=== PATIENT | female | born 1965 | race Caucasian/White ===

== ENCOUNTER 2016-09-25 08:20 | Inpatient (IN) | payer OTHER ==
[~2016-09-25] VITALS: Ht 160 cm; Wt 95.2 kg
[~2016-09-25 08:20] MED LIST: ADULT LOW DOSE81 MG PO; AMLODIPINE BESYL5 MG PO; BACLOFEN20 MG PO; CHANTIX1 MG PO; CLINDAMYCIN HC300 MG PO; DULOXETINE HCL30 MG PO; GABAPENTIN300 MG PO; GABAPENTIN800 MG PO; LISINOPRIL20 MG PO; MACROBID 100 M100 MG PO; METFORMIN HCL1000 MG PO; METOPROLOL SUCC50 MG PO; METOPROLOL TART50 MG PO; NORCO 5-325 TA1 EACH PO; OMEPRAZOLE20 MG PO; SIMVASTATIN20 MG PO; TRAZODONE HCL100 MG PO; TRAZODONE HCL50 MG PO; ULTRAM50 MG PO
[2016-09-25] MEDS ORDERED: METHOCARBAMOL750 MG PO (13:10)
[2016-09-25] MEDS ORDERED: ACID CONTROL150 MG PO (13:11)
[2016-10-02] MEDS ORDERED: OMEPRAZOLE40 MG PO (15:02)
[2016-10-02] MEDS ORDERED: BACTRIM DS TAB1 EACH PO (15:07)
[2016-10-02] MEDS ORDERED: NORCO 7.5-3251 EACH PO (15:09)
[2016-10-02] MEDS ORDERED: GEMFIBROZIL600 MG PO (15:09)
--- NOTE | 2016-10-03 08:28 | OR ---
[facility] [address] [place], [place] [address] Signed DATE OF PROCEDURE: 10/02/16 PREOPERATIVE DIAGNOSIS: End-stage osteoarthritis, right hip. POSTOPERATIVE DIAGNOSIS: End-stage osteoarthritis, right hip. PROCEDURE: Right total hip arthroplasty. SURGEON: Simon Hunt MD. ANESTHESIA: Spinal with sedation. SPECIMEN: There were no specimens. COMPLICATIONS: None. BLOOD LOSS: About 600 mL. PROCEDURE IN DETAIL The patient was taken to the operating room. After anesthesia was induced, the patient was sedated. She was placed in the left lateral decubitus position and stabilized with a hip positioner apparatus. She was then prepped and draped in a routine sterile fashion. A slightly curvilinear straight lateral incision was made, centered over the tip of the greater trochanter. The skin was divided sharply. Hemostasis was achieved with electrocautery and the subcutaneous tissue was bluntly spread. The deep fascia was incised in line with the skin incision and the Charnley self-retaining retractor was placed. The anterior third of the gluteus was elevated off of the anterior aspect of the greater trochanter. It was then allowed to retract medially. We then did an anterior capsulectomy. We could then dislocate the hip with external rotation and flexion. Femoral neck osteotomy was accomplished in line with the guide. The head and neck fragment were then removed. A self-retaining retractor was then placed about the acetabulum and the acetabulum was exposed circumferentially. We then prepared the acetabulum with standard reamers and were happy with the fit and fill of 51 mm reamer. We then impacted the 51 trial corrected for version and declination. We then impacted a 52 mm Gription cup and secured it with 3 screws. We then placed the neutral liner in the cup. The proximal femur was then rotated up into the incision and prepared using the standard box chisel, reamer, and broaches. The patient had an extremely small proximal canal and we had a very secure fit with a size #3. We then reduced the hip and took an x-ray. Although we were quite happy with alignment and position of th e femoral component, the acetabulum clearly had not been adequately medialized. We therefore withdrew all of the trials from the femur. We took the poly liner of the acetabular cup and removed the screws and took the cup out. We then re-reamed all the way down to the Electronically Signed By: SIMON HUNT MD 10/03/16 0828 PATIENT NAME: KIESHA DUNCAN OPERATIVE REPORT DATE OF : 61 PHYSICIAN: SIMON HUNT MD REPORT #: [id number] REPORT IS CONFIDENTIAL AND NOT TO BE RELEASED WITHOUT AUTHORIZATION [facility] [address] [place], [place] [address] Signed medial wall. We reinserted the cup, replaced the screws, and put in the new neutral liner. Repeat x-rays show dramatically improved alignment and position in terms of medialization of the cup. The wound was then gently irrigated. The femur was then rotated back up into the wound. A size 3 trial femoral stem was again impacted. We then trialed the reduction. Alignment and position of the component seemed excellent, although she seemed to have a little medial and lateral play. We therefore re-trialed with a high offset implant and they were much happier with the alignment, position, and stability. We therefore impacted the real femoral component. We trialed a 1.5 and a 5 mm head and we were happier with the stability of the 5 mm head. We therefore put a 5 mm 36 head on the Bhatt taper and reduced the hip. At this point, we had good motion, good stability, and good range of motion. The wound was copiously irrigated and closed in a standard fashion. Sterile dressings were applied and she was awakened and taken to recovery room, where she arrived in stable condition. Counts were correct and antibiotic protocols were followed. MD AMBROSE LaceyB/Yamiletl /[id number] cc: NISHI Cavazos Electronically Signed By: SIMON HUNT MD 10/03/16 0828 PATIENT NAME: IKESHA DUNCAN OPERATIVE REPORT DATE OF : 61 PHYSICIAN: SIMON HUNT MD REPORT #: [id number] REPORT IS CONFIDENTIAL AND NOT TO BE RELEASED WITHOUT AUTHORIZATION
[2016-10-04] MEDS ORDERED: OXYCODONE HCL5 MG PO (10:08)
[2016-10-04] MEDS ORDERED: XARELTO10 MG PO (10:09)
[2016-10-04] MEDS ORDERED: DILAUDID4 MG PO (10:09)
[2016-10-04] MEDS ORDERED: BACTRIM DS TAB1 EACH PO (10:11)
--- NOTE | 2016-10-05 07:08 | DS ---
[facility] [address] [place], [place] [address] Signed DATE OF DISCHARGE: 10/04/16 FINAL DIAGNOSIS AT THE TIME OF DISCHARGE End-stage osteoarthritis, right hip. PROCEDURES: Right total hip arthroplasty. HISTORY OF PRESENT ILLNESS The patient has a long history of osteoarthritis of the right hip. She was no longer getting adequate relief from conservative modalities and presented for total hip arthroplasty. HOSPITAL COURSE The patient was admitted to Day surgery on 10/02/2016. She was admitted to the day surgery unit and when she had been appropriately evaluated, was taken to the operating room where she underwent an uneventful, uncemented right total hip arthroplasty using a Tchula stem and a pinnacle sector cup. Postoperatively, the patient has done extremely well. She has been afebrile. Her vital signs have been stable. Her hemoglobin has hovered around 10 g/dL keesha. She is getting excellent pain control alternating Dilaudid 4 mg and oxycodone 5 mg every several hours. We have had her on Xarelto 10 mg 1 once a day for DVT prophylaxis. Her incisions look clean and dry and neurovascular exam has been unremarkable. PLAN Discharge her home on all of her routine medications as well as the Dilaudid, Oxycodone, and Xarelto. We will arrange for her to have outpatient physical therapy twice a week for the next 4 weeks and we will have her follow up with us in about 6 weeks. I explained to her that her incision was closed with Dermabond and that this will simply peel off. MD SAMANTHA Lacey/Jim / Electronically Signed By: HAROLDO OVIEDO MD 10/05/16 0708 PATIENT NAME: KIESHA DUNCAN DISCHARGE SUMMARY DATE OF : 61 PHYSICIAN: HAROLDO OVIEDO MD REPORT #: [id number] REPORT IS CONFIDENTIAL AND NOT TO BE RELEASED WITHOUT AUTHORIZATION [address] [place], [place] [address] Signed [id number] cc: NISHI Cavazos Electronically Signed By: HAROLDO OVIEDO MD 10/05/16 0708 PATIENT NAME: KIESHA DUNCAN DISCHARGE SUMMARY DATE OF : 61 PHYSICIAN: HAROLDO OVIEDO MD REPORT #: [id number] REPORT IS CONFIDENTIAL AND NOT TO BE RELEASED WITHOUT AUTHORIZATION
== END 2016-10-04 10:35 | disposition home or self-care (01) | DRG 470 ==
LOC: DSVR 10-02 05:35 → MS 10-02 06:45
PROVIDERS: ADMIT Orthopaedic Surgery
PROC: 0SR902Z Replacement of Right Hip Joint with Metal on Polyethylene Synthetic Substitute, Open Approach (ICD-10-PCS; principal; 2016-10-02 06:45)
DX: M16.11 Unilateral primary osteoarthritis, right hip (principal); I10 Essential (primary) hypertension; F31.9 Bipolar disorder, unspecified; G89.29 Other chronic pain; K21.9 Gastro-esophageal reflux disease without esophagitis; E11.9 Type 2 diabetes mellitus without complications; F51.04 Psychophysiologic insomnia; I25.10 Atherosclerotic heart disease of native coronary artery without angina pectoris; I25.2 Old myocardial infarction; F17.210 Nicotine dependence, cigarettes, uncomplicated; E66.01 Morbid (severe) obesity due to excess calories; R33.9 Retention of urine, unspecified; E78.5 Hyperlipidemia, unspecified; Z95.5 Presence of coronary angioplasty implant and graft; Z68.37 Body mass index [BMI] 37.0-37.9, adult; Z79.82 Long term (current) use of aspirin; Z79.84 Long term (current) use of oral hypoglycemic drugs; Z79.891 Long term (current) use of opiate analgesic; Z79.899 Other long term (current) drug therapy; Z88.5 Allergy status to narcotic agent; Z88.0 Allergy status to penicillin; Z88.8 Allergy status to other drugs, medicaments and biological substances
CPT/HCPCS: 01214; 36415; 72170; 73501; 80048; 85025; 94760; 94762; 97110; 97116; 97162; 99406; C1776; J0690; J1100; J1200; J1885; J2250; J2270; J2274; J2405; J2704; J2765; J3010; J3370; J7120

== ENCOUNTER → 2017-06-22 | Emergency (ER) | payer OTHER ==
[~2017-06-22] VITALS: Ht 160 cm; Wt 95.2 kg
[~2017-06-22] MED LIST changes: +ACID CONTROL150 MG PO; +BACTRIM DS TAB1 EACH PO; +DILAUDID4 MG PO; +GEMFIBROZIL600 MG PO; +METHOCARBAMOL750 MG PO; +NORCO 7.5-3251 EACH PO; +OMEPRAZOLE40 MG PO; +OXYCODONE HCL5 MG PO; +XARELTO10 MG PO
--- OUTSIDE RECORDS SUMMARY | ~2017-06-22 | XMS | Clinical Summary ---
Demographics + + + | Address | [address] | | | [place] [address] | + + + | Home Phone | | + + + | Preferred Language | Unknown | + + + | Marital Status | Single | + + + | Sabianist Affiliation | Unknown | + + + | Race | Unknown | + + + | Ethnic Group | Unknown | + + + Author + + + | Author | [facility] | + + + | Organization | [facility] | + + + | Address | Unknown | + + + | Phone | Unavailable | + + + Support + + +---------+ + | Name | Relationship | Address | Phone | + + +---------+ + | Devyn Patino | ECON | Unknown | | + + +---------+ + Care Team Providers + +------+ + | Care Route Jumper Name | Role | Phone | + +------+ + PP | Unavailable | + +------+ + Allergies + + + + + + | Active Allergy | Reactions | Severity | Noted | Comments | | | | | Date | | + + + + + + | Hydromorphone | Swelling | Medium | //20 | Per pt, tolerates | | | | | 15 | morphine. | + + + + + + | Penicillins | Anaphylaxis | High | 10/15/20 | | | | | | 15 | | + + + + + + | Shellfish Allergy | Anaphylaxis | High | 10/15/20 | | | | | | 15 | | + + + + + + Current Medications + + +--------+---------+------+------+-------+ | Prescription | Sig. | Disp. | Refills | Star | End | Statu | | | | | | t | Date | s | | | | | | Date | | | + + +--------+---------+------+------+-------+ | baclofen | Take 20 mg by mouth | | | | | Activ | | (LIORESAL) 20 MG | 3 (three) times | | | | | e | | tablet | daily. | | | | | | + + +--------+---------+------+------+-------+ | metoprolol | Take 50 mg by mouth | | | | | Activ | | (LOPRESSOR) 50 MG | 2 (two) times daily. | | | | | e | | tablet | | | | | | | + + +--------+---------+------+------+-------+ | omeprazole | Take 40 mg by mouth | | | | | Activ | | (PRILOSEC) 40 MG | 2 (two) times daily. | | | | | e | | capsule | | | | | | | + + +--------+---------+------+------+-------+ | aspirin 325 MG | Take 325 mg by mouth | | | | | Activ | | tablet | daily. | | | | | e | + + +--------+---------+------+------+-------+ | gabapentin | Take 1,800 mg by | | | | | Activ | | (NEURONTIN) 300 MG | mouth every evening. | | | | | e | | capsule | | | | | | | + + +--------+---------+------+------+-------+ | simvastatin | Take 1 tablet by | 30 | 0 | 08/2 | | Activ | | (ZOCOR) 80 MG tablet | mouth nightly. | tablet | | 1/20 | | e | | | | | | 15 | | | + + +--------+---------+------+------+-------+ Active Problems + + + | Problem | Noted Date | + + + | Other chest pain | 10/15/2014 | + + + | HTN (hypertension) | 10/15/2014 | + + + | CAD (coronary atherosclerotic disease) | 10/15/2014 | + + + | Obesity, unspecified | 10/15/2014 | + + + | Dyslipidemia | 10/15/2014 | + + + Social History + +-------+ +--------+------+ | Tobacco Use | Types | Packs/Day | Years | Date | | | | | Used | | + +-------+ +--------+------+ | Current Every Day | | 0.5 | | | | Smoker | | | | | + +-------+ +--------+------+ + + | Tobacco Cessation: Counseling Given: Yes | + + + + +---------+ + | Alcohol Use | Drinks/We | oz/Week | Comments | | | ek | | | + + +---------+ + | No | | | | + + +---------+ + + + + | Sex Assigned at | Date Recorded | | | | + + + | Not on file | | + + + Last Filed Vital Signs + + + + | Vital Sign | Reading | Time Taken | + + + + | Blood Pressure | 159/78 | 10/15/2014 7:18 AM PDT | + + + + | Pulse | 68 | 10/15/2014 7:18 AM PDT | + + + + | Temperature | 36.6 C (97.8 F) | 10/15/2014 7:18 AM PDT | + + + + | Respiratory Rate | 18 | 10/15/2014 7:18 AM PDT | + + + + | Oxygen Saturation | 97% | 10/15/2014 7:18 AM PDT | + + + + | Inhaled Oxygen | - | - | | Concentration | | | + + + + | Weight | 93 kg (205 lb) | 10/15/2014 4:35 AM PDT | + + + + | Height | 160 cm (5' 3") | 10/15/2014 4:35 AM PDT | + + + + | Body Mass Index | 36.31 | 10/15/2014 4:35 AM PDT | + + + + Plan of Treatment Not on file Results Not on filefrom Last 3 Months
--- OUTSIDE RECORDS SUMMARY | ~2017-06-22 | XMS | Clinical Summary ---
Demographics + + + | Address | [address] | | | [place] [address] | + + + | Home Phone | | + + + | Preferred Language | Unknown | + + + | Marital Status | | + + + | Advent Affiliation | Unknown | + + + | Race | Unknown | + + + | Ethnic Group | Unknown | + + + Author + + + | Author | [facility] | | | and [place] | + + + | Organization | [facility] | | | and [facility] | + + + | Address | Unknown | + + + | Phone | Unavailable | + + + Support + + +---------+ + | Name | Relationship | Address | Phone | + + +---------+ + | Devyn Patino | ECON | Unknown | | + + +---------+ + Care Team Providers + +------+ + | Care City Plant Supervisor Name | Role | Phone | + +------+ + | Anna De León | PP | Unavailable | + +------+ + Allergies + + + + + + | Active Allergy | Reactions | Severity | Noted | Comments | | | | | Date | | + + + + + + | Aloe Vera | Swelling | High | 04/12/19 | bilat hand swelled | | | | | 17 | | + + + + + + | Bee Venom | Anaphylaxis, | High | 03/01/19 | | | | Shortness Of Breath, | | 16 | | | | Swelling | | | | + + + + + + | Hydromorphone | Swelling, Nausea And | | 03/01/19 | | | | Vomiting | | 16 | | + + + + + + | Lamotrigine | Other (See Comments) | | 04/12/19 | Reaction not | | | | | 17 | specified in outside | | | | | | medical records | + + + + + + | Alorton | Swelling | | 04/12/19 | Convulsions | | | | | 17 | | + + + + + + | Penicillins | Anaphylaxis, | High | 03/01/19 | | | | Swelling | | 16 | | + + + + + + | Shellfish | Anaphylaxis | High | /07/14 | | | | | | 16 | | + + + + + + Current Medications + + +--------+---------+------+------+-------+ | Prescription | Sig. | Disp. | Refills | Star | End | Statu | | | | | | t | Date | s | | | | | | Date | | | + + +--------+---------+------+------+-------+ | amLODIPine | Take 5 mg by mouth | | 0 | 12/0 | | Activ | | (NORVASC) 5 mg | Daily. | | | 11/14 | | e | | tablet | | | | 15 | | | + + +--------+---------+------+------+-------+ | baclofen | Take 20 mg by mouth | | 0 | 12/2 | | Activ | | (LIORESAL) 20 mg | 3 times daily. | | | 9/20 | | e | | tablet | | | | 15 | | | + + +--------+---------+------+------+-------+ | DULoxetine | Take by mouth 2 | | 0 | 12/2 | | Activ | | (CYMBALTA) [address] | times daily. 60mg in | | | 9/20 | | e | | capsule | the AM and 30mg in | | | 15 | | | | | the evening | | | | | | + + +--------+---------+------+------+-------+ | gabapentin | Take 900 mg by mouth | | 0 | 12/0 | | Activ | | (NEURONTIN) 300 mg | 3 times daily. | | | 9/20 | | e | | capsule | | | | 15 | | | + + +--------+---------+------+------+-------+ | lisinopril | Take 20 mg by mouth | | 0 | 12/3 | | Activ | | (PRINIVIL, ZESTRIL) | 2 times daily. | | | 0/20 | | e | | 20 mg tablet | | | | 15 | | | + + +--------+---------+------+------+-------+ | metoprolol | Take 50 mg by mouth | | 0 | 12/0 | | Activ | | succinate | 2 times daily. | | | 920 | | e | | (TOPROL-XL) 50 mg 24 | | | | 15 | | | | hr tablet | | | | | | | + + +--------+---------+------+------+-------+ | omeprazole | Take 20 mg by mouth | | 0 | 12/3 | | Activ | | (PRILOSEC) 20 mg | 2 times daily. | | | 0/20 | | e | | capsule | | | | 15 | | | + + +--------+---------+------+------+-------+ | traZODone | Take 50 mg by mouth | | | | | Activ | | (DESYREL) 50 mg | nightly. | | | | | e | | tablet | | | | | | | + + +--------+---------+------+------+-------+ | simvastatin | Take 20 mg by mouth | | | | | Activ | | (ZOCOR) 20 mg tablet | nightly. | | | | | e | + + +--------+---------+------+------+-------+ | metFORMIN | Take 1,000 mg by | | | | | Activ | | (GLUCOPHAGE) 1000 MG | mouth 2 times daily | | | | | e | | tablet | (with breakfast & | | | | | | | | dinner). | | | | | | + + +--------+---------+------+------+-------+ | aspirin 81 MG EC | Take 1 tablet by | 30 | | 01/0 | | Activ | | tablet | mouth Daily. | tablet | | 6/20 | | e | | | | | | 16 | | | + + +--------+---------+------+------+-------+ | nitroglycerin | Place 1 tablet under | 100 | 0 | 01/0 | | Activ | | (NITROSTAT) 0.4 mg | the tongue every 5 | tablet | | 5/20 | | e | | SL tablet | minutes as needed | | | 16 | | | | | for Chest pain. | | | | | | + + +--------+---------+------+------+-------+ | traZODone | Take 100 mg by mouth | | | | | Activ | | (DESYREL) 100 mg | nightly. | | | | | e | | tablet | | | | | | | + + +--------+---------+------+------+-------+ | gemfibrozil | Take 600 mg by mouth | | | | | Activ | | (LOPID) 600 mg | 2 times daily | | | | | e | | tablet | (before meals). | | | | | | + + +--------+---------+------+------+-------+ | escitalopram | Take 10 mg by mouth | | | | | Activ | | (LEXAPRO) 10 mg | Daily. | | | | | e | | tablet | | | | | | | + + +--------+---------+------+------+-------+ | raNITIdine | Take 150 mg by mouth | | | | | Activ | | (ZANTAC) 150 MG | 2 times daily. | | | | | e | | capsule | | | | | | | + + +--------+---------+------+------+-------+ | varenicline | Take 0.5 mg by mouth | | | | | Activ | | (CHANTIX) 0.5 mg | 2 times daily. | | | | | e | | tablet | | | | | | | + + +--------+---------+------+------+-------+ | methocarbamol | Take 750 mg by mouth | | | | | Activ | | (ROBAXIN) 750 mg | 4 times daily. | | | | | e | | tablet | | | | | | | + + +--------+---------+------+------+-------+ | pregabalin | Take 50 mg by mouth | | | | | Activ | | (LYRICA) 50 MG | 3 times daily. | | | | | e | | capsule | | | | | | | + + +--------+---------+------+------+-------+ | terbinafine | Apply topically 2 | | | | | Activ | | (LAMISIL) 1% cream | times daily. | | | | | e | + + +--------+---------+------+------+-------+ Active Problems + + + | Problem | Noted Date | + + + | Chest pain | 03/01/2015 | + + + + + | Last Assessment & Plan: - Given her two negative troponins, | | reproducible pain with palpation, and normal EKG, suspect this is | | musculoskeletal pain rather than ischemic pain. - However, | | given her history of CAD, her stent with non-use of aspirin, and | | her ongoing smoking, she is at high risk for new or worsening | | ischemia, and have ordered a stress test for further evaluation | + + + + + | Coronary artery disease | 03/01/2015 | + + + + + | Last Assessment & Plan: - OM1 stent placed in January 2013 | | at [facility]- Restart aspirin, continue statin, | | beta-cecil, BP well-controlled currently- Stop smoking | | | |- Stop smoking | + + + + + | Diabetes mellitus (HCC) | 03/01/2015 | + + + + + | Last Assessment & Plan: - Hold metformin, sliding scale while | | she is here. | + + + + + | Hypertension | 03/01/2015 | + + + + + | Last Assessment & Plan: - Continue amlodipine, metoprolol, | | lisinopril | + + +---------+ + | Smoking | 03/01/2015 | +---------+ + + + | Last Assessment & Plan: - Encouraged smoking cessation and | | she plans to try | + + + + + | Hyperlipidemia | 03/01/2015 | + + + + + | Last Assessment & Plan: - Continue statin | + + Family History + + +------+ + | Medical History | Relation | Name | Comments | + + +------+ + | Premature CHD | Father | | | + + +------+ + | Premature CHD | Maternal | | | | | Grandfath | | | | | er | | | + + +------+ + | Diabetes | Mother | | | + + +------+ + | Hypertension | Mother | | | + + +------+ + | Diabetes | Other | | grandmother | + + +------+ + + +------+--------+ + | Relation | Name | Status | Comments | + +------+--------+ + | Father | | | | + +------+--------+ + | Maternal Grandfather | | | | + +------+--------+ + | Mother | | | | + +------+--------+ + | Other | | | | + +------+--------+ + Social History + +-------+ +--------+ + [...] + +---------+ + | No | 0 | 0.0 | | | | Standard | | | | | drinks or | | | | | | | | | | equivalen | | | | | t | | | + + +---------+ + + + + | Sex Assigned at | Date Recorded | | | | + + + | Not on file | | + + + Last Filed Vital Signs + + + + | Vital Sign | Reading | Time Taken | + + + + | Blood Pressure | 107/62 | 03/01/20151147 PST | + + + + | Pulse | 67 | 03/01/20151147 PST | + + + + | Temperature | 36 C (96.8 F) | 03/01/20151147 PST | + + + + | Respiratory Rate | 18 | 03/01/20151147 PST | + + + + | Oxygen Saturation | 94% | 03/01/2015 1148 PST | + + + + | Inhaled Oxygen | - | - | | Concentration | | | + + + + | Weight | 94.3 kg (208 lb) | 03/01/2015551 PST | + + + + | Height | 160 cm (5' 3") | 03/01/2015542 PST | + + + + | Body Mass Index | 36.85 | 03/01/2015551 PST | + + + + Plan of Treatment + + + + + | Health Maintenance | Due Date | Last Done | Comments | + + + + + | Hepatitis C | | | | | Screening | 4 | | | + + + + + | Diabetic Eye Exam | | | | | (Bi-Annually) | 2 | | | + + + + + | Diabetic Foot Exam | | | | | | 2 | | | + + + + + | Hemoglobin A1c Q3 | | | | | Months | 2 | | | + + + + + | Vaccine: | | | | | Dtap/Tdap/Td (1 - | 3 | | | | Tdap) | | | | + + + + + | Vaccine: | | | | | Pneumococcal 19-64 | 3 | | | | (PPSV23 only) Medium | | | | | Risk (1 of 1 - | | | | | PPSV23) | | | | + + + + + | BREAST CANCER | | | | | SCREENING (MAMM Q2 | 4 | | | | YEARS 50-74) | | | | + + + + + | COLON CANCER | | | | | SCREENING | 4 | | | | (COLONOSCOPY EVERY | | | | | 10 YEARS 50-75) | | | | + + + + + | Statin Therapy | | | | | (optimal intensity) | 5 | | | + + + + + | Vaccine: Influenza | | | | | (Season Ended) | 8 | | | + + + + + Results Not on filefrom Last 3 Months Insurance + +--------+ +--------+ +---------+ | Payer | Benefi | Subscriber | Type | Phone | Address | | | t Plan | ID | | | | | | / | | | | | | | Group | | | | | + +--------+ +--------+ +---------+ | [employer] | MODA | xxxxxxxx | Medica | [phone] | | | MEDICAID HMO | HEALTH | | id | [phone] | | | | MDCD | | | | | | | [place]MO [place] | | | | | + +--------+ +--------+ +---------+ + +--------+ +--------+ + + | Guarantor Name | Accoun | Relation to | Date | Phone | Billing Address | | | t Type | Patient | of | | | | | | | | | | + +--------+ +--------+ + + | ESHA POLLACK | Person | Self [birth year] | Home: | [address] | | | al/Fam | | 1966 | [phone] | [place] [address] | | | zarina | | | [phone] | | + +--------+ +--------+ + +
--- OUTSIDE RECORDS SUMMARY | ~2017-06-22 | XMS | Clinical Summary ---
Demographics + + + | Address | [address] | | | [place] [address] | + + + | Home Phone | | + + + | Preferred Language | Unknown | + + + | Marital Status | Single | + + + | Worship Affiliation | Unknown | + + + | Race | Unknown | + + + | Ethnic Group | Unknown | + + + Author + + + | Author | [facility] | + + + | Organization | [facility] | + + + | Address | Unknown | + + + | Phone | Unavailable | + + + Support + + +---------+ + | Name | Relationship | Address | Phone | + + +---------+ + | Devyn Patino | ECON | Unknown | | + + +---------+ + Care Team Providers + +------+ + | Care Plumbing Service Technician Name | Role | Phone | + [...]
--- OUTSIDE RECORDS SUMMARY | ~2017-06-22 | XMS | Clinical Summary ---
Demographics + + + | Address | [address] | | | [place] [address] | + + + | Home Phone | | + + + | Preferred Language | Unknown | + + + | Marital Status | | + + + | Jehovah'S Witness Affiliation | Unknown | + + + | Race | Unknown | + + + | Ethnic Group | Unknown | + + + Author + + + | Author | [facility] | | | and [place] | + + + | Organization | [facility] | | | and [place] | [...] Team Providers + +------+ + | Care Lawn Care Technician Name | Role | Phone | [...] + + + + + + | Caroleen | Swelling | | 04/12/19 | Convulsions [...] placed in January 2013 | | at [facility]- Restart aspirin, continue statin, | | beta-cecil, [...] | MOD[employer] | xxxxxxxx | Medica | [phone] | | | MEDICAID HMO | HEALTH [...] | 1966 | [phone] | [place] [address] | | | zarina | | | [phone] | | + +--------+ +--------+ + +
--- NOTE | 2017-06-22 21:00 | EKG ---
[facility] [address] [facility] [place], [place] [address] Signed Normal sinus rhythm Normal ECG When compared with ECG of 25-SEP-2016 13:10, No significant change was found Confirmed by EDER CARR MD ([id number]) on 06/22/2017 8:59:58 PM Electronically Signed By: EDER CARR MD 06/22/17 2100 PATIENT NAME: KIESHA DUNCAN Electrocardiogram DATE OF : 61 PHYSICIAN: EDER CARR MD REPORT #: [id number] REPORT IS CONFIDENTIAL AND NOT TO BE RELEASED WITHOUT AUTHORIZATION
== END | disposition home or self-care (01) ==
LOC: ED 18:19
DX: R07.89 Other chest pain (principal); E11.9 Type 2 diabetes mellitus without complications; I10 Essential (primary) hypertension; I25.2 Old myocardial infarction; F17.200 Nicotine dependence, unspecified, uncomplicated; Z91.038 Other insect allergy status; Z88.0 Allergy status to penicillin; Z91.013 Allergy to seafood; Z91.030 Bee allergy status; Z88.8 Allergy status to other drugs, medicaments and biological substances; Z88.5 Allergy status to narcotic agent; Z79.899 Other long term (current) drug therapy; Z79.84 Long term (current) use of oral hypoglycemic drugs
CPT/HCPCS: 71046; 80053; 84484; 85025; 93005; 93010; 99284

== ENCOUNTER 2018-08-28 10:12 | Emergency (ER) | payer OTHER ==
[~2018-08-28] VITALS: Ht 160 cm; Wt 95.2 kg
[~2018-08-28 10:12] MED LIST changes: +RANITIDINE HCL150 MG PO
--- OUTSIDE RECORDS SUMMARY | 2018-08-28 10:16 | XMS ---
PreManage Notification: KIESHA DUNCAN Security Emergency Service Restorer Events No recent Security Events currently on file CRITERIA MET - PDM CARE PROVIDERS [place] Primary Care Current PHONE: Unknown Brian Minor MD Primary [facility] Current B PHONE: Unknown Taryn has no Care Guidelines for this patient. Rosa VISIT COUNT (12 MO.) 2 NAVEEN Diallo TOTAL 2 NOTE: Visits indicate total known visits. ED/UCC VISIT TRACKING (12 MO.) 08/28/2018 10:13 N[facility]EN [facility] [place] TYPE: Emergency COMPLAINT: - RIGHT MIDDLE FINGER LAC 12/05/2017 11:30 N[facility] [place] TYPE: Emergency COMPLAINT: - CHEST PAIN/SOB DIAGNOSES: - Other penitentiary (current) drug therapy - Old myocardial infarction - Nicotine dependence, unspecified, uncomplicated - Hypoxemia - Chest pain, unspecified - alf (current) use of aspirin - Essential (primary) hypertension - alf (current) use of oral hypoglycemic drugs INPATIENT VISIT TRACKING (12 MO.) [facility] DIAGNOSES: - Type 2 diabetes mellitus without complications - Atherosclerotic heart disease of [place] coronary artery without angina pectoris - Chest pain, unspecified - Nicotine dependence, unspecified, uncomplicated - Acute respiratory failure with hypoxia - Chest Pain with shortness of breath - Acute kidney failure, unspecified [id number]
[2018-08-28] MEDS ORDERED: ZOFRAN4 MG PO (12:58)
[2018-08-28] MEDS ORDERED: OXYCODONE HCL5 MG PO (12:58)
== END 2018-08-28 13:19 | disposition home or self-care (01) ==
LOC: ED 10:12
PROC: 0XQQXZZ Repair Right Middle Finger, External Approach (ICD-10-PCS; principal; 2018-08-28)
DX: S61.212A Laceration without foreign body of right middle finger without damage to nail, initial encounter (principal); I10 Essential (primary) hypertension; E11.9 Type 2 diabetes mellitus without complications; F17.200 Nicotine dependence, unspecified, uncomplicated; Z95.5 Presence of coronary angioplasty implant and graft; Z90.49 Acquired absence of other specified parts of digestive tract; Z90.710 Acquired absence of both cervix and uterus; Z88.0 Allergy status to penicillin; Z91.030 Bee allergy status; Z88.5 Allergy status to narcotic agent; Z88.8 Allergy status to other drugs, medicaments and biological substances; Z91.013 Allergy to seafood; Z79.899 Other long term (current) drug therapy; W45.8XXA Other foreign body or object entering through skin, initial encounter
CPT/HCPCS: 12001; 90471; 90715; 99282-25; 99406

== ENCOUNTER 2019-08-20 13:26 | Emergency (ER) | payer OTHER ==
[~2019-08-20] VITALS: Ht 160 cm; Wt 93.0 kg
--- OUTSIDE RECORDS SUMMARY | ~2019-08-20 | XMS | Encounter Summary ---
Demographics + + + | Address | [address] | | | [place] [address] | + + + | Home Phone | | + + + | Preferred Language | Unknown | + + + | Marital Status | | + + + | Jew Affiliation | Unknown | + + + | Race | Unknown | + + + | Ethnic Group | Unknown | + + + Author + + + | Author | [facility] | | | and [place] | + + + | Organization | [facility] | | | and [place] | + + + | Address | Unknown | + + + | Phone | Unavailable | + + + Support + + +---------+ + | Name | Relationship | Address | Phone | + + +---------+ + | Devyn Patino | ECON | Unknown | | + + +---------+ + Care Team Providers + +------+ + | Care Water Well Driller Name | Role | Phone | + +------+ + | Anna De León | PCP | | + +------+ + Encounter Details +--------+ + + + + | Date | Type | Department | Care Team | Description | +--------+ + + + + | 04/12/ | Abstract | [facility] | Bryson Samuel, | | | 2016 | | PHYSIATRY [address] | MD [address] | | | | | [address] | [place] | | | | | [place] | [id number] | | | | | [address] | | | | | | [phone] | | | +--------+ + + + + Social History + +-------+ +--------+ + | Tobacco Use | Types | Packs/Day | Years | Date | | | | | Used | | + +-------+ +--------+ + | Current Every Day | | 1 | | Started: 03/01/1977 | | Smoker | | | | | + +-------+ +--------+ + + + +---------+ + | Alcohol Use | Drinks/Week | oz/Week | Comments | + + +---------+ + | No | 0 Standard drinks | 0.0 | | | | or equivalent | | | + + +---------+ + + + + | Sex Assigned at | Date Recorded | | | | + + + | Not on file | | + + + documented as of this encounter Plan of Treatment Not on filedocumented as of this encounter Visit Diagnoses Not on filedocumented in this encounter"
--- OUTSIDE RECORDS SUMMARY | ~2019-08-20 | XMS | Encounter Summary ---
Demographics + + + | Address | [address] | | | [place] [address] | + + + | Home Phone | | + + + | Preferred Language | Unknown | + + + | Marital Status | | + + + | Quaker Affiliation | Unknown | + + + | Race | Unknown | + + + | Ethnic Group | Unknown | + + + Author + + + | Author | [facility] | | | and [place] | + + + | Organization | [facility] | | | and [...] Team Providers + +------+ + | Care Curator Of Education Name | Role | Phone | + +------+ + | Pcp, Prov Inactive | PCP | | + +------+ + Encounter Details +--------+ + + + + | Date | Type | Department | Care Team | Description | +--------+ + + + + | 12/09/ | Imaging | [facility] | Provider, | | | 2018 | Exam | [facility] | [address] | | | | | [address] | [place] | | | | | [address] [address] | [place] [address] | | | | | [place] [address] | | | | | | [phone] | | | +--------+ + + + [...] Not on filedocumented as of this encounter Procedures + +--------+ + + + | Procedure Name | Priori | Date/Time | Associated Diagnosis | Comments | | | ty | | | | + +--------+ + + + | XR CHEST 1 VIEW | Routin | 12/05/2017 | | Results for this | | | e | 12:00 PM | | procedure are in the | | | | PDT | | results section. | + +--------+ + + + documented in this encounter Results XR Chest 1 Vw (12/05/2017 12:00 PM PDT) + + | Specimen | + + | | + + + + + | Narrative | Performed At | + + + | External films for comparison only | [facility] | | | | | No results will be in the chart. | | + + + + +---------+ + + | Performing | Address | City/State/Zipcode | Phone Number | | Organization | | | | + +---------+ + + | [facility] | | | | + +---------+ + + documented in this encounter Visit Diagnoses Not on filedocumented in this encounter"
--- OUTSIDE RECORDS SUMMARY | ~2019-08-20 | XMS | Encounter Summary ---
Demographics + + + | Address | [address] | | | [place] [address] | + + + | Home Phone | | + + + | Preferred Language | Unknown | + + + | Marital Status | | + + + | Buddhist Affiliation | Unknown | + + + | Race | Unknown | + + + | Ethnic Group | Unknown | + + + Author + + + | Author | [facility] | | | and [place] | + + + | Organization | [facility] | | | [...] Team Providers + +------+ + | Care Director Of Alumni Relations Name | Role | Phone | + +------+ + | Pcp, Prov Inactive | PCP | | + +------+ + Reason for Referral Service/Procedure (Routine) +--------+--------+ + + + + | Status | Reason | Specialty | Diagnoses / | Referred By | Referred To | | | | | Procedures | Contact | Contact | +--------+--------+ + + + + | Closed | | DME | Diagnoses | Esparza, | | | | | | Acute | Joseph H, | | | | | | respiratory | MD [address] | | | | | | failure with | [address] | | | | | | hypoxia | [place], | | | | | | ([facility]) | [place] | | | | | | Smoking | [address] | | | | | | Procedures | Phone: | | | | | | DME: Oxygen | [phone] | | | | | | Therapy | Fax: | | | | | | | [phone] | | +--------+--------+ + + + + Reason for Visit Auth/Cert +--------+--------+ + + + + | Status | Reason | Specialty | Diagnoses / | Referred By | Referred To | | | | | Procedures | Contact | Contact | +--------+--------+ + + + + | | | | Diagnoses | | | | | | | Chest Pain | | | | | | | with | | | | | | | shortness of | | | | | | | breath | | | +--------+--------+ + + + + Encounter Details +--------+ + + + + | Date | Type | Department | Care Team | Description | +--------+ + + + + | 12/05/ | Hospital | [facility] | Jagdish De León | Smoking (Primary | | 2018 - | Encounter | [facility] | DO Enrique [address] | Dx); Chest pain, | | | | [address] [place] | [address] [place] | unspecified type; | | 12/09/ | | [place] [address] | [place] [address] | Coronary artery | | 2018 | | [phone] | [phone] | disease involving | | | | | | upper [place] heart, angina | | | | | | presence | | | | | | unspecified, | | | | | | unspecified vessel | | | | | | or lesion type; Type | | | | | | 2 diabetes mellitus | | | | | | without | | | | | | complication, | | | | | | without long-term | | | | | | current use of | | | | | | insulin ([facility]); Acute | | | | | | respiratory failure | | | | | | with hypoxia (HCC); | | | | | | Acute kidney injury | | | | | | (HCC) | +--------+ + + + + Social [...] + + documented as of this encounter Last Filed Vital Signs + + + + + | Vital Sign | Reading | Time Taken | Comments | + + + + + | Blood Pressure | 149/84 | 12/09/2017 8:04 AM | | | | | PDT | | + + + + + | Pulse | 78 | 12/09/2017 12:28 PM | | | | | PDT | | + + + + + | Temperature | 36.1 C (97 F) | 12/09/2017 8:04 AM | | | | | PDT | | + + + + + | Respiratory Rate | 18 | 12/09/2017 12:28 PM | | | | | PDT | | + + + + + | Oxygen Saturation | 93% | 12/09/2017 12:28 PM | Sitting in chair, | | | | PDT | denies distress. | + + + + + | Inhaled Oxygen | - | - | | | Concentration | | | | + + + + + | Weight | 98.8 kg (217 lb 13 | 12/05/2017 9:40 PM | | | | oz) | PDT | | + + + + + | Height | 160 cm (5' 3") | 12/05/2017 9:40 PM | | | | | PDT | | + + + + + | Body Mass Index | 38.58 | 12/05/2017 9:40 PM | | | | | PDT | | + + + + + documented in this encounter Discharge Summaries Joseph Esparza MD - 12/09/2017 1:10 PM PDTFormatting of this note might be different f rom the original. DISCHARGE SUMMARY Patient Name: Esha Pollack : 1965 Date of Admission: 12/05/2017 Date of Discharge: 12/09/17 Admitting Physician: Jagdish De León DO Discharging Physician: Joseph Esparza MD Primary Care Provider: Prov Inactive Pcp Discharge Diagnoses: Principal Problem: Acute respiratory failure with hypoxia Active Problems: Chest pain Coronary artery disease Diabetes mellitus Smoking Hyperlipidemia Acute kidney injury Hypertension Resolved Problems: * No resolved hospital problems. * Patient Active Problem List Diagnosis Chest pain Coronary artery disease Diabetes mellitus Hypertension Smoking Hyperlipidemia Acute respiratory failure with hypoxia Acute kidney injury Consultants: None Procedures: 12/06 CXR: FINDINGS: The cardiomediastinal silhouette is grossly unremarkable. Progressive patchy opacity is present throughout both lungs. No pneumothorax or pleural effusion is visible. Bones and soft tissues are unremarkable. IMPRESSION - 1. PROGRESSIVE PATCHY OPACITY WITHIN BOTH LUNGS, WHICH COULD REFLECT DIFFUSE LUNG INJURY OR OTHER WIDESPREAD INFECTIOUS OR INFLAMMATORY PROCESS. 12/06 DVT U/S bilaterally: FINDINGS: The bilateral common femoral, greater saphenous, profunda femoral, superficial femoral, and popliteal veins demonstrate normal flow, augmentation, and compression. IMPRESSION - No evidence for DVT. Ct Angiogram Pulmonary Result Date: 12/08/2017 CT ANGIOGRAM PULMONARY CLINICAL INFORMATION: Acute respiratory failure with hypoxia. Evalu ate for PE or pneumonia. COMPARISON: XR CHEST AP PORTABLE dated 12/07/2017; XR CHEST AP PORT ABLE dated 12/06/2017; CT Chest dated 12/05/2017 PROCEDURE: Thin-section images of the entir e chest after the administration of 80 omnipaque 350 intravenous contrast. 3D MIP thin slab images and 2D multiplanar reconstructions performed. At least one of the following CT dose o ptimization techniques were used: Automated exposure control; Adjustment of mA and/or kV acc ording to patient size; Use of iterative reconstruction technique. FINDINGS: PULMONARY ARTER IES: No filling defects in the main, lobar or segmental pulmonary arteries. RIGHT VENTRICLE TO LEFT VENTRICLE RATIO: Not applicable. (Maximum short axis diameter on axial image. Applic able only when pulmonary embolism present. Abnormal greater than or equal to 0.9.) CHEST Kee gs, Pleura and Airways: There are geographic of ground-glass opacity throughout both lungs w ith some small ill-defined areas of consolidation. Mild interstitial septal thickening, mos t prominent posteriorly. No airway narrowing or obstruction. No pleural effusion or pneumot horax. Mediastinum: No significant pericardial, great vessel or esophageal abnormality. No m ediastinal mass. Lymph Nodes: No adenopathy. Upper Abdomen: No significant abnormality in th e visualized upper abdomen. BODY WALL Soft Tissues: The soft tissues of the chest wall are u nremarkable. Bones: No acute fracture or vertebral end plate destruction. No lytic or blasti c lesion. IMPRESSION- No evidence of pulmonary embolism. Severe and extensive groundglass op acities and patchy areas of consolidation in both lungs with a somewhat of a mosaic attenuat ion pattern. -Findings are nonspecific and could be due to pulmonary edema and/or an infecti ous or inflammatory etiology. Mild enlargement of the main pulmonary arteries. Hepatic steat osis. A preliminary report was sent without significant discrepancy. Dictated and Signed by: Song Padilla MD Electronically signed: 12/08/2017 8:34 AM Labs in the last 24 hours: Recent Results (from the past 24 hour(s)) POC Glucose Result Value Ref Range Glucose, POC 218 (H) 70 - 109 mg/dL POC Glucose Result Value Ref Range Glucose, POC 173 (H) 70 - 109 mg/dL Basic Metabolic Panel Result Value Ref Range NA 139 136 - 149 mmol/L K 3.4 (L) 3.5 - 5.1 mmol/L CL 104 98 - 109 mmol/L CO2 24 24 - 31 mmol/L ANION GAP 11 3 - 16 mmol/L GLUCOSE 131 (H) 70 - 109 mg/dL BUN 21 (H) 7 - 18 mg/dL Creatinine, Serum/Plasma 0.98 0.60 - 1.30 mg/dL eGFR if not 59 (L) >=60 mL/min/1.73m2 CALCIUM 9.1 8.3 - 10.5 mg/dL BUN/CREA 21.4 CBC with Differential Result Value Ref Range WBC 12.7 (H) 4.0 - 11.0 K/uL RBC 3.67 (L) 3.70 - 5.20 M/uL Hgb 10.9 (L) 11.5 - 16.0 g/dL Hct 34.1 34.0 - 47.0 % MCV 92.9 83.0 - 101.0 fL MCH 29.7 28.0 - 35.0 pg MCHC 32.0 32.0 - 36.0 g/dL RDW-CV 15.6 (H) <15.0 % RDW-SD 53.9 (H) 35.1 - 46.3 fL Platelet Count 249 140 - 440 K/uL MPV 10.3 6.5 - 12.4 fL % Neutrophils 59.8 45.0 - 82.0 % % Lymphocytes 21.9 20.0 - 45.0 % % Monocytes 6.1 4.0 - 12.0 % % Eosinophils 0.9 0.0 - 5.0 % % Basophils 0.5 0.0 - 1.0 % % Immature granulocytes 10.8 (H) 0.0 - 0.4 % Absolute Neutrophils 7.61 1.80 - 8.50 K/uL Absolute Lymphocytes 2.79 0.60 - 3.20 K/uL Absolute Monocytes 0.78 0.00 - 1.00 K/uL Absolute Eosinophils 0.11 0.00 - 0.40 K/uL Absolute Basophils 0.07 0.00 - 0.10 K/uL Absolute Imm. Granulocytes 1.38 (H) 0.00 - 0.03 K/uL nRBC 1 0 - 2 per 100 WBC's NRBC ABS 0.07 (H) 0.00 - 0.01 K/uL POC Glucose Result Value Ref Range Glucose, POC 236 (H) 70 - 109 mg/dL Reason for Admission: Please refer to the H&P for full details. In short, this is a 52 y.o. female with a histor y of smoking, CAD with stent, who presented with progressively worsening shortness of breath , weakness, and exercise tolerance to [facility], found to have acute respiratory failure with hypoxia, JOELLEN, and slight elevation in troponin, and transferred to [facility]. Problem-Oriented Hospital Course: Acute on chronic respiratory failure with hypoxia: - Heavy smoker, presented with progressive dyspnea over few days prior to admissionwith d ecreased exercise tolerance - CXR shows diffuse patchy opacities, possibly consistent with pneumonia/inflammation, CT a lso shows diffuse nonspecific inflammation - Wasn't able to give sputum sample - She was started on daily IV levofloxacin (anaphylaxis to penicillin), addedSolumedrol f or possible COPD exacerbation - Chest CT showed no PE, DVT study showed no DVT - Procalcitonin on arrival was 2.52, fell to 0.41 by discharge - Echo shows pulmonary hypertension, a new finding since 2016 - Initially required high-flow oxygen, but her oxygen needs quickly declined to 5 L by the next day, and by 12/10, her oxygen saturation was 93% on room air, although her oxygen satur ation fell to 84% with walking, and she was discharged on oxygen with exertion - She felt much better by 12/10, and was discharged with 3 more days of prednisone and levo floxacin - She was strongly advised to quit smoking, but declined nicotine patch because she stated they fall off her skin Chest pain/type 2 NSTEMI: -Likely due to pneumonia/acute respiratory failure -Troponin peaked at0.18, suspect acute respiratory failure with hypoxia caused this probl em - Echocardiogram showed normal LVSF, but new pulmonary hypertension, likely secondary to re spiratory problems - Aspirin daily Acute kidney injury: - Suspect prerenal injury due to hypoxia/NSAID's - Creatinine quickly improved from 1.7 to 0.97, resolved HTN -held medsin setting of initial hypotension, restarted amlodipine 12/07 T2DM -holding home metformin -SSI while inpatient Hypertriglyceridemia -continue home gemfibrozil Urinary retention -s/p failed bladder sling -She straight caths Tobacco abuse -patch available prn Code Status: Full Code Disposition: Home Discharge Condition: Alert, oriented, appropriate Heart RRR, no m/r/g Lungs adequate air movement, scattered rhonchi, no respiratory distress, significant improv ement since admission Abd soft, NT Ext WWP Follow-up Information Prov Inactive Pcp. Contact information: [phone] Discharge Medications New Medications Details albuterol 90 mcg/puff inhaler Inhale 2 puffs into the lungs every 4 hours as needed for Wheezing or Shortness of Breath. amLODIPine 5 mg tablet Take 1 tablet by mouth Daily. aka: NORVASC levoFLOXacin 750 MG tablet Take 1 tablet by mouth Daily for 3 days. aka: LEVAQUIN predniSONE 20 mg tablet Take 2 tablets by mouth Daily for 3 days. aka: DELTASONE Unchanged Medications Details aspirin 81 MG EC tablet Take 1 tablet by mouth Daily. cyclobenzaprine 10 mg tablet Take 10 mg by mouth 3 times daily as needed for Muscle spasms. aka: FLEXERIL gabapentin 300 mg capsule Take 900 mg by mouth 3 times daily. aka: NEURONTIN gemfibrozil 600 mg tablet Take 600 mg by mouth 2 times daily (before meals). aka: LOPID metFORMIN 1000 MG tablet Take 1,000 mg by mouth 2 times daily (with breakfast & dinner). aka: GLUCOPHAGE metoprolol succinate 50 mg 24 hr tablet Take 50 mg by mouth 2 times daily. aka: TOPROL-XL nitroglycerin 0.[address] 1 tablet under the tongue every 5 minutes as needed for Chest pain. aka: NITROSTAT omeprazole 20 mg capsule Take 20 mg by mouth 2 times daily. aka: priLOSEC raNITIdine 150 MG capsule Take 150 mg by mouth 2 times daily. aka: ZANTAC traZODone 100 mg tablet Take 100 mg by mouth nightly. aka: DESYREL Studies With Pending Results: None Greater than 30 minutes were spent on discharge and coordination of post-hospital care. Electronically signed by: Joseph Esparza MD, 12/09/2017 13:10 [facility] documented in this encounter Discharge Instructions Instructions Joseph Esparza MD - 12/09/2017You were admitted with acute respiratory rachel lure with low oxygen, thought to be from a pneumonia. Your oxygen level was so low that it put stress on your heart and kidneys. You have improved greatly, but still oxygen when you are walking, and this has been ordered. You need 3 more days of the antibiotic levofloxacin, and 3 more days of prednisone for lung inflammation. You need to follow up with your doctor as soon as possible, to make sure you continue to improve. The most important thing you can do for your health both short-term a nd long-term, is to quit smoking. You will need a follow up chest xray in the next 2 weeks or so to make sure your pneumonia has cleared. Please take amlodipine for high blood pressure. Take only 1-2 pills of gabapentin at a opal e instead of 3 for now. documented in this encounter Medications at Time of Discharge + + + +---------+ + + | Medication | Sig | Dispensed | Refills | Start | End Date | | | | | | Date | | + + + +---------+ + + | albuterol 90 | Inhale 2 puffs into | 1 | 0 | 12/10/19 | | | mcg/puff inhaler | the lungs every 4 | Inhaler | | 18 | | | | hours as needed for | | | | | | | Wheezing or | | | | | | | Shortness of Breath. | | | | | + + + +---------+ + + | amLODIPine | Take 1 tablet by | 30 | 1 | 12/11/19 | | | (NORVASC) 5 mg | mouth Daily. | tablet | | 18 | | | tablet | | | | | | + + + +---------+ + + | aspirin 81 MG EC | Take 1 tablet by | 30 | 0 | 03/02/19 | | | tablet | mouth Daily. | tablet | | 16 | | + + + +---------+ + + | cyclobenzaprine | Take 10 mg by mouth | | 0 | | | | (FLEXERIL) 10 mg | 3 times daily as | | | | | | tablet | needed for Muscle | | | | | | | spasms. | | | | | + + + +---------+ + + | gabapentin | Take 900 mg by mouth | | 0 | 02/03/20 | | | (NEURONTIN) 300 mg | 3 times daily. | | | 15 | | | capsule | | | | | | + + + +---------+ + + | gemfibrozil | Take 600 mg by mouth | | 0 | | | | (LOPID) 600 mg | 2 times daily | | | | | | tablet | (before meals). | | | | | + + + +---------+ + + | metFORMIN | Take 1,000 mg by | | 0 | | | | (GLUCOPHAGE) 1000 MG | mouth 2 times daily | | | | | | tablet | (with breakfast & | | | | | | | dinner). | | | | | + + + +---------+ + + | metoprolol | Take 50 mg by mouth | | 0 | 02/03/20 | | | succinate | 2 times daily. | | | 15 | | | (TOPROL-XL) 50 mg 24 | | | | | | | hr tablet | | | | | | + + + +---------+ + + | nitroglycerin | Place 1 tablet under | 100 | 0 | 03/01/19 | | | (NITROSTAT) 0.4 mg | the tongue every 5 | tablet | | 16 | | | SL tablet | minutes as needed | | | | | | | for Chest pain. | | | | | + + + +---------+ + + | omeprazole | Take 20 mg by mouth | | 0 | 02/24/20 | | | (PRILOSEC) 20 mg | 2 times daily. | | | 15 | | | capsule | | | | | | + + + +---------+ + + | raNITIdine | Take 150 mg by mouth | | 0 | | | | (ZANTAC) 150 MG | 2 times daily. | | | | | | capsule | | | | | | + + + +---------+ + + | traZODone | Take 100 mg by mouth | | 0 | | | | (DESYREL) 100 mg | nightly. | | | | | | tablet | | | | | | + + + +---------+ + + | levoFLOXacin | Take 1 tablet by | 3 | 0 | 12/10/19 | | | (LEVAQUIN) 750 MG | mouth Daily for 3 | tablet | | 18 | 8 | | tablet | days. | | | | | + + + +---------+ + + | predniSONE | Take 2 tablets by | 6 | 0 | 12/11/19 | | | (DELTASONE) 20 mg | mouth Daily for 3 | tablet | | 18 | 8 | | tablet | days. | | | | | + + + +---------+ + + documented as of this encounter Progress Notes Joseph Esparza MD - 12/09/2017 1:10 PM PDTTo Whom It May Concern: Ms. Esha Pollack was admitted to [facility] between 12/05 and 12/09 with a significant medical problem. She will need to be off work until Saturday, 12/16 in order to recover. Joseph Esparza MD Phyllis Pritchard RRT - 12/09/2017 12:44 PM PDT Esha SpO2 on room air 93% with pulse of 78 at rest, sitting in chair. After walking appr oximately 80 feet, SpO2 dropped to 84% at which point patient stopped, she was reluctant to use oxygen and wanted to continue to walk on room air with no change in SpO2 after an additi onal approximate 40 feet at which point Esha allowed cannula to be applied at 2 liters. C ontinued walking an additional 100 feet on 2 liters oxygen, SpO2 remained at 90%. Recovery to baseline in 2 minutes. 12/09/17 1240 Oxygen Therapy O2 Device room air Home O2 eval performed? yes Resting on RA (%) 93 Exercising on RA (%) 84 (After walking approximately 80 feet.) Resting on O2 (%)(add L/Min in comment) 94 (2 liters per cannula) Exercising on O2 (%)(add L/Min in comment) 90 (2 liters per cannula.) Home Oxygen Interventions ~ Home Oxygen Discharge Planning ~ Performed Electronically signed by: Phyllis Felder RRT 12/09/2017 12:48 Nedra Holland RN - 12/08/2017 5:34 PM PDTAttempted to obtain flu swab, pt educated on procedure before s tarting. Upon attempt of entering swab into nasal cavity, pt became aggressive toward staff, using profanity. Flu swab refused, not obtained. leming, Nedra Gar RN - 12/08/2017 11:30 AM PDTPt arrive d to Rm 431 in stable condition. Denies pain, chest pain, SOB. HRR. Lungs cl, coarse bases. Placed on Droplet to r/o influenza. Electronically signed by Nedra Alford RN at 11/25 1:09 PM Joseph Davila MD - 12/08/2017 8:10 AM PDTFormatting of this note mi ght be different from the original. [facility] Hospitalist Progress Note Esha Pollack is a 52 y.o. female SUBJECTIVE: No chest pain. Slept fairly well last night. Still coughing, not coughing up much. Goo d appetite, but doesn't like the food. VITALS: Temp: 36.6 C (97.9 F), Pulse: 79, Resp: 25, BP: 155/78, SpO2 94 % on heated, high-flow nasal cannula Temp Min: 36.1 C (97 F) Max: 36.9 C (98.4 F) Weight: 98.8 kg (217 lb 13 oz) Intake/Output Summary (Last 24 hours) at 12/08/17 0810 Last data filed at 12/08/17 0100 Gross per 24 hour Intake 150 ml Output 1200 ml Net -1050 ml PHYSICAL EXAM: General: Alert, no distress, sitting up Cardiovascular: RRR, no m/r/g Respiratory: Still diminished BS but better than yesterday, less rhonchi, mild tachypnea, but no respiratory distress Abdomen: Soft, NT Extremities: WWP, minimal edema Thomas catheter present: No DIAGNOSTIC STUDIES: Available data and images were reviewed personally. Significant results and findings are a ddressed here or in the Assessment and Plan. Recent Results (from the past 24 hour(s)) POC Glucose Result Value Ref Range Glucose, POC 181 (H) 70 - 109 mg/dL POC Glucose Result Value Ref Range Glucose, POC 219 (H) 70 - 109 mg/dL Basic Metabolic Panel Result Value Ref Range NA 139 136 - 149 mmol/L K 3.7 3.5 - 5.1 mmol/L CL 106 98 - 109 mmol/L CO2 24 24 - 31 mmol/L ANION GAP 9 3 - 16 mmol/L GLUCOSE 158 (H) 70 - 109 mg/dL BUN 19 (H) 7 - 18 mg/dL Creatinine, Serum/Plasma 0.98 0.60 - 1.30 mg/dL eGFR if not 59 (L) >=60 mL/min/1.73m2 CALCIUM 9.2 8.3 - 10.5 mg/dL BUN/CREA 19.4 CBC with Differential Result Value Ref Range WBC 17.9 (H) 4.0 - 11.0 K/uL RBC 3.74 3.70 - 5.20 M/uL Hgb 11.2 (L) 11.5 - 16.0 g/dL Hct 35.0 34.0 - 47.0 % MCV 93.6 83.0 - 101.0 fL MCH 29.9 28.0 - 35.0 pg MCHC 32.0 32.0 - 36.0 g/dL RDW-CV 15.9 (H) <15.0 % RDW-SD 54.8 (H) 35.1 - 46.3 fL Platelet Count 274 140 - 440 K/uL MPV 10.1 6.5 - 12.4 fL % Neutrophils 79.6 45.0 - 82.0 % % Lymphocytes 10.8 (L) 20.0 - 45.0 % % Monocytes 4.6 4.0 - 12.0 % % Eosinophils 0.1 0.0 - 5.0 % % Basophils 0.4 0.0 - 1.0 % % Immature granulocytes 4.5 (H) 0.0 - 0.4 % Absolute Neutrophils 14.21 (H) 1.80 - 8.50 K/uL Absolute Lymphocytes 1.93 0.60 - 3.20 K/uL Absolute Monocytes 0.83 0.00 - 1.00 K/uL Absolute Eosinophils 0.01 0.00 - 0.40 K/uL Absolute Basophils 0.07 0.00 - 0.10 K/uL Absolute Imm. Granulocytes 0.80 (H) 0.00 - 0.03 K/uL nRBC 0 0 - 2 per 100 WBC's NRBC ABS 0.04 (H) 0.00 - 0.01 K/uL Procalcitonin Result Value Ref Range Procalcitonin 0.41 <=0.50 ng/mL Comment Xr Chest Ap Portable Result Date: 12/07/2017 XR CHEST AP PORTABLE 12/07/2017 9:14 AM HISTORY: Acute respiratory failure with hypoxia/dif fuse inflammation of the lungs. COMPARISON: 12/06/2017 Findings: Patchy bilateral mid and lo wer lung zone airspace disease with mild diffuse thickening of the interstitial/bronchovascu lar markings. Considerations include pneumonia with superimposed component of pulmonary sheng a not entirely excluded. No evidence of pneumothorax or pleural effusion. Heart is enlarged. No acute osseous abnormality. IMPRESSION - Patchy bilateral mid and lower lung zone airspa ce disease with mild diffuse thickening of the interstitial/bronchovascular markings. Consid erations include pneumonia with superimposed component of pulmonary edema not entirely exclu ded. Similar since 12/06/2017. Dictated and Signed by: Song Padilla MD Electronically sig renetta: 12/07/2017 9:51 AM Vas Lower Extremity Venous Bilateral Result Date: 12/06/2017 VAS LOWER EXTREMITY VENOUS BILATERAL 12/06/2017 1:44 PM HISTORY: elevated D-Dimer, negative VQ scan. COMPARISON: None. PROTOCOL: Fulton scale and Doppler images of the lower extremity v eins. FINDINGS: The bilateral common femoral, greater saphenous, profunda femoral, superfici al femoral, and popliteal veins demonstrate normal flow, augmentation, and compression. IMPR ESSION - No evidence for DVT. Dictated and Signed by: Song Padilla MD Electronically sign ed: 12/06/2017 3:[address] Angiogram Pulmonary Result Date: 12/07/2017 CT ANGIOGRAM PULMONARY CLINICAL INFORMATION: Acute respiratory failure with hypoxia. Evalu ate for PE or pneumonia. COMPARISON: XR CHEST AP PORTABLE dated 12/07/2017; XR CHEST AP PORT ABLE dated 12/06/2017; CRCHEST dated 12/05/2017 PROCEDURE: Thin-section images of the entire chest after the administration of 80 omnipaque 350 intravenous contrast. 3D MIP thin slab i mages and 2D multiplanar reconstructions performed. At least one of the following CT dose op timization techniques were used: Automated exposure control; Adjustment of mA and/or kV acco rding to patient size; Use of iterative reconstruction technique. FINDINGS: PULMONARY ARTERI ES: No filling defects in the main, lobar or segmental pulmonary arteries. RIGHT VENTRICLE T O LEFT VENTRICLE RATIO: Not applicable. (Maximum short axis diameter on axial image. Applica ble only when pulmonary embolism present. Abnormal greater than or equal to 0.9.) CHEST Lung s, Pleura and Airways: There are geographic of ground-glass opacity throughout both lungs wi th some small ill-defined areas of consolidation. Mild interstitial septal thickening, most prominent posteriorly. No airway narrowing or obstruction. No pleural effusion or pneumoth orax. Mediastinum: No significant pericardial, great vessel or esophageal abnormality. No me diastinal mass. Lymph Nodes: No adenopathy. Upper Abdomen: No significant abnormality in the visualized upper abdomen. BODY WALL Soft Tissues: The soft tissues of the chest wall are un remarkable. Bones: No acute fracture or vertebral end plate destruction. No lytic or blastic lesion. IMPRESSION: No evidence of pulmonary embolism. Ground-glass opacities and patchy ar eas of consolidation in both lungs. Findings are nonspecific and could be due to pulmonary e lizy and/or an infectious or inflammatory etiology. Signed by: MD Bernard, Dr. Culp Sign Date /Time: 12/07/2017 11:38 PM Report sent: 12/07/2017 11:38:50 PM ASSESSMENT and PLAN: Active Hospital Problems Diagnosis *Acute respiratory failure with hypoxia Acute kidney injury Coronary artery disease Diabetes mellitus Smoking Hyperlipidemia Chest pain Hypertension Resolved Hospital Problems Diagnosis Date Noted Date Resolved No resolved problems to display. Acute on chronic respiratory failure with hypoxia: - Heavy smoker, presented with progressive dyspnea over few days prior to admission with de creased exercise tolerance - CXR shows diffuse patchy opacities, possibly consistent with pneumonia/inflammation, CT a lso shows diffuse nonspecific inflammation, discuss with radiology - Has not been able to give sputum sample - Continue daily IV levofloxacin (procalcitonin elevated), added Solumedrol for possible [place] PD exacerbation - Chest CT showed no PE, give prophylactic enoxaparin, but no PE/DVT - Echo shows pulmonary hypertension, a new finding since 2016 - Suspect she does not need high-flow oxygen at this point, work on transition to [place] O2 tod ay Chest pain/type 2 NSTEMI: -Likely due to pneumonia/acute respiratory failure -Troponin peaked at 0.18, suspect acute respiratory failure with hypoxia caused this proble m - Echocardiogram showed normal LVSF, but new pulmonary hypertension, likely secondary to re spiratory problems - Aspirin daily Acute kidney injury: - Suspect prerenal injury due to hypoxia/NSAID's - Creatinine improved from 1.7 to 0.97, resolved HTN -held meds in setting of initial hypotension, restarted amlodipine 12/07, restart lisinopri l at lower dose 12/08 T2DM -holding home metformin -SSI while inpatient Hypertriglyceridemia -continue home gemfibrozil Urinary retention -s/p failed bladder sling -She straight caths Tobacco abuse -patch available prn Disposition : Likely transfer to floor today Prophylaxis : enoxaparin Current Facility-Administered Medications: acetaminophen 650 mg Oral Q4H PRN albuterol 2.5 mg Nebulization RT Q4H PRN albuterol-ipratropium 3 mL Nebulization RT TID ALPRAZolam 0.25 mg Oral Q6H PRN amLODIPine 5 mg Oral Daily aspirin 81 mg Oral Daily dextrose 12.5 g Intravenous PRN enoxaparin 40 mg Subcutaneous Daily gemfibrozil 600 mg Oral BID AC HYDROcodone-acetaminophen 1 tablet Oral Q4H PRN influenza IM vaccine 0.5 mL Intramuscular One Time Vaccine insulin lispro 0-6 Units Subcutaneous 4 times per day levoFLOXacin 750 mg Intravenous Daily nicotine 1 patch Transdermal Daily PRN predniSONE 40 mg Oral Daily Total time of approximately 25 minutes was spent with the patient and/or patient's family, and/or on the patient's floor/unit, of which more than 50% was spent counseling and/or coord ination the patient's care as outlined above. Joseph Esparza 12/08/2017 8:10 [facility] Joseph Davila MD - 12/07/2017 7:[address] [facility] Hospitalist Progress Note Esha Pollack is a 52 y.o. female SUBJECTIVE: Still short of breath with any activity. Had severe coughing spell and anxiety in the mi ddle of the night, coughed up a significant amount of sputum, although unsure what color it was. Thomas cath placed (has neurogenic bladder). Doesn't like the food but decent appetite . Wants to get up to a chair, back hurts from lying in bed. VITALS: Temp: 36.7 C (98.1 F), Pulse: 83, Resp: 21, BP: 144/71, SpO2 91 % on mechanical ventila tion, high-flow nasal cannula Temp Min: 36.7 C (98.1 F) Max: 37.1 C (98.8 F) Weight: 98.8 kg (217 lb 13 oz) Intake/Output Summary (Last 24 hours) at 12/07/17 0788 Last data filed at 12/07/17 0722 Gross per 24 hour Intake 2576 ml Output 2600 ml Net -24 ml PHYSICAL EXAM: General: Alert, mildly anxious, appropriate Cardiovascular: RRR, no m/r/g Respiratory: Diffuse rhonchi, diminished BS, mild tachypnea, no respiratory distress Abdomen: Soft, NT Extremities: WWP, no edema Thomas catheter present: Yes, neurogenic bladder DIAGNOSTIC STUDIES: Available data and images were reviewed personally. Significant results and findings are a ddressed here or in the Assessment and Plan. Recent Results (from the past 24 hour(s)) Basic Metabolic Panel Result Value Ref Range NA 136 136 - 149 mmol/L K 4.1 3.5 - 5.1 mmol/L CL 102 98 - 109 mmol/L CO2 23 (L) 24 - 31 mmol/L ANION GAP 11 3 - 16 mmol/L GLUCOSE 134 (H) 70 - 109 mg/dL BUN 23 (H) 7 - 18 mg/dL Creatinine, Serum/Plasma 1.33 (H) 0.60 - 1.30 mg/dL eGFR if not 42 (L) >=60 mL/min/1.73m2 CALCIUM 8.9 8.3 - 10.5 mg/dL BUN/CREA 17.3 CBC with Differential Result Value Ref Range WBC 8.6 4.0 - 11.0 K/uL RBC 3.63 (L) 3.70 - 5.20 M/uL Hgb 10.9 (L) 11.5 - 16.0 g/dL Hct 34.7 34.0 - 47.0 % MCV 95.6 83.0 - 101.0 fL MCH 30.0 28.0 - 35.0 pg MCHC 31.4 (L) 32.0 - 36.0 g/dL RDW-CV 16.2 (H) <15.0 % RDW-SD 57.5 (H) 35.1 - 46.3 fL Platelet Count 244 140 - 440 K/uL MPV 10.1 6.5 - 12.4 fL nRBC 1 0 - 2 per 100 WBC's NRBC ABS 0.05 (H) 0.00 - 0.01 K/uL Troponin I Result Value Ref Range Troponin I 0.18 (H) <0.06 ng/mL Differential, Manual Result Value Ref Range % Seg Neutrophils 37.0 (L) 50.0 - 70.0 % % Lymphocytes 24.0 20.0 - 40.0 % % Monocytes 4.0 1.0 - 6.0 % % Eosinophils 5.0 1.0 - 5.0 % % Basophils 1.0 0.0 - 1.0 % % Metamyelocytes 1.0 (H) <0.0 % % Bands 28.0 (H) 0.0 - 5.0 % Absolute Seg Neutrophils 3.18 1.80 - 7.70 K/uL Absolute Lymphocytes 2.06 1.00 - 3.40 K/uL Absolute Monocytes 0.34 0.00 - 0.80 K/uL Absolute Eosinophils 0.43 0.00 - 0.50 K/uL Absolute Basophils 0.09 0.00 - 0.10 K/uL Absolute Metamyelocytes 0.09 K/uL Absolute Bands 2.41 (H) 0.00 - 1.50 K/uL nRBC 1 per 100 WBC's Total Counted 100 PLT MORPHOLOGY Normal POLYCHROMASIA Slight (A) (none) Anisocytosis Slight (A) (none) Variant Lymphocytes Moderate (A) (none) ECHO Complete Result Value Ref Range LVEF-TTE TRANSTHORACIC ECHO 60 % BASELINE BLOOD PRESSURE 121/65 mmHg Patient Weight (lbs) 217lb Patient Height 5f3in LVIDd 4.41 cm FS 32 % LA volume 57.17 mL Aortic arch 3.01 cm AV mean gradient 6 mmHg MV Area by P 1/2 method 3.94 cm2 IVRT 85.64 msec LVOT peak marleni 123.69 cm/s LVOT peak VTI 22.09 cm AV peak marleni 180 cm/s AV VTI 29.00 cm MV peak gradient 3.31 mmHg MV Pressure 1/2 time 55.88 msec LA Volume Index 29 mL/m2 AV LVOT Peak Gradient 6.12 mmHg AV LVOT Mean Gradient 2.3 mmHg TR Peak Gradient 56 mmHg TR Velocity 374.81 cm LV Diastolic Length 4C 7.35 cm LV Systolic Area PSAX 11.75 cm2 LV Gaffney's Biplane EF 60 % AV Acceleration Time 58.01 msec LV ED Volume (Gaffney's) 45.27 ml LV ED Volume Index 23 ml/m2 LV ES Volume 18.46 ml LVOT Mean Velocity 67.19 cm/s MV A' Lateral Velocity 12.52 cm/s MV E' Lateral Velocity 10.07 cm/s MV A' Septal Velocity 10.95 cm/s MV E' Septal Velocity 7 cm/s MV Deceleration Piute 477.04 cm/s2 MV Deceleration Time 190.62 msec MV E/A Ratio 1.01 MV Peak A-Wave 89.96 cm/s MV Peak E-Wave 90.93 cm/s AV Mean Velocity 119.87 cm/s LA/Aorta Ratio 1.41 LA Area 18.78 cm2 LA Systolic Pressure 13.29 mmHg MV E/E SEPTAL 12.99 MV E/E LATERAL 9.03 LA Major 0.2931 cm LV ES Volume Index 9 ml/m2 LV Area Diastolic 19.6 cm2 Aortic Root Diameter 2.99 cm IVS Diastolic Thickness MM 1.21 cm LVPW Diastolic Thickness MM 1.21 cm IVS Systolic Thickness MM 1.24 cm LV Systolic Diameter MM 2.99 cm LVPW Systolic Thickness MM 1.42 cm AV Cusp Seperation MM 1.78 cm LA Systolic Diameter MM 4.23 cm TAPSE 1.9 cm RA PRESSURE 3 mmHg RVSP Estimated 59 mmHg POC Glucose Result Value Ref Range Glucose, POC 186 (H) 70 - 109 mg/dL Urinalysis with Microscopic with Culture if Indicated Result Value Ref Range COLOR Yellow Light Yellow, Yellow, Straw CLARITY Clear Clear PH UA 6.0 5.0 - 8.0 Specific Warren 1.011 1.001 - 1.030 PROTEIN UA 30 mg/dL (A) Negative BLOOD UA Small (A) Negative GLUCOSE UA Negative Negative KETONES UA Trace (A) Negative BILIRUBIN UA Negative Negative NITRITE UA Negative Negative LEUKOCYTES ESTERASE UA Negative Negative UROBILINOGEN UA 4.0 mg/dL (A) 0.2 mg/dL, 1.0 mg/dL, Negative WBC UA 0-2 0 - 2 /HPF RBC UA 0-2 0 - 2 /HPF SQUAMOUS EPITHELIAL UA 2-5 (A) 0 - 2 /LPF BACTERIA UA 1+ (A) Negative /HPF HYALINE CASTS UA 0-2 0 - 2 /LPF Troponin I Result Value Ref Range Troponin I 0.17 (H) <0.06 ng/mL POC Glucose Result Value Ref Range Glucose, POC 207 (H) 70 - 109 mg/dL POC Glucose Result Value Ref Range Glucose, POC 220 (H) 70 - 109 mg/dL Basic Metabolic Panel Result Value Ref Range NA 137 136 - 149 mmol/L K 4.0 3.5 - 5.1 mmol/L CL 106 98 - 109 mmol/L CO2 21 (L) 24 - 31 mmol/L ANION GAP 10 3 - 16 mmol/L GLUCOSE 179 (H) 70 - 109 mg/dL BUN 17 7 - 18 mg/dL Creatinine, Serum/Plasma 0.97 0.60 - 1.30 mg/dL eGFR if not 60 >=60 mL/min/1.73m2 CALCIUM 9.2 8.3 - 10.5 mg/dL BUN/CREA 17.5 CBC with Differential Result Value Ref Range WBC 14.0 (H) 4.0 - 11.0 K/uL RBC 3.69 (L) 3.70 - 5.20 M/uL Hgb 11.0 (L) 11.5 - 16.0 g/dL Hct 34.9 34.0 - 47.0 % MCV 94.6 83.0 - 101.0 fL MCH 29.8 28.0 - 35.0 pg MCHC 31.5 (L) 32.0 - 36.0 g/dL RDW-CV 15.5 (H) <15.0 % RDW-SD 54.1 (H) 35.1 - 46.3 fL Platelet Count 277 140 - 440 K/uL MPV 10.5 6.5 - 12.4 fL nRBC 0 0 - 2 per 100 WBC's NRBC ABS 0.03 (H) 0.00 - 0.01 K/uL Differential, Manual Result Value Ref Range % Seg Neutrophils 63.0 50.0 - 70.0 % % Lymphocytes 15.0 (L) 20.0 - 40.0 % % Monocytes 2.0 1.0 - 6.0 % % Metamyelocytes 1.0 (H) <0.0 % % Bands 19.0 (H) 0.0 - 5.0 % Absolute Seg Neutrophils 8.82 (H) 1.80 - 7.70 K/uL Absolute Lymphocytes 2.10 1.00 - 3.40 K/uL Absolute Monocytes 0.28 0.00 - 0.80 K/uL Absolute Metamyelocytes 0.14 K/uL Absolute Bands 2.66 (H) 0.00 - 1.50 K/uL Total Counted 100 Platelet Estimate Adequate Adequate Anisocytosis Slight (A) (none) REACTIVE LYMPHS Few (A) (none) POC Glucose Result Value Ref Range Glucose, POC 174 (H) 70 - 109 mg/dL Xr Chest Ap Portable Result Date: 12/06/2017 SINGLE AP CHEST 12/06/2017 5:28 AM CLINICAL HISTORY: eval for PNA COMPARISON: Radiography f rom the previous day and 2016 FINDINGS: The cardiomediastinal silhouette is grossly unremark able. Progressive patchy opacity is present throughout both lungs. No pneumothorax or pleu ral effusion is visible. Bones and soft tissues are unremarkable. IMPRESSION - 1. PROGRES SIVE PATCHY OPACITY WITHIN BOTH LUNGS, WHICH COULD REFLECT DIFFUSE LUNG INJURY OR OTHER WIDE SPREAD INFECTIOUS OR INFLAMMATORY PROCESS. Dictated and Signed by: Ulices Jeffery MD Electron ically signed: 12/06/2017 8:27 AM Vas Lower Extremity Venous Bilateral Result Date: 12/06/2017 VAS LOWER EXTREMITY VENOUS BILATERAL 12/06/2017 1:44 PM HISTORY: elevated D-Dimer, negative VQ scan. COMPARISON: None. PROTOCOL: Fulton scale and Doppler images of the lower extremity v eins. FINDINGS: The bilateral common femoral, greater saphenous, profunda femoral, superfici al femoral, and popliteal veins demonstrate normal flow, augmentation, and compression. IMPR ESSION - No evidence for DVT. Dictated and Signed by: Song Padilla MD Electronically sign ed: 12/06/2017 3:11 PM ASSESSMENT and PLAN: Active Hospital Problems Diagnosis *Acute respiratory failure with hypoxia Acute kidney injury Coronary artery disease Diabetes mellitus Smoking Hyperlipidemia Chest pain Hypertension Resolved Hospital Problems Diagnosis Date Noted Date Resolved No resolved problems to display. Acute on chronic respiratory failure with hypoxia: - Heavy smoker, has had progressive dyspnea over few days prior to admission with decreased exercise tolerance - CXR shows diffuse patchy opacities, possibly consistent with pneumonia/inflammation - Sputum culture pending - Continue daily IV levofloxacin (procalcitonin elevated), added Solumedrol for possible [place] PD exacerbation - Would like to check chest CT for PE, although refusing this morning, D-dimer elevated at 2.93, will treat with therapeutic dose enoxaparin until can get CT - Echo shows pulmonary hypertension, a new finding since 2016 - Still requiring high-flow oxygen Chest pain/type 2 NSTEMI: -differential includes PNA, ACS, PE -Troponin peaked at 0.18, suspect acute respiratory failure with hypoxia caused this proble m - Therapeutic enoxaparin for now - Echocardiogram showed normal LVSF, but new pulmonary hypertension, likely secondary to re spiratory problems - Chest CT when able - Aspirin daily Acute kidney injury: - Suspect prerenal injury due to hypoxia/NSAID's - Creatinine improved from 1.7 to 0.97, resolving quickly HTN -held meds in setting of initial hypotension, restart amlodipine 12/07 T2DM -holding home metformin -SSI while inpatient Hypertriglyceridemia -continue home gemfibrozil Hypotension - resolved with fluids Urinary retention -s/p failed bladder sling -bladder scan q6h, straight cath for PVR >600 Tobacco abuse -patch available prn Disposition : Transfer from ICU to stepdown Prophylaxis : enoxaparin Current Facility-Administered Medications: acetaminophen 650 mg Oral Q4H PRN ALPRAZolam 0.25 mg Oral Q6H PRN aspirin 81 mg Oral Daily dextrose 12.5 g Intravenous PRN enoxaparin 1 mg/kg Subcutaneous 2 times per day gemfibrozil 600 mg Oral BID AC HYDROcodone-acetaminophen 1 tablet Oral Q4H PRN influenza IM vaccine 0.5 mL Intramuscular One Time Vaccine insulin lispro 0-6 Units Subcutaneous 4 times per day levoFLOXacin 750 mg Intravenous Daily methylPREDNISolone sodium succinate 40 mg Intravenous Daily nicotine 1 patch Transdermal Daily PRN Total time of approximately 25 minutes was spent with the patient and/or patient's family, and/or on the patient's floor/unit, of which more than 50% was spent counseling and/or coord ination the patient's care as outlined above. Joseph Esparza 12/07/2017 7:45 [facility] Joseph Davila MD - 12/06/2017 9:[address] [facility]G Hospitalist Progress Note Esha Pollack is a 52 y.o. female SUBJECTIVE: Still feels short of breath. Comfortable at rest, but with a few steps becomes very shor t of breath with some chest pressure. Has had significantly more cough recently, but little sputum production. Continues to smoke a pack a day. Shortness of breath has been worsenin g over the last 5 days or so. Takes metoprolol, gemfibrozil, does not take lisinopril at th is point. Takes diclofenac twice daily. 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, heated Temp Min: 36.3 C (97.3 F) Max: 36.7 C (98.1 F) Weight: 98.8 kg (217 lb 13 oz) Intake/Output Summary (Last 24 hours) at 12/06/17 0939 Last data filed at 12/06/17 0916 Gross per 24 hour Intake 800 ml Output 2400 ml Net -1600 ml PHYSICAL EXAM: General: Alert, sitting up, pleasant, no distress Cardiovascular: RRR Respiratory: Mildly increased work of breathing with diminished BS, scattered rhonchi note d Abdomen: Soft, NT, bowel sounds present Extremities: Minimal edema Neurological: Alert and oriented, appropriate Thomas catheter present: No DIAGNOSTIC STUDIES: Available data and images were reviewed personally. Significant results and findings are a ddressed here or in the Assessment and Plan. Recent Results (from the past 24 hour(s)) Hemoglobin A1C Result Value Ref Range Hemoglobin A1c 7.3 (H) 4.3 - 6.0 % Estimated Average Glucose 163 mg/dL Troponin I Result Value Ref Range Troponin I 0.11 (H) <0.06 ng/mL D-Dimer Result Value Ref Range D-DIMER, QUANTITATIVE 2.93 (H) <=0.50 ug/ml Procalcitonin Result Value Ref Range Procalcitonin 2.52 (HH) <=0.50 ng/mL Comment POC Glucose Result Value Ref Range Glucose, POC 139 (H) 70 - 109 mg/dL Basic Metabolic Panel Result Value Ref Range NA 136 136 - 149 mmol/L K 4.4 3.5 - 5.1 mmol/L CL 102 98 - 109 mmol/L CO2 23 (L) 24 - 31 mmol/L ANION GAP 11 3 - 16 mmol/L GLUCOSE 141 (H) 70 - 109 mg/dL BUN 31 (H) 7 - 18 mg/dL Creatinine, Serum/Plasma 1.70 (H) 0.60 - 1.30 mg/dL eGFR if not 31 (L) >=60 mL/min/1.73m2 CALCIUM 8.6 8.3 - 10.5 mg/dL BUN/CREA 18.2 Lipid Panel Result Value Ref Range Triglycerides 365 (H) 35 - 160 mg/dL Cholesterol 164 150 - 200 mg/dL HDL 18 (L) 28 - 83 mg/dL Chol/HDL Ratio 9.1 LDL, Calculated 73 <=130 mg/dL B Type Natriuretic Peptide Result Value Ref Range BNP 216 (H) <100 pg/mL POC Glucose Result Value Ref Range Glucose, POC 177 (H) 70 - 109 mg/dL Basic Metabolic Panel Result Value Ref Range NA 136 136 - 149 mmol/L K 4.1 3.5 - 5.1 mmol/L CL 102 98 - 109 mmol/L CO2 23 (L) 24 - 31 mmol/L ANION GAP 11 3 - 16 mmol/L GLUCOSE 134 (H) 70 - 109 mg/dL BUN 23 (H) 7 - 18 mg/dL Creatinine, Serum/Plasma 1.33 (H) 0.60 - 1.30 mg/dL eGFR if not 42 (L) >=60 mL/min/1.73m2 CALCIUM 8.9 8.3 - 10.5 mg/dL BUN/CREA 17.3 Xr Chest Ap Portable Result Date: 12/06/2017 SINGLE AP CHEST 12/06/2017 5:28 AM CLINICAL HISTORY: eval for PNA COMPARISON: Radiography f rom the previous day and 2016 FINDINGS: The cardiomediastinal silhouette is grossly unremark able. Progressive patchy opacity is present throughout both lungs. No pneumothorax or pleu ral effusion is visible. Bones and soft tissues are unremarkable. IMPRESSION - 1. PROGRES SIVE PATCHY OPACITY WITHIN BOTH LUNGS, WHICH COULD REFLECT DIFFUSE LUNG INJURY OR OTHER WIDE SPREAD INFECTIOUS OR INFLAMMATORY PROCESS. Dictated and Signed by: MD Parker Cameron signed: 12/06/2017 8:27 AM ASSESSMENT and PLAN: Active Hospital Problems Diagnosis Coronary artery disease Diabetes mellitus Smoking Hyperlipidemia *Chest pain Hypertension Resolved Hospital Problems Diagnosis Date Noted Date Resolved No resolved problems to display. Acute respiratory failure with hypoxia: - Heavy smoker, has had progressive dyspnea over last few days with decreased exercise sonya deleon - CXR shows diffuse patchy opacities, possibly consistent with pneumonia/inflammation - Continue daily IV levofloxacin (procalcitonin elevated), add Solumedrol twice daily for p ossible COPD exacerbation - Will check chest CT to evaluate lung parenchyma/check for PE when renal function allows, but given that CXR shows diffuse inflammation, suspect this is the cause of her hypoxia - D-dimer elevated at 2.93, will treat with therapeutic dose enoxaparin until can get CT Chest pain/type 2 NSTEMI: -differential includes PNA, ACS, PE -Troponin trin[place] from 0.11 to 0.18, but suspect acute respiratory failure with hypoxia is anni larsen her symptoms - Therapeutic enoxaparin for now - Echocardiogram pending - Chest CT when renal function stable - Aspirin daily Acute kidney injury: - Suspect prerenal injury due to hypoxia/NSAID's - Creatinine improved from 1.7 to 1.3, monitor closely, check UA HTN -holding home metoprolol in setting of hypotension T2DM -holding home metformin -SSI while inpatient Hypertriglyceridemia -continue home gemfibrozil Hypotension - resolved with fluids -no other current infectious signs, will bolus 500ml NS Urinary retention -s/p failed bladder sling -bladder scan q6h, straight cath for PVR >600 Tobacco abuse -patch available prn Disposition : Continue current care for now, plan for discharge to home Prophylaxis : enoxaparin Current Facility-Administered Medications: acetaminophen 650 mg Oral Q4H PRN aspirin 325 mg Oral Daily dextrose 12.5 g Intravenous PRN gemfibrozil 600 mg Oral BID AC heparin 5,000 Units Subcutaneous 2 times per day HYDROcodone-acetaminophen 1 tablet Oral Q4H PRN influenza IM vaccine 0.5 mL Intramuscular One Time Vaccine insulin lispro 0-6 Units Subcutaneous 4 times per day levoFLOXacin 750 mg Intravenous Daily methylPREDNISolone sodium succinate 40 mg Intramuscular 2 times per day nicotine 1 patch Transdermal Daily PRN sodium chloride 0.9% Intravenous Continuous Total time of approximately 35 minutes was spent with the patient and/or patient's family, and/or on the patient's floor/unit, of which more than 50% was spent counseling and/or coord ination the patient's care as outlined above. Joseph Esparza 12/06/2017 9:39 [facility] documented in this encounter H&P Notes Jagdish De León DO - 12/05/2017 11:46 PM PDTFormatting of this note might be differ ent from the original. [facility]ELIT[facility] READ HOSPITALIST HISTORY & PHYSICAL Patient: Esha Pollack : 1965: Age: 52 y.o. MedRec: [id number] Admission date: 12/05/2017 Hospital day # : 1 Physician author: Jagdish De León DO Today: 12/05/2017 CHIEF COMPLAINT: Chest pain HISTORY OF PRESENT ILLNESS: This is a 52 y.o. female with a history of CAD s/p stents, T2DM, HLD, HTN, tobacco abuse, p resents as transfer from [facility] in [place] where she had been evaluated for chest p ain. She notes that she awoke this morning with chest pain, worse with deep breaths and wor se with activity. She had shortness of breath and a new O2 requirement at [facility] that required non-rebreather to maintain sats >92%. Initial ECG normal, troponin x2 normal, dim er reported as elevated but VQ (in setting of JOELLEN) noted to be low risk study . She has no p rior history of blood clot. Her case was discussed with Dr. Mantilla who will evaluate patien t in am for potential heart cath. At time of admit she notes that her chest pain is stable, worse with inspiration, and that SOB is stable. She denies recent illnesses in last week, no leg pain, no abdominal pain, no palpitations. No N/V, no diarrhea, no other constitutional symptoms. Other 10 point ROS n egative. PAST MEDICAL and SURGICAL HISTORY: Past Medical History: Diagnosis Date Arthritis Bipolar depression (HCC) Calcific shoulder tendinitis Cervicalgia Chronic neck pain Chronic pain Coronary artery disease Diabetes mellitus (HCC) Fibromyalgia GERD (gastroesophageal reflux disease) H/O non-insulin dependent diabetes mellitus High triglycerides Hip pain, bilateral History of heart artery stent Hyperlipidemia Hypertension Nicotine addiction Right shoulder pain Smoking Past Surgical History: Procedure Laterality Date APPENDECTOMY BLADDER SUSPENSION SECTION SECTION SECTION CHOLECYSTECTOMY CORONARY ANGIOPLASTY WITH STENT PLACEMENT 2012 to OM1 HERNIA REPAIR HERNIA REPAIR HYSTERECTOMY SMALL INTESTINE SURGERY TONSILLECTOMY FAMILY HISTORY: family history includes Diabetes in her mother and another family member; Hypertension in h er mother; Premature CHD in her father and maternal grandfather. SOCIAL HISTORY: reports that she has been smoking. She started smoking about 40 years ago. She has been s moking about 1.00 pack per day. She does not have any smokeless tobacco history on file. She reports that she does not drink alcohol or use drugs. REVIEW OF SYSTEMS: A complete 10 system ROS was done and recorded in the HPI. Further notations, if any, will be noted below. HOME MEDICATIONS: PT REPORTED TAKING NOT TAKING Medication Sig Last Dose Dispense Doc. Provider amLODIPine (NORVASC) 5 mg tablet Take 5 mg by mouth Daily. Historical Provider, aspirin 81 MG EC tablet Take 1 tablet by mouth Daily. 30 tablet Tereso Woodson MD baclofen (LIORESAL) 20 mg tablet Take 20 mg by mouth 3 times daily. Historical Provider, DULoxetine (CYMBALTA) [address] capsule Take by mouth 2 times daily. 60mg in the AM and 30 mg in the evening Historical Provider, escitalopram (LEXAPRO) 10 mg tablet Take 10 mg by mouth Daily. Historical Provider, gabapentin (NEURONTIN) 300 mg capsule Take 900 mg by mouth 3 times daily. Historical Pro MD belle gemfibrozil (LOPID) 600 mg tablet Take 600 mg by mouth 2 times daily (before meals). His torical Provider, lisinopril (PRINIVIL, ZESTRIL) 20 mg tablet Take 20 mg by mouth 2 times daily. Historica l ProviderMD metFORMIN (GLUCOPHAGE) 1000 MG tablet Take 1,000 mg by mouth 2 times daily (with breakfast & dinner). Historical Provider, methocarbamol (ROBAXIN) 750 mg tablet Take 750 mg by mouth 4 times daily. Historical Pro videMD petra metoprolol succinate (TOPROL-XL) 50 mg 24 hr tablet Take 50 mg by mouth 2 times daily. H istorical Provider, nitroglycerin (NITROSTAT) 0.[address] 1 tablet under the tongue every 5 minutes as needed for Chest pain. 100 tablet Tereso Woodson MD omeprazole (PRILOSEC) 20 mg capsule Take 20 mg by mouth 2 times daily. Historical Provid MD ralf pregabalin (LYRICA) 50 MG capsule Take 50 mg by mouth 3 times daily. Historical Provider , raNITIdine (ZANTAC) 150 MG capsule Take 150 mg by mouth 2 times daily. Historical Provid erMD simvastatin (ZOCOR) 20 mg tablet Take 20 mg by mouth nightly. Historical Provider, terbinafine (LAMISIL) 1% cream Apply topically 2 times daily. Historical Provider, traZODone (DESYREL) 100 mg tablet Take 100 mg by mouth nightly. Historical Provider, traZODone (DESYREL) 50 mg tablet Take 50 mg by mouth nightly. Historical Provider, varenicline (CHANTIX) 0.5 mg tablet Take 0.5 mg by mouth 2 times daily. Historical Provi MD misha ALLERGIES: Allergies Allergen Reactions Aloe Vera Swelling bilat hand swelled Bee Venom Anaphylaxis, Shortness Of Breath and Swelling Penicillins Anaphylaxis and Swelling Shellfish Anaphylaxis Hydromorphone Swelling and Nausea And Vomiting Lamotrigine Other (See Comments) Reaction not specified in outside medical records [place] Swelling Convulsions VITAL SIGNS: Temp: 36.7 C (98.1 F), Pulse: 84, Resp: 20, BP: 97/48, SpO2 91 % on nonrebreather mask at flow rate 15L/min Temp Min: 36.7 C (98.1 F) Max: 36.7 C (98.1 F) Weight: 98.8 kg (217 lb 13 oz) PHYSICAL EXAMINATION: GEN: Obese, pleasant, cooperative, in NAD HEENT: External ears/nose unremarkable. PERRL/EOMI. Oropharynx unremarkable NECK: Supple, no thyromegaly or lyphadenopathy CV: RRR, no M/R/G. Peripheral pulses 2+ and equal bilaterally. No JVD. PUL: Soft rhonchi throughout, slightly decreased air movement ABD: Soft, ND, NT, with normal bowel tones in all quadrants EXT: No clubbing, cyanosis, or edema noted NEURO: No focal deficits PSYCH: Alert, oriented, with normal mood and affect. SKIN: No visible bruises, rashes, or petechia noted on exposed skin. DIAGNOSTIC STUDIES: Lab results last 24 hours No results found for this or any previous visit (from the past 24 hour(s)). Micro results Microbiology Results (72 hrs) Procedure Component Value Units Date/Time Culture, MRSA [[id number]] Collected: 12/05/172328 Order Status: Sent Lab Status: In process Updated: 12/05/172332 Specimen: Tissue from Nares Radiology results No results found. I reviewed imaging EKG Results (I reviewed EKG) I reviewed and summarized old records ASSESSMENT: Principal Problem: Chest pain Active Hospital Problems Diagnosis Chest pain Coronary artery disease Diabetes mellitus Smoking Hyperlipidemia Hypertension Resolved Hospital Problems Diagnosis No resolved problems to display. Code Status Medical Decision Maker Patient DVT Prophylaxis heparin PLAN: Chest pain: mixed typical and pleuritic features -differential includes PNA, ACS, PE -will check additional troponin, will re-check D-Dimer, adding procalcitonin -will repeat CXR in am -tele -Echo in am -ASA 325 daily -checking doppler US in am -Dr. Mantilla to assess in am for potential cath, Patient to remain NPO except meds and ice chips HTN -holding home metoprolol in setting of hypotension T2DM -holding home metformin -SSI while inpatient -checking A1C Hypertriglyceridemia -continue home gemfibrozil -checking fasting lipid panel in am Hypotension -no other current infectious signs, will bolus 500ml NS Urinary retention -s/p failed bladder sling -bladder scan q6h, straight cath for PVR >600 Tobacco abuse -patch available prn CMS Documentation I expect this patient will be hospitalized for less than 2-midnights and expect the post-ho spital plan to be discharge to home or to an adult foster home. Electronically signed by: Jagdish De León DO 12/05/2017 23:[address] [facility] Portions of this chart may have been created with [employer] voice recognition software. Occasi onal wrong-word or sound-alike substitutions may have occurred due to the inherent walker itations of voice recognition software. Please read the chart carefully and recognize, using context, where these substitutions have occurred documented in this encounter Miscellaneous Notes Plan of Care - Roman Trinh RN - 12/11/2017 3:09 PM PDTProblem: Patient Care Overview (Adult) Goal: Care Team Goals & Evaluation PROBLEM-RELATED GOALS: Esha will be at baseline O2 needs by 12/09/17 Esha will have no complaints of chest pain by 12/07/17 Esha will have no increasing s/sx of infection by 12/07/17 Esha will have no SOB at rest and minimal on exertion by 12/09/17 STRATEGY TO ACHIEVE GOALS: Titrate oxygen to O2 sats in the mid to lower 90s Administer anticoagulants and PRN pain medication as ordered Administer abx as schedule and until dose is complete RESTRAINT-RELATED GOALS: STRATEGIES TO ACHIEVE RESTRAINT GOALS: Outcome: Adequate for Discharge Date Met: 12/11/17 Goal Evaluation: Discharge instructions were given to daughter and patient, Angela [facility] delivered oxygen to pat ient, patient instructed to wear O2 NC 2L during ambulation, AVS printed and given, reminded about follow-up appts, all questions answered. Electronically signed by: Petra Singh 12/11/2017 15:09 lan of Krystal French RN - 12/09/2017 3:12 PM PDTVisited with Ms. Pollack regarding her oxygen order. She would like to use [facility]. Oxygen order, face sheet and RT notes faxed to [facility] with fax confirmation re ading OK. Contacted [facility] to check to see if they received it, they have. They will deliver oxygen to her room. Electronically signed by: Krystal Eastman RN 12/09/2017 15:26 lan of Phyllis Copeland RRT - 12/09/2017 2:23 PM PDTFormatting of this note might be different from the or iginal. Problem: Patient Care Overview (Adult) Goal: Care Team Goals & Evaluation PROBLEM-RELATED GOALS: Esha will be at baseline O2 needs by 12/09/17 Esha will have no complaints of chest pain by 12/07/17 Esha will have no increasing s/sx of infection by 12/07/17 Esha will have no SOB at rest and minimal on exertion by 12/09/17 STRATEGY TO ACHIEVE GOALS: Titrate oxygen to O2 sats in the mid to lower 90s Administer anticoagulants and PRN pain medication as ordered Administer abx as schedule and until dose is complete RESTRAINT-RELATED GOALS: STRATEGIES TO ACHIEVE RESTRAINT GOALS: Outcome: Improving Goal Evaluation: Esha denies shortness of breath, wants to go home, breath sounds with coarseness noted in right posterior bases, otherwise clear. SpO2: 93 % (Sitting in chair, denies distress.) on room air, requiring oxygen with ambulation. Tolerating treatments although she denies use o f respiratory medications at home, tobacco use history, PEP therapy encouraged for use on ow n frequently. Severity Score 6 Class 2 - Continue current treatment plan, no new respiratory interve ntions identified. Severity Score 0-4 ITEM 0 1 2 3 4 2 Respiratory History No Smoking history Current tobacco use Up to 10 Pack year history. Simple home regimen Known Pulmonary Disease 20 pack year history Complex Home regimen 30+ pack year history Severe Pulmonary Disease or exacerbation 0 Surgery Status (current admission) No surgery Minor surgery Lower abdominal rib fractures Thoracic or uppe r abdominal Thoracic with pulmonary disease or Central Nervous System 1 Chest X-RAY Clear or Normal baseline Unavailable Improving/clearing Abnormal, Unilateral or mild Infiltrates or atelectasis, Chronic changes Infiltrates mild bilateral or unilateral or pleural effusions extensive Inf iltrates, atelectasis or pleural effusions, pneumothorax 0 Respiratory Pattern Regular pattern Respiratory Rate:8-20 Increased Respiratory Rate, labored Dyspnea on exertion, irregular pattern Use of accessory muscles, prolonged expirato ry phase nasal flaring Severe Dyspnea , Purse Lip Breathing, Use of accessory muscles 2 Breath Sounds Clear Diminished unilaterally Diminished bilaterally &/or crackles Wheez ing or Rhonchi &/or absent unilateral Absent bilaterally 0 Cough Strong, non productive Moderate, loose, productive Weak, non-productive Weak, ineffective Non-spontaneous or may require suctioning 0 Sputum None Scant / Thin White/clear Moderate Beige/ yellow Large / Thick Dark Green/Brown Copious / Plugs Hemoptysis chanell 0 LOC Alert, oriented, cooperative Disoriented, follows commands Obtunded, arousable, fo llows commands Obtunded, uncooperative, sedated Comatose 1 Oxygen Demand Room air Baseline 1-2 liters 3-6 liters >7 Liters Oxymizer to > 55% 60% or greater Total Severity Score (SS) Class 0-3 PRN 1 4-7 TID or PRN 2 8-11 QID 3 12-14 Q4 W/A 4 15+ Q4 5 lan of Care - Mariam Still, PT - 12/09/2017 2:01 PM PDTProblem: Patient Care Overview (Adult) Goal: Care Team Goals & Evaluation PROBLEM-RELATED GOALS: Esha will be at baseline O2 needs by 12/09/17 Esha will have no complaints of chest pain by 12/07/17 Esha will have no increasing s/sx of infection by 12/07/17 Esha will have no SOB at rest and minimal on exertion by 12/09/17 STRATEGY TO ACHIEVE GOALS: Titrate oxygen to O2 sats in the mid to lower 90s Administer anticoagulants and PRN pain medication as ordered Administer abx as schedule and until dose is complete RESTRAINT-RELATED GOALS: STRATEGIES TO ACHIEVE RESTRAINT GOALS: Therapy Plan of Care Missed Visit Note Patient Information Patient Name: Esha Pollack Date of : 1965 Age: 52 y.o. The patient was unable to be seen for today's scheduled visit due to pt declining PT eval. She says that she is getting around well enough to safely go home with family assist. Discus sed home situation; pt has 13 steps but says that she can stay on the first floor and does n ot have any steps to access that level of her home. Says son lives with her, so he can bring her things if she needs anything from the upstairs. Reviewed need for energy conservation a nd pacing and instructed pt not to walk greater than 80 ft at a time for the next day or two in order to avoid desaturation if possible (see RT note). Also advised pt to get finger oxi meter. Pt states understanding and agreement and says she will order an oximeter from [facility]. Plan: Pt to d/c home this p.m. with family assist. Electronically signed by: Mariam Giraldo, PT, 12/09/2017 13:57 lan of Care - Maris England RN - 12/09/2017 5:10 AM PDTProblem: Patient Care Overview (Adult) Goal: Care Team Goals & Evaluation PROBLEM-RELATED GOALS: Esha will be at baseline O2 needs by 12/09/17 Esha will have no complaints of chest pain by 12/07/17 Esha will have no increasing s/sx of infection by 12/07/17 Esha will have no SOB at rest and minimal on exertion by 12/09/17 STRATEGY TO ACHIEVE GOALS: Titrate oxygen to O2 sats in the mid to lower 90s Administer anticoagulants and PRN pain medication as ordered Administer abx as schedule and until dose is complete RESTRAINT-RELATED GOALS: STRATEGIES TO ACHIEVE RESTRAINT GOALS: Goal Evaluation: Pt remains on 5 liters oxygen and is breathing without shortness of breath except on assertion, Pt pain controlled with one [place] and pt is able to sleep well with pain medication. lan of Care - Fredrick Hull RRT - 12/09/2017 3:26 AM PDTProblem: Patient Care Overview (Adult) Goal: Care Team Goals & Evaluation PROBLEM-RELATED GOALS: Esha will be at baseline O2 needs by 12/09/17 Esha will have no complaints of chest pain by 12/07/17 Esha will have no increasing s/sx of infection by 12/07/17 Esha will have no SOB at rest and minimal on exertion by 12/09/17 STRATEGY TO ACHIEVE GOALS: Titrate oxygen to O2 sats in the mid to lower 90s Administer anticoagulants and PRN pain medication as ordered Administer abx as schedule and until dose is complete RESTRAINT-RELATED GOALS: STRATEGIES TO ACHIEVE RESTRAINT GOALS: Outcome: Unchanged Goal Evaluation: Esha oxygen saturation is SpO2: 93 % on 5liters/minute nasal cannula and a heart rate of 76. Breath sounds are wheezes, expiratory and post breathing treatment breath sounds are . Pt has a fair, nonproductive cough. Pt's respirations are unlabored, shallow, pattern regul ar with no use of accessory muscles, no retractions, expansion symmetric. Electronically sig renetta by: Fredrick Latham RRT 12/09/2017 3:26 lan of Care - Nedra Freire RN - 12/08/2017 7:36 PM PDTProblem: Patient Care Overview (Adult) Goal: Care Team Goals & Evaluation PROBLEM-RELATED GOALS: Esha will be at baseline O2 needs by 12/09/17 Esha will have no complaints of chest pain by 12/07/17 Esha will have no increasing s/sx of infection by 12/07/17 Esha will have no SOB at rest and minimal on exertion by 12/09/17 STRATEGY TO ACHIEVE GOALS: Titrate oxygen to O2 sats in the mid to lower 90s Administer anticoagulants and PRN pain medication as ordered Administer abx as schedule and until dose is complete RESTRAINT-RELATED GOALS: STRATEGIES TO ACHIEVE RESTRAINT GOALS: Goal Evaluation: Pain managed with PRN [place]. SpO2 >92% on 5L NC. CBGs 200s, managed with SS. Independent i n room; refused bed alarm. lan of Care - Mariam alcocer, PT - 12/08/2017 5:16 PM PDTProblem: Patient Care Overview (Adult) Goal: Care Team Goals & Evaluation PROBLEM-RELATED GOALS: Esha will be at baseline O2 needs by 12/09/17 Esha will have no complaints of chest pain by 12/07/17 Esha will have no increasing s/sx of infection by 12/07/17 Esha will have no SOB at rest and minimal on exertion by 12/09/17 STRATEGY TO ACHIEVE GOALS: Titrate oxygen to O2 sats in the mid to lower 90s Administer anticoagulants and PRN pain medication as ordered Administer abx as schedule and until dose is complete RESTRAINT-RELATED GOALS: STRATEGIES TO ACHIEVE RESTRAINT GOALS: Therapy Plan of Care Missed Visit Note Patient Information Patient Name: Esha Pollack Date of : 1965 Age: 52 y.o. PT orders received and chart reviewed. Pt observed to be walking around independently in he r room earlier when this PT entered her room in response to bed alarm going off. At that opal e, pt was refusing to get back into bed unless alarm was removed. RN alerted and discontinue d alarm at that time. Pt now in bed and sleeping soundly, so will let pt rest and complete P T eval tomorrow. Electronically signed by: Mariam Giraldo, PT, 12/08/2017 17:16 lan of Care - Vandana menendez Elan Kosta, PAINTER DECORATOR - 12/08/2017 10:13 AM PDTFormatting of this note might be different fro m the original. Problem: Patient Care Overview (Adult) Goal: Care Team Goals & Evaluation PROBLEM-RELATED GOALS: Esha will be at baseline O2 needs by 12/09/17 Esha will have no complaints of chest pain by 12/07/17 Esha will have no increasing s/sx of infection by 12/07/17 Esha will have no SOB at rest and minimal on exertion by 12/09/17 STRATEGY TO ACHIEVE GOALS: Titrate oxygen to O2 sats in the mid to lower 90s Administer anticoagulants and PRN pain medication as ordered Administer abx as schedule and until dose is complete RESTRAINT-RELATED GOALS: STRATEGIES TO ACHIEVE RESTRAINT GOALS: Goal Evaluation: Patient slowly improving. Titrated off HFNC to nasal cannula at 4 l/m. Sating 93%. Still v angelita [place] reserve with any kind of movement. BS scattered coarse rales and diminished in th e bases. Raspy cough. Patient sometime belligerent, not interested in treatment. Started PEP therapy today. Will continue to monitor and treat as needed. Severity Score 10 Class 3 Severity Score 0-4 ITEM 0 1 2 3 4 3 Respiratory History No Smoking history Current tobacco use Up to 10 Pack year history. Simple home regimen Known Pulmonary Disease 20 pack year history Complex Home regimen 30+ pack year history Severe Pulmonary Disease or exacerbation 0 Surgery Status (current admission) No surgery Minor surgery Lower abdominal rib fractures Thoracic or uppe r abdominal Thoracic with pulmonary disease or Central Nervous System 1 Chest X-RAY Clear or Normal baseline Unavailable Improving/clearing Abnormal, Unilateral or mild Infiltrates or atelectasis, Chronic changes Infiltrates mild bilateral or unilateral or pleural effusions extensive Inf iltrates, atelectasis or pleural effusions, pneumothorax 1 Respiratory Pattern Regular pattern Respiratory Rate:8-20 Increased Respiratory Rate, labored Dyspnea on exertion, irregular pattern Use of accessory muscles, prolonged expirato ry phase nasal flaring Severe Dyspnea , Purse Lip Breathing, Use of accessory muscles 2 Breath Sounds Clear Diminished unilaterally Diminished bilaterally &/or crackles Wheezing or Rhonchi &/or absent unilateral Absent bilaterally 0 Cough Strong, non productive Moderate, loose, productive Weak, non-productive Weak, ineffective Non-spontaneous or may require suctioning 0 Sputum None Scant / Thin White/clear Moderate Beige/ yellow Large / Thick Dark Green/Brown Copious / Plugs Hemoptysis chanell 1 LOC Alert, oriented, cooperative Disoriented, follows commands Obtunded, arousable, follo ws commands Obtunded, uncooperative, sedated Comatose 2 Oxygen Demand Room air Baseline 1-2 liters 3-6 liters >7 Liters Oxymizer to > 55% 60% or greater Total Severity Score (SS) Class 0-3 PRN 1 4-7 TID or PRN 2 8-11 QID 3 12-14 Q4 W/A 4 15+ Q4 5 . lan of [facility] Tereso Guerra Jr., RRT - 12/08/2017 4:05 AM PDTProblem: Patient Care Overview (Adult) Goal: Care Team Goals & Evaluation PROBLEM-RELATED GOALS: Esha will be at baseline O2 needs by 12/09/17 Esha will have no complaints of chest pain by 12/07/17 Esha will have no increasing s/sx of infection by 12/07/17 Esha will have no SOB at rest and minimal on exertion by 12/09/17 STRATEGY TO ACHIEVE GOALS: Titrate oxygen to O2 sats in the mid to lower 90s Administer anticoagulants and PRN pain medication as ordered Administer abx as schedule and until dose is complete RESTRAINT-RELATED GOALS: STRATEGIES TO ACHIEVE RESTRAINT GOALS: Goal Evaluation: Patient was transferred to CT early NOC. Increase anxiety of oxygen needs being affected a lleviated via atevan and patient communication/reassurance. Patient transferred on 15L non r ebreather. Currently saturatiions at 99% 0n 70% HFNC with heated humidity. BS are coarse wit h expiratory wheezes upper lobes. Pt is refusing NIV BiPap. Hx of high anxiety and bi-polar diagnosis. Patient did get more rest NOC. Continue to evaluate and treat. lan of [facility] - Opal Meadows RN - 12/07/2017 10:56 PM PDTProblem: Patient Care Overview (Adult) Goal: Care Team Goals & Evaluation PROBLEM-RELATED GOALS: Esha will be at baseline O2 needs by 12/09/17 Esha will have no complaints of chest pain by 12/07/17 Esha will have no increasing s/sx of infection by 12/07/17 Esha will have no SOB at rest and minimal on exertion by 12/09/17 STRATEGY TO ACHIEVE GOALS: Titrate oxygen to O2 sats in the mid to lower 90s Administer anticoagulants and PRN pain medication as ordered Administer abx as schedule and until dose is complete RESTRAINT-RELATED GOALS: STRATEGIES TO ACHIEVE RESTRAINT GOALS: Goal Evaluation: Pt in chair prior upon arrival to shift. RN went over plan for the night with pt. Pt reque st strait cath prior to ct transport. CT completed. Required 2 mg of ativan and coaching to lay flat. VSS throughout exam. Upon arrival back from ct, pt placed back on monitor. Pt told rn to leave her alone and she "could not tolerate anyone in her face anymore". Around 2220, pt pulled off o2 and monitoring devices/ oob to "get bag". Confused when rn came into room not understanding why "she was here". RN placed pt back on o2, reoriented pt, and once o2 sa ts recovered from 80s pt placed back in bed with bed alarm on. Pt now resting. Pt self strai t cath around 0200. No other events overnight. Refused am BG/ 0730 meds from this RN. lan of [facility] - Candice Quintero RN - 2017 6:44 PM PDTProblem: Patient Care Overview (Adult) Goal: Care Team Goals & Evaluation PROBLEM-RELATED GOALS: Esha will be at baseline O2 needs by 12/09/17 Esha will have no complaints of chest pain by 12/07/17 Esha will have no increasing s/sx of infection by 12/07/17 Esha will have no SOB at rest and minimal on exertion by 12/09/17 STRATEGY TO ACHIEVE GOALS: Titrate oxygen to O2 sats in the mid to lower 90s Administer anticoagulants and PRN pain medication as ordered Administer abx as schedule and until dose is complete RESTRAINT-RELATED GOALS: STRATEGIES TO ACHIEVE RESTRAINT GOALS: Outcome: Improving Goal Evaluation: Patient on 30 L HFNC 70% FI02. Breath sounds coarse with expiratory wheezes. Xanax given x 2 for anxiety, [place] given x2 for pain. BG [id number], SSI coverage provided. Patient self repo rts high anxiety, often requested this RN to step out and come back to complete physical ass essment and to give meds. VSS. Nicotine patch found on floor, pt declined a new patch.CT sc an to be completed. Electronically signed by: Candice Quintero RN 12/07/2017 18:41 lan of Care - Tereso Spencer Jr., PAINTER DECORATOR - 12/07/2017 3:38 AM PDTProblem: Patient Care Overview (Adult) Goal: Care Team Goals & Evaluation PROBLEM-RELATED GOALS: Esha will be at baseline O2 needs by 12/09/17 Esha will have no complaints of chest pain by 12/07/17 Esha will have no increasing s/sx of infection by 12/07/17 Esha will have no SOB at rest and minimal on exertion by 12/09/17 STRATEGY TO ACHIEVE GOALS: Titrate oxygen to O2 sats in the mid to lower 90s Administer anticoagulants and PRN pain medication as ordered Administer abx as schedule and until dose is complete RESTRAINT-RELATED GOALS: STRATEGIES TO ACHIEVE RESTRAINT GOALS: Outcome: Unchanged Goal Evaluation: Patient direct admit from [facility]. Chest pain with SOB and poor sats. P laced on Non-rebreather mask in ER and increased to 15 l/m. Patients nose and throat were dr castillo out. Placed on HFNC at 30 l/m, 90% FIO2, and temp at 37. Have been able to titrate down a bit as patient could tolerate. BS coarse. NOC patient anxiety increased. Humidified heate d air was too hot so she went back to non rebreather at 15L. Placed back on HFNC, heater at lowest setting. Patient woke up with coughing spell, dyspneic and anxious. Flow was increase d to 32L and FiO2 to 100% for a short period to assist her, She calmed down and her saturati ons s returned to mid nineties. Will continue to monitor and treat as needed. lan of Care - Opal Meadows RN - 12/06/2017 11:07 PM PDTProblem: Patient Care Overview (Adult) Goal: Care Team Goals & Evaluation PROBLEM-RELATED GOALS: Esha will be at baseline O2 needs by 12/09/17 Esha will have no complaints of chest pain by 12/07/17 Esha will have no increasing s/sx of infection by 12/07/17 Esha will have no SOB at rest and minimal on exertion by 12/09/17 STRATEGY TO ACHIEVE GOALS: Titrate oxygen to O2 sats in the mid to lower 90s Administer anticoagulants and PRN pain medication as ordered Administer abx as schedule and until dose is complete RESTRAINT-RELATED GOALS: STRATEGIES TO ACHIEVE RESTRAINT GOALS: Goal Evaluation: Pt noncompliant and agitated at times. Refused to continue to wear HFNC r/t "too hot", ref used bipap r/t "pushing too much air into her throat". NRB in place when MD came to talk to pt, reminding her for her safety we could not continue to use NRB. PRN xanax given x 1 for a nxiety. Per pt, she has a history of anxiety when meeting new people and used to take medica tion. Pt refused removal or reapplication of nicotine patch stating to rn that she "wants to be left alone". Around 0320, pt became SOB after coughing and desat to 70s (took off HFNC during episode). RN, RT, and MD bedside. Pt recovered with inc in fio2 and asked for pain medication for pain r/t cough. [place] given x 1. lan of [facility] - Elan Frank, PAINTER DECORATOR - 12/06/2017 5:44 PM PDTProblem: Patient Care Overview (Adult) Goal: Care Team Goals & Evaluation PROBLEM-RELATED GOALS: Esha will be at baseline O2 needs by 12/09/17 Esha will have no complaints of chest pain by 12/07/17 Esha will have no increasing s/sx of infection by 12/07/17 Esha will have no SOB at rest and minimal on exertion by 12/09/17 STRATEGY TO ACHIEVE GOALS: Titrate oxygen to O2 sats in the mid to lower 90s Administer anticoagulants and PRN pain medication as ordered Administer abx as schedule and until dose is complete RESTRAINT-RELATED GOALS: STRATEGIES TO ACHIEVE RESTRAINT GOALS: Goal Evaluation: Patient direct admit from [facility] in [place]. Chest pain with SOB and poor sats. P laced on Non-rebreather mask in ER and increased to 15 l/m. Patients nose and throat were dr anna out. Placed on HFNC at 30 l/m, 90% FIO2, and temp at 37. Have been able to titrate down a bit as patient could tolerate. BS coarse. Will continue to monitor and treat as needed. lan of Care - David Matamoros Chaplain - 12/06/2017 11:19 AM PDTProblem: Patient Care Overview (Adult) Goal: Care Team Goals & Evaluation PROBLEM-RELATED GOALS: Esha will be at baseline O2 needs by 12/09/17 Esha will have no complaints of chest pain by 12/07/17 Esha will have no increasing s/sx of infection by 12/07/17 Esha will have no SOB at rest and minimal on exertion by 12/09/17 STRATEGY TO ACHIEVE GOALS: Titrate oxygen to O2 sats in the mid to lower 90s Administer anticoagulants and PRN pain medication as ordered Administer abx as schedule and until dose is complete RESTRAINT-RELATED GOALS: STRATEGIES TO ACHIEVE RESTRAINT GOALS: Spiritual Care Esha Pollack is a 52 y.o. female who is admitted for Chest Pain with shortness of tamie th. Chemical Radiation Technician visit was part of routine rounding. Spiritual Evaluation: Patient was resting in bed; she was awake and alert, and conversational. She seemed to be i n good spirits, and was attended by her daughter who sat nearby in the recliner. She was tra nsferred to [facility]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 0.0 - 1.0 % | [facility] | | | | | | [facility] | | | | | | [facility] | | | | | | [facility] - | | | | | | LABORATORY | | + + + + + + | % Immature | 4.5 (H)Comment: | 0.0 - 0.4 % | [facility] | | | Granulocyte | Preliminary studIes have | | [facility] | | | s | indicated the IG% | | MEDICAL | | | | and/or IG# show promise | | CENTER - | | | | as an early screen for | | LABORATORY | | | | infection. | | | | + + + + + + | Absolute | 14.21 (H) | 1.80 - 8.50 | [facility] | | | Neutrophils | | K/uL | [facility] | | | | | | [facility] | | | | | | CENTER - | | | | | | LABORATORY | | + + + + + + | Absolute | 1.93 | 0.60 - 3.20 | [facility] | | | Lymphocytes | | K/uL | [facility] | | | | | | [facility] | | | | | | CENTER - | | | | | | LABORATORY | | + + + + + + | Absolute | 0.83 | 0.00 - 1.00 | [facility] | | | Monocytes | | K/uL | [facility] | | | | | | [facility] | | | | | | CENTER - | | | | | | LABORATORY | | + + + + + + | Absolute | 0.01 | 0.00 - 0.40 | [facility] | | | Eosinophils | | K/uL | [facility] | | | | | | [facility] | | | | | | CENTER - | | | | | | LABORATORY | | + + + + + + | Absolute | 0.07 | 0.00 - 0.10 | [facility] | | | Basophils | | K/uL | [facility] | | | | | | [facility] | | | | | | CENTER - | | | | | | LABORATORY | | + + + + + + | Absolute | 0.80 (H) | 0.00 - 0.03 | [facility] | | | Immature | | K/uL | [facility] | | | Granulocyte | | | MEDICAL | | | s | | | CENTER - | | | | | | LABORATORY | | + + + + + + | % nRBC | 0 | 0 - 2 per 100 | [facility] | | | | | WBC's | [facility] | | | | | | MEDICAL | | | | | | CENTER - | | | | | | LABORATORY | | + + + + + + | Absolute | 0.04 (H)Comment: | 0.00 - 0.01 | [facility] | | | nRBC | Presence of any NRBC's | K/uL | [facility] | | | | in adults is clinically | | MEDICAL | | | | significant | | CENTER - | | | | | | LABORATORY | | + + + + + + + + | Specimen | + + | Blood | + + + + + + + | Performing | Address | City/State/Zipcode | Phone Number | | Organization | | | | + + + + + | [facility] | [address] | [place] | [phone] | | [facility] | | [address] | | | - LABORATORY | | | | + + + + + Basic Metabolic Panel (12/08/2017 4:12 AM PDT) + + + + + + | Component | Value | Ref Range | Performed | Pathologist | | | | | At | Signature | + + + + + + | Na | 139 | 136 - 149 | [facility] | | | | | mmol/L | [facility] | | | | | | [facility] | | | | | | CENTER - | | | | | | LABORATORY | | + + + + + + | K | 3.7 | 3.5 - 5.1 | [facility] | | | | | mmol/L | [facility] | | | | | | [facility]ICAL | | | | | | CENTER - | | | | | | LABORATORY | | + + + + + + | Cl | 106 | 98 - 109 mmol/L | [facility] | | | | | | [facility] | | | | | | [facility]ICAL | | | | | | CENTER - | | | | | | LABORATORY | | + + + + + + | CO2 | 24 | 24 - 31 mmol/L | [facility] | | | | | | [facility] | | | | | | [facility] | | | | | | CENTER - | | | | | | LABORATORY | | + + + + + + | Anion Gap | 9 | 3 - 16 mmol/L | [facility] | | | | | | [facility] | | | | | | [facility] | | | | | | CENTER - | | | | | | LABORATORY | | + + + + + + | Glucose | 158 (H) | 70 - 109 mg/dL | [facility] | | | | | | [facility] | | | | | | [facility] | | | | | | CENTER - | | | | | | LABORATORY | | + + + + + + | BUN | 19 (H) | 7 - 18 mg/dL | [facility] | | | | | | [facility] | | | | | | MEDICAL | | | | | | CENTER - | | | | | | LABORATORY | | + + + + + + | Creatinine | 0.98 | 0.60 - 1.30 | [facility] | | | | | mg/dL | [facility] | | | | | | MEDICAL | | | | | | CENTER - | | | | | | LABORATORY | | + + + + + + | eGFR if not | 59 (L)Comment: | >=60 | [facility] | | | | GLOMERULAR FILTRATION | mL/min/1.73m2 | [facility] | | | TAJIK | RATE,ESTIMATED | | MEDICAL | | | | mL/min/[id number] than | | CENTER - | | | | 60 Chronic kidney | | LABORATORY | | | | disease,if found over a | | | | | | 3-month period.Less than | | | | | | 15 Kidney failureFor | | | | | | | | | | | | Americans,multiply the | | | | | | calculated GFR by 1.21. | | | | | | | | | | + + + + + + | Calcium | 9.2 | 8.3 - 10.5 | [facility] | | | | | mg/dL | [facility] | | | | | | MEDICAL | | | | | | CENTER - | | | | | | LABORATORY | | + + + + + + | BUN/Creatin | 19.4 | | [facility] | | | ine Ratio | | | [facility] | | | | | | MEDICAL | | | | | | CENTER - | | | | | | LABORATORY | | + + + + + + + + | Specimen | + + | Blood | + + + + + + + | Performing | Address | City/State/Zipcode | Phone Number | | Organization | | | | + + + + + | [facility] | [address] | [place] | [phone] | | [facility] | | [address] | | | - LABORATORY | | | | + + + + + Procalcitonin (12/08/2017 4:12 AM PDT) + + + + + + | Component | Value | Ref Range | Performed | Pathologist | | | | | At | Signature | + + + + + + | Procalciton | 0.41 | <=0.50 ng/mL | [facility] | | | in | | | [facility] | | | | | | MEDICAL | | | | | | CENTER - | | | | | | LABORATORY | | + + + + + + | Comment | Comment: < 0.50 | | [facility] | | | | ng/mL:Procalcitonin | | [facility] | | | | levels below 0.50 ng/mL | | MEDICAL | | | | on the first day of | | CENTER - | | | | admission represents a | | LABORATORY | | | | low risk for progression | | | | | | to severe sepsis and/or | | | | | | septic shock, however | | | | | | these do not exclude an | | | | | | infection, because | | | | | | localized infections | | | | | | (without systemic signs) | | | | | | may also be associated | | | | | | with such low levels. | | | | | | > 2.00 | | | | | | ng/mL:Procalcitonin | | | | | | levels above 2.00 ng/mL | | | | | | on the first day of | | | | | | admission represents a | | | | | | high risk for | | | | | | progression to severe | | | | | | sepsis and/or septic | | | | | | shock. If the | | | | | | procalcitonin | | | | | | measurement is performed | | | | | | shortly after the | | | | | | systemic infection | | | | | | process has started | | | | | | (usually less than 6 | | | | | | hours), these values may | | | | | | still be low. As | | | | | | various non-infectious | | | | | | conditions are known to | | | | | | induce procalcitonin as | | | | | | well, procalcitonin | | | | | | levels between 0.50 | | | | | | ng/mL and 2.00 ng/mL | | | | | | should be reviewed | | | | | | carefully to take into | | | | | | account the specific | | | | | | clinical background and | | | | | | condition(s) of the | | | | | | individual patient. | | | | + + + + + + + + | Specimen | + + | Blood | + + + + + + + | Performing | Address | City/State/Zipcode | Phone Number | | Organization | | | | + + + + + | [facility] | [address] | [place] | [phone] | | [facility] | | [address] | | | - LABORATORY | | | | + + + + + CT Angiogram Pulmonary (12/07/2017 8:50 PM PDT) + + | Specimen | + + | | + + + + + | Narrative | Performed At | + + + | CT ANGIOGRAM PULMONARY CLINICAL INFORMATION: Acute | [facility] | | respiratory failure with hypoxia. Evaluate for PE or pneumonia. | | | COMPARISON: XR CHEST AP PORTABLE dated 12/07/2017; XR CHEST AP | | | PORTABLE dated 12/06/2017; CT Chest dated 12/05/2017 PROCEDURE: | | | Thin-section images of the entire chest after the administration of 80 | | | omnipaque 350 intravenous contrast. 3D MIP thin slab images and 2D | | | multiplanar reconstructions performed. At least one of the | | | following CT dose optimization techniques were used: Automated | | | exposure control; Adjustment of mA and/or kV according to patient | | | size; Use of iterative reconstruction technique. FINDINGS: | | | PULMONARY ARTERIES: No filling defects in the main, lobar or segmental | | | pulmonary arteries. RIGHT VENTRICLE TO LEFT VENTRICLE RATIO: Not | | | applicable. (Maximum short axis diameter on axial image. Applicable | | | only when pulmonary embolism present. Abnormal greater than or equal | | | to 0.9.) CHEST Lungs, Pleura and Airways: There are geographic of | | | ground-glass opacity throughout both lungs with some small | | | ill-defined areas of consolidation. Mild interstitial septal | | | thickening, most prominent posteriorly. No airway narrowing or | | | obstruction. No pleural effusion or pneumothorax. Mediastinum: No | | | significant pericardial, great vessel or esophageal abnormality. No | | | mediastinal mass. Lymph Nodes: No adenopathy. Upper Abdomen: No | | | significant abnormality in the visualized upper abdomen. BODY | | | WALL Soft Tissues: The soft tissues of the chest wall are | | | unremarkable. Bones: No acute fracture or vertebral end plate | | | destruction. No lytic or blastic lesion. IMPRESSION- No evidence | | | of pulmonary embolism. Severe and extensive groundglass opacities | | | and patchy areas of consolidation in both lungs with a somewhat of a | | | mosaic attenuation pattern. -Findings are nonspecific and could be | | | due to pulmonary edema and/or an infectious or inflammatory etiology. | | | Mild enlargement of the main pulmonary arteries. Hepatic | | | steatosis. A preliminary report was sent without significant | | | discrepancy. Dictated and Signed by: Song Padilla MD | | | Electronically signed: 12/08/2017 8:34 AM | | + + + + + | Procedure Note | + + | Tirso, Rad Results In - 12/08/2017 8:37 AM PDT | | CT ANGIOGRAM PULMONARY | | | | CLINICAL INFORMATION: | | Acute respiratory failure with hypoxia. Evaluate for PE or pneumonia. | | | | COMPARISON: | | XR CHEST AP PORTABLE dated 12/07/2017; XR CHEST AP PORTABLE dated | | 12/06/2017; CT Chest dated 12/05/2017 | | | | PROCEDURE: | | Thin-section images of the entire chest after the administration of 80 | | omnipaque 350 intravenous contrast. 3D MIP thin slab images and 2D | | multiplanar reconstructions performed. | | | | At least one of the following CT dose optimization techniques were | | used: Automated exposure control; Adjustment of mA and/or kV according | | to patient size; Use of iterative reconstruction technique. | | | | FINDINGS: | | PULMONARY ARTERIES: No filling defects in the main, lobar or segmental | | pulmonary arteries. | | | | RIGHT VENTRICLE TO LEFT VENTRICLE RATIO: Not applicable. (Maximum short | | axis diameter on axial image. Applicable only when pulmonary embolism | | present. Abnormal greater than or equal to 0.9.) | | | | CHEST | | Lungs, Pleura and Airways: There are geographic of ground-glass opacity | | throughout both lungs with some small ill-defined areas of | | consolidation. Mild interstitial septal thickening, most prominent | | posteriorly. No airway narrowing or obstruction. No pleural effusion | | or pneumothorax. | | Mediastinum: No significant pericardial, great vessel or esophageal | | abnormality. No mediastinal mass. | | Lymph Nodes: No adenopathy. | | Upper Abdomen: No significant abnormality in the visualized upper | | abdomen. | | | | BODY WALL | | Soft Tissues: The soft tissues of the chest wall are unremarkable. | | Bones: No acute fracture or vertebral end plate destruction. No lytic | | or blastic lesion. | | | | IMPRESSION- | | No evidence of pulmonary embolism. | | | | Severe and extensive groundglass opacities and patchy areas of consolidation in | | both lungs with a somewhat of a mosaic attenuation pattern. | | -Findings are nonspecific and could be due to pulmonary edema and/or an | | infectious or inflammatory etiology. | | | | Mild enlargement of the main pulmonary arteries. | | | | Hepatic steatosis. | | | | A preliminary report was sent without significant discrepancy. | | | | Dictated and Signed by: Song Padilla MD | | Electronically signed: 12/08/2017 8:34 AM | + + + +---------+ + + | Performing | Address | City/State/Zipcode | Phone Number | | Organization | | | | + +---------+ + + | [facility] | | | | + +---------+ + + POC Glucose (12/07/2017 5:00 PM PDT) + +---------+ + + + | Component | Value | Ref Range | Performed | Pathologist | | | | | At | Signature | + +---------+ + + + | Glucose, | 219 (H) | 70 - 109 mg/dL | [facility] | | | POC | | | [facility] | | | | | | MEDICAL | | | | | | CENTER - | | | | | | LABORATORY | | + +---------+ + + + + + | Specimen | + + | Blood | + + + + + + + | Performing | Address | City/State/Zipcode | Phone Number | | Organization | | | | + + + + + | [facility] | [address] | [place] | [phone] | | [facility] | | [address] | | | - LABORATORY | | | | + + + + + POC Glucose (12/07/2017 11:13 AM PDT) + +---------+ + + + | Component | Value | Ref Range | Performed | Pathologist | | | | | At | Signature | + +---------+ + + + | Glucose, | 181 (H) | 70 - 109 mg/dL | [facility] | | | POC | | | [facility] | | | | | | MEDICAL | | | | | | CENTER - | | | | | | LABORATORY | | + +---------+ + + + + + | Specimen | + + | Blood | + + + + + + + | Performing | Address | City/State/Zipcode | Phone Number | | Organization | | | | + + + + + | [facility] | [address] | [place] | [phone] | | [facility] | | [address] | | | - LABORATORY | | | | + + + + + XR Chest AP Portable (12/07/2017 9:14 AM PDT) + + | Specimen | + + | | + + + + + | Narrative | Performed At | + + + | XR CHEST AP PORTABLE 12/07/2017 9:14 AM HISTORY: Acute | [facility] | | respiratory failure with hypoxia/diffuse inflammation of the lungs. | | | COMPARISON: 12/06/2017 Findings: Patchy bilateral mid and lower | | | lung zone airspace disease with mild diffuse thickening of the | | | interstitial/bronchovascular markings. Considerations include | | | pneumonia with superimposed component of pulmonary edema not entirely | | | excluded. No evidence of pneumothorax or pleural effusion. Heart is | | | enlarged. No acute osseous abnormality. IMPRESSION - Patchy | | | bilateral mid and lower lung zone airspace disease with mild diffuse | | | thickening of the interstitial/bronchovascular markings. | | | Considerations include pneumonia with superimposed component of | | | pulmonary edema not entirely excluded. Similar since 12/06/2017. | | | Dictated and Signed by: Song Padilla MD Electronically | | | signed: 12/07/2017 9:51 AM | | + + + + + | Procedure Note | + + | Tirso, Rad Results In - 12/07/2017 9:54 AM PDT XR CHEST AP PORTABLE 12/07/2017 9:14 AM | | | | HISTORY: Acute respiratory failure with hypoxia/diffuse inflammation of the | | lungs. | | | | COMPARISON: 12/06/2017 | | | | Findings: Patchy bilateral mid and lower lung zone airspace disease with mild | | diffuse thickening of the interstitial/bronchovascular markings. Considerations | | include pneumonia with superimposed component of pulmonary edema not entirely | | excluded. No evidence of pneumothorax or pleural effusion. Heart is enlarged. No | | acute osseous abnormality. | | | | IMPRESSION - | | Patchy bilateral mid and lower lung zone airspace disease with mild diffuse | | thickening of the interstitial/bronchovascular markings. | | | | Considerations include pneumonia with superimposed component of pulmonary edema | | not entirely excluded. | | | | Similar since 12/06/2017. | | | | Dictated and Signed by: Song Padilla MD | | Electronically signed: 12/07/2017 9:51 AM | + + + +---------+ + + | Performing | Address | City/State/Zipcode | Phone Number | | Organization | | | | + +---------+ + + | [facility] | | | | + +---------+ + + POC Glucose (12/07/2017 6:50 AM PDT) + +---------+ + + + | Component | Value | Ref Range | Performed | Pathologist | | | | | At | Signature | + +---------+ + + + | Glucose, | 174 (H) | 70 - 109 mg/dL | [facility] | | | P[facility] | | | [facility] | | | | | | [facility]ICAL | | | | | | CENTER - | | | | | | LABORATORY | | + +---------+ + + + + + | Specimen | + + | Blood | + + + + + + + | Performing | Address | City/State/Zipcode | Phone Number | | Organization | | | | + + + + + | [facility] | [address] | [place] | [phone] | | [facility] | | [address] | | | - LABORATORY | | | | + + + + + Differential, Manual (12/07/2017 4:52 AM PDT) + + + + + + | Component | Value | Ref Range | Performed | Pathologist | | | | | At | Signature | + + + + + + | % Segmented | 63.0 | 50.0 - 70.0 % | [facility] | | | | | | [facility] | | | Neutrophils | | | MEDICAL | | | | | | CENTER - | | | | | | LABORATORY | | + + + + + + | % | 15.0 (L) | 20.0 - 40.0 % | [facility] | | | Lymphocytes | | | [facility] | | | | | | MEDICAL | | | | | | CENTER - | | | | | | LABORATORY | | + + + + + + | % Monocytes | 2.0 | 1.0 - 6.0 % | [facility] | | | | | | [facility] | | | | | | MEDICAL | | | | | | CENTER - | | | | | | LABORATORY | | + + + + + + | % | 1.0 (H) | <0.0 % | [facility] | | | Metamyelocy | | | [facility] | | | helen | | | MEDICAL | | | | | | CENTER - | | | | | | LABORATORY | | + + + + + + | % Bands | 19.0 (H) | 0.0 - 5.0 % | [facility] | | | | | | [facility] | | | | | | MEDICAL | | | | | | CENTER - | | | | | | LABORATORY | | + + + + + + | Absolute | 8.82 (H) | 1.80 - 7.70 | [facility] | | | Segmented | | K/uL | [facility] | | | Neutrophils | | | MEDICAL | | | | | | CENTER - | | | | | | LABORATORY | | + + + + + + | Absolute | 2.10 | 1.00 - 3.40 | [facility] | | | Lymphocytes | | K/uL | [facility] | | | | | | MEDICAL | | | | | | CENTER - | | | | | | LABORATORY | | + + + + + + | Absolute | 0.28 | 0.00 - 0.80 | [facility] | | | Monocytes | | K/uL | [facility] | | | | | | MEDICAL | | | | | | CENTER - | | | | | | LABORATORY | | + + + + + + | Absolute | 0.14 | K/uL | [facility] | | | Metamyelocy | | | [facility] | | | helen | | | MEDICAL | | | | | | CENTER - | | | | | | LABORATORY | | + + + + + + | Absolute | 2.66 (H) | 0.00 - 1.50 | [facility] | | | Bands | | K/uL | [facility] | | | | | | MEDICAL | | | | | | CENTER - | | | | | | LABORATORY | | + + + + + + | Total | 100 | | [facility] | | | Counted | | | [facility] | | | | | | MEDICAL | | | | | | CENTER - | | | | | | LABORATORY | | + + + + + + | Platelet | Adequate | Adequate | [facility] | | | Estimate | | | [facility] | | | | | | MEDICAL | | | | | | CENTER - | | | | | | LABORATORY | | + + + + + + | Anisocytosi | Slight (A) | (none) | [facility] | | | s | | | [facility] | | | | | | MEDICAL | | | | | | CENTER - | | | | | | LABORATORY | | + + + + + + | Reactive | Few (A) | (none) | [facility] | | | Lymphocytes | | | [facility] | | | | | | MEDICAL | | | | | | CENTER - | | | | | | LABORATORY | | + + + + + + + + | Specimen | + + | Blood | + + + + + + + | Performing | Address | City/State/Zipcode | Phone Number | | Organization | | | | + + + + + | [facility] | [address] | [place] | [phone] | | [facility] | | [address] | | | - LABORATORY | | | | + + + + + CBC with Differential (12/07/2017 4:52 AM PDT) + + + + + + | Component | Value | Ref Range | Performed | Pathologist | | | | | At | Signature | + + + + + + | WBC | 14.0 (H) | 4.0 - 11.0 K/uL | [facility] | | | | | | [facility] | | | | | | [facility]ICAL | | | | | | CENTER - | | | | | | LABORATORY | | + + + + + + | RBC | 3.69 (L) | 3.70 - 5.20 | [facility] | | | | | M/uL | [facility] | | | | | | [facility] | | | | | | CENTER - | | | | | | LABORATORY | | + + + + + + | Hemoglobin | 11.0 (L) | 11.5 - 16.0 | [facility] | | | | | g/dL | [facility] | | | | | | MEDICAL | | | | | | CENTER - | | | | | | LABORATORY | | + + + + + + | Hematocrit | 34.9 | 34.0 - 47.0 % | [facility] | | | | | | [facility] | | | | | | MEDICAL | | | | | | CENTER - | | | | | | LABORATORY | | + + + + + + | MCV | 94.6 | 83.0 - 101.0 fL | [facility] | | | | | | [facility] | | | | | | MEDICAL | | | | | | CENTER - | | | | | | LABORATORY | | + + + + + + | MCH | 29.8 | 28.0 - 35.0 pg | [facility] | | | | | | [facility] | | | | | | MEDICAL | | | | | | CENTER - | | | | | | LABORATORY | | + + + + + + | MCHC | 31.5 (L) | 32.0 - 36.0 | [facility] | | | | | g/dL | [facility] | | | | | | MEDICAL | | | | | | CENTER - | | | | | | LABORATORY | | + + + + + + | RDW-CV | 15.5 (H) | <15.0 % | [facility] | | | | | | [facility] | | | | | | MEDICAL | | | | | | CENTER - | | | | | | LABORATORY | | + + + + + + | RDW-SD | 54.1 (H) | 35.1 - 46.3 fL | [facility] | | | | | | [facility] | | | | | | MEDICAL | | | | | | CENTER - | | | | | | LABORATORY | | + + + + + + | Platelet | 277 | 140 - 440 K/uL | [facility] | | | Count | | | [facility] | | | | | | MEDICAL | | | | | | CENTER - | | | | | | LABORATORY | | + + + + + + | MPV | 10.5 | 6.5 - 12.4 fL | [facility] | | | | | | [facility] | | | | | | MEDICAL | | | | | | CENTER - | | | | | | LABORATORY | | + + + + + + | % nRBC | 0 | 0 - 2 per 100 | [facility] | | | | | WBC's | [facility] | | | | | | MEDICAL | | | | | | CENTER - | | | | | | LABORATORY | | + + + + + + | Absolute | 0.03 (H)Comment: | 0.00 - 0.01 | [facility] | | | nRBC | Presence of any NRBC's | K/uL | [facility] | | | | in adults is clinically | | MEDICAL | | | | significant | | CENTER - | | | | | | LABORATORY | | + + + + + + + + | Specimen | + + | Blood | + + + + + + + | Performing | Address | City/State/Zipcode | Phone Number | | Organization | | | | + + + + + | [facility] | [address] | [place] | [phone] | | [facility] | | [address] | | | - LABORATORY | | | | + + + + + Basic Metabolic Panel (12/07/2017 4:52 AM PDT) + + + + + + | Component | Value | Ref Range | Performed | Pathologist | | | | | At | Signature | + + + + + + | Na | 137 | 136 - 149 | [facility] | | | | | mmol/L | [facility] | | | | | | MEDICAL | | | | | | CENTER - | | | | | | LABORATORY | | + + + + + + | K | 4.0 | 3.5 - 5.1 | [facility] | | | | | mmol/L | [facility] | | | | | | MEDICAL | | | | | | CENTER - | | | | | | LABORATORY | | + + + + + + | Cl | 106 | 98 - 109 mmol/L | [facility] | | | | | | [facility] | | | | | | MEDICAL | | | | | | CENTER - | | | | | | LABORATORY | | + + + + + + | CO2 | 21 (L) | 24 - 31 mmol/L | [facility] | | | | | | [facility] | | | | | | MEDICAL | | | | | | CENTER - | | | | | | LABORATORY | | + + + + + + | Anion Gap | 10 | 3 - 16 mmol/L | [facility] | | | | | | [facility] | | | | | | MEDICAL | | | | | | CENTER - | | | | | | LABORATORY | | + + + + + + | Glucose | 179 (H) | 70 - 109 mg/dL | [facility] | | | | | | [facility] | | | | | | MEDICAL | | | | | | CENTER - | | | | | | LABORATORY | | + + + + + + | BUN | 17 | 7 - 18 mg/dL | [facility] | | | | | | [facility] | | | | | | MEDICAL | | | | | | CENTER - | | | | | | LABORATORY | | + + + + + + | Creatinine | 0.97 | 0.60 - 1.30 | [facility] | | | | | mg/dL | [facility] | | | | | | [facility] | | | | | | CENTER - | | | | | | LABORATORY | | + + + + + + | eGFR if not | 60Comment: GLOMERULAR | >=60 | [facility] | | | | FILTRATION | mL/min/1.73m2 | [facility] | | | TAJIK | RATE,ESTIMATED | | MEDICAL | | | | mL/min/1.21y4Ejbw than | | CENTER - | | | | 60 Chronic kidney | | LABORATORY | | | | disease,if found over a | | | | | | 3-month period.Less than | | | | | | 15 Kidney failureFor | | | | | | | | | | | | Americans,multiply the | | | | | | calculated GFR by 1.21. | | | | | | | | | | + + + + + + | Calcium | 9.2 | 8.3 - 10.5 | [facility] | | | | | mg/dL | [facility] | | | | | | [facility] | | | | | | [facility] - | | | | | | LABORATORY | | + + + + + + | BUN/Creatin | 17.5 | | [facility] | | | ine Ratio | | | [facility] | | | | | | [facility] | | | | | | [facility] - | | | | | | LABORATORY | | + + + + + + + + | Specimen | + + | Blood | + + + + + + + | Performing | Address | City/State/Zipcode | Phone Number | | Organization | | | | + + + + + | [facility] | [address] | [place] | [phone] | | [facility] | | [address] | | | - LABORATORY | | | | + + + + + POC Glucose (12/06/2017 8:25 PM PDT) + +---------+ + + + | Component | Value | Ref Range | Performed | Pathologist | | | | | At | Signature | + +---------+ + + + | Glucose, | 220 (H) | 70 - 109 mg/dL | [facility] | | | [facility] | | | [facility] | [facility] | [facility] | | | | | | [facility] - | | | | | | LABORATORY | | + +---------+ + + + + + | Specimen | + + | Blood | + + + + + + + | Performing | Address | City/State/Zipcode | Phone Number | | Organization | | | | + + + + + | [facility] | [address] | [place] | [phone] | | [facility] | | [address] | | | - LABORATORY | | | | + + + + + POC Glucose (12/06/2017 4:33 PM PDT) + +---------+ + + + | Component | Value | Ref Range | Performed | Pathologist | | | | | At | Signature | + +---------+ + + + | Glucose, | 207 (H) | 70 - 109 mg/dL | [facility] | | | POC | | | [facility] | | | | | | MEDICAL | | | | | | CENTER - | | | | | | LABORATORY | | + +---------+ + + + + + | Specimen | + + | Blood | + + + + + + + | Performing | Address | City/State/Zipcode | Phone Number | | Organization | | | | + + + + + | [facility] | [address] | [place] | [phone] | | [facility] | | [address] | | | - LABORATORY | | | | + + + + + Troponin I (12/06/2017 3:08 PM PDT) + + + + + + | Component | Value | Ref Range | Performed | Pathologist | | | | | At | Signature | + + + + + + | Troponin I | 0.17 (H)Comment: | <0.06 ng/mL | [facility] | | | | Reference | | [facility] | | | | Ranges:0.00-0.06 = | | MEDICAL | | | | NORMAL>0.06 = | | CENTER - | | | | SUSPICIOUS FOR | | LABORATORY | | | | MYOCARDIAL DAMAGE NOTE: | | | | | | Values greater than 0.50 | | | | | | ng/mL have been shown | | | | | | to be strongly | | | | | | associated with acute | | | | | | myocardial infarction. | | | | | | The [employer] | | | | | | Cardiology (ACC) | | | | | | recommends a decision | | | | | | limit of 0.06 ng/mL for | | | | | | this assay. Results | | | | | | greater than 0.06 can | | | | | | reflect a pre-infarct | | | | | | acute coronary syndrome, | | | | | | but can also reflect | | | | | | myocardial necrosis or | | | | | | injury that is not due | | | | | | to coronary artery | | | | | | disease. Some of these | | | | | | causes are sepsis, | | | | | | hypocolemia, atrial | | | | | | fibrillation, heart | | | | | | failure, pulmonary | | | | | | embolism, myocarditis, | | | | | | myocardial contusion, | | | | | | and renal failure. The | | | | | | diagnosis of myocardial | | | | | | infarction should be | | | | | | based on a combination | | | | | | of the patient's | | | | | | clinical presentation | | | | | | and the clinical | | | | | | laboratory test results | | | | | | (especially serial | | | | | | troponin levels). | | | | + + + + + + + + | Specimen | + + | Blood | + + + + + + + | Performing | Address | City/State/Zipcode | Phone Number | | Organization | | | | + + + + + | [facility] | [address] | [place], [place] | [phone] | | [facility] | | [address] | | | - LABORATORY | | | | + + + + + VAS Lower Extremity Venous Bilateral (12/06/2017 2:33 PM PDT) + + | Specimen | + + | | + + + + + | Narrative | Performed At | + + + | VAS LOWER EXTREMITY VENOUS BILATERAL 12/06/2017 1:44 PM | [facility] | | HISTORY: elevated D-Dimer, negative VQ scan. COMPARISON: None. | | | PROTOCOL: Fulton scale and Doppler images of the lower extremity veins. | | | FINDINGS: The bilateral common femoral, greater saphenous, | | | profunda femoral, superficial femoral, and popliteal veins | | | demonstrate normal flow, augmentation, and compression. | | | IMPRESSION - No evidence for DVT. Dictated and Signed by: Song | | | MD Valerie Electronically signed: 12/06/2017 3:11 PM | | + + + + + | Procedure Note | + + | Mikael Chahal Results In - 12/06/2017 3:14 PM PDT VAS LOWER EXTREMITY VENOUS BILATERAL | | 12/06/2017 1:44 PM HISTORY: elevated D-Dimer, negative VQ scan.COMPARISON: | | None.PROTOCOL: Fulton scale and Doppler images of the lower extremity veins.FINDINGS:The | | bilateral common femoral, greater saphenous, profunda femoral, superficialfemoral, and | | popliteal veins demonstrate normal flow, augmentation, andcompression.IMPRESSION -No | | evidence for DVT.Dictated and Signed by: Song Padilla MD Electronically signed: | | 12/06/2017 3:11 PM | | | |FINDINGS: | |The bilateral common femoral, greater saphenous, profunda femoral, superficial | |femoral, and popliteal veins demonstrate normal flow, augmentation, and | |compression. | | | | | |IMPRESSION - | |No evidence for DVT. | | | |Dictated and Signed by: Song Padilla MD | | Electronically signed: 12/06/2017 3:11 PM | + + + +---------+ + + | Performing | Address | City/State/[facility] | Phone Number | | Organization | | | | + +---------+ + + | [facility] | | | | + +---------+ + + Urinalysis with Microscopic with Culture if Indicated (12/06/2017 12:36 PM PDT) + + + + + + | Component | Value | Ref Range | Performed | Pathologist | | | | | At | Signature | + + + + + + | Color, | Yellow | Light Yellow, | [facility] | | | Urine | | Yellow, Straw | [facility] | | | | | | MEDICAL | | | | | | CENTER - | | | | | | LABORATORY | | + + + + + + | Clarity | Clear | Clear | [facility] | | | | | | [facility] | | | | | | MEDICAL | | | | | | CENTER - | | | | | | LABORATORY | | + + + + + + | pH, Urine | 6.0 | 5.0 - 8.0 | [facility] | | | | | | [facility] | | | | | | MEDICAL | | | | | | CENTER - | | | | | | LABORATORY | | + + + + + + | Specific | 1.011 | 1.001 - 1.030 | [facility] | | | [place], | | | [facility] | | | Urine | | | MEDICAL | | | | | | CENTER - | | | | | | LABORATORY | | + + + + + + | Protein, | 30 mg/dL (A) | Negative | [facility] | | | Urine | | | [facility] | | | | | | MEDICAL | | | | | | CENTER - | | | | | | LABORATORY | | + + + + + + | Blood, | Small (A) | Negative | [facility] | | | Urine | | | [facility] | | | | | | MEDICAL | | | | | | CENTER - | | | | | | LABORATORY | | + + + + + + | Glucose, | Negative | Negative | [facility] | | | Urine | | | [facility] | | | | | | MEDICAL | | | | | | CENTER - | | | | | | LABORATORY | | + + + + + + | Ketones, | Trace (A) | Negative | [facility] | | | Urine | | | [facility] | | | | | | MEDICAL | | | | | | CENTER - | | | | | | LABORATORY | | + + + + + + | Bilirubin, | Negative | Negative | [facility] | | | Urine | | | [facility] | | | | | | MEDICAL | | | | | | CENTER - | | | | | | LABORATORY | | + + + + + + | Nitrite, | Negative | Negative | [facility] | | | Urine | | | [facility] | | | | | | MEDICAL | | | | | | CENTER - | | | | | | LABORATORY | | + + + + + + | Leukocyte | Negative | Negative | [facility] | | | Esterase, | | | [facility] | | | Urine | | | MEDICAL | | | | | | CENTER - | | | | | | LABORATORY | | + + + + + + | Urobilinoge | 4.0 mg/dL (A) | 0.2 mg/dL, 1.0 | [facility] | | | n, Urine | | mg/dL, Negative | [facility] | | | | | | MEDICAL | | | | | | CENTER - | | | | | | LABORATORY | | + + + + + + | White Blood | 0-2 | 0 - 2 /HPF | [facility] | | | Cells, | | | [facility] | | | Urine | | | MEDICAL | | | | | | CENTER - | | | | | | LABORATORY | | + + + + + + | Red Blood | 0-2 | 0 - 2 /HPF | [facility] | | | Cells, | | | [facility] | | | Urine | | | MEDICAL | | | | | | CENTER - | | | | | | LABORATORY | | + + + + + + | Squamous | 2-5 (A) | 0 - 2 /LPF | [facility] | | | Epithelial | | | [facility] | | | Cells, | | | MEDICAL | | | Urine | | | CENTER - | | | | | | LABORATORY | | + + + + + + | Bacteria, | 1+ (A) | Negative /HPF | [facility] | | | Urine | | | [facility] | | | | | | MEDICAL | | | | | | CENTER - | | | | | | LABORATORY | | + + + + + + | Hyaline | 0-2 | 0 - 2 /LPF | [facility] | | | Casts, | | | [facility] | | | Urine | | | MEDICAL | | | | | | CENTER - | | | | | | LABORATORY | | + + + + + + + + | Specimen | + + | Urine - Urine | | specimen obtained by | | clean catch | | procedure (specimen) | + + + + + + + | Performing | Address | City/State/Zipcode | Phone Number | | Organization | | | | + + + + + | [facility] | [address] | [place] | [phone] | | [facility] | | [address] | | | - LABORATORY | | | | + + + + + POC Glucose (12/06/2017 12:18 PM PDT) + +---------+ + + + | Component | Value | Ref Range | Performed | Pathologist | | | | | At | Signature | + +---------+ + + + | Glucose, | 186 (H) | 70 - 109 mg/dL | [facility] | | | POC | | | [facility] | | | | | | MEDICAL | | | | | | CENTER - | | | | | | LABORATORY | | + +---------+ + + + + + | Specimen | + + | Blood | + + + + + + + | Performing | Address | City/State/Zipcode | Phone Number | | Organization | | | | + + + + + | [facility] | [address] | [place] | [phone] | | [facility] | | [address] | | | - LABORATORY | | | | + + + + + ECHO Complete (12/06/2017 11:53 AM PDT) + +--------+ + + + | Component | Value | Ref Range | Performed | Pathologist | | | | | At | Signature | + +--------+ + + + | LVEF-TTE | 60 | % | [facility] | | | TRANSTHORAC | | | | | | IC ECHO | | | | | + +--------+ + + + | BASELINE | 121/65 | mmHg | [facility] | | | BLOOD | | | | | | PRESSURE | | | | | + +--------+ + + + | Patient | 217lb | | [facility] | | | Weight | | | | | | (lbs) | | | | | + +--------+ + + + | Patient | 5f3in | | [facility] | | | Height | | | | | + +--------+ + + + | LVIDd | 4.41 | cm | [facility] | | + +--------+ + + + | FS | 32 | % | [facility] | | + +--------+ + + + | LA volume | 57.17 | mL | [facility] | | + +--------+ + + + | Aortic arch | 3.01 | cm | [facility] | | + +--------+ + + + | AV mean | 6 | mmHg | [facility] | | | gradient | | | | | + +--------+ + + + | MV Area by | 3.94 | cm2 | [facility] | | | P 1/2 | | | | | | method | | | | | + +--------+ + + + | IVRT | 85.64 | msec | [facility] | | + +--------+ + + + | LVOT peak | 123.69 | cm/s | [facility] | | | marleni | | | | | + +--------+ + + + | LVOT peak | 22.09 | cm | [facility] | | | VTI | | | | | + +--------+ + + + | AV peak marleni | 180 | cm/s | [facility] | | + +--------+ + + + | AV VTI | 29.00 | cm | [facility] | | + +--------+ + + + | MV peak | 3.31 | mmHg | [facility] | | | gradient | | | | | + +--------+ + + + | MV Pressure | 55.88 | msec | [facility] | | | 1/2 time | | | | | + +--------+ + + + | LA Volume | 29 | mL/m2 | [facility] | | | Index | | | | | + +--------+ + + + | AV LVOT | 6.12 | mmHg | [facility] | | | Peak | | | | | | Gradient | | | | | + +--------+ + + + | AV LVOT | 2.3 | mmHg | [facility] | | | Mean | | | | | | Gradient | | | | | + +--------+ + + + | TR Peak | 56 | mmHg | [facility] | | | Gradient | | | | | + +--------+ + + + | TR Velocity | 374.81 | cm | [facility] | | + +--------+ + + + | LV | 7.35 | cm | [facility] | | | Diastolic | | | | | | Length 4C | | | | | + +--------+ + + + | LV Systolic | 11.75 | cm2 | [facility] | | | Area PSAX | | | | | + +--------+ + + + | LV | 60 | % | [facility] | | | Gaffney's | | | | | | Biplane EF | | | | | + +--------+ + + + | AV | 58.01 | msec | [facility] | | | Acceleratio | | | | | | n Time | | | | | + +--------+ + + + | LV ED | 45.27 | ml | [facility] | | | Volume | | | | | | (Gaffney's) | | | | | + +--------+ + + + | LV ED | 23 | ml/m2 | [facility] | | | Volume | | | | | | Index | | | | | + +--------+ + + + | LV ES | 18.46 | ml | [facility] | | | Volume | | | | | + +--------+ + + + | LVOT Mean | 67.19 | cm/s | [facility] | | | Velocity | | | | | + +--------+ + + + | MV A' | 12.52 | cm/s | [facility] | | | Lateral | | | | | | Velocity | | | | | + +--------+ + + + | MV E' | 10.07 | cm/s | [facility] | | | Lateral | | | | | | Velocity | | | | | + +--------+ + + + | MV A' | 10.95 | cm/s | [facility] | | | Septal | | | | | | Velocity | | | | | + +--------+ + + + | MV E' | 7 | cm/s | [facility] | | | Septal | | | | | | Velocity | | | | | + +--------+ + + + | MV | 477.04 | cm/s2 | [facility] | | | Deceleratio | | | | | | n Piute | | | | | + +--------+ + + + | MV | 190.62 | msec | [facility] | | | Deceleratio | | | | | | n Time | | | | | + +--------+ + + + | MV E/A | 1.01 | | [facility] | | | Ratio | | | | | + +--------+ + + + | MV Peak | 89.96 | cm/s | [facility] | | | A-Wave | | | | | + +--------+ + + + | MV Peak | 90.93 | cm/s | [facility] | | | E-Wave | | | | | + +--------+ + + + | AV Mean | 119.87 | cm/s | [facility] | | | Velocity | | | | | + +--------+ + + + | LA/Aorta | 1.41 | | [facility] | | | Ratio | | | | | + +--------+ + + + | LA Area | 18.78 | cm2 | [facility] | | + +--------+ + + + | LA Systolic | 13.29 | mmHg | [facility] | | | Pressure | | | | | + +--------+ + + + | MV E/E | 12.99 | | [facility] | | | SEPTAL | | | | | + +--------+ + + + | MV E/E | 9.03 | | [facility] | | | LATERAL | | | | | + +--------+ + + + | LA Major | 0.2931 | cm | [facility] | | + +--------+ + + + | LV ES | 9 | ml/m2 | [facility] | | | Volume | | | | | | Index | | | | | + +--------+ + + + | LV Area | 19.6 | cm2 | [facility] | | | Diastolic | | | | | + +--------+ + + + | Aortic Root | 2.99 | cm | [facility] | | | Diameter | | | | | + +--------+ + + + | IVS | 1.21 | cm | [facility] | | | Diastolic | | | | | | Thickness | | | | | | MM | | | | | + +--------+ + + + | LVPW | 1.21 | cm | [facility] | | | Diastolic | | | | | | Thickness | | | | | | MM | | | | | + +--------+ + + + | IVS | 1.24 | cm | [facility] | | | Systolic | | | | | | Thickness | | | | | | MM | | | | | + +--------+ + + + | LV Systolic | 2.99 | cm | [facility] | | | Diameter | | | | | | MM | | | | | + +--------+ + + + | LVPW | 1.42 | cm | [facility] | | | Systolic | | | | | | Thickness | | | | | | MM | | | | | + +--------+ + + + | AV Cusp | 1.78 | cm | [facility] | | | Seperation | | | | | | MM | | | | | + +--------+ + + + | LA Systolic | 4.23 | cm | [facility] | | | Diameter | | | | | | MM | | | | | + +--------+ + + + | TAPSE | 1.9 | cm | [facility] | | + +--------+ + + + | RA PRESSURE | 3 | mmHg | [facility] | | + +--------+ + + + | RVSP | 59 | mmHg | [facility] | | | Estimated | | | | | + +--------+ + + + + + | Specimen | + + | | + + + + + | Narrative | Performed At | + + + | 1. Normal | [facility] | | left ventricular size with a mild concentric left ventricular | | | hypertrophy. Preserved left ventricular systolic function. LVEF is | | | 60-65%.2. Grade 1 left ventricular diastolic dysfunction.3. | | | Mildly thickened mitral valve with the trace mitral valve | | | regurgitation.4. Mild tricuspid valve regurgitation.5. Moderate | | | pulmonary hypertension with a peak systolic pressure of 60-65 mmHg.6. | | | Normal IVC with normal respiratory collapse.7. When compared to | | | echocardiography on 03/01/15, moderate pulmonary hypertension is a new | | | finding. | | |7. When compared to echocardiography on 03/01/15, moderate pulmonary | | |hypertension is a new finding. | | + + + + +---------+ + + | Performing | Address | City/State/Zipcode | Phone Number | | Organization | | | | + +---------+ + + | [facility] | | | | + +---------+ + + Differential, Manual (12/06/2017 9:04 AM PDT) + + + + + + | Component | Value | Ref Range | Performed | Pathologist | | | | | At | Signature | + + + + + + | % Segmented | 37.0 (L) | 50.0 - 70.0 % | [facility] | | | | | | [facility] | | | Neutrophils | | | MEDICAL | | | | | | CENTER - | | | | | | LABORATORY | | + + + + + + | % | 24.0 | 20.0 - 40.0 % | [facility] | | | Lymphocytes | | | [facility] | | | | | | MEDICAL | | | | | | CENTER - | | | | | | LABORATORY | | + + + + + + | % Monocytes | 4.0 | 1.0 - 6.0 % | [facility] | | | | | | [facility] | | | | | | MEDICAL | | | | | | CENTER - | | | | | | LABORATORY | | + + + + + + | % | 5.0 | 1.0 - 5.0 % | [facility] | | | Eosinophils | | | [facility] | | | | | | MEDICAL | | | | | | CENTER - | | | | | | LABORATORY | | + + + + + + | % Basophils | 1.0 | 0.0 - 1.0 % | [facility] | | | | | | [facility] | | | | | | MEDICAL | | | | | | CENTER - | | | | | | LABORATORY | | + + + + + + | % | 1.0 (H) | <0.0 % | [facility] | | | Metamyelocy | | | [facility] | | | helen | | | MEDICAL | | | | | | CENTER - | | | | | | LABORATORY | | + + + + + + | % Bands | 28.0 (H) | 0.0 - 5.0 % | [facility] | | | | | | [facility] | | | | | | MEDICAL | | | | | | CENTER - | | | | | | LABORATORY | | + + + + + + | Absolute | 3.18 | 1.80 - 7.70 | [facility] | | | Segmented | | K/uL | [facility] | | | Neutrophils | | | MEDICAL | | | | | | CENTER - | | | | | | LABORATORY | | + + + + + + | Absolute | 2.06 | 1.00 - 3.40 | [facility] | | | Lymphocytes | | K/uL | [facility] | | | | | | MEDICAL | | | | | | CENTER - | | | | | | LABORATORY | | + + + + + + | Absolute | 0.34 | 0.00 - 0.80 | [facility] | | | Monocytes | | K/uL | [facility] | | | | | | MEDICAL | | | | | | CENTER - | | | | | | LABORATORY | | + + + + + + | Absolute | 0.43 | 0.00 - 0.50 | [facility] | | | Eosinophils | | K/uL | [facility] | | | | | | MEDICAL | | | | | | CENTER - | | | | | | LABORATORY | | + + + + + + | Absolute | 0.09 | 0.00 - 0.10 | [facility] | | | Basophils | | K/uL | [facility] | | | | | | MEDICAL | | | | | | CENTER - | | | | | | LABORATORY | | + + + + + + | Absolute | 0.09 | K/uL | [facility] | | | Metamyelocy | | | [facility] | | | helen | | | MEDICAL | | | | | | CENTER - | | | | | | LABORATORY | | + + + + + + | Absolute | 2.41 (H) | 0.00 - 1.50 | [facility] | | | Bands | | K/uL | [facility] | | | | | | MEDICAL | | | | | | CENTER - | | | | | | LABORATORY | | + + + + + + | % nRBC | 1 | per 100 WBC's | [facility] | | | | | | [facility] | | | | | | MEDICAL | | | | | | CENTER - | | | | | | LABORATORY | | + + + + + + | Total | 100 | | [facility] | | | Counted | | | [facility] | | | | | | MEDICAL | | | | | | CENTER - | | | | | | LABORATORY | | + + + + + + | Platelet | Normal | | [facility] | | | Morphology | | | [facility] | | | | | | MEDICAL | | | | | | CENTER - | | | | | | LABORATORY | | + + + + + + | Polychromas | Slight (A) | (none) | [facility] | | | ia | | | [facility] | | | | | | MEDICAL | | | | | | CENTER - | | | | | | LABORATORY | | + + + + + + | Anisocytosi | Slight (A) | (none) | [facility] | | | s | | | [facility] | | | | | | MEDICAL | | | | | | CENTER - | | | | | | LABORATORY | | + + + + + + | Variant | Moderate (A) | (none) | [facility] | | | Lymphocytes | | | [facility] | | | | | | MEDICAL | | | | | | CENTER - | | | | | | LABORATORY | | + + + + + + + + | Specimen | + + | Blood | + + + + + + + | Performing | Address | City/State/Zipcode | Phone Number | | Organization | | | | + + + + + | [facility] | [address] | [place] | [phone] | | [facility] | | [address] | | | - LABORATORY | | | | + + + + + Troponin I (12/06/2017 9:04 AM PDT) + + + + + + | Component | Value | Ref Range | Performed | Pathologist | | | | | At | Signature | + + + + + + | Troponin I | 0.18 (H)Comment: | <0.06 ng/mL | [facility] | | | | Reference | | [facility] | | | | Ranges:0.00-0.06 = | | MEDICAL | | | | NORMAL>0.06 = | | CENTER - | | | | SUSPICIOUS FOR | | LABORATORY | | | | MYOCARDIAL DAMAGE NOTE: | | | | | | Values greater than 0.50 | | | | | | ng/mL have been shown | | | | | | to be strongly | | | | | | associated with acute | | | | | | myocardial infarction. | | | | | | The [employer] | | | | | | [employer] ([employer]) | | | | | | recommends a decision | | | | | | limit of 0.06 ng/mL for | | | | | | this assay. Results | | | | | | greater than 0.06 can | | | | | | reflect a pre-infarct | | | | | | acute coronary syndrome, | | | | | | but can also reflect | | | | | | myocardial necrosis or | | | | | | injury that is not due | | | | | | to coronary artery | | | | | | disease. Some of these | | | | | | causes are sepsis, | | | | | | hypocolemia, atrial | | | | | | fibrillation, heart | | | | | | failure, pulmonary | | | | | | embolism, myocarditis, | | | | | | myocardial contusion, | | | | | | and renal failure. The | | | | | | diagnosis of myocardial | | | | | | infarction should be | | | | | | based on a combination | | | | | | of the patient's | | | | | | clinical presentation | | | | | | and the clinical | | | | | | laboratory test results | | | | | | (especially serial | | | | | | troponin levels). | | | | + + + + + + + + | Specimen | + + | Blood | + + + + + + + | Performing | Address | City/State/Zipcode | Phone Number | | Organization | | | | + + + + + | [facility] | [address] | [place] | [phone] | | [facility] | | [address] | | | - LABORATORY | | | | + + + + + CBC with Differential (12/06/2017 9:04 AM PDT) + + + + + + | Component | Value | Ref Range | Performed | Pathologist | | | | | At | Signature | + + + + + + | WBC | 8.6 | 4.0 - 11.0 K/uL | [facility] | | | | | | [facility] | | | | | | MEDICAL | | | | | | CENTER - | | | | | | LABORATORY | | + + + + + + | RBC | 3.63 (L) | 3.70 - 5.20 | [facility] | | | | | M/uL | [facility] | | | | | | MEDICAL | | | | | | CENTER - | | | | | | LABORATORY | | + + + + + + | Hemoglobin | 10.9 (L) | 11.5 - 16.0 | [facility] | | | | | g/dL | [facility] | | | | | | MEDICAL | | | | | | CENTER - | | | | | | LABORATORY | | + + + + + + | Hematocrit | 34.7 | 34.0 - 47.0 % | [facility] | | | | | | [facility] | | | | | | MEDICAL | | | | | | CENTER - | | | | | | LABORATORY | | + + + + + + | MCV | 95.6 | 83.0 - 101.0 fL | [facility] | | | | | | [facility] | | | | | | MEDICAL | | | | | | CENTER - | | | | | | LABORATORY | | + + + + + + | MCH | 30.0 | 28.0 - 35.0 pg | [facility] | | | | | | [facility] | | | | | | MEDICAL | | | | | | CENTER - | | | | | | LABORATORY | | + + + + + + | MCHC | 31.4 (L) | 32.0 - 36.0 | [facility] | | | | | g/dL | [facility] | | | | | | MEDICAL | | | | | | CENTER - | | | | | | LABORATORY | | + + + + + + | RDW-CV | 16.2 (H) | <15.0 % | [facility] | | | | | | [facility] | | | | | | MEDICAL | | | | | | CENTER - | | | | | | LABORATORY | | + + + + + + | RDW-SD | 57.5 (H) | 35.1 - 46.3 fL | [facility] | | | | | | [facility] | | | | | | MEDICAL | | | | | | C[facility] - | | | | | | LABORATORY | | + + + + + + | Platelet | 244 | 140 - 440 K/uL | [facility] | | | Count | | | [facility] | | | | | | [facility] | | | | | | [facility] - | | | | | | LABORATORY | | + + + + + + | MPV | 10.1 | 6.5 - 12.4 fL | [facility] | [facility] | [facility] | [facility] | [facility] | | | [facility] - | | | | | | LABORATORY | | + + + + + + | % nRBC | 1 | 0 - 2 per 100 | [facility] | | | | | WBC's | [facility] | | | | | | [facility] | | | | | | [facility] - | | | | | | LABORATORY | | + + + + + + | Absolute | 0.05 (H)Comment: | 0.00 - 0.01 | [facility] | | | nRBC | Presence of any NRBC's | K/uL | [facility] | | | | in adults is clinically | | MEDICAL | | | | significant | | CENTER - | | | | | | LABORATORY | | + + + + + + + + | Specimen | + + | Blood | + + + + + + + | Performing | Address | City/State/Zipcode | Phone Number | | Organization | | | | + + + + + | [facility] | [address] | [place] | [phone] | | [facility] | | [address] | | | - LABORATORY | | | | + + + + + Basic Metabolic Panel (12/06/2017 9:04 AM PDT) + + + + + + | Component | Value | Ref Range | Performed | Pathologist | | | | | At | Signature | + + + + + + | Na | 136 | 136 - 149 | [facility] | | | | | mmol/L | [facility] | [facility] | | | | | | [facility] - | | | | | | LABORATORY | | + + + + + + | K | 4.1 | 3.5 - 5.1 | [facility] | | | | | mmol/L | [facility] | | | | | | [facility] | | | | | | [facility] - | | | | | | LABORATORY | | + + + + + + | Cl | 102 | 98 - 109 mmol/L | [facility] | | | [facility] | [facility] | | [facility] | | [facility] | | | | | | [facility] - | | | | | | LABORATORY | | + + + + + + | CO2 | 23 (L) | 24 - 31 mmol/L | [facility] | [facility] | | | | | | [facility] | | | | | | [facility] - | | | | | | LABORATORY | | + + + + + + | Anion Gap | 11 | 3 - 16 mmol/L | [facility] | | | | | | [facility] | | | | | | [facility] - | | | | | | LABORATORY | | + + + + + + | Glucose | 134 (H) | 70 - 109 mg/dL | [facility] | | | | | | [facility] | [facility] | [facility] | | | | | | [facility] - | | | | | | LABORATORY | | + + + + + + | BUN | 23 (H) | 7 - 18 mg/dL | [facility] | [facility] | | | | [facility] | [facility] - | | | | | | LABORATORY | | + + + + + + | Creatinine | 1.33 (H) | 0.60 - 1.30 | [facility] | | | | | mg/dL | [facility] | | | [facility] | [facility] | | | | | | [facility] - | | | | | | LABORATORY | | + + + + + + | eGFR if not | 42 (L)Comment: | >=60 | [facility] | | | | GLOMERULAR FILTRATION | mL/min/1.73m2 | [facility] | | | TAJIK | RATE,ESTIMATED | | MEDICAL | | | | mL/min/1.70j9Wrew than | | CENTER - | | | | 60 Chronic kidney | | LABORATORY | | | | disease,if found over a | | | | | | 3-month period.Less than | | | | | | 15 Kidney failureFor | | | | | | | | | | | | Americans,multiply the | | | | | | calculated GFR by 1.21. | | | | | | | | | | + + + + + + | Calcium | 8.9 | 8.3 - 10.5 | [facility] | | | | | mg/dL | [facility] | | | | | | [facility] | | | | | | CENTER - | | | | | | LABORATORY | | + + + + + + | BUN/Creatin | 17.3 | | [facility] | | | ine Ratio | | | [facility] | | | | | | [facility] | | | | | | CENTER - | | | | | | LABORATORY | | + + + + + + + + | Specimen | + + | Blood | + + + + + + + | Performing | Address | City/State/Zipcode | Phone Number | | Organization | | | | + + + + + | [facility] | [address] | [place] | [phone] | | [facility] | | [address] | | | - LABORATORY | | | | + + + + + POC Glucose (12/06/2017 6:46 AM PDT) + +---------+ + + + | Component | Value | Ref Range | Performed | Pathologist | | | | | At | Signature | + +---------+ + + + | Glucose, | 177 (H) | 70 - 109 mg/dL | [facility] | | | POC | | | [facility] | | | | | | [facility] | | | | | | CENTER - | | | | | | LABORATORY | | + +---------+ + + + + + | Specimen | + + | Blood | + + + + + + + | Performing | Address | City/State/Zipcode | Phone Number | | Organization | | | | + + + + + | [facility] | [address] | [place] | [phone] | | [facility] | | [address] | | | - LABORATORY | | | | + + + + + XR Chest AP Portable (12/06/2017 5:28 AM PDT) + + | Specimen | + + | | + + + + + | Narrative | Performed At | + + + | SINGLE AP CHEST 12/06/2017 5:28 AM CLINICAL HISTORY: eval for | [facility] | | PNA COMPARISON: Radiography from the previous day and 2016 | | | FINDINGS: The cardiomediastinal silhouette is grossly unremarkable. | | | Progressive patchy opacity is present throughout both lungs. No | | | pneumothorax or pleural effusion is visible. Bones and soft tissues | | | are unremarkable. IMPRESSION - 1. PROGRESSIVE PATCHY | | | OPACITY WITHIN BOTH LUNGS, WHICH COULD REFLECT DIFFUSE LUNG INJURY OR | | | OTHER WIDESPREAD INFECTIOUS OR INFLAMMATORY PROCESS. Dictated and | | | Signed by: Ulices Jeffery MD Electronically signed: 12/06/2017 8:27 | | | AM | | + + + + + | Procedure Note | + + | Tirso, Rad Results In - 12/06/2017 8:30 AM PDT SINGLE AP CHEST 12/06/2017 5:28 AM | | | | CLINICAL HISTORY: eval for PNA | | | | COMPARISON: Radiography from the previous day and 2016 | | | | FINDINGS: The cardiomediastinal silhouette is grossly unremarkable. Progressive | | patchy opacity is present throughout both lungs. No pneumothorax or pleural | | effusion is visible. Bones and soft tissues are unremarkable. | | | | IMPRESSION - | | | | 1. PROGRESSIVE PATCHY OPACITY WITHIN BOTH LUNGS, WHICH COULD REFLECT DIFFUSE | | LUNG INJURY OR OTHER WIDESPREAD INFECTIOUS OR INFLAMMATORY PROCESS. | | | | Dictated and Signed by: Ulices Jeffery MD | | Electronically signed: 12/06/2017 8:27 AM | + + + +---------+ + + | Performing | Address | City/State/Zipcode | Phone Number | | Organization | | | | + +---------+ + + | [facility] | | | | + +---------+ + + B Type Natriuretic Peptide (12/06/2017 2:43 AM PDT) + +---------+ + + + | Component | Value | Ref Range | Performed | Pathologist | | | | | At | Signature | + +---------+ + + + | BNP | 216 (H) | <100 pg/mL | [facility] | | | | | | [facility] | | | | | | [facility]ICAL | | | | | | CENTER - | | | | | | LABORATORY | | + +---------+ + + + + + | Specimen | + + | Blood | + + + + + + + | Performing | Address | City/State/Zipcode | Phone Number | | Organization | | | | + + + + + | [facility] | [address] | [place] | [phone] | | [facility] | | [address] | | | - LABORATORY | | | | + + + + + Culture, Blood (12/06/2017 2:43 AM PDT) + + + + + + | Component | Value | Ref Range | Performed | Pathologist | | | | | At | Signature | + + + + + + | Culture | No growth after 5 days | | [facility] | | | | incubation. | | [facility] | | | | | | MEDICAL | | | | | | CENTER - | | | | | | LABORATORY | | + + + + + + + + | Specimen | + + | Blood | + + + + + + + | Performing | Address | City/State/Zipcode | Phone Number | | Organization | | | | + + + + + | [facility] | [address] | [place] | [phone] | | [facility] | | [address] | | | - LABORATORY | | | | + + + + + Culture, Blood (12/06/2017 2:38 AM PDT) + + + + + + | Component | Value | Ref Range | Performed | Pathologist | | | | | At | Signature | + + + + + + | Culture | No growth after 5 days | | [facility] | | | | incubation. | | [facility] | | | | | | MEDICAL | | | | | | CENTER - | | | | | | LABORATORY | | + + + + + + + + | Specimen | + + | Blood | + + + + + + + | Performing | Address | City/State/Zipcode | Phone Number | | Organization | | | | + + + + + | [facility] | [address] | [place] | [phone] | | [facility] | | [address] | | | - LABORATORY | | | | + + + + + Lipid Panel (12/06/2017 2:38 AM PDT) + + + + + + | Component | Value | Ref Range | Performed | Pathologist | | | | | At | Signature | + + + + + + | Triglycerid | 365 (H) | 35 - 160 mg/dL | [facility] | | | es | | | [facility] | | | | | | MEDICAL | | | | | | CENTER - | | | | | | LABORATORY | | + + + + + + | Cholesterol | 164 | 150 - 200 mg/dL | [facility] | | | | | | [facility] | | | | | | MEDICAL | | | | | | CENTER - | | | | | | LABORATORY | | + + + + + + | HDL | 18 (L)Comment: New | 28 - 83 mg/dL | [facility] | | | | HDL Reference Range as | | [facility] | | | | of November 04, 2014 | | MEDICAL | | | | Values may be 10-20% | | CENTER - | | | | lower with new, | | LABORATORY | | | | standardized method. | | | | + + + + + + | Chol/HDL | 9.1 | | [facility] | | | Ratio | | | [facility] | | | | | | MEDICAL | | | | | | CENTER - | | | | | | LABORATORY | | + + + + + + | LDL, | 73 | <=130 mg/dL | [facility] | | | Calculated | | | [facility] | | | | | | MEDICAL | | | | | | CENTER - | | | | | | LABORATORY | | + + + + + + + + | Specimen | + + | Blood | + + + + + + + | Performing | Address | City/State/Zipcode | Phone Number | | Organization | | | | + + + + + | [facility] | [address] | [place] | [phone] | | [facility] | | [address] | | | - LABORATORY | | | | + + + + + Basic Metabolic Panel (12/06/2017 2:38 AM PDT) + + + + + + | Component | Value | Ref Range | Performed | Pathologist | | | | | At | Signature | + + + + + + | Na | 136 | 136 - 149 | [facility] | | | | | mmol/L | [facility] | | | | | | MEDICAL | | | | | | CENTER - | | | | | | LABORATORY | | + + + + + + | K | 4.4 | 3.5 - 5.1 | [facility] | | | | | mmol/L | [facility] | | | | | | MEDICAL | | | | | | CENTER - | | | | | | LABORATORY | | + + + + + + | Cl | 102 | 98 - 109 mmol/L | [facility] | | | | | | [facility] | | | | | | MEDICAL | | | | | | CENTER - | | | | | | LABORATORY | | + + + + + + | CO2 | 23 (L) | 24 - 31 mmol/L | [facility] | | | | | | [facility] | | | | | | MEDICAL | | | | | | CENTER - | | | | | | LABORATORY | | + + + + + + | Anion Gap | 11 | 3 - 16 mmol/L | [facility] | | | | | | [facility] | | | | | | MEDICAL | | | | | | CENTER - | | | | | | LABORATORY | | + + + + + + | Glucose | 141 (H) | 70 - 109 mg/dL | [facility] | | | | | | [facility] | | | | | | MEDICAL | | | | | | CENTER - | | | | | | LABORATORY | | + + + + + + | BUN | 31 (H) | 7 - 18 mg/dL | [facility] | | | | | | [facility] | | | | | | MEDICAL | | | | | | CENTER - | | | | | | LABORATORY | | + + + + + + | Creatinine | 1.70 (H) | 0.60 - 1.30 | [facility] | | | | | mg/dL | [facility] | | | | | | MEDICAL | | | | | | CENTER - | | | | | | LABORATORY | | + + + + + + | eGFR if not | 31 (L)Comment: | >=60 | [facility] | | | | GLOMERULAR FILTRATION | mL/min/1.73m2 | [facility] | | | TAJIK | RATE,ESTIMATED | | MEDICAL | | | | mL/min/1.01f3Gnab than | | CENTER - | | | | 60 Chronic kidney | | LABORATORY | | | | disease,if found over a | | | | | | 3-month period.Less than | | | | | | 15 Kidney failureFor | | | | | | | | | | | | Americans,multiply the | | | | | | calculated GFR by 1.21. | | | | | | | | | | + + + + + + | Calcium | 8.6 | 8.3 - 10.5 | [facility] | | | | | mg/dL | [facility] | | | | | | MEDICAL | | | | | | CENTER - | | | | | | LABORATORY | | + + + + + + | BUN/Creatin | 18.2 | | [facility] | | | ine Ratio | | | [facility] | | | | | | MEDICAL | | | | | | CENTER - | | | | | | LABORATORY | | + + + + + + + + | Specimen | + + | Blood | + + + + + + + | Performing | Address | City/State/Zipcode | Phone Number | | Organization | | | | + + + + + | [facility] | [address] | [place] | [phone] | | [facility] | | [address] | | | - LABORATORY | | | | + + + + + POC Glucose (12/06/2017 12:14 AM PDT) + +---------+ + + + | Component | Value | Ref Range | Performed | Pathologist | | | | | At | Signature | + +---------+ + + + | Glucose, | 139 (H) | 70 - 109 mg/dL | [facility] | | | POC | | | [facility] | | | | | | MEDICAL | | | | | | CENTER - | | | | | | LABORATORY | | + +---------+ + + + + + | Specimen | + + | Blood | + + + + + + + | Performing | Address | City/State/Zipcode | Phone Number | | Organization | | | | + + + + + | [facility] | [address] | [place] | [phone] | | [facility] | | [address] | | | - LABORATORY | | | | + + + + + Procalcitonin (12/05/2017 11:59 PM PDT) + + + + + + | Component | Value | Ref Range | Performed | Pathologist | | | | | At | Signature | + + + + + + | Procalciton | 2.52 ()Comment: | <=0.50 ng/mL | [facility] | | | in | Critical Result called | | [facility] | | | | to and read back by Anish | | MEDICAL | | | | Bonita on 12/06/2017 at | | CENTER - | | | | 1:51 by Garland Amaro | | LABORATORY | | | | Yesiki. | | | | + + + + + + | Comment | Comment: < 0.50 | | [facility] | | | | ng/mL:Procalcitonin | | [facility] | | | | levels below 0.50 ng/mL | | MEDICAL | | | | on the first day of | | CENTER - | | | | admission represents a | | LABORATORY | | | | low risk for progression | | | | | | to severe sepsis and/or | | | | | | septic shock, however | | | | | | these do not exclude an | | | | | | infection, because | | | | | | localized infections | | | | | | (without systemic signs) | | | | | | may also be associated | | | | | | with such low levels. | | | | | | > 2.00 | | | | | | ng/mL:Procalcitonin | | | | | | levels above 2.00 ng/mL | | | | | | on the first day of | | | | | | admission represents a | | | | | | high risk for | | | | | | progression to severe | | | | | | sepsis and/or septic | | | | | | shock. If the | | | | | | procalcitonin | | | | | | measurement is performed | | | | | | shortly after the | | | | | | systemic infection | | | | | | process has started | | | | | | (usually less than 6 | | | | | | hours), these values may | | | | | | still be low. As | | | | | | various non-infectious | | | | | | conditions are known to | | | | | | induce procalcitonin as | | | | | | well, procalcitonin | | | | | | levels between 0.50 | | | | | | ng/mL and 2.00 ng/mL | | | | | | should be reviewed | | | | | | carefully to take into | | | | | | account the specific | | | | | | clinical background and | | | | | | condition(s) of the | | | | | | individual patient. | | | | + + + + + + + + | Specimen | + + | Blood | + + + + + + + | Performing | Address | City/State/Zipcode | Phone Number | | Organization | | | | + + + + + | [facility] | [address] | [place] | [phone] | | [facility] | | [address] | | | - LABORATORY | | | | + + + + + D-Dimer (12/05/2017 11:59 PM PDT) + + + + + + | Component | Value | Ref Range | Performed | Pathologist | | | | | At | Signature | + + + + + + | D-Dimer | 2.93 (H)Comment: This | <=0.50 ug/ml | [facility] | | | Quantitativ | quantitative D-Dimer | | [facility] | | | e | assay has been evaluated | | MEDICAL | | | | for screening for | | CENTER - | | | | venous thrombotic | | LABORATORY | | | | disease, and may be | | | | | | useful in ruling out, | | | | | | but not ruling in | | | | | | disease. Values less | | | | | | than 0.50 ug/mL FEU | | | | | | (Fibrinogen Equivalent | | | | | | Units) have a negative | | | | | | predictive value of | | | | | | approximately 95% for | | | | | | ruling out large | | | | | | pulmonary emboli or | | | | | | proximal deep vein | | | | | | thrombosis. Distal DVT | | | | | | are not excluded. An | | | | | | elevated D-dimer can be | | | | | | present in patients with | | | | | | liver disease, | | | | | | , eclampsia, | | | | | | heart disease and some | | | | | | cancers among other | | | | | | conditions. The presence | | | | | | of rheumatoid factor at | | | | | | a level >50 IU/mL may | | | | | | falsely elevate the | | | | | | determined D-dimer | | | | | | levels. | | | | + + + + + + + + | Specimen | + + | Blood | + + + + + + + | Performing | Address | City/State/[facility] | Phone Number | | Organization | | | | + + + + + | [facility] | [address] | [place] | [phone] | | [facility] | | [address] | | | - LABORATORY | | | | + + + + + Troponin I (12/05/2017 11:59 PM PDT) + + + + + + | Component | Value | Ref Range | Performed | Pathologist | | | | | At | Signature | + + + + + + | Troponin I | 0.11 (H)Comment: | <0.06 ng/mL | [facility] | | | | Reference | | [facility] | | | | Ranges:0.00-0.06 = | | MEDICAL | | | | NORMAL>0.06 = | | CENTER - | | | | SUSPICIOUS FOR | | LABORATORY | | | | MYOCARDIAL DAMAGE NOTE: | | | | | | Values greater than 0.50 | | | | | | ng/mL have been shown | | | | | | to be strongly | | | | | | associated with acute | | | | | | myocardial infarction. | | | | | | The [employer] | | | | | | [employer]iology ([employer]) | | | | | | recommends a decision | | | | | | limit of 0.06 ng/mL for | | | | | | this assay. Results | | | | | | greater than 0.06 can | | | | | | reflect a pre-infarct | | | | | | acute coronary syndrome, | | | | | | but can also reflect | | | | | | myocardial necrosis or | | | | | | injury that is not due | | | | | | to coronary artery | | | | | | disease. Some of these | | | | | | causes are sepsis, | | | | | | hypocolemia, atrial | | | | | | fibrillation, heart | | | | | | failure, pulmonary | | | | | | embolism, myocarditis, | | | | | | myocardial contusion, | | | | | | and renal failure. The | | | | | | diagnosis of myocardial | | | | | | infarction should be | | | | | | based on a combination | | | | | | of the patient's | | | | | | clinical presentation | | | | | | and the clinical | | | | | | laboratory test results | | | | | | (especially serial | | | | | | troponin levels). | | | | + + + + + + + + | Specimen | + + | Blood | + + + + + + + | Performing | Address | City/State/Zipcode | Phone Number | | Organization | | | | + + + + + | [facility] | [address] | [place] | [phone] | | [facility] | | [address] | | | - LABORATORY | | | | + + + + + Hemoglobin A1C (12/05/2017 11:59 PM PDT) + +---------+ + + + | Component | Value | Ref Range | Performed | Pathologist | | | | | At | Signature | + +---------+ + + + | Hemoglobin | 7.3 (H) | 4.3 - 6.0 % | [facility] | | | A1c | | | [facility] | | | | | | MEDICAL | | | | | | CENTER - | | | | | | LABORATORY | | + +---------+ + + + | Estimated | 163 | mg/dL | [facility] | | | Average | | | [facility] | | | Glucose | | | MEDICAL | | | | | | CENTER - | | | | | | LABORATORY | | + +---------+ + + + + + | Specimen | + + | Blood | + + + + + + + | Performing | Address | City/State/Zipcode | Phone Number | | Organization | | | | + + + + + | [facility] | [address] | [place] | [phone] | | [facility] | | [address] | | | - LABORATORY | | | | + + + + + Culture, MRSA (12/05/2017 11:29 PM PDT) + + + + + + | Component | Value | Ref Range | Performed | Pathologist | | | | | At | Signature | + + + + + + | Culture | Negative for MRSA by | | [facility] | | | | chromogenic agar method | | [facility] | | | | | | MEDICAL | | | | | | CENTER - | | | | | | LABORATORY | | + + + + + + | Culture | 2+ Coagulase positive | | [facility] | | | | Staphylococcus | | [facility] | | | | | | MEDICAL | | | | | | CENTER - | | | | | | LABORATORY | | + + + + + + + + | Specimen | + + | Tissue - Both | | anterior nares (body | | structure) | + + + + + + + | Performing | Address | City/State/Zipcode | Phone Number | | Organization | | | | + + + + + | [facility] | [address] | [place], [place] | [phone] | | [facility] | | [address] | | | - LABORATORY | | | | + + + + + NM Unlisted Respiratory Procedure (12/05/2017 3:25 PM PDT) + + | Specimen | [...] | | | + +---------+ + + XR Chest 1 Vw (12/05/2017 12:00 PM [...] + documented in this encounter Visit Diagnoses + + | Diagnosis | + + | Acute respiratory failure with hypoxia (HCC) - Primary Acute respiratory failure | + + | Chest pain, unspecified type | + + | Coronary artery disease involving upper [place] heart, angina presence unspecified, | | unspecified vessel or lesion type | + + | Type 2 diabetes mellitus without complication, without long-term current use of | | insulin (HCC) | + + | Acute kidney injury (HCC) Acute kidney failure, unspecified | + + | Smoking Tobacco use disorder | + + | Diabetes mellitus (HCC) Type II or unspecified type diabetes mellitus without mention | | of complication, not stated as uncontrolled | + + | Hyperlipidemia Other and unspecified hyperlipidemia | + + | Hypertension Unspecified essential hypertension | + + documented in this encounter Administered Medications + +--------+ +--------+------+------+ | Medication Order | MAR | Action | Dose | Rate | Site | | | Action | Date | | | | + +--------+ +--------+------+------+ | acetaminophen (TYLENOL) tablet | Given | 12/10/19 | 650 mg | | | | 650 mg 650 mg, Oral, EVERY 4 | | 18 8:41 | | | | | HOURS PRN, Pain, or fever >= 38.6 | | AM PDT | | | | | C (101.5 F), Starting Criss | | | | | | | 12/05/17 at 2336 | | | | | | + +--------+ +--------+------+------+ +---+---+ | | | +---+---+ + +-------+ +--------+---+---+ | albuterol 2.5 mg/3 mL nebulizer | Given | 12/09/19 | 2.5 mg | | | | solution 2.5 mg 2.5 mg, | | 18 10:02 | | | | | Nebulization, RT EVERY 4 HOURS | | PM PDT | | | | | PRN, Shortness of Breath, | | | | | | | Starting 12/07/17 at 1125, RT | | | | | | | will administer., | | | | | | + +-------+ +--------+---+---+ +-------+ +--------+---+---+ | Given | 12/09/19 | 2.5 mg | | | | | 18 12:24 | | | | | | AM PDT | | | | +-------+ +--------+---+---+ | Given | 12/08/19 | 2.5 mg | | | | | 18 11:55 | | | | | | AM PDT | | | | +-------+ +--------+---+---+ +---+---+ | | | +---+---+ + +-------+ +-------+---+---+ | albuterol-ipratropium 2.5-0.5 | Given | 12/10/19 | 3 mLs | | | | mg/3 mL nebulizer solution 3 mL | | 18 8:49 | | | | | 3 mL, Nebulization, RT TID, First | | AM PDT | | | | | dose (after last modification) | | | | | | | on 12/07/17 at 1145 | | | | | | + +-------+ +-------+---+---+ +-------+ +-------+---+---+ | Given | 12/09/19 | 3 mLs | | | | | 18 2:09 | | | | | | PM PDT | | | | +-------+ +-------+---+---+ | Given | 12/09/19 | 3 mLs | | | | | 18 9:04 | | | | | | AM PDT | | | | +-------+ +-------+---+---+ +---+---+ | | | +---+---+ + +-------+ +---------+---+---+ | ALPRAZolam (XANAX) tablet 0.25 | Given | 12/07/19 | 0.25 mg | | | | mg 0.25 mg, Oral, ONCE, Fri | | 18 10:34 | | | | | 12/06/17 at 2245, For 1 dose | | PM PDT | | | | + +-------+ +---------+---+---+ +---+---+ | | | +---+---+ + +-------+ +---------+---+---+ | ALPRAZolam (XANAX) tablet 0.25 | Given | 12/10/19 | 0.25 mg | | | | mg 0.25 mg, Oral, EVERY 6 HOURS | | 18 8:41 | | | | | PRN, Anxiety, Starting Sat | | AM PDT | | | | | 12/07/17 at 0716 | | | | | | + +-------+ +---------+---+---+ +-------+ +---------+---+---+ | Given | 12/09/19 | 0.25 mg | | | | | 18 3:31 | | | | | | PM PDT | | | | +-------+ +---------+---+---+ | Given | 12/08/19 | 0.25 mg | | | | | 18 4:16 | | | | | | PM PDT | | | | +-------+ +---------+---+---+ +---+---+ | | | +---+---+ + +-------+ +------+---+---+ | amLODIPine (NORVASC) tablet 5 | Given | 12/10/19 | 5 mg | | | | mg 5 mg, Oral, DAILY, First dose | | 18 8:26 | | | | | on 12/07/17 at 0900 | | AM PDT | | | | + +-------+ +------+---+---+ +-------+ +------+---+---+ | Given | 12/09/19 | 5 mg | | | | | 18 9:16 | | | | | | AM PDT | | | | +-------+ +------+---+---+ | Given | 12/08/19 | 5 mg | | | | | 18 8:11 | | | | | | AM PDT | | | | +-------+ +------+---+---+ +---+---+ | | | +---+---+ + +-------+ +-------+---+---+ | aspirin chewable tablet 81 mg | Given | 12/10/19 | 81 mg | | | | 81 mg, Oral, DAILY, First dose on | | 18 8:27 | | | | | 12/07/17 at 0900 | | AM PDT | | | | + +-------+ +-------+---+---+ +-------+ +-------+---+---+ | Given | 12/09/19 | 81 mg | | | | | 18 9:14 | | | | | | AM PDT | | | | +-------+ +-------+---+---+ | Given | 12/08/19 | 81 mg | | | | | 18 8:11 | | | | | | AM PDT | | | | +-------+ +-------+---+---+ +---+---+ | | | +---+---+ + +-------+ +--------+---+---+ | aspirin EC tablet 325 mg 325 | Given | 12/07/19 | 325 mg | | | | mg, Oral, DAILY, First dose on | | 18 12:04 | | | | | 12/06/17 at 0000, Do not cut | | AM PDT | | | | | or crush., | | | | | | + +-------+ +--------+---+---+ + +---+ | | | + +---+ | dextrose 50% injection 12.5 g | | | 12.5 g, Intravenous, PRN, Low | | | Blood Sugar, Starting Criss | | | 12/05/17 at 2342 | | + +---+ | | | + +---+ + +-------+ +--------+---+ + | enoxaparin (LOVENOX) 100 mg/mL | Given | 12/08/19 | 100 mg | | Abdomen- | | injection 100 mg 100 mg (rounded | | 18 9:00 | | | RUQ | | from 98.8 mg = 1 mg/kg | | PM PDT | | | | | 98.8 kg), Subcutaneous, EVERY 12 | | | | | | | HOURS (2 times per day), First | | | | | | | dose on Sat12/06/17 at 1045 | | | | | | + +-------+ +--------+---+ + +-------+ +--------+---+ + | Given | 12/08/19 | 100 mg | | Abdomen- | | | 18 11:11 | | | LLQ | | | AM PDT | | | | +-------+ +--------+---+ + | Given | 12/07/19 | 100 mg | | Abdomen- | | | 18 8:25 | | | RLQ | | | PM PDT | | | | +-------+ +--------+---+ + +---+---+ | | | +---+---+ + +-------+ +-------+---+ + | enoxaparin (LOVENOX) 40 mg/0.4 | Given | 12/10/19 | 40 mg | | Abdomen- | | mL injection 40 mg 40 mg, | | 18 8:26 | | | RLQ | | Subcutaneous, EVERY 24 HOURS | | AM PDT | | | | | (Daily), First dose on Sun | | | | | | | 12/08/17 at 0900 | | | | | | + +-------+ +-------+---+ + +-------+ +-------+---+ + | Given | 10/14/20 | 40 mg | | Abdomen- | | | 18 9:14 | | | LLQ | | | AM PDT | | | | +-------+ +-------+---+ + +---+---+ | | | +---+---+ + +-------+ +--------+---+---+ | gemfibrozil (LOPID) tablet 600 | Given | 12/10/19 | 600 mg | | | | mg 600 mg, Oral, 2 TIMES DAILY | | 18 6:48 | | | | | BEFORE MEALS, First dose on Sat | | AM PDT | | | | | 12/06/17 at 0730, Give 30 minutes | | | | | | | before a meal., | | | | | | + +-------+ +--------+---+---+ +-------+ +--------+---+---+ | Given | 12/09/19 | 600 mg | | | | | 18 3:31 | | | | | | PM PDT | | | | +-------+ +--------+---+---+ | Given | 12/09/19 | 600 mg | | | | | 18 9:14 | | | | | | AM PDT | | | | +-------+ +--------+---+---+ +---+---+ | | | +---+---+ + +-------+ +--------+---+ + | heparin 5,000 units/mL | Given | 12/07/19 | 5,000 | | Abdomen- | | injection 5,000 Units 5,000 | | 18 9:44 | Units | | LLQ | | Units, Subcutaneous, EVERY 12 | | AM PDT | | | | | HOURS (2 times per day), First | | | | | | | dose on Sat12/06/17 at 0000 | | | | | | + +-------+ +--------+---+ + +-------+ +--------+---+ + | Given | 12/07/19 | 5,000 | | Arm-Left | | | 18 12:04 | Units | | Upper | | | AM PDT | | | | +-------+ +--------+---+ + +---+---+ | | | +---+---+ + +-------+ + +---+---+ | HYDROcodone-acetaminophen | Given | 12/10/19 | 1 tablet | | | | (NORCO) 5-325 mg per tablet 1 | | 18 10:31 | | | | | tablet 1 tablet, Oral, EVERY 4 | | AM PDT | | | | | HOURS PRN, Pain, Starting Criss | | | | | | | 12/05/17 at 2337, If ineffective | | | | | | | use [place] 10/325 if ordered. If | | | | | | | not tolerated, use Percocet then | | | | | | | Oxycodone if ordered., | | | | | | + +-------+ + +---+---+ +-------+ + +---+---+ | Given | 12/10/19 | 1 tablet | | | | | 18 6:47 | | | | | | AM PDT | | | | +-------+ + +---+---+ | Given | 12/10/19 | 1 tablet | | | | | 18 1:48 | | | | | | AM PDT | | | | +-------+ + +---+---+ +---+---+ | | | +---+---+ + +-------+ +---------+---+ + | insulin lispro (humaLOG | Given | 12/10/19 | 2 Units | | Abdomen- | | KWIKPEN) 100 units/mL injection | | 18 12:09 | | | LLQ | | (pen) 0-6 Units 0-6 Units, | | PM PDT | | | | | Subcutaneous, EVERY 6 HOURS (4 | | | | | | | times per day), First dose on Fri | | | | | | | 12/06/17 at 0000, CORRECTION | | | | | | | SCALE: Blood Glucose (BG) < | | | | | | | 150: None BG | | | | | | | 150-200: DAY: 1 units. NIGHT: 0 | | | | | | | units BG 201-250: DAY: 2 units. | | | | | | | NIGHT: 1 units BG 251-300: | | | | | | | DAY: 3 units. NIGHT: 2 units | | | | | | | BG 301-350: DAY: 4 units. NIGHT: | | | | | | | 3 units BG 351-400: DAY: 5 | | | | | | | units. NIGHT: 4 units BG > | | | | | | | 400 : DAY: 6 units. NIGHT: 5 | | | | | | | units | | | | | | | AND CALL PROVIDER Use DAY DOSE | | | | | | | for doses scheduled: AC, | | | | | | | NPO, Daytime [id number] Use NIGHT | | | | | | | DOSE for doses scheduled: | | | | | | | HS, 3AM, Nighttime [id number], | | | | | | + +-------+ +---------+---+ + +-------+ +---------+---+ + | Given | 12/09/19 | 2 Units | | Arm-Righ | | | 18 6:01 | | | t Upper | | | PM PDT | | | | +-------+ +---------+---+ + | Given | 12/09/19 | 3 Units | | Arm-Righ | | | 18 11:48 | | | t Upper | | | AM PDT | | | | +-------+ +---------+---+ + +---+---+ | | | +---+---+ + +-------+ +--------+---+---+ | iohexol (OMNIPAQUE 350) 350 | Given | 12/08/19 | 80 mLs | | | | mg/mL injection 80 mL 80 mL, | | 18 8:50 | | | | | Intravenous, ONCE PRN, Other, | | PM PDT | | | | | Starting 12/07/17 at 2050, | | | | | | | For 1 dose, Cat Scanner | | | | | | + +-------+ +--------+---+---+ +---+---+ | | | +---+---+ + +---------+ +--------+-------+---+ | levoFLOXacin in dextrose | New Bag | 12/10/19 | 750 mg | 100 | | | (LEVAQUIN) IVPB 750 mg 750 mg, | | 18 8:19 | | mL/hr | | | Intravenous, Administer over 90 | | AM PDT | | | | | Minutes, DAILY, First dose (after | | | | | | | last modification) on Fri | | | | | | | 12/06/17 at 0245, Indications: | | | | | | | Pneumonia | | | | | | + +---------+ +--------+-------+---+ +---------+ +--------+-------+---+ | New Bag | 12/09/19 | 750 mg | 100 | | | | 18 9:14 | | mL/hr | | | | AM PDT | | | | +---------+ +--------+-------+---+ | New Bag | 12/08/19 | 750 mg | 100 | | | | 18 8:15 | | mL/hr | | | | AM PDT | | | | +---------+ +--------+-------+---+ +---+---+ | | | +---+---+ + +-------+ +-------+---+---+ | lisinopril (PRINIVIL, ZESTRIL) | Given | 12/10/19 | 10 mg | | | | tablet 10 mg 10 mg, Oral, DAILY, | | 18 8:27 | | | | | First dose on 12/08/17 at | | AM PDT | | | | | 0900 | | | | | | + +-------+ +-------+---+---+ +-------+ +-------+---+---+ | Given | 12/09/19 | 10 mg | | | | | 18 9:15 | | | | | | AM PDT | | | | +-------+ +-------+---+---+ +---+---+ | | | +---+---+ + +-------+ +------+---+---+ | LORazepam (ATIVAN) injection | Given | 12/08/19 | 2 mg | | | | 1-2 mg 1-2 mg, Intravenous, | | 18 9:00 | | | | | ONCE, 12/07/17 at 1815, For 1 | | PM PDT | | | | | dose | | | | | | + +-------+ +------+---+---+ +---+---+ | | | +---+---+ + +-------+ +-------+---+ + | methylPREDNISolone sodium | Given | 12/07/19 | 40 mg | | Other | | succinate (solu-MEDROL) 40 mg/mL | | 18 8:25 | | | (Comment | | injection 40 mg 40 mg, | | PM PDT | | | ) | | Intramuscular, EVERY 12 HOURS (2 | | | | | | | times per day), First dose on Sat | | | | | | | 12/06/17 at 0930, Mix with 1 mL | | | | | | | provided diluent to make 40 | | | | | | | mg/mL., | | | | | | + +-------+ +-------+---+ + +-------+ +-------+---+ + | Given | 12/07/19 | 40 mg | | Deltoid- | | | 18 9:54 | | | Left | | | AM PDT | | | | +-------+ +-------+---+ + +---+---+ | | | +---+---+ + +-------+ +-------+---+---+ | methylPREDNISolone sodium | Given | 12/08/19 | 40 mg | | | | succinate (solu-MEDROL) 40 mg/mL | | 18 8:15 | | | | | injection 40 mg 40 mg, | | AM PDT | | | | | Intravenous, EVERY 24 HOURS | | | | | | | (Daily), First dose (after last | | | | | | | modification) on 12/07/17 at | | | | | | | 0900, Mix with 1 mL provided | | | | | | | diluent to make 40 mg/mL., | | | | | | + +-------+ +-------+---+---+ +---+---+ | | | +---+---+ + +-------+ +-------+---+---+ | metoprolol succinate | Given | 12/10/19 | 50 mg | | | | (TOPROL-XL) ER tablet 50 mg 50 | | 18 8:26 | | | | | mg, Oral, 2 TIMES DAILY, First | | AM PDT | | | | | dose on 12/08/17 at 1900, | | | | | | | Tablet may be cut where scored | | | | | | | but do not crush., | | | | | | + +-------+ +-------+---+---+ +-------+ +-------+---+---+ | Given | 12/09/19 | 50 mg | | | | | 18 6:52 | | | | | | PM PDT | | | | +-------+ +-------+---+---+ +---+---+ | | | +---+---+ + +---------+ +---------+---+ + | nicotine (NICODERM) 21 mg/24 hr | Patch | 12/07/19 | 1 patch | | Shoulder | | 1 patch 1 patch, Transdermal, | Applied | 18 12:04 | | | -Left | | DAILY PRN, Nicotine Craving, | | AM PDT | | | | | Starting Criss 12/05/17 at 2337, | | | | | | | Apply to non-hairy, clean, dry | | | | | | | skin on upper body or arm. Rotate | | | | | | | sites. May remove at bedtime PRN | | | | | | | vivid dreams., | | | | | | + +---------+ +---------+---+ + +---+---+ | | | +---+---+ + +-------+ +-------+---+---+ | pantoprazole (PROTONIX) DR | Given | 12/10/19 | 40 mg | | | | tablet 40 mg 40 mg, Oral, DAILY | | 18 6:48 | | | | | BEFORE BREAKFAST, First dose on | | AM PDT | | | | | 12/08/17 at 0845, Do not cut | | | | | | | or crush., Indication: GERD | | | | | | + +-------+ +-------+---+---+ +-------+ +-------+---+---+ | Given | 12/09/19 | 40 mg | | | | | 18 9:15 | | | | | | AM PDT | | | | +-------+ +-------+---+---+ +---+---+ | | | +---+---+ + +-------+ +--------+---+---+ | potassium chloride (Klor-Con | Given | 12/10/19 | 40 mEq | | | | M20) ER tablet 40 mEq 40 mEq, | | 18 6:48 | | | | | Oral, ONCE, 12/09/17 at 0630, | | AM PDT | | | | | For 1 dose | | | | | | + +-------+ +--------+---+---+ +---+---+ | | | +---+---+ + +-------+ +-------+---+---+ | predniSONE (DELTASONE) tablet | Given | 12/10/19 | 40 mg | | | | 40 mg 40 mg, Oral, DAILY, First | | 18 8:26 | | | | | dose on 12/08/17 at 0900 | | AM PDT | | | | + +-------+ +-------+---+---+ +-------+ +-------+---+---+ | Given | 12/09/19 | 40 mg | | | | | 18 9:16 | | | | | | AM PDT | | | | +-------+ +-------+---+---+ +---+---+ | | | +---+---+ + +---------+ +--------+-------+---+ | sodium chloride 0.9% (NS) bolus | New Bag | 12/08/19 | 30 mLs | 1800 | | | 30 mL 30 mL, Intravenous, | | 18 8:50 | | mL/hr | | | Administer over 1 Minutes, ONCE | | PM PDT | | | | | PRN, for contrast study, Starting | | | | | | | 12/07/17 at 2050, For 1 | | | | | | | dose, May infuse at a different | | | | | | | rate per protocol., Cat Scanner | | | | | | + +---------+ +--------+-------+---+ +---+---+ | | | +---+---+ + +---------+ +---------+-------+---+ | sodium chloride 0.9% (NS) bolus | New Bag | 12/07/19 | 500 mLs | 500 | | | 500 mL 500 mL, Intravenous, | | 18 12:45 | | mL/hr | | | Administer over 1 Hours, ONCE, | | AM PDT | | | | | 12/06/17 at 0000, For 1 dose | | | | | | + +---------+ +---------+-------+---+ +---+---+ | | | +---+---+ + +---------+ +---+ +---+ | sodium chloride 0.9% (NS) | New Bag | 12/08/19 | | 75 mL/hr | | | infusion at 75 mL/hr, | | 18 2:51 | | | | | Intravenous, CONTINUOUS, Starting | | AM PDT | | | | | 12/06/17 at 0915 | | | | | | + +---------+ +---+ +---+ + + +---+ +---+ | New Bag | 12/07/19 | | 75 mL/hr | | | | 18 2:45 | | | | | | PM PDT | | | | + + +---+ +---+ | Rate/Dose Change | 12/07/19 | | 75 mL/hr | | | | 18 2:34 | | | | | | PM PDT | | | | + + +---+ +---+ +---+---+ | | | +---+---+ documented in this encounter
--- OUTSIDE RECORDS SUMMARY | ~2019-08-20 | XMS | Encounter Summary ---
Demographics + + + | Address | [address] | | | [place] [address] | + + + | Home Phone | | + + + | Preferred Language | Unknown | + + + | Marital Status | | + + + | [employer]ian Affiliation | Unknown | + + + | Race | Unknown | + + + | Ethnic Group | Unknown | + + + Author + + + | Author | [facility] | | | and [place] | + + + | Organization | [facility] | | | [...] Team Providers + +------+ + | Care Displayer Merchandise Name | Role | Phone | + +------+ + PCP | Unavailable | + +------+ + Encounter Details +--------+ + + + + | Date | Type | Department | Care Team | Description | +--------+ + + + + | 10/15/ | [facility] | [facility] | Jose Donato | Chest pain, | | 2014 | Encounter | [facility] | MD [address] | unspecified chest | | | | CLINICAL DECISION | Violeta Youssef | pain type; | | | | [address] | [place] [address] | Dyslipidemia; | | | | [place], [place] | [phone] | Essential | | | | [address] | | hypertension; | | | | [phone] | | Obesity, | | | | | | unspecified; Other | | | | | | chest pain | +--------+ + + + + Social History + +-------+ +--------+------+ | Tobacco Use | Types | Packs/Day | Years | Date | | | | | Used | | + +-------+ +--------+------+ | Never Assessed | | | | | + +-------+ +--------+------+ + + + | Sex Assigned at | Date Recorded | | | | + + + | Not on file | | + + + documented as of this encounter Discharge Summaries Hair Black MD - 10/15/2014 11:03 AM PDTFormatting of this note might be different f rom the original. Discharge Summaries by Hair Black MD at 10/15/14 1107 Author: Hair Black MD Service: (none) Author Type: Physician Filed: 10/18/14 7831 Date of Service: 10/15/141102 Status: Signed Pharmacy District Manager: Hair Black MD (Physician) [facility] Service: Hospitalist Discharge Summary Date of Admission: 10/15/2014 Date of Discharge: 10/15/2014 Discharge Provider: HAIR BLACK MD Discharge Diagnoses: Principal Problem: Other chest pain Active Problems: HTN (hypertension) CAD (coronary atherosclerotic disease) Obesity, unspecified Dyslipidemia BRIEF HISTORY OF PRESENTATION: Esha Pollack is a 49 y.o. female who Per Dr Donato's H&P History of present illness: The patient is a 49 y.o. female with significant past medical h istory. The patient is a transfer from [facility] for chest pain which s he experienced earlier in the day. She also had another episode the day before. The patient currently is chest pain free. Her EKG initially showed no acute changes. Repeat EKG in our e mergency room also showed no acute changes. The patient currently is chest pain free. She de nies any nausea or diaphoresis. No vomiting. No lightheadedness. The patient has no prior hi story of coronary artery disease. She admits to smoking a half a pack a day. She was clinical counselor ed extensively about smoking cessation and she seems motivated. The patient has a prior hist ory of coronary artery disease status post cardiac stent around 2012. According to her it wa s done in one of the [facility] most likely [place] but she is not sure. T he patient has no prior test and currently she is chest pain free lying comfortably in bed. Denies any other significant complaint. Patient was seen by myself next day. Per RN already might have left to smoke out side the h ospital. She was adamant about wanting to be discharged and lalready was dressed. Declines s tress test, wants it for outpatient. Serial cardiac enzymes negative, Denies chest pain. Und erstands risks attendant to her decision. Discussed uncontrolled cholesterol and strongly ad vised smoking cessation DISCHARGE EXAM Vital Signs: BP 159/78 mmHg | Pulse 68 | Temp(Src) 97.8 F (36.6 C) (Oral) | Resp 18 | Ht 1.6 m (5' 3 ") | Wt 92.987 kg (205 lb) | BMI 36.32 kg/m2 | SpO2 97% | ? No Well-appearing, AOx3, no acute distress, obese HENT: atraumatic, mucus membranes moist, co njunctivae normal, neck supple, no JVD Heart: Regular rate and rhythm, no murmur Lungs: Clear to auscultation without wheezes Abdomen: Soft, nontender, nondistended, +bowel sounds in all 4 quadrants Extremities: No cyanosis, clubbing, tenderness, or edema Skin: No rash or lesion, normal skin turgor Mental: Behavior, judgment, and cognition appear normal Disposition: home Condition: stable and improved Code Status: Full Code Follow up: need to f.u with PCP and [facility] as soon as possible Medication List CHANGE how you take these medications gabapentin 300 MG capsule Refills: 0 Commonly known as: NEURONTIN What changed: Another medication with the same name was removed. Continue taking this medi cation, and follow the directions you see here. simvastatin 80 MG tablet QTY: 30 tablet Refills: 0 Commonly known as: ZOCOR Take 1 tablet by mouth nightly. 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 You may get the following medications from any pharmacy - simvastatin 80 MG tablet Discharge took >30 minutes, to include final examination, discussion of admission, and prep aration of prescriptions, instructions for on-going care, follow-up and documentation of dis charge summary. HAIR BLACK MD 10/15/2014 documented in this encounter Progress Notes Conversion Transaction, Provider Unknown - 10/15/2014 11:30 AM PDTFormatting of this note m ight be different from the original. Progress Notes by Sameera Bustillos RN at 10/15/14 1130 Author: Sameera Bustillos RN Service: (none) Author Type: Registered Nurse Filed: 10/15/14 1147 Date of Service: 10/15/14 1130 Status: Signed Pharmacy District Manager: Sameera Bustillos RN (Registered Nurse) Pt ready for discharge. DC instructions reviewed with pt, states no questions at this time. IV removed. Sameera Bustillos RN onver guillermo Transaction, Provider Unknown - 10/15/2014 5:06 AM PDT Progress Notes by Lyubov Mar RPH at 10/15/14 0506 Author: Lyubov Mar RPH Service: (none) Author Type: Pharmacist Filed: 10/15/14 0506 Date of Service: 10/15/14 050 Status: Signed Pharmacy District Manager: Lyubov Mar RPH (Pharmacist) Clinical Pharmacy Note: Renal Monitoring Esha Pollack 49 y.o. female Currently there is no serum creatinine. Pharmacy will adjust medications, if necessary, in AM when labs are reported, per protocol. Lyubov Mar PharmD 10/15/2014 5:05 AM onver guillermo Transaction, Provider Unknown - 10/15/2014 4:35 AM PDT Progress Notes by Lyubov Mar RPH at 10/15/14 0604 Author: Lyubov Mar RPH Service: (none) Author Type: Pharmacist Filed: 10/15/14 0540 Date of Service: 10/15/14434 Status: Signed Pharmacy District Manager: Lyubov Mar RPH (Pharmacist) Clinical Pharmacy Note - Therapeutic Intervention: Non-formulary Medication: Omeprazole 40 mg by mouth twice daily. Therapeutic Interchange: Pantoprazole 40 mg by mouth twice daily. Therapeutic interchange performed by pharmacy per P & T committee. Lyubov Mar PharmD 10/15/2014 4:34 AM docume nted in this encounter H&P Notes Jose Donato MD - 10/15/2014 3:05 AM PDTFormatting of this note might be dif ferent from the original. H&P by Jose Donato MD at 10/15/14 0304 Author: Jose Donato MD Service: Hospitalist Author Type: Physician Filed: 10/16/14 0453 Date of Service: 10/15/148 Status: Signed Pharmacy District Manager: Jose Donato MD (Physician) Related Notes: Original Note by Jose Donato MD (Physician) filed at 10/15/14 7968 HISTORY AND PHYSICAL for Esha Pollack,female,1965,49 y.o. who is being admitted to the adult hospitalist service at [facility]. Date of Admission: 10/15/2014 Requesting Physician: Later , Emergency Department Reason for Admission: CP History Obtained From: patient Chief complaint: CP History of present illness: The patient is a 49 y.o. female with significant past medical h istory. The patient is a transfer from [facility] for chest pain which s he experienced earlier in the day. She also had another episode the day before. The patient currently is chest pain free. Her EKG initially showed no acute changes. Repeat EKG in our e mergency room also showed no acute changes. The patient currently is chest pain free. She de nies any nausea or diaphoresis. No vomiting. No lightheadedness. The patient has no prior hi story of coronary artery disease. She admits to smoking a half a pack a day. She was clinical counselor ed extensively about smoking cessation and she seems motivated. The patient has a prior hist ory of coronary artery disease status post cardiac stent around 2012. According to her it wa s done in one of the [facility] most likely [place] but she is not sure. T he patient has no prior test and currently she is chest pain free lying comfortably in bed. Denies any other significant complaint. Review of systems: Constitutional - negative HENT - negative Eyes - negative Respiratory - negative Cardiovascular - negative Gastrointestinal - negative Genitourinary - negative Musculoskeletal - negative Neurological - negative Hematologic - negative Psychiatric - negative Past medical history: Past Medical History Diagnosis Date Old myocardial infarction Hypertension Diabetes mellitus, type 2 (HCC) Hyperlipidemia Past surgical history: Past Surgical History Procedure Laterality Date Cardiac catheterization stent x1 Cholecystectomy Hernia repair Appendectomy Hysterectomy Immunizations: Influenza: Not indicated Pneumoccocal: Not indicated Home medications: Prior to Admission medications Medication Sig Start Date End Date Taking? Authorizing Provider aspirin 325 MG tablet Take 325 mg by mouth daily. Yes Historical Provider baclofen (LIORESAL) 20 MG tablet Take 20 mg by mouth 3 (three) times daily. Yes Historica l Provider gabapentin (NEURONTIN) 800 MG tablet Take 1,800 mg by mouth daily. Yes Historical Provide r metoprolol (LOPRESSOR) 50 MG tablet Take 50 mg by mouth 2 (two) times daily. Yes Historic al Provider omeprazole (PRILOSEC) 40 MG capsule Take 40 mg by mouth 2 (two) times daily. Yes Historic al Provider simvastatin (ZOCOR) 40 MG tablet Take 40 mg by mouth nightly. Yes Historical Provider Allergies: Allergies Allergen Reactions Penicillins Anaphylaxis Shellfish Allergy Anaphylaxis Dilaudid [Hydromorphone] Swelling Family history: History reviewed. No pertinent family history. Social history: History Alcohol Use No History Smoking status Current Every Day Smoker -- 0.50 packs/day Smokeless tobacco Not on file History Drug Use No Vitals: Filed Vitals: 10/15/14 0150 BP: 166/72 Pulse: 67 Resp: 22 Height: 1.6 m (5' 3") Weight: 92.987 kg (205 lb) SpO2: 97% Physical exam: Well-appearing, AOx3, no acute distress HENT: atraumatic, mucus membranes moist, conjunctivae normal, neck supple, no JVD Heart: Regular rate and rhythm, no murmur, radial and dorsalis pedis pulses are palpable an d equal Lungs: Clear to auscultation without wheezes, rales, rhonci, good effort, no respiratory di stress, no accessory muscle use Abdomen: Soft, nontender, nondistended, +bowel sounds in all 4 quadrants Extremities: No cyanosis, clubbing, tenderness, or edema Skin: No rash or lesion, normal skin turgor Mental: Behavior, judgment, and cognition appear normal Data: CBC: No results found for: WBC, RBC, HGB, HCT, MCV, MCH, MCHC, RDW, PLT, MPV, DIFFTYPE CMP: No results found for: NA, K, CL, CO2, ANIONGAP, GLUF, BUN, CREATININE, BCR, CA, PROT, ALB, GLOB, AGRATIO, BILITOT, ALP, AST, ALT, EGFR PT/INR: No results found for: PROTIME, INR Assessment/Plan: PROBLEM LIST Principal Problem: Other chest pain Active Problems: HTN (hypertension) CAD (coronary atherosclerotic disease) Obesity, unspecified Dyslipidemia 1. Chest pain with low risk factors, even though she had prior history of coronary artery d isease, but currently no evidence of any acute coronary syndrome. Her troponin is negative. EKG is negative. Patient will be admitted to observation. Will do serial troponin. Will use nitroglycerin as needed, aspirin 325 mg daily, and stress test with nuclear Myoview early th is morning. If any positive finding will consult with cardiology for further recommendations . 2. History of coronary artery disease status post stent. Will try to obtain record from [facility]. Patient, unfortunately, not sure if it is [place] [facility] or other hospital in [place], but according to her most likely it is [place]. 3. Active smoker. Counseled about smoking cessation and offered nicotine patches. 4. Dyslipidemia. Lipitor 40 mg daily. 5. Hypertension. Metoprolol 50 mg twice a day. 6. Gastroesophageal reflux disease. Protonix 40 mg daily. 7. DVT prophylaxis. Lovenox 40 mg subcutaneously daily. 8. FULL CODE. 9. Time for admission 60 minutes. 10. Estimated hospital stay 1 night. Date of admission: 10/15/2014 Code Status: Full code. Disposition: Admit to Observation. Jose Donato MD 10/15/2014 3:05 AM documente d in this encounter ED Notes Conversion Transaction, Provider Unknown - 10/15/2014 3:21 AM PDTFormatting of this note m ight be different from the original. ED Notes by Callie Hall RN at 10/15/14320 Author: Callie Hall RN Service: (none) Author Type: Registered Nurse Filed: 10/15/14 0322 Date of Service: 10/15/14320 Status: Signed Pharmacy District Manager: Callie Hall RN (Registered Nurse) Dr Donato at bedside. Callie Hall RN 10/15/14321 onver guillermo Transaction, Provider Unknown - 10/15/2014 3:15 AM PDT ED Notes by Callie Hall RN at 10/15/14314 Author: Callie Hall RN Service: (none) Author Type: Registered Nurse Filed: 10/15/14 0324 Date of Service: 10/15/14314 Status: Signed Pharmacy District Manager: Callie Hall RN (Registered Nurse) Pt requesting to go outside to smoke cigarette. Explained to patient that per hospital donovan cy, she could not go outside and smoke because she would have to be escorted off of the hosp [facility] property. Per pt "Well the doctor said I could" Explained that I would double check c l bernadine RN but also offered pt a nicotine patch, of which she refused. Pt states "Im not going t o be here long enough for that to matter" Anish Petersen RN notified. Callie Hall RN 10/15/14323 Jeremiah Son DO - 10/15/2014 2:01 AM PDTFormatting of this note might be different from the or iginal. ED Provider Notes by Jeremiah Baker DO at 10/15/14200 Author: Jeremiah Baker DO Service: -Emergency Author Type: Physician Filed: 10/21/14 0519 Date of Service: 10/15/14200 Status: Signed Pharmacy District Manager: Jeremiah Baker DO (Physician) [facility] Department of Emergency Medicine 2:01 AM History of Present Illness Patient Identification Esha Pollack is a 49 y.o. female. Patient information was obtained from patient. History/Exam limitations: none. Patient presented to the Emergency Department by: Ambulance Chief Complaint Chief Complaint Patient presents with Chest Pain The patient presents to ED via EMS as a transfer from [place] with complaints of CP. Onse t of symptoms was 2 days ago, with a intermittent course since that time. The symptoms are d escribed to be of moderate severity, with pain at a 5/10 currently. The patient reports that she started a new job, and had intermittent neck and back pain that radiated to her chest. She states that the pain in her chest was "pressure but not real sharp" that came intermitte ntly every few hours. Yesterday afternoon, the patient reports that the pain increased due t o movement, which made her concern. She states that she has a h/o an DE in 2012, and the DE felt different than this current episode of CP because she had SOB with the DE but does not now. The patient also complains of nausea. Patient denies SOB, vomiting, abd pain, or any ot her pain or sx at this time. Care prior to arrival consisted of 325 mg ASA daily. The patien t also received 1 dose of Nitro and 1 dose of morphine from EMS, which she states improved h er CP. She states that the pain is currently radiating from the L to R side of her chest. PMHx: DE, DM, HTN, high cholesterol Surgical History: In January 2013, the patient had a bare metal stent placed due to severe disease of the OM. Social History: smokes cigarettes PCP: No primary care provider on file. Past Medical History Diagnosis Date Old myocardial infarction Hypertension Diabetes mellitus, type 2 (HCC) Hyperlipidemia Past Surgical History Procedure Laterality Date Cardiac catheterization stent x1 Cholecystectomy Hernia repair Appendectomy Hysterectomy Prior to Admission medications Medication Sig Start Date End Date Taking? Authorizing Provider baclofen (LIORESAL) 20 MG tablet Take 20 mg by mouth 3 (three) times daily. Yes Historica l Provider gabapentin (NEURONTIN) 800 MG tablet Take 1,800 mg by mouth daily. Yes Historical Provide r metoprolol (LOPRESSOR) 50 MG tablet Take 50 mg by mouth 2 (two) times daily. Yes Historic al Provider omeprazole (PRILOSEC) 40 MG capsule Take 40 mg by mouth 2 (two) times daily. Yes Historic al Provider Allergies Allergen Reactions Penicillins Anaphylaxis Shellfish Allergy Anaphylaxis Dilaudid [Hydromorphone] Swelling Per pt, tolerates morphine. History Social History Marital Status: Single Spouse Name: N/A Number of Children: N/A Years of Education: N/A Occupational History Not on file. Social History Main Topics Smoking status: Current Every Day Smoker -- 0.50 packs/day Smokeless tobacco: Not on file Alcohol Use: No Drug Use: No Sexual Activity: Not on file Other Topics Concern Not on file Social History Narrative No narrative on file History reviewed. No pertinent family history. Review of Systems Constitutional: Negative for fever, chills Eyes: Negative for vision changes Nose: Negative for congestion, nosebleeds Throat: Negative for sore throat CV/Resp: Positive for chest pain Negative for ihlivusqz-dl-jzpflf, cough GI: Positive for nausea Negative for abdominal pain, vomiting, or diarrhea : Negative for urinary problems Musculoskeletal: Negative for back pain, joint pain Skin: Negative for rash Neuro/Psych: Negative for headache Endo/heme/Lymph: Negative for swollen lymph nodes, easy bruising All other systems reviewed and negative except as noted. Physical Exam BP 166/72 mmHg | Pulse 67 | Resp 22 | Ht 1.6 m (5' 3") | Wt 92.987 kg (205 lb) | BMI 36.32 kg/m2 | SpO2 97% Vital signs interpretation: Hypertensive, tachypneic, otherwise WNL Pulse Oximetry interpretation: Normal General: Alert, in no apparent distress Eyes: Normal inspection, pupils equal and round, non-icteric ENT: Ears normal Nose normal Pharynx normal Neck: Normal inspection Supple Cardiovascular: Rate and rhythm normal No murmurs Respiratory: Breath sounds normal bilaterally No rales, wheezing or rhonchi Abdomen: Soft, RUQ TTP, non-distended No guarding or rebound Back: Normal inspection Skin: Color normal Warm and dry No rash Neuro: Alert, no AMS No gross motor/sensory deficits Medical Decision Making and Emergency Department Course ED Department Course Patient presents to ED with complaints of CP and nausea. On exam the patient has RUQ TTP. M y DDx includes, but is not limited to: acs, pe dissection gastritis, etc. Will order CXR, Tr oponin, EKG, and reevaluate the patient. Reviewed Troponin, which was negative. 2:40 AM Patient recheck. I updated the patient of EKG, CXR, and lab results. The patient st ates that her pain has improved, and she believes that the pain is radiating from her neck d ue to muscle strain. The patient reports that she has not had a stress test since her DE in 2012. Upon review of the patient s history, physical and the results of studies I believe that the patient warrants admission to the hospital for further evaluation and treatment. I have spoken with the patient regarding the need for admission to the hospital, and the shona ent has expressed understanding of this. I will call and arrange for admission at this time . 2:57 AM Discussed patient's case with Dr. Donato, hospitalist, who accepts the patient for a dmission. Records Reviewed Old medical records. Nursing notes. No previous [facility] ED visits available in [facility] for review. Reviewed results from [facility] Emergency Department on 10/14/2014 (prior to chen dooley's arrival in this ED). CXR Impression: Normal two-view chest. No pneumonia or congestive heart failure WBC: 10.8 Hemoglobin: 15.3 Hematocrit: 46.3 Platelet Count: 222 INR: 0.9 Glucose: 138 Creatinine: 0.93 Sodium: 135 Potassium: 4.0 AST: 11 ALT: 12 Troponin: <0.010 Reviewed results from [facility] in [place] on 02/21/2013 14:11 Angiographic Findings: Coronary angiography demonstrated a left dominant circulation withou t a ramus intermedius branch. Left Main Coronary Artery: The left main coronary artery is a short vessel. The vessel is p atent. LAD: The left anterior descending artery is a large vessel that reaches the apex of the hea rt and supplies 2 diagonal arteries. The LAD has a 20% stenosis in the proximal third. LADD1: Moderate in size with mild luminal irregularities. LADD2: Moderate in size with mild luminal irregularities. Circumflex: The left circumflex is a large vessel that supplies 2 obtuse marginal arteries. The circumflex has minimal luminal irregularities. OM1: Large with a focal 90% stenosis proximally. OM2: Moderate in size with mild luminal irregularities. PLB: Moderate in size with mild luminal irregularities. PDA: Large in size with a 60% stenosis in the proximal segment of the vessel. RCA: The right coronary artery is a small vessel. The right coronary artery has a 70% steno sis in the mid third. PCI Comments: The OM1 was successfully treated using a [id number] Vision stent with excellen t angiographic results. Conclusions: 1. Severe coronary artery disease. 2. Normal left ventricular diastolic function. 3. Successful BMS of the OM1 with excellent results. Recommendations: 1. Aspirin for life 2. Clopidogrel for at least one month, but preferably one year. 3. Optimal medical therapy. 4. Follow up with Dr. Trevor Chaidez in 1-2 months. Laboratory Evaluation Results Procedure Component Value Ref Range Date/Time POC cardiac troponin [[id number]] Collected: 10/15/14209 Order Status: Completed Updated: 10/15/14224 POC CARDIAC TROPONIN 0.00 0.00 - 0.10 ng/mL I personally reviewed the lab results and they have been posted to the chart. Pertinent po sitive and negative findings have been addressed appropriately. Radiology and EKG Evaluation EK Rate: [address] normal QRS normal QTc normal [place] normal No acute ischemic changes Interpreted by Jeremiah Baker DO, at the time of service. Imaging Results None ED Diagnosis Final diagnosis Chest pain, unspecified chest pain type Disposition: ED Disposition Admit/Observation Bed request special needs: None Diagnosis?: Chest pain Procedures Additional Documentation Procedures Attending Note: Documentation assistance provided by Sarah Johnson (Scribe). Information recorded by the scribe has been reviewed and validated by me. I ag ree with its contents. DO Jeremiah Calzada DO 10/21/14 0519 onversion Transactio n, Provider Unknown - 10/15/2014 1:47 AM PDT ED Notes by Anish Gómez RN at 10/15/14146 Author: Anish Gómez RN Service: (none) Author Type: Registered Nurse Filed: 10/15/14146 Date of Service: 10/15/14146 Status: Signed Pharmacy District Manager: Anish Gómez RN (Registered Nurse) Bed: 03 Expected date: Expected time: Means of arrival: Comments: Transfer 2116 docume nted in this encounter Miscellaneous Notes Miscellaneous - Conversion Transaction, Provider Unknown - 10/15/2014 11:12 AM PDTFormattin g of this note might be different from the original. Discharge Instr - Other Orders by Sameera Bustillos RN at 10/15/14 111 Author: Sameera Bustillos RN Service: (none) Author Type: Registered Nurse Filed: 10/15/142 Date of Service: 10/15/141111 Status: Written Pharmacy District Manager: Sameera Bustillos RN (Registered Nurse) Stress Test on 10/19/2014 at 10:00 am. docume nted in this encounter Plan of Treatment Not on filedocumented as of this encounter Procedures + +--------+ + + + | Procedure Name | Priori | Date/Time | Associated Diagnosis | Comments | | | ty | | | | + +--------+ + + + | TROPONIN I | Routin | 10/15/2014 | | Results for this | | | e | 10:01 AM | | procedure are in the | | | | PDT | | results section. | + +--------+ + + + | ECG 12 LEAD | Routin | 10/15/2014 | | Results for this | | | e | 7:31 AM | | procedure are in the | | | | PDT | | results section. | + +--------+ + + + | EXTERNAL LAB: CBC | Routin | 10/15/2014 | | Results for this | | | e | 6:24 AM | | procedure are in the | | | | PDT | | results section. | + +--------+ + + + | LIPID PANEL | Routin | 10/15/2014 | | Results for this | | | e | 6:24 AM | | procedure are in the | | | | PDT | | results section. | + +--------+ + + + | TROPONIN I | Routin | 10/15/2014 | | Results for this | | | e | 6:24 AM | | procedure are in the | | | | PDT | | results section. | + +--------+ + + + | CK-MB | Routin | 10/15/2014 | | Results for this | | | e | 6:24 AM | | procedure are in the | | | | PDT | | results section. | + +--------+ + + + | TSH | Routin | 10/15/2014 | | Results for this | | | e | 6:24 AM | | procedure are in the | | | | PDT | | results section. | + +--------+ + + + | PHOSPHORUS | Routin | 10/15/2014 | | Results for this | | | e | 6:24 AM | | procedure are in the | | | | PDT | | results section. | + +--------+ + + + | MAGNESIUM | Routin | 10/15/2014 | | Results for this | | | e | 6:24 AM | | procedure are in the | | | | PDT | | results section. | + +--------+ + + + | CK TOTAL | Routin | 10/15/2014 | | Results for this | | | e | 6:24 AM | | procedure are in the | | | | PDT | | results section. | + +--------+ + + + | BASIC METABOLIC | Routin | 10/15/2014 | | Results for this | | PANEL | e | 6:24 AM | | procedure are in the | | | | PDT | | results section. | + +--------+ + + + | ECG 12 LEAD | Routin | 10/15/2014 | | Results for this | | | e | 1:50 AM | | procedure are in the | | | | PDT | | results section. | + +--------+ + + + | XR CHEST 2 VIEWS | Routin | 10/14/2014 | | Results for this | | | e | 11:38 PM | | procedure are in the | | | | PDT | | results section. | + +--------+ + + + documented in this encounter Results Troponin I (10/15/2014 10:01 AM PDT) + + + + + + | Component | Value | Ref Range | Performed | Pathologist | | | | | At | Signature | + + + + + + | Troponin I, | <0.020Comment: 0.00 to | 0.00 - 0.10 | EXTERNAL | | | Qual | 0.10 CONSISTENT WITH | ng/mL | LAB | | | | NORMAL POPULATION0.11 | | | | | | to 0.60 CONSISTENT | | | | | | WITH INCREASED RISK FOR | | | | | | ADVERSE OUTCOMES> 0.60 | | | | | | CONSISTENT | | | | | | WITH WHO CRITERIA FOR | | | | | | ACUTE DE Testing | | | | | | performed at [facility];[address] | | | | | | [address] [facility];[place], [place] | | | | | | [address] | | | | + + + + + + + + | Specimen | + + | Blood specimen | | (specimen) | + + + +---------+ + + | Performing | Address | City/State/Zipcode | Phone Number | | Organization | | | | + +---------+ + + | EXTERNAL LAB | | | | + +---------+ + + ECG 12 lead (10/15/2014 7:31 AM PDT) + + + + + + | Component | Value | Ref Range | Performed | Pathologist | | | | | At | Signature | + + + + + + | DIAGNOSIS: | Normal sinus | | EXTERNAL | | | | rhythmNormal ECGNo | | LAB | | | | previous ECGs | | | | | | availableConfirmed by | | | | | | MARNI LEE ([id number]) on | | | | | | 10/15/2014 3:08:18 PM | | | | + + + + + + + + | Specimen | + + | | + + + + + | Narrative | Performed At | + + + | Historically converted procedure from [facility] Epic environment | EXTERNAL LAB | + + + + +---------+ + + | Performing | Address | City/State/Zipcode | Phone Number | | Organization | | | | + +---------+ + + | EXTERNAL LAB | | | | + +---------+ + + CK-MB (10/15/2014 6:24 AM PDT) + + + + + -+ | Component | Value | Ref Range | Performed | Pathologist | | | | | At | Signature | + + + + + -+ | CK-MB | 1.0Comment: Testing | 0.5 - 3.6 ng/mL | EXTERNAL | | | | performed at [facility];[address] | | LAB | | | | [address];[place] | | | | | | [address] | | | | + + + + + -+ | CK-MB Index | 2.0Comment: CK INDEX | | EXTERNAL | | | | INTERPRETATION: | | LAB | | | | MMB ng/mL | | | | | | | | | | | |CK INDEX INTERPRETATION: | | | | | | MMB ng/mL | | | | | | | | | | + + + + + -+ + + | Specimen | + + | | + + + +---------+ + + | Performing | Address | City/State/Zipcode | Phone Number | | Organization | | | | + +---------+ + + | EXTERNAL LAB | | | | + +---------+ + + Troponin I (10/15/2014 6:24 AM PDT) + + + + + + | Component | Value | Ref Range | Performed | Pathologist | | | | | At | Signature | + + + + + + | Troponin I, | <0.020Comment: 0.00 to | 0.00 - 0.10 | EXTERNAL | | | Qual | 0.10 CONSISTENT WITH | ng/mL | LAB | | | | NORMAL POPULATION0.11 | | | | | | to 0.60 CONSISTENT | | | | | | WITH INCREASED RISK FOR | | | | | | ADVERSE OUTCOMES> 0.60 | | | | | | CONSISTENT | | | | | | WITH WHO CRITERIA FOR | | | | | | ACUTE DE Testing | | | | | | performed at [facility];[address] | | | | | | [address] [facility];[place], [place] | | | | | | [address] | | | | + + + + + + + + | Specimen | + + | Blood specimen | | (specimen) | + + + +---------+ + + | Performing | Address | City/State/Zipcode | Phone Number | | Organization | | | | + +---------+ + + | EXTERNAL LAB | | | | + +---------+ + + External Lab: CBC (10/15/2014 6:24 AM PDT) + + + + + + | Component | Value | Ref Range | Performed | Pathologist | | | | | At | Signature | + + + + + + | WBC | 8.98Comment: Testing | 3.80 - 11.00 | EXTERNAL | | | | performed at [facility];[address] | K/uL | LAB | | | | [address];[place], [place] | | | | | | [address] | | | | + + + + + + | Red Blood | 4.37Comment: Testing | 3.70 - 5.10 | EXTERNAL | | | Cells | performed at [facility];[address] | M/uL | LAB | | | Counted | [address];[place] | | | | | | [address] | | | | + + + + + + | Hemoglobin | 13.8Comment: Testing | 11.3 - 15.5 | EXTERNAL | | | | performed at [facility];[address] | g/dL | LAB | | | | [address];[place] | | | | | | [address] | | | | + + + + + + | Hematocrit, | 40.0Comment: Testing | 34.0 - 46.0 % | EXTERNAL | | | POC | performed at [facility];[address] | | LAB | | | | [address];[place] | | | | | | [address] | | | | + + + + + + | MCV | 91.5Comment: Testing | 80.0 - 100.0 fl | EXTERNAL | | | | performed at [facility];[address] | | LAB | | | | [address];[place] | | | | | | [address] | | | | + + + + + + | MCH | 31.5Comment: Testing | 27.0 - 34.0 pg | EXTERNAL | | | | performed at [facility];[address] | | LAB | | | | [address];[place] | | | | | | [address] | | | | + + + + + + | MCHC | 34.4Comment: Testing | 32.0 - 35.5 | EXTERNAL | | | | performed at [facility];[address] | g/dL | LAB | | | | [address];[place] | | | | | | [address] | | | | + + + + + + | RDW-CV | 52.1Comment: Testing | 37 - 53 fl | EXTERNAL | | | | performed at [facility];[address] | | LAB | | | | [address];[place] | | | | | | [address] | | | | + + + + + + | Platelet | 189Comment: Testing | 150 - 400 K/uL | EXTERNAL | | | Count | performed at [facility];[address] | | LAB | | | Plasma | [address];[place] | | | | | | [address] | | | | + + + + + + | MPV | 8.3Comment: Testing | fl | EXTERNAL | | | | performed at [facility];[address] | | LAB | | | | [address];[place] | | | | | | [address] | | | | + + + + + + | Differentia | AUTOMATEDComment: | | EXTERNAL | | | l Type | Testing performed at | | LAB | | | | [facility];[address] | | | | | | [address];[place] [address] | | | | + + + + + + | % Segmented | 51.91Comment: Testing | % | EXTERNAL | | | | performed at [facility];[address] | | LAB | | | Neutrophils | [address];[place] | | | | | | [address] | | | | + + + + + + | % | 36.51Comment: Testing | % | EXTERNAL | | | Lymphocytes | performed at [facility];[address] | | LAB | | | | [address];[place] | | | | | | [address] | | | | + + + + + + | % Monocytes | 6.74Comment: Testing | % | EXTERNAL | | | | performed at [facility];[address] | | LAB | | | | [address];[place] | | | | | | [address] | | | | + + + + + + | % | 3.55Comment: Testing | % | EXTERNAL | | | Eosinophils | performed at [facility];[address] | | LAB | | | | [address];[place] | | | | | | [address] | | | | + + + + + + | % Basophils | 1.29Comment: Testing | % | EXTERNAL | | | | performed at [facility];[address] | | LAB | | | | [address];[place] | | | | | | [address] | | | | + + + + + + | Absolute | 4.66Comment: Testing | 1.90 - 7.40 | EXTERNAL | | | Segmented | performed at [facility];[address] | K/uL | LAB | | | Neutrophils | [address];[place] | | | | | | [address] | | | | + + + + + + | Absolute | 3.28Comment: Testing | 1.00 - 3.90 | EXTERNAL | | | Lymphocytes | performed at [facility];[address] | K/uL | LAB | | | | [address];[place] | | | | | | [address] | | | | + + + + + + | Absolute | 0.61Comment: Testing | 0.00 - 0.80 | EXTERNAL | | | Monocytes | performed at [facility];[address] | K/uL | LAB | | | | [address];[place] | | | | | | [address] | | | | + + + + + + | Absolute | 0.32Comment: Testing | 0.00 - 0.50 | EXTERNAL | | | Eosinophils | performed at [facility];[address] | K/uL | LAB | | | | [address];[place] | | | | | | [address] | | | | + + + + + + | Absolute | 0.12 (H)Comment: Testing | 0.00 - 0.10 | EXTERNAL | | | Basophils | performed at [facility];[address] | K/uL | LAB | | | | [address];[place] | | | | | | [address] | | | | + + + + + + + + | Specimen | + + | Blood specimen | | (specimen) | + + + +---------+ + + | Performing | Address | City/State/Zipcode | Phone Number | | Organization | | | | + +---------+ + + | EXTERNAL LAB | | | | + +---------+ + + TSH (10/15/2014 6:24 AM PDT) + + + + + + | Component | Value | Ref Range | Performed | Pathologist | | | | | At | Signature | + + + + + + | TSH | 6.44 (H)Comment: Testing | 0.45 - 5.10 | EXTERNAL | | | | performed at [facility];[address] | uIU/mL | LAB | | | | [address];[place], [place] | | | | | | [address] | | | | + + + + + + + + | Specimen | + + | Blood specimen | | (specimen) | + + + +---------+ + + | Performing | Address | City/State/Zipcode | Phone Number | | Organization | | | | + +---------+ + + | EXTERNAL LAB | | | | + +---------+ + + Phosphorus (10/15/2014 6:24 AM PDT) + + + + + + | Component | Value | Ref Range | Performed | Pathologist | | | | | At | Signature | + + + + + + | PHOSPHORUS | 4.5Comment: Testing | 2.3 - 4.8 mg/dL | EXTERNAL | | | | performed at [facility];[address] | | LAB | | | | [address];[place] | | | | | | [address] | | | | + + + + + + + + | Specimen | + + | Blood specimen | | (specimen) | + + + +---------+ + + | Performing | Address | City/State/Zipcode | Phone Number | | Organization | | | | + +---------+ + + | EXTERNAL LAB | | | | + +---------+ + + Magnesium (10/15/2014 6:24 AM PDT) + + + + + + | Component | Value | Ref Range | Performed | Pathologist | | | | | At | Signature | + + + + + + | Magnesium | 1.9Comment: Testing | 1.7 - 2.4 mg/dL | EXTERNAL | | | | performed at [facility];[address] | | LAB | | | | [address];[place] | | | | | | [address] | | | | + + + + + + + + | Specimen | + + | Blood specimen | | (specimen) | + + + +---------+ + + | Performing | Address | City/State/Zipcode | Phone Number | | Organization | | | | + +---------+ + + | EXTERNAL LAB | | | | + +---------+ + + CK Total (10/15/2014 6:24 AM PDT) + + + + + + | Component | Value | Ref Range | Performed | Pathologist | | | | | At | Signature | + + + + + + | CK, Total | 49Comment: Testing | 30 - 240 U/L | EXTERNAL | | | | performed at [facility];[address] | | LAB | | | | [address];[place], [place] | | | | | | [address] | | | | + + + + + + + + | Specimen | + + | Blood specimen | | (specimen) | + + + +---------+ + + | Performing | Address | City/State/Zipcode | Phone Number | | Organization | | | | + +---------+ + + | EXTERNAL LAB | | | | + +---------+ + + Lipid Panel (10/15/2014 6:24 AM PDT) + + + + + + | Component | Value | Ref Range | Performed | Pathologist | | | | | At | Signature | + + + + + + | Cholesterol | 318 (H)Comment: Testing | mg/dL | EXTERNAL | | | | performed at [facility], [address] | | LAB | | | | [address], | | | | | | [place] [address] | | | | + + + + + + | Triglycerid | 509 (H)Comment: Testing | mg/dL | EXTERNAL | | | es | performed at [facility], [address] | | LAB | | | | [address], | | | | | | [place] [address] | | | | + + + + + + | HDL | 40 (L)Comment: Testing | mg/dL | EXTERNAL | | | | performed at [facility], [address] | | LAB | | | | [address], | | | | | | [place] [address] | | | | + + + + + + | LDL, | LDL NOT VALID WHEN TRIG | mg/dL | EXTERNAL | | | Calculated | >400 mg/dLComment: | | LAB | | | | Testing performed at | | | | | | [facility], [address] | | | | | | [place], [place] | | | | | | [address] | | | | + + + + + + + + | Specimen | + + | Blood specimen | | (specimen) | + + + +---------+ + + | Performing | Address | City/State/Zipcode | Phone Number | | Organization | | | | + +---------+ + + | EXTERNAL LAB | | | | + +---------+ + + Basic Metabolic Panel (10/15/2014 6:24 AM PDT) + + + + + + | Component | Value | Ref Range | Performed | Pathologist | | | | | At | Signature | + + + + + + | Na | 139Comment: Testing | 135 - 143 | EXTERNAL | | | | performed at [facility];[address] | mmol/L | LAB | | | | [address];[place] | | | | | | [address] | | | | + + + + + + | K | 3.6Comment: Testing | 3.5 - 4.9 | EXTERNAL | | | | performed at [facility];[address] | mmol/L | LAB | | | | [address];[place] | | | | | | [address] | | | | + + + + + + | Cl | 106Comment: Testing | 99 - 109 mmol/L | EXTERNAL | | | | performed at [facility];[address] | | LAB | | | | [address];[place] | | | | | | [address] | | | | + + + + + + | CO2 | 24Comment: Testing | 23 - 32 mmol/L | EXTERNAL | | | | performed at [facility];[address] | | LAB | | | | [address];[place] | | | | | | [address] | | | | + + + + + + | Anion Gap | 12Comment: Testing | 5 - 20 mmol/L | EXTERNAL | | | | performed at [facility];[address] | | LAB | | | | [address];[place] | | | | | | [address] | | | | + + + + + + | Glucose, | 101 (H)Comment: Testing | 65 - 99 mg/dL | EXTERNAL | | | Fasting | performed at [facility];[address] | | LAB | | | | [address];[place] | | | | | | [address] | | | | + + + + + + | BUN | 16Comment: Testing | 8 - 25 mg/dL | EXTERNAL | | | | performed at [facility];[address] | | LAB | | | | [address];[place] | | | | | | [address] | | | | + + + + + + | Creatinine | 0.94Comment: Testing | 0.50 - 1.00 | EXTERNAL | | | | performed at [facility];[address] | mg/dL | LAB | | | | [address];[place] | | | | | | [address] | | | | + + + + + + | BUN/Creatin | 17Comment: Testing | | EXTERNAL | | | ine Ratio | performed at [facility];[address] | | LAB | | | | [address];[place] | | | | | | [address] | | | | + + + + + + | Calcium | 8.8Comment: Testing | 8.5 - 10.5 | EXTERNAL | | | | performed at [facility];[address] | mg/dL | LAB | | | | [address];[place], [place] | | | | | | [address] | | | | + + + + + + | Estimated | >60Comment: GFR <60: | mL/min/1.73m2 | EXTERNAL | | | GFR | CHRONIC KIDNEY DISEASE, | | LAB | | | | IF FOUND OVER A 3 MONTH | | | | | | PERIOD.GFR <15: KIDNEY | | | | | | FAILURE.FOR | | | | | | AMERICANS, MULTIPLY THE | | | | | | CALCULATED GFR BY | | | | | | 1.210.Testing performed | | | | | | at [facility];[address] [place] [address] | | | | | | Blvd;[place] [address] | | | | + + + + + + + + | Specimen | + + | Blood specimen | | (specimen) | + + + +---------+ + + | Performing | Address | City/State/Zipcode | Phone Number | | Organization | | | | + +---------+ + + | EXTERNAL LAB | | | | + +---------+ + + ECG 12 lead (10/15/2014 1:50 AM PDT) + + + + + + | Component | Value | Ref Range | Performed | Pathologist | | | | | At | Signature | + + + + + + | DIAGNOSIS: | Normal sinus | | EXTERNAL | | | | rhythmNormal ECGNo | | LAB | | | | previous ECGs | | | | | | availableThis ECG | | | | | | contains Unconfirmed | | | | | | Interpretation | | | | | | Statements. See ED | | | | | | Record for Physician | | | | | | Interpretation. | | | | | | Confirmed by MUSE READ | | | | | | ONLY, -COMPUTER ([id number]), | | | | | | rewrite editor Guillaume Mix ([id number]) | | | | | | on 10/15/2014 6:38:30 PM | | | | | | | | | | + + + + + + + + | Specimen | + + | | + + + + + | Narrative | Performed At | + + + | Historically converted procedure from [facility] Epic environment | EXTERNAL LAB | + + + + +---------+ + + | Performing | Address | City/State/Zipcode | Phone Number | | Organization | | | | + +---------+ + + | EXTERNAL LAB | | | | + +---------+ + + XR Chest 2 Vws (10/14/2014 11:38 PM PDT) + + | Specimen | + + | | + + + + + | Narrative | Performed At | + + + | This is a non-reportable procedure without a radiologist report and | | | is used for image storage only | | + + + + + | Procedure Note | + + | Mikael Chahal Conversion - 10/10/2018 10:01 AM PDT This is a non-reportable procedure | | without a radiologist report and isused for image storage only | + + documented in this encounter Visit Diagnoses + + | Diagnosis | + + | Chest pain, unspecified chest pain type | + + | Dyslipidemia Other and unspecified hyperlipidemia | + + | Essential hypertension Unspecified essential hypertension | + + | Obesity, unspecified | + + | Other chest pain | + + documented in this encounter
--- OUTSIDE RECORDS SUMMARY | ~2019-08-20 | XMS | Encounter Summary ---
Demographics + + + | Address | [address] | | | [place] [address] | + + + | Home Phone | | + + + | Preferred Language | Unknown | + + + | Marital Status | | + + + | Yazidism Affiliation | Unknown | + + + | Race | Unknown | + + + | Ethnic Group | Unknown | + + + Author + + + | Author | Located Within [facility] | | | and [place] | + + + | Organization | Located Within [facility] | | | and [...] Team Providers + +------+ + | Care Cardiology Coordinator Name | Role | Phone | + [...] | MED [facility] EXTERNAL | [address] | | | | | IMAG[address] | [address] | | | | | [address] | [place] [address] | | | | | [place] [address] | | | | | | [phone] | | | +--------+ + + + [...] + + documented in this encounter Results NM Unlisted Respiratory Procedure (12/05/2017 3:25 PM [...]
--- OUTSIDE RECORDS SUMMARY | ~2019-08-20 | XMS | Clinical Summary ---
Demographics + + + | Address | [address] | | | [place] [address] | + + + | Home Phone | | + + + | Preferred Language | Unknown | + + + | Marital Status | | + + + | Cheondoism Affiliation | Unknown | + + + | Race | Unknown | + + + | Ethnic Group | Unknown | + + + Author + + + | Author | [facility] | | | and [place] | + + + | Organization | [facility] | | | and [...] Team Providers + +------+ + | Care Job Analysis Manager Name | Role | Phone | + +------+ + | Criss Lackey | PCP | | | PA | | | + +------+ + Allergies + + + + + + | Active Allergy | Reactions | Severity | Noted | Comments | | | | | Date | | + + + + + + | Aloe Vera | Swelling | High | 04/12/19 | yevgeniy hand swelled | | | | | [...] + + + + + | [place] | Swelling | | 04/12/19 | Convulsions | | | | | 17 | | + + + + + + | Penicillins | Anaphylaxis, | High | 03/01/19 | | | | Swelling | | 16 | | + + + + + + | Shellfish | Anaphylaxis | High | 03/01/19 | | | | | | 16 | | + + + + + + Medications + + + +---------+------+------+-------+ | Medication | Sig | Dispensed | Refills | Star | End | Statu | | | | | | t | Date | s | | | | | | Date | | | + + + +---------+------+------+-------+ | gabapentin | Take 900 mg by mouth | | 0 | 12/0 | | Activ | | (NEURONTIN) 300 mg | 3 times daily. | | | 20 | | e | | capsule | | | | 15 | | | + + + +---------+------+------+-------+ | metoprolol | Take 50 mg by mouth | | 0 | 12/0 | | Activ | | succinate | 2 times daily. | | | 11/14 | | e | | (TOPROL-XL) 50 mg 24 | | | | 15 | | | | hr tablet | | | | | | | + + + +---------+------+------+-------+ | omeprazole | Take 20 mg by mouth | | 0 | 12/3 | | Activ | | (PRILOSEC) 20 mg | 2 times daily. | | | 020 | | e | | capsule | | | | 15 | | | + + + +---------+------+------+-------+ | metFORMIN | Take 1,000 mg by | | 0 | | | Activ | | (GLUCOPHAGE) 1000 MG | mouth 2 times daily | | | | | e | | tablet | (with breakfast & | | | | | | | | dinner). | | | | | | + + + +---------+------+------+-------+ | aspirin 81 MG EC | Take 1 tablet by | 30 | 0 | 01/0 | | Activ | | tablet | mouth Daily. | tablet | | 6/20 | | e | | | | | | 16 | | | + + + +---------+------+------+-------+ | nitroglycerin | Place 1 tablet under | 100 | 0 | 01/0 | | Activ | | (NITROSTAT) 0.4 mg | the tongue every 5 | tablet | | 5/20 | | e | | SL tablet | minutes as needed | | | 16 | | | | | for Chest pain. | | | | | | + + + +---------+------+------+-------+ | traZODone | Take 100 mg by mouth | | 0 | | | Activ | | (DESYREL) 100 mg | nightly. | | | | | e | | tablet | | | | | | | + + + +---------+------+------+-------+ | gemfibrozil | Take 600 mg by mouth | | 0 | | | Activ | | (LOPID) 600 mg | 2 times daily | | | | | e | | tablet | (before meals). | | | | | | + + + +---------+------+------+-------+ | raNITIdine | Take 150 mg by mouth | | 0 | | | Activ | | (ZANTAC) 150 MG | 2 times daily. | | | | | e | | capsule | | | | | | | + + + +---------+------+------+-------+ | cyclobenzaprine | Take 10 mg by mouth | | 0 | | | Activ | | (FLEXERIL) 10 mg | 3 times daily as | | | | | e | | tablet | needed for Muscle | | | | | | | | spasms. | | | | | | + + + +---------+------+------+-------+ | albuterol 90 | Inhale 2 puffs into | 1 | 0 | 10/1 | | Activ | | mcg/puff inhaler | the lungs every 4 | Inhaler | | 5/20 | | e | | | hours as needed for | | | 18 | | | | | Wheezing or | | | | | | | | Shortness of Breath. | | | | | | + + + +---------+------+------+-------+ | amLODIPine | Take 1 tablet by | 30 | 1 | 11/25 | | Activ | | (NORVASC) 5 mg | mouth Daily. | tablet | | 08/14 | | e | | tablet | | | | 18 | | | + + + +---------+------+------+-------+ Active Problems + + + | Problem | Noted Date | + + + | Acute respiratory failure with hypoxia | 12/06/2017 | + + + | Acute kidney injury | 12/06/2017 | + + + | Chest pain [...] placed in January 2013 | | at [facility]- Restart aspirin, continue statin, | | beta-cecil, BP well-controlled currently- Stop smoking | | | |- Stop smoking | + + + + + | Diabetes mellitus | 03/01/2015 | + + + + [...] Plan: - Continue statin | + + Immunizations + + + + | Name | Administration Dates | Next Due | + + + + | INFLUENZA PF | 12/06/2017 () | | | QUAD(PED/ADOL/ADULT) | | | | ,PSKT or VIAL | | | + + + + Family History + + +------+ [...] | | + + + + + Plan of Treatment + + + + + | Health Maintenance | Due Date | Last | Comments | | | | Done | | + + + + + | Hepatitis C | | | | | Screening | 4 | | | + + + + + | Vaccine: | | | | | Pneumococcal 19-64 | 0 | | | | (1 of 1 - PPSV23) | | | | + + + + + | Diabetic Eye Exam | | | | | | 2 | | | + + + + + | Diabetic Foot Exam | | | | | | 2 | | | + + + + + | Colorectal Cancer | | | | | Screening | 4 | | | | (Colonoscopy) | | | | + + + + + | Vaccine: Zoster (1 | | | | | of 2) | 4 | | | + + + + + | Statin Therapy | | | | | (optimal intensity) | 5 | | | + + + + + | Hemoglobin A1c | | 12/06/19 | | | Screening | 9 | 18 | | + + + + + | Breast Cancer | | | | | Screening | 9 | | | + + + + + | Vaccine: Influenza | | | | | (Season Ended) | 0 | | | + + + + + | Vaccine: | | 07/17/19 | | | Dtap/Tdap/Td (2 - | 3 | 13 | | | Td) | | | | + + + + + Results Not on filefrom Last 3 Months Insurance + +--------+ +--------+ +---------+--------+ | Payer | Benefi | Subscriber | Effect | Phone | Address | Type | | | t Plan | ID | marianne | | | | | | / | | Dates | | | | | | Group | | | | | | + +--------+ +--------+ +---------+--------+ | TOI | [employer] | [id number] | | [phone] | | Indemn | | | [employer] | | 017-[id number] | 2 | | ity | | | E | | esent | | | | | | ADMIN | | | | | | | | PREF | | | | | | | | PSN | | | | | | + +--------+ +--------+ +---------+--------+ + +--------+ +--------+ + + | Guarantor Name | Accoun | Relation to | Date | Phone | Billing Address | | | t Type | Patient | of | | | | | | | | | | + +--------+ +--------+ + + | Esha Pollack | Person | Self [birth year] | | | | al/Fam | | 1966 | [phone] | [place] | | | [place] | | | [address] (Home) | [phone] | + +--------+ +--------+ + + Advance Directives + + + + + | Type | Date Recorded | Patient | Explanation | | | | Yarn Sorter | | + + + + + | Power of | | | | | Manager Radio | | | | + + + + + | Advance | 03/01/2015 5:55 | | | | Directive | AM | | | + + + + + + + + + + | Code Status | Date | Date | Comments | | | Activated | Inactivated | | + + + + + | Full Code | 12/05/2017 | 12/09/2017 | | | | 11:44 PM | 6:01 PM | | + + + + + + + + +---+ | | | | | + + + +---+ | Full Code | 03/01/2015 | 03/01/2015 | | | | 7:39 AM | 7:00 PM | | + + + +---+
--- OUTSIDE RECORDS SUMMARY | ~2019-08-20 | XMS | Encounter Summary ---
Demographics + + + | Address | [address] | | | [place] [address] | + + + | Home Phone | | + + + | Preferred Language | Unknown | + + + | Marital Status | | + + + | Sabianist Affiliation | Unknown | + + + | Race | Unknown | + + + | Ethnic Group | Unknown | + + + Author + + + | Author | [facility] | | | and [place] | + + + | Organization | [facility] | | | [...] Team Providers + +------+ + | Care Hospital Pharmacy Technician Name | Role | Phone | + +------+ + | Anna De León | PCP | | + +------+ + Reason for Visit Auth/Cert +--------+--------+ + + + + | Status | Reason | Specialty | Diagnoses / | Referred By | Referred To | | | | | Procedures | Contact | Contact | +--------+--------+ + + + + | Closed | | | Diagnoses | | | | | | | CHEST | | | | | | | PAIN | | | +--------+--------+ + + + + Encounter Details +--------+ + + + + | Date | Type | Department | Care Team | Description | +--------+ + + + + | 03/01/ | Hospital | [facility] | Joseph Esparza, | Chest pain, | | 2015 | Encounter | [facility] ICU [address] | MD [address] | unspecified chest | | | | [place], | [place], [place] | pain type (Primary | | | | [place] [address] | [id number] | Dx); Coronary artery | | | | [phone] | [phone] | disease involving | | | | | | [facility] heart, angina | | | | | | presence | | | | | | unspecified, | | | | | | unspecified vessel | | | | | | or lesion type; | | | | | | Hyperlipidemia, | | | | | | unspecified | | | | | | hyperlipidemia; | | | | | | Smoking | +--------+ + + + + Social History + +-------+ +--------+ + | Tobacco Use | Types | Packs/Day | Years | Date | | | | | Used | | + +-------+ +--------+ + | Current Every Day | | 1 | | Started: 03/01/1977 | | Smoker | | | | | + +-------+ +--------+ + + + + | Sex Assigned at | Date Recorded | | | | + + + | Not on file | | + + + documented as of this encounter Last Filed Vital Signs + + + + + | Vital Sign | Reading | Time Taken | Comments | + + + + + | Blood Pressure | 107/62 | 03/01/2015 11:48 AM | | | | | PST | | + + + + + | Pulse | 67 | 03/01/2015 11:48 AM | | | | | PST | | + + + + + | Temperature | 36 C (96.8 F) | 03/01/2015 11:48 AM | | | | | PST | | + + + + + | Respiratory Rate | 18 | 03/01/2015 11:48 AM | | | | | PST | | + + + + + | Oxygen Saturation | 94% | 03/01/2015 11:48 AM | | | | | PST | | + + + + + | Inhaled Oxygen | - | - | | | Concentration | | | | + + + + + | Weight | 94.3 kg (208 lb) | 03/01/2015 5:52 AM | | | | | PST | | + + + + + | Height | 160 cm (5' 3") | 03/01/2015 5:43 AM | | | | | PST | | + + + + + | Body Mass Index | 36.85 | 03/01/2015 5:43 AM | | | | | PST | | + + + + + documented in this encounter Discharge Summaries Tereso Woodson MD - 03/01/2015 4:08 PM PST [facility] DISCHARGE SUMMARY Pt. Name/Age/: Esha Pollack 49 y.o. 1965 Date of Admission: 03/01/2015 Date of Discharge: 03/01/2015 Admitting Physician: Joseph Esparza MD Primary Care Provider: NISHI Nava Discharging Physician: Tereso Woodson MD DISCHARGE DIAGNOSES: Active Hospital Problems Diagnosis Chest pain, negative stress testing for ischemia this admission Coronary artery disease, s/p stenting of OM1 branch, 2013 Diabetes mellitus Smoking Hyperlipidemia Hypertension Resolved Hospital Problems Diagnosis No resolved problems to display. DISCHARGE MEDICATIONS: Discharge Medications New Medications Details aspirin 81 MG EC tablet Take 1 tablet by mouth Daily. Start: 03/02/2015 nitroglycerin 0.[address] 1 tablet under the tongue every 5 minutes as needed for Chest pain. aka: NITROSTAT Unchanged Medications Details amLODIPine 5 mg tablet Take 5 mg by mouth Daily. aka: NORVASC baclofen 20 mg tablet Take 20 mg by mouth 3 times daily. aka: LIORESAL DULoxetine [address] capsule Take 30 mg by mouth Daily. aka: CYMBALTA gabapentin 300 mg capsule Take 300 mg by mouth 3 times daily. aka: NEURONTIN lisinopril 20 mg tablet Take 20 mg by mouth 2 times daily. aka: PRINIVIL, ZESTRIL metFORMIN 1000 MG tablet Take 1,000 mg by mouth 2 times daily (with breakfast & dinner). aka: GLUCOPHAGE metoprolol succinate 50 mg 24 hr tablet Take 50 mg by mouth 2 times daily. aka: TOPROL-XL omeprazole 20 mg capsule Take 20 mg by mouth 2 times daily. aka: priLOSEC simvastatin 20 mg tablet Take 20 mg by mouth nightly. aka: ZOCOR traZODone 50 mg tablet Take 50 mg by mouth nightly. aka: DESYREL DISCHARGE INSTRUCTIONS: Follow-up Information Follow up with NISHI Nava. Specialty: Family Nurse Practitioner Why: call for appointment in 5-7 days Contact information: [address] [place] [address] RESULTS: NUCLEAR MEDICINE STRESS TEST REPORT Patient Name: Esha Pollack Study Date: 03/01/2015 Primary Care Provider: NISHI Nava : 1965 Age: 49 y.o. Gender: female CLINICAL HISTORY/DIAGNOSIS: Chest pain PERSANTINE SESTAMIBI STRESS TEST Indication: chest pain Procedure: In the supine position, 53.7 mg of Persantine was infused intravenously over 4 minutes. Bl ood pressure and EKG were monitored every 1 minute. 5 mL of normal saline was utilized to fl ush the IV line. 2.5 minutes later, 34.1 mCi sestamibi intravenous injection. SPECT myocardi al perfusion imaging was acquired with wall motion analysis. Rest imaging was performed usin g 10.4 mCi Sestamibi intravenous injection. Repeated SPECT myocardial perfusion imaging was acquired with wall motion analysis. At the end of the procedure, 75 mg of aminophylline was infused intravenously. Hemodynamics: Heart rate baseline 65 beats per minute, peak 73 beats per minute. Blood pressure baseline 111/56 mmHg, peak 103/54 mmHg. EKG baseline underlying sinus rhythm. Normal EKG. Peak unchan ged. Side Effects: None. Arrhythmia: None. Persantine Sestamibi Myocardial Perfusion Imaging Result: The Persantine Sestamibi tomographic images, reviewed without the attenuation compensation resolution, revealed a normal myocardial perfusion pattern as seen in short axis, vertical l rio axis, and horizontal long axis projections. The left ventricular cavity is normal. The r est imaging is also normal. Gated SPECT reveals a normal left ventricular wall thickness and motion. Preserved left keanu tricular systolic function. LVEF by gated SPECT is 72 %. IMPRESSION: 1. Persantine EKG is negative. 2. Normal Persantine Sestamibi myocardial perfusion study with a normal left ventricular s ize and wall thickness. Preserved left ventricular systolic function. LVEF by gated SPECT is 72 %. Signed by: Saniya Melendez MD [facility] 03/01/2015, 14:19 Show images for ECHO Complete 03/01/2015 13:26 - Saniya Melendez MD Narrative & Impression [facility] ECHOCARDIOGRAM REPORT STUDY DATE: 03/01/2015 PATIENT NAME: Esha Pollack : 1965 PCP: NISHI Nava CLINICAL HISTORY/DIAGNOSIS: ASCVD, CHEST PAIN A transthoracic echocardiogram with M-mode, pulsed-wave and color Doppler was performed wit h standard views obtained. The technical quality of this examination is good. The heart rhyt hm during the echo is sinus rhythm. The M-mode, two-dimensional, color flow and spectral Dop pler data were reviewed and support the following interpretation: Interpretation: Left Atrium: Left atrial size is normal. Left ventricle: Left ventricular size is normal with normal wall thickness and motion, and normal left ventricular systolic function. The estimated ejection fraction is 70 %. Grade 1 left ventricular diastolic dysfunction. Aortic root: Aortic root is normal. Right Atrium: Right atrial sizes normal. Right ventricle: Right ventricular size is normal with normal wall thickness and normal ri ght ventricular systolic function. Pericardium: Pericardium is normal. Pulmonary artery: Pulmonary artery is normal. normal right-sided pressure. Aortic valve: Aortic valve is trileaflet and opens normally. Mitral valve: Mitral valve is normal. trace mitral valve regurgitation. Pulmonic valve: Pulmonic valve is normal. Tricuspid valve: Tricuspid valve is normal. Vena cava: The inferior vena cava is normal. There is greater than 50% inspiratory collaps e of the IVC. IMPRESSIONS: 1. Normal left ventricular size, wall thickness and motion. Preserved left ventricular syst olic function. LVEF is 70%. 2. Grade 1 left ventricular diastolic dysfunction. 3. Normal valvular structure. 4. Normal right-sided pressure. 5. Normal IVC with normal respiratory collapse. Measurements: Height: 63 Weight: 210 Aortic root: 31 mm Aortic cusp sep: 15 mm LA: 39 mm IVS-diastole: 10 mm IVS-systole: 13 mm LVPW diastole: 9 mm LVPW systole: 15 mm LV diameter-diastole: 38 mm LV diameter-systole: 20 mm Fractional shortenin % PFV aortic valve: m/s MPG mitral valve: mmHg PFV TR jet: m/s RA/RV PPG: mmHg LA volume: 46 mL LA index: 23 mL/m2 Mitral Inflow DT: 267 ms IVRT: 192 ms Valsalva: Yes, to no effect PWDTI S wave: 12.6 cm/s PWDTI E wave: 14.9 cm/s PWDTI A wave: 16.0 cm/s E/A Ratio: 0.931 E/E Ratio: Signed by: Saniya Melendez MD [facility] 03/01/2015 HOSPITAL COURSE: Please refer to the H&P for full details. In short this 49-year-old female with a history of diabetes, hypertension, and smoking approximately 1 pack per day presented with a history of onset of chest pains about 8:00 last night which she stated lasted for maybe 10 seconds at a time but persisted coming and going all night long. She states that smoking or walking and seemed to worsen it. To emergency room at about 1:30 AM at [facility] and had a tro ponin that was negative and was transferred here for further care. In the emergency room he re at 6:30 AM he had a second negative troponin with the admitting physician ordering a stre ss test. The patient underwent stress testing which showed normal left ventricular function and no evidence of ischemia. At the time of admission she did have tenderness along her le ft costosternal joints which is reproducible on my exam. States this was discomfort she not ed last night. Further, the patient had a history of stenting in 2012 to her OM1 branch and has not taken aspirin since that time the patient currently is pain-free and ambulating. D iscussed with her the option of repeat cardiac enzymes but she desires to get home before it gets dark and declines to have a further test. Given her negative enzymes 10 hours after t he onset of pain and negative stress testing the plan will be to discharge her to home with the addition of aspirin and sublingual nitroglycerin to her medical regimen. I've encourage d her to have follow-up with her PCP in 5-7 days. I discussed with the patient has single-v essel disease can hide from stress testing this isn't having pain she should discuss with he r PCP referral for angiography. She does take omeprazole and takes it with ranitidine and w as encouraged to take the omeprazole twice daily if she requires an antacid at bedtime to us e oral liquid antacids to avoid having the ranitidine impair omeprazole's action. In additi on she was strongly encouraged to stop smoking as of the risk of developing progressive alecia nary disease and stroke risk. Discussed with the patient the option of referral to cardiolo gy for outpatient follow-up and she currently feels her PCP has adequately followed her and declines it at this time. PHYSICAL EXAM: Temp: 36 C (96.8 F), Pulse: 67, Resp: 18, BP: 107/62 mmHg, SpO2 94 % on room air at skylar w rate L/min Temp Min: 36 C (96.8 F) Max: 36.3 C (97.3 F) Weight: 94.4 kg (208 lb 1.8 oz) Patient seen and examined by me on discharge day Greater than 30 minutes were spent on discharge and coordination of post-hospital care. Electronically signed by: Tereso Woodson MD, 03/01/2015 16:08 [facility] Portions of this chart may have been created with [employer] voice recognition software. Occasi onal wrong-word or sound-alike substitutions may have occurred due to the inherent walker itations of voice recognition software. Please read the chart carefully and recognize, using context, where these substitutions have occurred documented in this encounter Medications at Time [...] +---------+ + + | amLODIPine | Take 5 mg by mouth | | 0 | 02/03/20 | | | (NORVASC) 5 mg | Daily. | | | 15 | 8 | | tablet | | | | | | + + + +---------+ + + | baclofen | Take 20 mg by mouth | | 0 | 02/23/20 | | | (LIORESAL) 20 mg | 3 times daily. | | | 15 | 8 | | tablet | | | | | | + + + +---------+ + + | DULoxetine | Take by mouth 2 | | 0 | 02/23/20 | | | (CYMBALTA) [address] | times daily. 60mg in | | | 15 | 8 | | capsule | the AM and 30mg in | | | | | | | the evening | | | | | + + + +---------+ + + | lisinopril | Take 20 mg by mouth | | 0 | 02/24/20 | | | (PRINIVIL, ZESTRIL) | 2 times daily. | | | 15 | 8 | | 20 mg tablet | | | | | | + + + +---------+ + + | simvastatin | Take 20 mg by mouth | | 0 | | | | (ZOCOR) 20 mg tablet | nightly. | | | | 8 | + + + +---------+ + + | traZODone | Take 50 mg by mouth | | 0 | | | | (DESYREL) 50 mg | nightly. | | | | 8 | | tablet | | | | | | + + + +---------+ + + documented as of this encounter H&P Notes Joseph Esparza MD - 03/01/2015 5:45 AM PSTFormatting of this note might be different f rom the original. LOCATED [facility]IN [facility] HISTORY AND PHYSICAL Pt. Name/Age/: Esha Pollack 49 y.o. 1965 Date of admission: 03/01/2015 Admitting Physician: Joseph Esparza MD Primary Care Provider: NISHI Nava CHIEF COMPLAINT: Chest pain HISTORY OF PRESENT ILLNESS: This is a 49 y.o. female with a history of CAD s/p stent placed in 2012, diabetes mellitus, hypertension, smoking who presents with chest pain. She has a known history of CAD and had an OM1 stent placed in 2012. She had an episode of chest pain in 2013, and had to be transported to [facility], but she reports there was not a str ess test done at the time. She is usually able to do ADL's without problem, and has not had exertional chest pain. Sh e is limited by her hip bursitis from walking very much, although can make it up a flight of stairs. She never has taken aspirin since the stent was placed (didn't think it was important), and continues to smoke a pack a day. She was sitting playing a video game last night between 8 and 10 PM, and noticed some worse esperanza midsternal chest pain, which was worse with movement and exertion, relieved by rest. S he denied shortness of breath, diaphoresis, or nausea at the time. The pain continued despi te taking acetaminophen and ibuprofen, and she went to [facility] for further workup. In the emergency department at [facility], she was given aspirin 324 mg, nitro, morphine IV, ondansetron, metoprolol 50 mg. She had a negative troponin and EKG, and was transferre d to [facility] for further evaluation. PAST MEDICAL and SURGICAL HISTORY: Past Medical History Diagnosis Date Coronary artery disease Diabetes mellitus (HCC) Hypertension Smoking Hyperlipidemia Chronic pain GERD (gastroesophageal reflux disease) Chronic neck pain Past Surgical History Procedure Laterality Date Coronary angioplasty with stent placement 2012 to OM1 Appendectomy Cholecystectomy Hernia repair Hysterectomy Bladder suspension FAMILY HISTORY: family history includes Hypertension in her mother; Premature CHD in her father and materna l grandfather. SOCIAL HISTORY: reports that she has been smoking. She started smoking about 38 years ago. She does not h ave any smokeless tobacco history on file. She lives in [place] with her boyfriend, and ralph s 3 children. REVIEW OF SYSTEMS: Significant for some nausea and headache after taking nitro. Has 2/10 chest pain, worse wi th palpation. A complete 14-system review was otherwise negative except as noted in the HPI . HOME MEDICATIONS: Current Discharge Medication List CONTINUE these medications which have NOT CHANGED Details amLODIPine (NORVASC) 5 mg tablet Take 5 mg by mouth Daily. Refills: 0 baclofen (LIORESAL) 20 mg tablet Take 20 mg by mouth 3 times daily. Refills: 0 DULoxetine (CYMBALTA) [address] capsule Take 30 mg by mouth Daily. Refills: 0 gabapentin (NEURONTIN) 300 mg capsule Take 300 mg by mouth 3 times daily. Refills: 0 lisinopril (PRINIVIL, ZESTRIL) 20 mg tablet Take 20 mg by mouth 2 times daily. Refills: 0 metFORMIN (GLUCOPHAGE) 1000 MG tablet Take 1,000 mg by mouth 2 times daily (with breakfast & dinner). metoprolol succinate (TOPROL-XL) 50 mg 24 hr tablet Take 50 mg by mouth 2 times daily. Refills: 0 omeprazole (PRILOSEC) 20 mg capsule Take 20 mg by mouth 2 times daily. Refills: 0 simvastatin (ZOCOR) 20 mg tablet Take 20 mg by mouth nightly. traZODone (DESYREL) 50 mg tablet Take 50 mg by mouth nightly. ALLERGIES: Allergies Allergen Reactions Bee Venom Anaphylaxis Penicillins Anaphylaxis Shellfish Anaphylaxis Hydromorphone Swelling VITAL SIGNS: Temp: 36.3 C (97.3 F), Pulse: 71, Resp: 18, BP: 124/71 mmHg, SpO2 96 % on room air at f low rate L/min Temp Min: 36 C (96.8 F) Max: 36.3 C (97.3 F) Weight: 94.4 kg (208 lb 1.8 oz) PHYSICAL EXAMINATION: Gen Adam - alert, cooperative and no distress, pleasant Head - Normocephalic, without obvious abnormality Eyes - conjunctiva/corneas clear ENT - mucous membranes moist Neck - supple Lungs - clear to auscultation, no wheezes or rales and unlabored breathing Heart - normal rate, regular rhythm, normal S1, S2, no murmurs, rubs, clicks or gallops, pain to palpation in mid sternum Abdomen - soft, non-tender, without masses or organomegaly Extremities - no peripheral edema, no clubbing or cyanosis Skin - no rashes Neurologic - Alert and oriented x 3. DIAGNOSTIC STUDIES: Available data and images were reviewed personally. Significant results and findings are a ddressed here or in the Assessment and Plan. Aureliano labs: WBC 12.4, HGB 14.3, HCT 42.8, PLT 245, 66% neutrophils, 28% lymphocytes, 3% monocytes, 3% e osinophils Na 137, K 4.2, Cl 101, HCO3 26, BUN 16, Cr 0.86, Gluc 128 AST 10, ALT 13, Alk phos 94, Total bili 0.3, Albumin 4.5, Tot prot 7.1 Trop<0.01 Recent Results (from the past 24 hour(s)) ECG 12 lead Result Value Ref Range VENTRICULAR RATE EKG 58 BPM ATRIAL RATE 58 BPM P-R INTERVAL 168 ms QRS DURATION 84 ms Q-T INTERVAL 460 ms Q-T INTERVAL (CORRECTED) 451 ms P WAVE AXIS 44 degrees QRS AXIS 31 degrees T AXIS 39 degrees INTERPRETATION TEXT Sinus bradycardia Otherwise normal ECG No previous ECGs available Confirmed by ELADIO ALEXANDRA, KATIE ([id number]) on 03/01/2015 8:17:50 AM Troponin I Result Value Ref Range Troponin I <0.01 <0.06 ng/mL CK Total with CK-MB Result Value Ref Range CK TOTAL 54 22-269 U/L CK-MB 2.6 0.6-6.3 ng/mL CK-MB Index 4.8 % Basic Metabolic Panel Result Value Ref Range NA 141 136-149 mmol/L K 3.9 3.5-5.1 mmol/L CL 106 98-109 mmol/L CO2 26 24-31 mmol/L ANION GAP 9 3-16 mmol/L GLUCOSE 96 70-109 mg/dL BUN 13 7-18 mg/dL Creatinine, Serum/Plasma 0.69 0.60-1.30 mg/dL eGFR if not >60 >=60 mL/min/1.73m2 CALCIUM 9.2 8.3-10.5 mg/dL BUN/CREA 18.8 Magnesium Result Value Ref Range MG 1.7 (L) 1.8-2.5 mg/dL Lipid Panel Result Value Ref Range Triglycerides 270 (H) 35-160 mg/dL CHOLESTEROL 269 (H) 150-200 mg/dL HDL 41 28-83 mg/dL Chol/HDL Ratio 6.6 LDL, Calculated 174 (H) <=130 mg/dL POC Glucose Result Value Ref Range POC Glucose 90 70-150 mg/dL ECG 12 lead Result Value Ref Range INTERPRETATION TEXT Not Confirmed No results found. EKG: Reviewed independently by me. The tracing shows normal sinus rhythm, no ischemic gregorio ges CXR: Reviewed independently by me. The CXR shows normal lung volumes, clear lungs, normal heart size, no pleural effusions or acute osseous abnormalities ASSESSMENT and PLAN: * Chest pain Assessment & Plan - Given her two negative troponins, reproducible pain with palpation, and normal EKG, suspe ct this is musculoskeletal pain rather than ischemic pain. - However, given her history of CAD, her stent with non-use of aspirin, and her ongoing smo rajat, she is at high risk for new or worsening ischemia, and have ordered a stress test for further evaluation Coronary artery disease Assessment & Plan - OM1 stent placed in January 2013 at [facility] - Restart aspirin, continue statin, beta-cecil, BP well-controlled currently - Stop smoking Diabetes mellitus Assessment & Plan - Hold metformin, sliding scale while she is here. Smoking Assessment & Plan - Encouraged smoking cessation and she plans to try Hyperlipidemia Assessment & Plan - Continue statin Hypertension Assessment & Plan - Continue amlodipine, metoprolol, lisinopril DVT Prophylaxis SCD's while in bed Code Status Full Code. CMS Documentation This patient will be placed in observation status. Total of 50 minutes were required to complete the admission process. Reviewed and summariz ed past medical records. Electronically signed by: Joseph Esparza MD 03/01/2015 8:56 [facility] Portions of this chart may have been created with [employer] voice recognition software. Occasi onal wrong-word or sound-alike substitutions may have occurred due to the inherent walker itations of voice recognition software. Please read the chart carefully and recognize, using context, where these substitutions have occurred documented in this encounter Miscellaneous Notes eICU Note - Andressa Juarez RN - 03/01/2015 4:02 PM PSTStarted to go on a walk around the unit, but returned to room due to left hip sharp pain. States she has a hx of her hip "cat kiran". Denies chest pain. Dr Woodson here to see. lan of Care - Amy Morales Cutter [employer] Sheet-Clinical - 03/01/2015 11:14 AM PSTDischarge plans: Met with patient briefly at her bedside to discuss her discharge plans. She reports that she lives independently with her significant other,( boyfriend), in [place], [place], and he will be her transport home at discharge. [facility] De León is her FMP there and she uses [facility] for her pharmacy there. She drives and there are no needs identified. She was working on her computer at the time o f the visit.Electronically signed by: Amy Morales CONTRACT COORDINATOR 03/01/2015 11:17 sses sment & Plan Note - Joseph Esparza MD - 03/01/2015 8:56 AM PSTAssociated Problem(s): Hy pertension- Continue amlodipine, metoprolol, lisinopril ssessment & Plan Jessica - Joseph Esparza MD - 03/01/19 16 8:56 AM PSTAssociated Problem(s): Hyperlipidemia- Continue statin ssessment & Plan Joseph Clayton MD - 03/01/2015 8:55 AM PSTAssociated Problem(s): Smoking- Encouraged smoking cessation an d she plans to try s sessment & Plan Joseph Clayton MD - 03/01/2015 8:55 AM PSTAssociated Problem(s): Diabetes mellitus (HCC)- Hold metformin, sliding scale while she is here.Electronically sig renetta by Joseph Esparza MD at 03/01/2015 8:55 AM PSTAssessment & Plan Tu Clayton MD - 03/01/2015 8:55 AM PSTAssociated Problem(s): Coronary artery disease- OM1 stent placed in January 2013 at [facility] - Restart aspirin, continue statin, beta-cecil, BP well-controlled currently - Stop smoking sses sment & Plan Joseph Clayton MD - 03/01/2015 8:51 AM PSTAssociated Problem(s): Ch est pain- Given her two negative troponins, reproducible pain with palpation, and normal EKG , suspect this is musculoskeletal pain rather than ischemic pain. - However, given her history of CAD, her stent with non-use of aspirin, and her ongoing smo rajat, she is at high risk for new or worsening ischemia, and have ordered a stress test for further evaluation eI CU Jessica - Katelyn Christie RN - 03/01/2015 5:41 AM PSTPt arrived via EMS, No c/o pain. V SS. Dr Esparza notified. documented in this encounter Plan of Treatment Not on filedocumented as of this encounter Procedures + +--------+ + + + | Procedure Name | Priori | Date/Time | Associated Diagnosis | Comments | | | ty | | | | + +--------+ + + + | NM NUCLEAR STRESS | Routin | 03/01/2015 | | Results for this | | TEST (PHARMACOLOGIC | e | 2:14 PM | | procedure are in the | | - VASODILATOR) | | PST | | results section. | + +--------+ + + + | ECHO COMPLETE | Routin | 03/01/2015 | | Results for this | | | e | 11:48 AM | | procedure are in the | | | | PST | | results section. | + +--------+ + + + | POC GLUCOSE | Routin | 03/01/2015 | | Results for this | | | e | 11:42 AM | | procedure are in the | | | | PST | | results section. | + +--------+ + + + | ECG 12 LEAD | Routin | 03/01/2015 | | Results for this | | | e | 9:25 AM | | procedure are in the | | | | PST | | results section. | + +--------+ + + + | ECG 12 LEAD | TIFFANIE | 03/01/2015 | | Results for this | | | | 8:26 AM | | procedure are in the | | | | PST | | results section. | + +--------+ + + + | POC GLUCOSE | Routin | 03/01/2015 | | Results for this | | | e | 6:58 AM | | procedure are in the | | | | PST | | results section. | + +--------+ + + + | LIPID PANEL | Add-On | 03/01/2015 | | Results for this | | | | 6:36 AM | | procedure are in the | | | | PST | | results section. | + +--------+ + + + | TROPONIN I | Add-On | 03/01/2015 | | Results for this | | | | 6:36 AM | | procedure are in the | | | | PST | | results section. | + +--------+ + + + | MAGNESIUM | Routin | 03/01/2015 | | Results for this | | | e | 6:36 AM | | procedure are in the | | | | PST | | results section. | + +--------+ + + + | CK TOTAL AND CK-MB | Routin | 03/01/2015 | | Results for this | | | e | 6:36 AM | | procedure are in the | | | | PST | | results section. | + +--------+ + + + | BASIC METABOLIC | Routin | 03/01/2015 | | Results for this | | PANEL | e | 6:36 AM | | procedure are in the | | | | PST | | results section. | + +--------+ + + + | CULTURE, MRSA | Routin | 03/01/2015 | | Results for this | | | e | 6:24 AM | | procedure are in the | | | | PST | | results section. | + +--------+ + + + | ECG 12 LEAD | TIFFANIE | 03/01/2015 | | Results for this | | | | 6:07 AM | | procedure are in the | | | | PST | | results section. | + +--------+ + + + | LVEF VALUE | Routin | 03/01/2015 | | Results for this | | | e | | | procedure are in the | | | | | | results section. | + +--------+ + + + | LVEF VALUE | Routin | 03/01/2015 | | Results for this | | | e | | | procedure are in the | | | | | | results section. | + +--------+ + + + documented in this encounter Results NM Nuclear Stress Test (Vasodilator) (03/01/2015 2:14 PM PST) + + | Specimen | + + | | + + + + + | Impressions | Performed At | + + + | 1. Persantine EKG is negative. 2. Normal Persantine | [facility] | | Sestamibi myocardial perfusion study with a normal left ventricular | | | size and wall thickness. Preserved left ventricular systolic | | | function. LVEF by gated SPECT is 72 %. Signed by: | | | Saniya Melendez MD [facility] 03/01/2015, 14:19 | | + + + + + + | Narrative | Performed At | + + + | NUCLEAR MEDICINE STRESS TEST REPORT | [facility] | | Patient Name: Esha Pollack Study Date: 03/01/2015 Primary | | | Care Provider: NISHI Nava : | | | 1965 Age: 49 y.o. Gender: female CLINICAL | | | HISTORY/DIAGNOSIS: Chest pain PERSANTINE SESTAMIBI STRESS | | | TEST Indication: chest pain Procedure: In the supine | | | position, 53.7 mg of Persantine was infused intravenously over 4 | | | minutes. Blood pressure and EKG were monitored every 1 minute. 5 | | | mL of normal saline was utilized to flush the IV line. 2.5 minutes | | | later, 34.1 mCi sestamibi intravenous injection. SPECT myocardial | | | perfusion imaging was acquired with wall motion analysis. Rest | | | imaging was performed using 10.4 mCi Sestamibi intravenous | | | injection. Repeated SPECT myocardial perfusion imaging was | | | acquired with wall motion analysis. At the end of the procedure, | | | 75 mg of aminophylline was infused intravenously. Hemodynamics: | | | Heart rate baseline 65 beats per minute, peak 73 beats per minute. | | | Blood pressure baseline 111/56 mmHg, peak 103/54 mmHg. EKG | | | baseline underlying sinus rhythm. Normal EKG. Peak unchanged. | | | Side Effects: None. Arrhythmia: None. Persantine | | | Sestamibi Myocardial Perfusion Imaging Result: The Persantine | | | Sestamibi tomographic images, reviewed without the attenuation | | | compensation resolution, revealed a normal myocardial perfusion | | | pattern as seen in short axis, vertical long axis, and horizontal | | | long axis projections. The left ventricular cavity is normal. The | | | rest imaging is also normal. Gated SPECT reveals a | | | normal left ventricular wall thickness and motion. Preserved left | | | ventricular systolic function. LVEF by gated SPECT is 72 %. | | + + + + +---------+ + + | Performing | Address | City/State/Zipcode | Phone Number | | Organization | | | | + +---------+ + + | [facility] | | | | + +---------+ + + ECHO Complete (03/01/2015 11:48 AM PST) + + | Specimen | + + | | + + + + + | Narrative | Performed At | + + + | [facility] ECHOCARDIOGRAM REPORT | | | STUDY DATE: 03/01/2015 PATIENT NAME: Esha Pollack : | | | 1965 PCP: NISHI Nava CLINICAL | | | HISTORY/DIAGNOSIS: ASCVD, CHEST PAIN A transthoracic | | | echocardiogram with M-mode, pulsed-wave and color Doppler was | | | performed with standard views obtained. The technical quality of | | | this examination is good. The heart rhythm during the echo is | | | sinus rhythm. The M-mode, two-dimensional, color flow and spectral | | | Doppler data were reviewed and support the following | | | interpretation: Interpretation: Left Atrium: Left atrial size is | | | normal. Left ventricle: Left ventricular size is normal with normal | | | wall thickness and motion, and normal left ventricular systolic | | | function. The estimated ejection fraction is 70 %. Grade 1 left | | | ventricular diastolic dysfunction. Aortic root: Aortic root is | | | normal. Right Atrium: Right atrial sizes normal. Right ventricle: | | | Right ventricular size is normal with normal wall thickness and | | | normal right ventricular systolic function. Pericardium: | | | Pericardium is normal. Pulmonary artery: Pulmonary artery is | | | normal. normal right-sided pressure. Aortic valve: Aortic valve | | | is trileaflet and opens normally. Mitral valve: Mitral valve is | | | normal. trace mitral valve regurgitation. Pulmonic valve: Pulmonic | | | valve is normal. Tricuspid valve: Tricuspid valve is normal. Vena | | | cava: The inferior vena cava is normal. There is greater than 50% | | | inspiratory collapse of the IVC. IMPRESSIONS: 1. Normal | | | left ventricular size, wall thickness and motion. Preserved left | | | ventricular systolic function. LVEF is 70%. 2. Grade 1 left | | | ventricular diastolic dysfunction. 3. Normal valvular structure. | | | 4. Normal right-sided pressure. 5. Normal IVC with normal | | | respiratory collapse. Measurements: Height: 63 Weight: | | | 210 Aortic root: 31 mm Aortic cusp sep: 15 mm LA: 39 mm | | | IVS-diastole: 10 mm IVS-systole: 13 mm LVPW diastole: 9 mm | | | LVPW systole: 15 mm LV diameter-diastole: 38 mm LV | | | diameter-systole: 20 mm Fractional shortenin % PFV aortic | | | valve: m/s MPG mitral valve: mmHg PFV TR jet: m/s RA/RV | | | PPG: mmHg LA volume: 46 mL LA index: 23 mL/m2 Mitral Inflow | | | DT: 267 ms IVRT: 192 ms Valsalva: Yes, to no effect PWDTI S | | | wave: 12.6 cm/s PWDTI E wave: 14.9 cm/s PWDTI A wave: 16.0 | | | cm/s E/A Ratio: 0.931 E/E Ratio: Signed by: | | | Saniya Melendez MD [facility] 03/01/2015 11:49 Manager Regional: | | | Brian Barraza, LISACS, RVT, RDMS | | + + + POC Glucose (03/01/2015 11:42 AM PST) + +-------+ + + + | Component | Value | Ref Range | Performed | Pathologist | | | | | At | Signature | + +-------+ + + + | Glucose, | 86 | 70 - 150 mg/dL | [facility] | | [facility] | | [facility] | | | | | | [facility]ICAL | | | | | | CENTER - | | | | | | LABORATORY | | + +-------+ + + + + + | Specimen | + + | Blood | + + + + + + + | Performing | Address | City/State/Zipcode | Phone Number | | Organization | | | | + + + + + | [facility] | [address] | [place] | [phone] | | [facility] | | [address] | | | - LABORATORY | | | | + + + + + ECG 12 lead (03/01/2015 9:25 AM PST) + + + + + + | Component | Value | Ref Range | Performed | Pathologist | | | | | At | Signature | + + + + + + | VENTRICULAR | 58 | BPM | [facility] | | | RATE EKG | | | | | + + + + + + | ATRIAL RATE | 58 | BPM | [facility] | | + + + + + + | P-R | 168 | ms | [facility] | | | INTERVAL | | | | | + + + + + + | QRS | 86 | ms | [facility] | | | DURATION | | | | | + + + + + + | Q-T | 454 | ms | [facility] | | | INTERVAL | | | | | + + + + + + | Q-T | 445 | ms | [facility] | | | INTERVAL | | | | | | (CORRECTED) | | | | | + + + + + + | P WAVE AXIS | 38 | degrees | [facility] | | + + + + + + | QRS AXIS | 23 | degrees | [facility] | | + + + + + + | T AXIS | 35 | degrees | [facility] | | + + + + + + | INTERPRETAT | Sinus | | [facility] | | | ION TEXT | bradycardiaOtherwise | | | | | | normal ECGWhen compared | | | | | | with ECG of 01-MAR-2015 | | | | | | 08:26, (Unconfirmed)No | | | | | | significant change was | | | | | | foundConfirmed by | | | | | | ELADIO ALEXANDRA, KATIE ([id number]) | | | | | | on 03/02/2015 8:35:17 AM | | | | + + + + + + + + | Specimen | + + | | + + + + + | Narrative | Performed At | + + + | | | + + + + +---------+ + + | Performing | Address | City/State/Zipcode | Phone Number | | Organization | | | | + +---------+ + + | [facility] | | | | + +---------+ + + ECG 12 lead (03/01/2015 8:26 AM PST) + + + + + + | Component | Value | Ref Range | Performed | Pathologist | | | | | At | Signature | + + + + + + | VENTRICULAR | 55 | BPM | [facility] | | | RATE EKG | | | | | + + + + + + | ATRIAL RATE | 55 | BPM | [facility] | | + + + + + + | P-R | 162 | ms | [facility] | | | INTERVAL | | | | | + + + + + + | QRS | 86 | ms | [facility] | | | DURATION | | | | | + + + + + + | Q-T | 462 | ms | [facility] | | | INTERVAL | | | | | + + + + + + | Q-T | 441 | ms | [facility] | | | INTERVAL | | | | | | (CORRECTED) | | | | | + + + + + + | P WAVE AXIS | 53 | degrees | [facility] | | + + + + + + | QRS AXIS | 49 | degrees | [facility] | | + + + + + + | T AXIS | 41 | degrees | [facility] | | + + + + + + | INTERPRETAT | Sinus bradycardia with | | [facility] | | | ION TEXT | sinus | | | | | | arrhythmiaOtherwise | | | | | | normal ECGWhen compared | | | | | | with ECG of 01-MAR-2015 | | | | | | 06:07,Nonspecific T wave | | | | | | abnormality now evident | | | | | | in Anterior | | | | | | leadsConfirmed by | | | | | | KATIE HENDRICKS MD ([id number]) | | | | | | on 03/02/2015 8:34:36 AM | | | | + + + + + + + + | Specimen | + + | | + + + + + | Narrative | Performed At | + + + | | | + + + + +---------+ + + | Performing | Address | City/State/Zipcode | Phone Number | | Organization | | | | + +---------+ + + | [facility] | | | | + +---------+ + + POC Glucose (03/01/2015 6:58 AM PST) + +-------+ + + + | Component | Value | Ref Range | Performed | Pathologist | | | | | At | Signature | + +-------+ + + + | Glucose, | 90 | 70 - 150 mg/dL | [facility] | | [facility] | | | [facility] | | | | | [facility] | | | | | | CENTER - | | | | | | LABORATORY | | + +-------+ + + + + + | Specimen | + + | Blood | + + + + + + + | Performing | Address | City/State/Zipcode | Phone Number | | Organization | | | | + + + + + | [facility] | [address] | [place] | [phone] | | [facility] | | [address] | | | - LABORATORY | | | | + + + + + Lipid Panel (03/01/2015 6:36 AM PST) + + + + + + | Component | Value | Ref Range | Performed | Pathologist | | | | | At | Signature | + + + + + + | Triglycerid | 270 (H) | 35 - 160 mg/dL | [facility] | | | es | | | [facility] | | | | | | MEDICAL | | | | | | CENTER - | | | | | | LABORATORY | | + + + + + + | Cholesterol | 269 (H) | 150 - 200 mg/dL | [facility] | | | | | | [facility] | | | | | | MEDICAL | | | | | | CENTER - | | | | | | LABORATORY | | + + + + + + | HDL | 41Comment: New HDL | 28 - 83 mg/dL | [facility] | | | | Reference Range as of | | [facility] | | | | November 04, 2014 | | MEDICAL | | | | Values may be 10-20% | | CENTER - | | | | lower with new, | | LABORATORY | | | | standardized method. | | | | + + + + + + | Chol/HDL | 6.6 | | [facility] | | | Ratio | | | [facility] | | | | | | MEDICAL | | | | | | CENTER - | | | | | | LABORATORY | | + + + + + + | LDL, | 174 (H) | <=130 mg/dL | [facility] | | | Calculated | | | [facility] | | [...] + + | [facility] | [address] | [place] | [phone] | | [facility] | | [address] | | | - LABORATORY | | | | + + + + + Magnesium (03/01/2015 6:36 AM PST) + +---------+ + + + | Component | Value | Ref Range | Performed | Pathologist | | | | | At | Signature | + +---------+ + + + | Magnesium | 1.7 (L) | 1.8 - 2.5 mg/dL | [facility] | | | | | | [facility] [...] + | [facility] | [address] | [place] | [phone] | | [facility] | | [address] | | | - LABORATORY | | | | + + + + + Basic Metabolic Panel (03/01/2015 6:36 AM PST) + +-------+ + + + | Component | Value | Ref Range | Performed | Pathologist | | | | | At | Signature | + +-------+ + + + | Na | 141 | 136 - 149 | [facility] | | | | | mmol/L | [facility] | | | | | | MEDICAL | | | | | | CENTER - | | | | | | LABORATORY | | + +-------+ + + + | K | 3.9 | 3.5 - 5.1 | [facility] | | | | | mmol/L | [facility] | | | | | | MEDICAL | | | | | | CENTER - | | | | | | LABORATORY | | + +-------+ + + + | Cl | 106 | 98 - 109 mmol/L | [facility] | | | | | | [facility] | | | | | | MEDICAL | | | | | | CENTER - | | | | | | LABORATORY | | + +-------+ + + + | CO2 | 26 | 24 - 31 mmol/L | [facility] | | | | | | [facility] | | | | | | MEDICAL | | | | | | CENTER - | | | | | | LABORATORY | | + +-------+ + + + | Anion Gap | 9 | 3 - 16 mmol/L | [facility] | | | | | | [facility] | | | | | | MEDICAL | | | | | | CENTER - | | | | | | LABORATORY | | + +-------+ + + + | Glucose | 96 | 70 - 109 mg/dL | [facility] | | | | | | [facility] | | | | | | MEDICAL | | | | | | CENTER - | | | | | | LABORATORY | | + +-------+ + + + | BUN | 13 | 7 - 18 mg/dL | [facility] | | | | | | [facility] | | | | | | MEDICAL | | | | | | CENTER - | | | | | | LABORATORY | | + +-------+ + + + | Creatinine | 0.69 | 0.60 - 1.30 | [facility] | | | | | mg/dL | [facility] | | | | | | MEDICAL | | | | | | CENTER - | | | | | | LABORATORY | | + +-------+ + + + | eGFR if not | >60 | >=60 | [facility] | | | | | mL/min/1.73m2 | [facility] | | | [facility] | | | MEDICAL | | | | | | CENTER - | | | | | | LABORATORY | | + +-------+ + + + | Calcium | 9.2 | 8.3 - 10.5 | [facility] | | | | | mg/dL | [facility] | | | | | | MEDICAL | | | | | | CENTER - | | | | | | LABORATORY | | + +-------+ + + + | BUN/Creatin | 18.8 | | [facility] | | | ine Ratio | | | [facility] | | | | | | MEDICAL | | | | | | CENTER - | | | | | | LABORATORY | | + +-------+ + + + + + | Specimen | + + | Blood | + + + + + + + | Performing | Address | City/State/Zipcode | Phone Number | | Organization | | | | + + + + + | [facility] | [address] | [place] | [phone] | | [facility] | | [address] | | | - LABORATORY | | | | + + + + + CK Total with CK-MB (03/01/2015 6:36 AM PST) + +-------+ + + + | Component | Value | Ref Range | Performed | Pathologist | | | | | At | Signature | + +-------+ + + + | CK TOTAL | 54 | 22 - 269 U/L | [facility] | | | | | | [facility] | | | | | | MEDICAL | | | | | | CENTER - | | | | | | LABORATORY | | + +-------+ + + + | CK-MB | 2.6 | 0.6 - 6.3 ng/mL | [facility] | | | | | | [facility] | | | | | | MEDICAL | | | | | | CENTER - | | | | | | LABORATORY | | + +-------+ + + + | CK-MB Index | 4.8 | % | [facility] | | | | | | [facility] | | | | | | MEDICAL | | | | | | CENTER - | | | | | | LABORATORY | | + +-------+ + + + + + | Specimen | + + | Blood | + + + + + + + | Performing | Address | City/State/Zipcode | Phone Number | | Organization | | | | + + + + + | [facility] | [address] | [place] | [phone] | | [facility] | | [address] | | | - LABORATORY | | | | + + + + + Troponin I (03/01/2015 6:36 AM PST) + + + + + + | Component | Value | Ref Range | Performed | Pathologist | | | | | At | Signature | + + + + + + | Troponin I | <0.01Comment: Reference | <0.06 ng/mL | [facility] | | | | Ranges:0.00-0.06 = | | [facility] | | | | NORMAL>0.06 = | | MEDICAL | | | | SUSPICIOUS FOR | | CENTER - | | | | MYOCARDIAL DAMAGE NOTE: | | LABORATORY | | | | Values greater than 0.50 | | | | | | ng/mL have been shown | | | | | | to be strongly | | | | | | associated with acute | | | | | | myocardial infarction. | | | | | | [employer] | | | | | [...] [address] | [place] | [phone] | | [facility] | | [address] | | | - LABORATORY | | | | + + + + + Culture, MRSA (03/01/2015 6:24 AM PST) + + + + + + | Component | Value | Ref Range | Performed | Pathologist | | | | | At | Signature | + + + + + + | Culture | Negative for MRSA by | | [facility] | | | | chromogenic agar method | | [facility] | | | | | | MEDICAL | | | | | | CENTER - | | | | | | LABORATORY | | + + + + + + + + | Specimen | + + | Respiratory - Both | | anterior nares (body | | structure) | + + + + + + + | Performing | Address | City/State/Zipcode | Phone Number | | Organization | | | | + + + + + | [facility] | [address] | [place] | [phone] | | [facility] | | [address] | | | - LABORATORY | | | | + + + + + ECG 12 lead (03/01/2015 6:07 AM PST) + + + + + + | Component | Value | Ref Range | Performed | Pathologist | | | | | At | Signature | + + + + + + | VENTRICULAR | 58 | BPM | [facility] | | | RATE EKG | | | | | + + + + + + | ATRIAL RATE | 58 | BPM | [facility] | | + + + + + + | P-R | 168 | ms | [facility] | | | INTERVAL | | | | | + + + + + + | QRS | 84 | ms | [facility] | | | DURATION | | | | | + + + + + + | Q-T | 460 | ms | [facility] | | | INTERVAL | | | | | + + + + + + | Q-T | 451 | ms | [facility] | | | INTERVAL | | | | | | (CORRECTED) | | | | | + + + + + + | P WAVE AXIS | 44 | degrees | [facility] | | + + + + + + | QRS AXIS | 31 | degrees | [facility] | | + + + + + + | T AXIS | 39 | degrees | [facility] | | + + + + + + | INTERPRETAT | Sinus | | [facility] | | | ION TEXT | bradycardiaOtherwise | | | | | | normal ECGNo previous | | | | | | ECGs availableConfirmed | | | | | | by KATIE HENDRICKS MD | | | | | | ([id number]) on 03/01/2015 | | | | | | 8:17:50 AM | | | | + + + + + + + + | Specimen | + + | | + + + + + | Narrative | Performed At | + + + | | | + + + + +---------+ + + | Performing | Address | City/State/Zipcode | Phone Number | | Organization | | | | + +---------+ + + | [facility] | | | | + +---------+ + + LVEF VALUE (03/01/2015) + +-------+ + + + | Component | Value | Ref Range | Performed | Pathologist | | | | | At | Signature | + +-------+ + + + | LVEF-TTE | 70 | | | | | TRANSTHORAC | | | | | | IC ECHO | | | | | + +-------+ + + + LVEF VALUE (03/01/2015) + +-------+ + + + | Component | Value | Ref Range | Performed | Pathologist | | | | | At | Signature | + +-------+ + + + | LVEF-TTE | 65 | | | | | TRANSTHORAC | | | | | | IC ECHO | | | | | + +-------+ + + + documented in this encounter Visit Diagnoses + + | Diagnosis | + + | Chest pain - Primary Chest pain, unspecified | + + | Chest pain, unspecified chest pain type | + + | Coronary artery disease involving [facility] heart, angina presence unspecified, | | unspecified vessel or lesion type | + + | Hyperlipidemia, unspecified hyperlipidemia | + + | Smoking Tobacco use disorder | + + | Diabetes mellitus (HCC) Type II or unspecified type diabetes mellitus without mention | | of complication, not stated as uncontrolled | + + | Hypertension Unspecified essential hypertension | + + | Hyperlipidemia Other and unspecified hyperlipidemia | + + documented in this encounter Administered Medications + +--------+ +--------+------+------+ | Medication Order | MAR | Action | Dose | Rate | Site | | | Action | Date | | | | + +--------+ +--------+------+------+ | acetaminophen (TYLENOL) tablet | Given | 03/01/19 | 650 mg | | | | 650 mg 650 mg, Oral, EVERY 4 | | 16 3:07 | | | | | HOURS PRN, Pain, or fever >= 38.3 | | PM PST | | | | | C (101.5 F), Starting Sat03/01/15 | | | | | | | at 0739 | | | | | | + +--------+ +--------+------+------+ +---+---+ | | | +---+---+ + +-------+ +-------+---+---+ | aminophylline injection 75 mg | Given | 03/01/19 | 75 mg | | | | 75 mg, Intravenous, ONCE PRN, per | | 16 8:22 | | | | | doctor, Starting Sat03/01/15 at | | AM PST | | | | | 0821, For 1 dose, Nuclear | | | | | | | Medicine | | | | | | + +-------+ +-------+---+---+ +---+---+ | | | +---+---+ + +-------+ +-------+---+---+ | baclofen (LIORESAL) tablet 20 | Given | 03/01/19 | 20 mg | | | | mg 20 mg, Oral, 2 TIMES DAILY, | | 16 8:25 | | | | | First dose on Sat03/01/15 at 0900 | | AM PST | | | | + +-------+ +-------+---+---+ +---+---+ | | | +---+---+ + +-------+ + +--------+---+ | dipyridamole (PERSANTINE) 60mg | Given | 03/01/19 | 13.3906 | 535.6 | | | in 40 mL NS syringe 0.142 | | 16 8:45 | mg/min | mL/hr | | | mg/kg/min | | AM PST | | | | | 94.3 kg (535.624 mL/hr, rounded | | | | | | | to 535.6 mL/hr), Intravenous, | | | | | | | Administer over 4 Minutes, ONCE, | | | | | | | 03/01/15 at 0845, For 1 dose, | | | | | | | Nuclear Medicine | | | | | | + +-------+ + +--------+---+ +---+---+ | | | +---+---+ + +-------+ +-------+---+---+ | DULoxetine (CYMBALTA) DR | Given | 03/01/19 | 30 mg | | | | capsule 30 mg 30 mg, Oral, | | 16 8:29 | | | | | DAILY, First dose on Sat03/01/15 | | AM PST | | | | | at 0900, Do not open capsule., | | | | | | + +-------+ +-------+---+---+ +---+---+ | | | +---+---+ + +-------+ +--------+---+---+ | gabapentin (NEURONTIN) capsule | Given | 03/01/19 | 300 mg | | | | 300 mg 300 mg, Oral, 3 TIMES | | 16 3:10 | | | | | DAILY, First dose on Sat03/01/15 | | PM PST | | | | | at 0900 | | | | | | + +-------+ +--------+---+---+ +-------+ +--------+---+---+ | Given | 03/01/19 | 300 mg | | | | | 16 8:25 | | | | | | AM PST | | | | +-------+ +--------+---+---+ +---+---+ | | | +---+---+ + +-------+ +------+---+---+ | morphine injection 1-2 mg 1-2 | Given | 03/01/19 | 2 mg | | | | mg, Intravenous, EVERY 1 HOUR | | 16 2:23 | | | | | PRN, Pain, Starting 03/01/15 at | | PM PST | | | | | 0806 | | | | | | + +-------+ +------+---+---+ +-------+ +------+---+---+ | Given | 03/01/19 | 2 mg | | | | | 16 10:58 | | | | | | AM PST | | | | +-------+ +------+---+---+ | Given | 03/01/19 | 2 mg | | | | | 16 8:39 | | | | | | AM PST | | | | +-------+ +------+---+---+ +---+---+ | | | +---+---+ + +-------+ +--------+---+---+ | nitroglycerin (NITROSTAT) SL | Given | 03/01/19 | 0.4 mg | | | | tablet 0.4 mg 0.4 mg, | | 16 8:29 | | | | | Sublingual, EVERY 5 MIN PRN, | | AM PST | | | | | Chest pain, Starting 03/01/15 | | | | | | | at 0806, Maximum of 3 doses in 15 | | | | | | | minutes., | | | | | | + +-------+ +--------+---+---+ +---+---+ | | | +---+---+ + +-------+ +------+---+---+ | ondansetron (ZOFRAN) injection | Given | 03/01/19 | 4 mg | | | | 4 mg 4 mg, Intravenous, EVERY 6 | | 16 2:22 | | | | | HOURS PRN, Nausea, Vomiting, | | PM PST | | | | | Starting 03/01/15 at 0739, | | | | | | | First line agent, | | | | | | + +-------+ +------+---+---+ +---+---+ | | | +---+---+ + +---------+ +---+ +---+ | sodium chloride 0.45% with KCl | New Bag | 03/01/19 | | 75 mL/hr | | | 20 mEq/L (2 NS + KCL 20) | | 16 8:17 | | | | | infusion at 75 mL/hr, | | AM PST | | | | | Intravenous, CONTINUOUS, Starting | | | | | | | 03/01/15 at 0800 | | | | | | + +---------+ +---+ +---+ +---+---+ | | | +---+---+ + +-------+ + +---+---+ | technetium TC-99M sestamibi | Given | 03/01/19 | 34.1 | | | | (CARDIOLITE) injection 30 | | 16 2:14 | -millicu | | | | millicurie 30 -millicurie, | | PM PST | deandre | | | | Intravenous, ONCE PRN, Other, | | | | | | | Starting e 03/01/15 at 1413, For | | | | | | | 1 dose, Nuclear Medicine | | | | | | + +-------+ + +---+---+ +---+---+ | | | +---+---+ + +-------+ + +---+---+ | technetium TC-99M sestamibi | Given | 03/01/19 | 9 | | | | (CARDIOLITE) injection 9 | | 16 8:22 | -millicu | | | | millicurie 9 -millicurie, | | AM PST | deandre | | | | Intravenous, ONCE PRN, Other, | | | | | | | Starting [facility] 03/01/15 at 0822, For | | | | | | | 1 dose, Nuclear Medicine | | | | | | + +-------+ + +---+---+ +---+---+ | | | +---+---+ documented in this encounter
[~2019-08-20 13:26] MED LIST changes: +ZOFRAN4 MG PO
--- OUTSIDE RECORDS SUMMARY | 2019-08-20 13:30 | XMS ---
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 [place] VISIT COUNT (12 MO.) 2 NAVEEN Diallo TOTAL 2 NOTE: Visits indicate total known visits. 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
[2019-08-20] MEDS ORDERED: NORVASC10 MG PO (13:34)
[2019-08-20] MEDS ORDERED: NEURONTIN600 MG PO (13:35)
[2019-08-20] MEDS ORDERED: NORCO 5-325 TA1 EACH PO (15:43)
== END 2019-08-20 16:34 | disposition home or self-care (01) ==
LOC: ED 13:26
DX: S93.401A Sprain of unspecified ligament of right ankle, initial encounter (principal); I10 Essential (primary) hypertension; E11.9 Type 2 diabetes mellitus without complications; I25.2 Old myocardial infarction; F31.9 Bipolar disorder, unspecified; F17.200 Nicotine dependence, unspecified, uncomplicated; Z88.0 Allergy status to penicillin; Z91.013 Allergy to seafood; Z91.030 Bee allergy status; Z88.5 Allergy status to narcotic agent; Z79.899 Other long term (current) drug therapy; Z79.84 Long term (current) use of oral hypoglycemic drugs; Z79.82 Long term (current) use of aspirin; X58.XXXA Exposure to other specified factors, initial encounter
CPT/HCPCS: 73610; 99283-25; A9270

== ENCOUNTER 2021-01-25 17:13 | Emergency (ER) | payer OTHER ==
[~2021-01-25] VITALS: Ht 160 cm; Wt 90.7 kg
[~2021-01-25 17:13] MED LIST changes: +ATORVASTATIN CA40 MG PO; +CIPRO500 MG PO; +CYCLOBENZAPRINE10 MG PO; +NEURONTIN600 MG PO; +NORVASC10 MG PO
[2021-01-25] MEDS ORDERED: ZANTAC-360 (FAM20 MG PO (17:29)
--- NOTE | 2021-01-26 18:57 | EKG ---
[facility] [address] [facility] [place], [place] [address] Signed Sinus tachycardia Otherwise normal ECG When compared with ECG of 05-DEC-2017 16:58, T wave inversion no longer evident in Anterior leads Confirmed by MICHELE JOYCE MD ([id number]) on 01/26/2021 6:57:24 PM Electronically Signed By: MICHELE JOYCE MD 01/26/21 185 PATIENT NAME: DAKOTAKIESHA OLESYA Electrocardiogram DATE OF : 61 PHYSICIAN: MICHELE JOYCE MD REPORT #: [id number] REPORT IS CONFIDENTIAL AND NOT TO BE RELEASED WITHOUT AUTHORIZATION
--- NOTE | 2021-01-26 18:58 | EKG ---
[facility] [address] [facility] [place] [address] Signed Sinus tachycardia Nonspecific T wave abnormality Abnormal ECG When compared with ECG of 25-JAN-2021 17:21, (Unconfirmed) Nonspecific T wave abnormality now evident in Anterolateral leads Confirmed by MICHELE JOYCE MD ([id number]) on 01/26/2021 6:58:01 PM Electronically Signed By: MICHELE JOYCE MD 01/26/21 1858 PATIENT NAME: KIESHA DUNCAN Electrocardiogram DATE OF : 61 PHYSICIAN: MICHELE JOYCE MD REPORT #: [id number] REPORT IS CONFIDENTIAL AND NOT TO BE RELEASED WITHOUT AUTHORIZATION
== END 2021-01-25 19:31 | disposition short-term general hospital (02) ==
LOC: ED 17:13
DX: I21.4 Non-ST elevation (NSTEMI) myocardial infarction (principal); E11.65 Type 2 diabetes mellitus with hyperglycemia; I25.2 Old myocardial infarction; I10 Essential (primary) hypertension; E11.9 Type 2 diabetes mellitus without complications; F17.200 Nicotine dependence, unspecified, uncomplicated; Z88.0 Allergy status to penicillin; Z88.8 Allergy status to other drugs, medicaments and biological substances; Z91.030 Bee allergy status; Z88.5 Allergy status to narcotic agent; Z91.013 Allergy to seafood; Z79.899 Other long term (current) drug therapy; Z79.84 Long term (current) use of oral hypoglycemic drugs
CPT/HCPCS: 71045; 80053; 81001; 83735; 84484; 85025; 85610; 85730; 87088; 93005; 93010; 96374; 96375; 99285-25; J1644; J2270; J2405

== ENCOUNTER 2021-06-27 12:40 | Emergency (ER) | payer OTHER ==
[~2021-06-27] VITALS: Ht 160 cm; Wt 90.7 kg
[~2021-06-27 12:40] MED LIST changes: +ZANTAC-360 (FAM20 MG PO
--- OUTSIDE RECORDS SUMMARY | 2021-06-27 12:42 | XMS ---
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 [facility] VISIT COUNT (12 MO.) 2 [facility] TOTAL 2 NOTE: Visits indicate total known visits. 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) use of oral hypoglycemic drugs - Bee allergy status - Type 2 diabetes mellitus with hyperglycemia - Allergy status to other drugs, medicaments and biological substances - Allergy to seafood - Allergy status to narcotic agent - Other roasterman (current) drug therapy - Old myocardial infarction INPATIENT VISIT TRACKING (12 MO.) 03/24/2021 05:43 [facility] TYPE: Cardiac Surgery DIAGNOSES: - Presence of aortocoronary bypass graft - Atherosclerotic heart disease of [place] coronary artery with unstable angina pectoris 01/25/2021 20:51 [facility] TYPE: Medical Surgical DIAGNOSES: - Bladder-neck obstruction - Non-ST elevation (NSTEMI) myocardial infarction [id number]
--- NOTE | 2021-06-27 21:10 | EKG ---
[facility] [address] [facility] [place] [address] Signed Normal sinus rhythm Normal ECG When compared with ECG of 25-JAN-2021 18:31, T wave inversion no longer evident in Inferior leads Confirmed by MICHELE JOYCE MD ([id number]) on 06/27/2021 9:09:59 PM Electronically Signed By: MICHELE JOYCE MD 06/27/212109 PATIENT NAME: DAKOTAKIESHAJENIFER DACOSTA Electrocardiogram DATE OF : 61 PHYSICIAN: MICHELE JOYCE MD REPORT #: [id number] REPORT IS CONFIDENTIAL AND NOT TO BE RELEASED WITHOUT AUTHORIZATION
== END 2021-06-27 16:30 | disposition home or self-care (01) ==
LOC: ED 12:40
DX: R07.9 Chest pain, unspecified (principal); R00.2 Palpitations; I25.2 Old myocardial infarction; I10 Essential (primary) hypertension; E11.9 Type 2 diabetes mellitus without complications; F17.210 Nicotine dependence, cigarettes, uncomplicated; Z88.0 Allergy status to penicillin; Z91.013 Allergy to seafood; Z91.030 Bee allergy status; Z88.5 Allergy status to narcotic agent; Z88.8 Allergy status to other drugs, medicaments and biological substances; Z79.899 Other long term (current) drug therapy
CPT/HCPCS: 36415; 71046; 80053; 83735; 84484; 85025; 85060; 93005; 93010; 96374; 99285-25; A9270; J2270

== ENCOUNTER 2022-02-26 19:22 | Emergency (ER) | payer OTHER ==
[~2022-02-26] VITALS: Ht 160 cm; Wt 95.7 kg
--- OUTSIDE RECORDS SUMMARY | 2022-02-26 19:24 | XMS ---
PreManage Notification: KIESHA DUNCAN Security Fell Cutter Events No recent Security Events currently on file CRITERIA MET - PDMP CARE PROVIDERS NANNETTE TRAYLOR Physician Scale Agent 01/30/2021-Current PHONE: Unknown Taryn has no Care Guidelines for this patient. [facility] VISIT COUNT (12 MO.) 2 NAVEEN Diallo TOTAL 2 NOTE: Visits indicate total known visits. ED/UCC VISIT TRACKING (12 MO.) 02/26/2022 19:23 [facility] [place] TYPE: Emergency COMPLAINT: - MIRGRAINE 06/27/2021 12:41 [facility] [place] TYPE: Emergency COMPLAINT: - CHEST PAINS, RACING HEART DIAGNOSES: - Old myocardial infarction - Allergy to seafood - Type 2 diabetes mellitus without complications - Other senior living (current) drug therapy - Allergy status to penicillin - Allergy status to other drugs, medicaments and biological substances - Nicotine dependence, cigarettes, uncomplicated - Bee allergy status - Chest pain, unspecified - Essential (primary) hypertension - Palpitations - Allergy status to narcotic agent INPATIENT VISIT TRACKING (12 MO.) 03/24/2021 05:43 [facility] TYPE: Cardiac Surgery DIAGNOSES: - Atherosclerotic heart disease of [place] coronary artery with unstable angina pectoris - Presence of aortocoronary bypass graft [id number]
[2022-02-26] MEDS ORDERED: BUSPIRONE HCL5 MG PO (22:02)
[2022-02-26] MEDS ORDERED: METOPROLOL SUCC25 MG PO (22:03)
[2022-02-26] MEDS ORDERED: OMEPRAZOLE40 MG PO (22:03)
[2022-02-26] MEDS ORDERED: TRAZODONE HCL100 MG PO (22:03)
[2022-02-26] MEDS ORDERED: VENLAFAXINE HC150 MG PO (22:04)
[2022-02-26] MEDS ORDERED: GABAPENTIN600 MG PO (22:04)
[2022-02-26] MEDS ORDERED: METFORMIN HCL1000 MG PO (22:04)
[2022-02-26] MEDS ORDERED: PLAVIX75 MG PO (22:06)
[2022-02-27] MEDS ORDERED: CIPRO500 MG PO (00:07)
--- NOTE | 2022-02-27 21:36 | EKG ---
[facility] [address] [facility] [place] [address] Signed Normal sinus rhythm Possible Left atrial enlargement Borderline ECG When compared with ECG of 27-JUN-2021 12:44, No significant change was found Confirmed by Lyndon Keys MD () on 02/27/2022 9:36:33 PM Electronically Signed By: LYNDON KEYS MD 02/27/222135 PATIENT NAME: DAKOTAKIESHA OLESYA Electrocardiogram DATE OF : 61 PHYSICIAN: LYNDON KEYS MD REPORT #: [id number] REPORT IS CONFIDENTIAL AND NOT TO BE RELEASED WITHOUT AUTHORIZATION
== END 2022-02-27 00:16 | disposition home or self-care (01) ==
LOC: ED 19:22
DX: S80.01XA Contusion of right knee, initial encounter (principal); G43.909 Migraine, unspecified, not intractable, without status migrainosus; I25.2 Old myocardial infarction; I10 Essential (primary) hypertension; E11.9 Type 2 diabetes mellitus without complications; F17.200 Nicotine dependence, unspecified, uncomplicated; Z88.0 Allergy status to penicillin; Z91.013 Allergy to seafood; Z91.030 Bee allergy status; Z91.041 Radiographic dye allergy status; Z79.899 Other long term (current) drug therapy; W22.8XXA Striking against or struck by other objects, initial encounter
CPT/HCPCS: 36415; 70450; 71045; 73560; 80053; 81001; 84484; 85025; 87502; 93005; 93010; 96361; 96374; 96375; 99284-25; J1200; J1885; J2405; J7121; U0003

== ENCOUNTER 2022-03-28 08:00 | Inpatient (IN) | payer OTHER ==
[~2022-03-28] VITALS: Ht 160 cm; Wt 96.3 kg
[~2022-03-28 08:00] MED LIST changes: +BUSPIRONE HCL5 MG PO; +GABAPENTIN600 MG PO; +METOPROLOL SUCC25 MG PO; +PLAVIX75 MG PO; +VENLAFAXINE HC150 MG PO
--- OUTSIDE RECORDS SUMMARY | 2022-03-28 08:04 | XMS ---
PreManage Notification: KIESHA DUNCAN Security Picker/Puller Events No recent Security Events currently on file CRITERIA MET - [facility] - 2 Visits in 30 Days CARE PROVIDERS NANNETTE TRAYLOR Physician Belt Builder 01/30/2021-Current PHONE: Unknown Taryn has no Care Guidelines for this patient. [facility] VISIT COUNT ([address] MO[address] 3 [facility] TOTAL 3 NOTE: Visits indicate total known visits. ED/UCC VISIT TRACKING (12 MO.) 03/28/2022 08:02 [facility] [place] TYPE: Emergency COMPLAINT: - L SIDE BODY NUMBNESS 02/26/2022 19:23 [facility] TYPE: Emergency COMPLAINT: - MIRGRAINE DIAGNOSES: - Migraine, unspecified, not intractable, without status migrainosus - Contact with and (suspected) exposure to COVID-19 - Radiographic dye allergy status - Striking against or struck by other objects, initial encounter - Allergy status to penicillin - Headache, unspecified - Essential (primary) hypertension - Other longterm (current) drug therapy - Bee allergy status - Type 2 diabetes mellitus without complications - Contusion of right knee, initial encounter - Old myocardial infarction - Nicotine dependence, unspecified, uncomplicated - Allergy to seafood 06/27/2021 12:41 [facility] [place] TYPE: Emergency COMPLAINT: - CHEST PAINS, RACING HEART DIAGNOSES: - Allergy status to other drugs, medicaments and biological substances - Nicotine dependence, cigarettes, uncomplicated - Bee allergy status - Chest pain, unspecified - Essential (primary) hypertension - Palpitations - Allergy status to narcotic agent - Old myocardial infarction - Allergy to seafood - Type 2 diabetes mellitus without complications - Other longterm (current) drug therapy - Allergy status to penicillin INPATIENT VISIT TRACKING (12 MO.) No inpatient visits to display in this time frame [id number]
--- NOTE | 2022-03-28 14:30 | NUR ---
Spoke with pt and her daughter, Nicole. Nicole works here in the lab. Pt lives in a [place], lower level of her son's home. She drives around to the lower level and does not have any steps to get into her home. She and son share grocery shopping and cooking. They mostly eat take out and fast food. She states she is beginning to feel "pins and needles over her left lip". She is unable to feel her L hand and parts of L leg. Daughter has made a follow up appt with her pcp Lissette Lackey on04/09/at 9am. Pt has multiple pieces of DME: cane, walker, raised toilet, and shower chair from a previous ortho surgery. Pt plans on dc to home when she is cleared medically. Pt and daughter discuss her sleep apnea and daughter states pt has sleep apnea and needs a CPAP, pt does not agree.
--- NOTE | 2022-03-28 17:14 | NUR ---
medications reconciled using pharmacy records and patient interview
--- NOTE | 2022-03-28 19:33 | NUR ---
Received bedside report from offgoing shift, hourly rounding initiated.
--- NOTE | 2022-03-28 19:50 | NUR ---
IN PT ROOM FOR NIH SCALE, ROUNDING. PT RESTING ON ABCK, FAMILY AT BEDSIDE, NO COMPLAINT OF DISCOMFORT. PT SCORED 5 ON NIH SCALE, REPORTS SOME PAIN IN HIP. PT CALL LIGHT IN REACH.
--- NOTE | 2022-03-28 20:54 | NUR ---
CALL LIGHT ANSWERED. IV SL WNL. pt AWAKE WATCHING TV. DAUGHTER UP IN CHAIR. pt ALERT, TALKATIVE. DENIES ANY NEEDS AT THIS TIME.
--- NOTE | 2022-03-28 21:05 | NUR ---
In pt room for medication adminstration. Pt family at bedside, pt medication compliant, no trouble swallowing pills. Pt has no complaint of pain or discomfort, call light in reach.
--- NOTE | 2022-03-28 23:06 | NUR ---
IN pt room for rounding. Pt resting on back, eyes closed, breathing even and unlabored, no indication of pain or discomfort. Pt call light in reach
--- NOTE | 2022-03-29 02:00 | NUR ---
IN pt room for assessment and VS. Pt resting on stomach, white noise from smart phone on. Pt VS stable, Neuro checks complete, Pt family still at bedside, call light in reach.
--- NOTE | 2022-03-29 04:15 | NUR ---
In pt room for rounding. Pt resting on right side, eyes closedd, breathing even and unlabored with a light snore. Pt has no indication of pain or discomfort, pt family at bedside, call light in reach.
--- NOTE | 2022-03-29 06:56 | NUR ---
In pt room for rounding, medication adminsitration. Pt sleeping on stomach, family at bedside, smart phone playing white noise for background. Pt easily aroused for medication adminsitration and neuro check. Call light in reach, no complaint of pain or discomfort.
--- NOTE | 2022-03-29 07:43 | NUR ---
IN ROOM TO CHECK BLOOD SUGAR, LEVEL 258, REPORTED TO NURSE VEGA. PATIENT IN BED TALKING WITH DAUGHTER AT BEDSIDE. CALL LIGHT, WATER W/IN REACH, PATIENT DENIES ANY OTHER NEEDS.
--- NOTE | 2022-03-29 08:30 | NUR ---
REPORT RECEIVED FROM NIGHT RN AND PT. CARE RESUMED. SHE IS ALERT AND ORIENTED TO ALL. REPORTS MILD TENDERNESS IN LEFT SHOULDER. ASSESSMENT COMPLETED. PT. CONTINUES TO HAVE WEAKNESS AND NUMBNESS IN LEFT LIMBS AND LEFT FACE. SHE ALSO REPORTS EXPRESSIVE DISPHASIA AND STATES SHE HAS TROUBLE "FINDING HER WORDS". MEDS ADMIN. DAUGHTER AT BEDSIDE. BROUGHT BLANKET AND ICE. CALL LIGHT IN REACH.
--- NOTE | 2022-03-29 11:00 | NUR ---
PT. C/O LEFT SHOULDER PAIN AFTER O.T. AND NEEDLE LIKE PAIN AT LEFT FINGER TIPS. MD UPDATED. PRN PAIN MOLD TOOLER. WILL CONTINUE TO MONITOR.
--- NOTE | 2022-03-29 13:00 | NUR ---
PT. DAUGHTER STATES HER MOTHER IS NOW AGREEABLE TO GOING TO A REHAB FACILITY. SHE REQUESTS TO SPEAK WITH CLOTHING SORTER. BRANDYN CONTACTED AND IN TO SPEAK TO PT.
--- NOTE | 2022-03-29 13:30 | NUR ---
Spoke with pt and her daughter Nicole. Pt now wanting to dc to a SNF. States son causes her BP to elevate. Per PT notes pt would benefit from SNF. Discussed the 5 SNFS in our area and pt [facility] Called and spoke with [facility] and they do have bed open. I was unable to contact [facility] and they did not respond to my text. Faxed Face sheet, covid test, covid vac note, H&P, Progress notes, med list, PT/OT evals to ZANDRA at [facility] in [place].
--- NOTE | 2022-03-29 14:30 | NUR ---
Received a return call from at [facility]. They do have beds and will submit insurance for auth. to [facility].
--- NOTE | 2022-03-29 15:00 | NUR ---
Notified by ZANDRA at [facility] pt will have an out of pocket until she reaches her 8500 deductible. I will notify pt. In and spoke with pt and Nicole. Updated. Both agree, they will meet the deductible with this hospitalization and her ER visits. Esha would like ZANDRA to go ahead and request auth. Called ZANDRA and updated. She is unsure when she will receive auth as [employer] can be longer in giving auth. ZANDRA does say they can admit on the weekend if necessary. Received a return call from Ronda at [facility]. They are not in Network and her insurance will cover at 50% only.
--- NOTE | 2022-03-29 17:00 | NUR ---
PT. ASSISTED FROM THE COMMODE TO THE BED AND VERY UNSTEADY, GRABBING BED. REFUSES WALKER. SHE REPORTS LEFT ARM HAS IMPROVED BUT SHE IS "WORN OUT FROM THERAPY". ASSISTED WITH SET UP FOR DINNER. CALL LIGHT INREACH.
--- NOTE | 2022-03-29 20:37 | EKG ---
[facility] [address] [facility] [place] [address] Signed Normal sinus rhythm Normal ECG When compared with ECG of 26-Feb-2022 22:26:01 No significant change was found Confirmed by Lyndon Keys MD () on 03/29/2022 8:37:21 PM Electronically Signed By: LYNDON KEYS MD 03/29/222036 PATIENT NAME: KIESHA DUNCAN Electrocardiogram DATE OF : 61 PHYSICIAN: LYNDON KEYS MD REPORT #: [id number] REPORT IS CONFIDENTIAL AND NOT TO BE RELEASED WITHOUT AUTHORIZATION
--- NOTE | 2022-03-30 01:47 | NUR ---
PT LYING IN BED RESTING QUIETLY. RESP EVEN ET UNLABORED. ABLE TO MAKE NEEDS KNOWN. PT STATES THAT NUMBNESS AND TINGLING TO LEFT UPPER AND LOWER EXTREMITIES HAVE GOTTEN SOMEHWAT BETTER. PT STATES ONLY FEEL WARMTH WHEN TOUCH LEFT HAND AND FACE BUT DOESN'T FEEL ANYTHING WHEN TOUCHING LEFT LOWER EXTREMITY. PT RECEIVED PRN PAIN MED WITH PM MEDS STATED MED WAS EFFECTIVE. PT SELF CATHS WHEN NEEDED. NO ACUTE DISTRESS NOTED AT THIS TIME.
--- NOTE | 2022-03-30 07:45 | NUR ---
REPORT RECEIVED FROM NIGHT RN AND PT CARE RESUMED. PT. IS ALERT AND ORIENTED TO ALL. ASSESSMENT COMPLETED. SHE REPORTS MILD PAIN IN LEFT SHOULDER WITH MOVEMENT AND INCREASED SENSATION IN LEFT FINGER TIPS. MEDS ADMIN. PT. ASSISTED WITH SETTING UP BREAKFAST. LEFT RESTING WITH CALL LIGHT IN REACH.
--- NOTE | 2022-03-30 09:31 | NUR ---
PT. USED CALL LIGHT FOR ASSISTANCE. ASSISTED WITH THERMOSTAT AND BROUGHT ICE. LEFT RESTING WITH CALL LIGHT IN REACH.
--- NOTE | 2022-03-30 11:00 | NUR ---
Spoke with Esha. Updated we are awaiting auth from [facility] from SNF placement.
--- NOTE | 2022-03-30 11:00 | NUR ---
Spoke with pts daughter in the hallway. Updated we are awaiting [facility] auth.
--- NOTE | 2022-03-30 11:23 | NUR ---
ROUNDING ON PT. SHE IS RESTING AFTER P.T. DENIES FURTHER NEEDS.
--- NOTE | 2022-03-30 13:49 | NUR ---
ROUNDING ON PT. SHE IS WORKING WITH O.T. AT THIS TIME AND BUTTONHOLE MAKER IN THE ROOM.
--- NOTE | 2022-03-30 14:51 | NUR ---
Called and spoke with ZANDRA from [facility]. Asked if they have received auth from [facility]. She has not, but will let me know if she hears anything.
--- NOTE | 2022-03-30 15:05 | NUR ---
PT GIVEN PO PAIN MEDS, EXCITED THAT SHE IS PROGRESSING WITH MOVEMENT AND THERAPY - SHE IS WORN OUT SHE SAYS.
--- NOTE | 2022-03-30 15:33 | NUR ---
I ASKED PATIENT IF SHE WOULD LIKE TO TAKE A SHOWER TODAY. SHE SAID SHE WAS TO TIRED AT THE TIME BECAUSE SHE WAS WORKING WITH PHYSICAL THERAPY WILL GO BACK IN AND ASK ONE MORE TIME. DID HER BLOOD SUGAR CHECKS FOR BREAKFAST AND LUNCH.
--- NOTE | 2022-03-30 18:50 | NUR ---
AFTER I GOT HER VITALS DONE AND I&O. I COMBED HER HAIR AND BRAIDED IT. ALSO GOT HER THREE CUPS OF ICE. ALSO SHE WANTED TO WAIT TO TAKE A SHOWER TOMORROW SO SHE WILL HAVE HER OWN SHAMPOO AND STUFF. SAME WITH BRUSHING HER TEETH. PATIENT IS SITTING UP IN HER BED WATCHING TV AND EATING ICE.
--- NOTE | 2022-03-31 01:23 | NUR ---
PT LYING IN BED RESTING QUIETLY. RESP EVEN ET UNLABORED. ABLE TO MAKE NEEDS KNOWN. PT C/O PAIN AT THE BEGINNING OF SHIFT STATED THINKS SHE OVER DID IT IN THERAPY EARLIER IN THE DAY. PT GIVEN PRN PAIN MED PT STATES MED WAS EFFECTIVE. PT SELF CATHS WHEN NEEDED. PT USES WALKER TO AMBULATE WITH 1 PERSON ASSIST. NO ACUTE DISTRESS NOTED AT THIS TIME.
--- NOTE | 2022-03-31 08:15 | NUR ---
REPORT RECEIVED FROM NIGHT RN AND PT CARE RESUMED. PT. IS DROWSY BUT AWAKENS TO VOICE AND ORIENTED TO ALL. NO NEW NEURO DEFICITS NOTED. ASSESSMENT COMPLETED. PT. STATES SHE IS SORE AND WILL NOT WORK WITH P.T. TODAY. DISCUSSED IMPORTANCE OF P.T. AND PT. AGREEABLE. ADMIN PRN PAIN MED. PT. ABLE TO USE LEFT HAND FOR LIFTING CUP AND HOLDING MED CUP BUT IT IS STILL NUMB. LEFT TOES HAVE SLIGHT MOVEMENT, BUT NUMB THROUGHOUT. PT. LEFT RESTING WITH DAUGHTER AT BEDSIDE.
--- NOTE | 2022-03-31 09:43 | NUR ---
THIS RN TO ROOM TO ASSIST WITH VITAL SIGNS AND I/Os. PT RESTING IN BED WITH HEAD OF BED AT 52 DEGREES. TALKING WITH FRIENDS/FAMILY ON THE PHONE. VITAL SIGNS STABEL. PT DECLINES TIME UP TO CHAIR. PT DECLINES BLINDS TO BE OPENED. NO ADDITONAL REQUESTS OR COMPLAINTS. CALL LIGHT WITHIN REACH.
--- NOTE | 2022-03-31 13:40 | NUR ---
PT CALLED FOR PAIN MEDICATION. SHE REPORTED HER PAIN 8.5/10 BECAUSE SHE "WORKED WITH THERAPY FOR A WHILE TODAY". WHILE IN HER ROOM, SHE REQUESTED 2 CUPS OF ICE, PROVIDED. LUNCH TRAY REMOVED, ATE 100%.
--- NOTE | 2022-03-31 14:15 | NUR ---
ASSESSMENT COMPLETED. PT. STATES SHE IS TIRED AND WOULD LIKE TO REST. ADMIN MED. WATER TESTER IN FOR VITALS.
--- NOTE | 2022-03-31 15:13 | NUR ---
PATIENT IS SLEEPING.
--- NOTE | 2022-03-31 15:14 | NUR ---
DID HER BLOOD SUGAR CHECK FOR BREAKFAST AND LUNCH.
--- NOTE | 2022-03-31 15:47 | NUR ---
ROUNDING ON PT. SHE IS RESTING IN BED WITH EYES CLOSED AND RESP UNLABORED. LIGHTS OFF AND SOUND MACHINE ON.
--- NOTE | 2022-03-31 17:09 | NUR ---
MEDICATION DUE. DINNER DELIVERED TO PT. PT STATES DINNER IS NOT WHAT SHE ORDERD, KITCHEN CALLED AND DOES NOT HAVE WHAT PT ORDERED AVALIABLE. COMPRIMISE MADE AND PT AGREES TO FOOD THAT WAS PROVIDED. MEDICATION GIVEN. PT ASKS FOR "A BUNCH OF EXTRA SALT PACKETS." EDUCATION DONE WITH PT REARDING SALT INTAKE AND BLOOD PRESSURE. PT VERBALIZES UNDERSTANDING AND CONTINUES TO USE LARGE AMOUTNS OF SALT. PT DECLINES TIME UP TO CHAIR FOR MEALS. NO ADDITIONAL REQEUSTS OR COMPLAINTS AT THIS TIME. PTS PRIMARY RN UPDATED. CALL LIGHT WITHIN REACH. BED RAILS UP.
--- NOTE | 2022-03-31 18:16 | NUR ---
I ASKED PATIENT IF SHE WAS READY TO SHOWER AND SHE SAID SHE HURTS. SO SHE REFUSED.
--- NOTE | 2022-03-31 20:25 | NUR ---
CALL LIGHT ANSWERED, pt STATES, "I NEED POINTED TO THE DIRECTION TO GET OUTTA HERE". AFTER DISCUSSING WHAT pt MEANT IT WAS DETREMINED THAT pt WISHES TO GO OUTSIDE TO SMOKE AND STATES, "WELL I CAN GO AND SMOKE IF I WANT TO, I'M NOT A PRISONER HERE". THERAPEUTIC COMMUNICATION PROVIDED AND pt EDUCATED THAT HOSPITAL IS A SMOKE FREE ZONE AND SMOKING IS NOT ALLOWED. pt ALREADY HAS NICOTINE PATCH IN PLACE AND HAS BEEN CHEWING ON ICE. EVENING MEDS PROVIDED, SEE EMAR. pt AGREES TO AMBULATE IN HALLWAY WITH THIS RN AND TO TRY SHEDULED EVENING MEDS IN HOPES THAT THIS WILL HELP LESSEN ANXIETY (SHIRA CAMPBELL). pt UP AND AMBULATED FROM HER ROOM #109 TO MS ROOM #113-114 AND BACK, pt TOLERATED WELL AND WAS STEADY ON FEET. FRESH ICE WATER AND ICE CHIPS ALSO PROVIDED. pt APPEARS LESS ANXIOUS AFTER WALK AND DISCUSSED CRIME SHOWS WHILE AMBULATING IN ATTEMPT TO DISTRACT pt, pt INTERACTIVE WITH STAFF AND WAS VERY APPRECIATIVE OF CARES PROVIDED. VSS. THIS RN ALSO DISCUSSED CM NOTES pt MENTIONED SHE FELT ANXIOUS WITH "NOT KNOWING WHAT THE GAME PLAN IS". pt APPEARS MORE RELAXED OVERALL AND BLINDS OPENED IN ROOM TO ALSO HELP pt, pt LEFT RESTING IN BED AND TALKING TO FAMILY ON THE PHONE. pt ALSO EDUCATED ON RISKS OF SMOKING AND HOW IT AFFECTS AN INDIVIDUAL'S CHANCES OF A STROKE. WILL CONTINUE TO MONITOR. PRIMARY RN KENDELL AWARE AND UPDATED, TO CALL MD KEYS AND POSSIBLY GET NICOTINE GUM/LOZENGE.
--- NOTE | 2022-03-31 21:19 | NUR ---
RETURNED TO pt ROOM TO REASSESS ANXIETY, pt REPORTS ANXIETY HAS IMPROVED AND SHE IS NOW RELAXING IN CHAIR. NO NEEDS OR CONCERNS VERBALIZED AT THIS TIME, CALL LIGHT IN REACH. WILL CONTINUE TO MONITOR.
--- NOTE | 2022-03-31 22:57 | NUR ---
CALL LIGHT ANSWERED, pt ASKING FOR MORE ICE, ADDITIOANL ICE CHIPS PROVIDED. NO ADDITIONAL NEEDS OR CONCERNS VERBALIZED.
--- NOTE | 2022-04-01 02:12 | NUR ---
PT LYING IN BED RESTING QUIETLY. RESP EVEN ET UNLABORED. ABLE TO MAKE NEEDS KNOWN. PT STATES ABLE TO MOVE LEFT HAND MORE BUT STILL HAS NO FEELING TO LLE AND LEFT SIDE OF HER FACE. PT HAD AN ANXIETY EPISODES AT BEGINNING IF SHIFT WANTED TO GO OUTSIDE TO SMOKE. PT HAD PUT ON COAT AND WAS DETERMINED TO GO OUTSIDE TO SMOKE. CHARGE NURSE REDIRECTED PT AND ASSISTED HER WITH AMBULATING DOWN THE [place]. PT WANTED SOMETHING FOR ANXIETY AND A STRONGER NICOTINE PATCH MD WAS NOTIFIED AND NEW ORDERS GIVEN FOR INCREASE DOSE OF NICOTINE PATCH AND ATIVAN O.5MG PRN MED WAS GIVEN AND EFFECTIVE. PT STATES FEEL MUCH BETTER. EDUCATED PT ABOUT NEED TO QUIT SMOKING PT WAS RECEPTIVE TO TRYING. NO ACUTE DISTRESS OR PAIN NOTED AT THIS TIME.
--- NOTE | 2022-04-01 02:50 | NUR ---
pt resting quietly in bed with eyes closed, on ra. rr even and unlabored, no distress noted. call light in reach of pt. no s/sx of anxiety noted.
--- NOTE | 2022-04-01 04:05 | NUR ---
pt RESTING QUIETLY IN BED, EYES CLOSED AND RR EVEN AND UNLABORED. NO DISTRESS OR ANXIETY NOTED. pt OPENED EYES BRIEFLY, DENIED NEEDS OR CONCERNS WHEN ASKED. CALL LIGHT IN REACH.
--- NOTE | 2022-04-01 06:45 | NUR ---
PT REFUSED SHOWER LAST NIGHT AND THIS MORNING. INFORMED PT THAT SHE WILL HAVE TO SHOWER ON DAY SHIFT OR WHEN I COME IN TONIGHT PT AGREED.
--- NOTE | 2022-04-01 08:03 | NUR ---
PT RESTING IN BED. WHITE BOARD UPDATED. BLOOD SUGAR CHECKED. PT ROLLED OVER TO GO BACK TO SLEEP. CALL LIGHT IN REACH. NO FURTHER NEEDS AT THIS TIME.
--- NOTE | 2022-04-01 08:14 | NUR ---
PT RESTING EYES CLOSED AT TIME OF SHIFT REPORT, LEFT UNDISTURBED. PT AWAKE NOW DAUGHTER JUST LEAVING THE ROOM. PT SITTING UP IN BED USING PHONE. DENIES DISCOMFOTS OR NEEDS OF.
--- NOTE | 2022-04-01 11:18 | NUR ---
PT TOLERATES 100% OF MORNING MEAL. UP TO WORK WITH P/T SHE REPORTS IT WAS EXHAUSTING. SITTING IN THE CHAIR NOW, CALL LIGHT AND NEEDED ITEMS IN REACH. PT DENIES FURTHER NEEDS OF.
--- NOTE | 2022-04-01 13:59 | NUR ---
PT RESTING IN BED EYES CLOSED, BREATHING EVEN AND UNLABORED. CALL LIGHT AND NEEDED ITEMS ON BEDSIDE TABLE.
--- NOTE | 2022-04-01 16:29 | NUR ---
PT HAS NAPPED FOR ABOUT 2 HOURS NOW, ENCOURAGED HER TO AWAKEN TO PREVENT INSOMNIA TONIGHT. SHE NEITHER AGREES NOR DISAGREES LAYING DOWN AT THIS TIME.
--- NOTE | 2022-04-01 17:41 | NUR ---
PT UP IN THE ROOM INDEPENDANTLY STEADY ON HER FEET. TOLERATES 100% OF EVENING MEAL. NO C/O OF PAIN OR REQUEST OF NEEDS AT THIS TIME
--- NOTE | 2022-04-01 20:15 | NUR ---
PATIENT CALLED. ICE CHIPS AND BABY WIPES PROVIDED PER PATIENT'S REQUEST.
--- NOTE | 2022-04-01 23:00 | NUR ---
CALL LIGHT ANSWERED. IV SITE WRAPPED. PATIENT IS GOING TO TAKE SHOWER INDEPENDENTLY. PRIMARY RN NOTIFIED.
--- NOTE | 2022-04-01 23:50 | NUR ---
2CUPS OF ICE CHIPS PROVIDED. WIPED DRY THE BATHROOM. PATIENT IS BACK IN BED FROM SHOWER. DENIES NEEDS AT THIS TIME.
--- NOTE | 2022-04-02 01:38 | NUR ---
PT LYING IN BED RESTING QUIETLY. RESP EVEN ET UNLABORED ABLE TO MAKE NEEDS KNOWN. PT HAD SHOWER THIS SHIFT. PT STATES NUMBNESS TO LEFT SIDE IS IMPROVING DAY BY DAY BUT STILL HAS PINS AND NEEDLE FEELING TO 3 FINGERS ON LEFT HAND. PT TO DISCHARGE TO REHAB FACILITY TODAY. NO COMPLAINTS OF PAIN OR DISTRESS AT THIS TIME.
--- NOTE | 2022-04-02 07:18 | NUR ---
into pt room to wake for breakfast. pt refused to get up to chair for meal and wanted to sleep. call light within reach, no furhter tasks at this time
--- NOTE | 2022-04-02 07:34 | NUR ---
PT RESTING SOUNDLY AT TIME OF SHIFT REPORT, LEFT UNDISTURBED. CALL LIGHT AND NEEDED ITEMS AT BEDSIDE.
--- NOTE | 2022-04-02 09:30 | NUR ---
Spoke with pt as she is walking in the lrary. [facility] is calling [employer] to confirm auth. They have not received a reply at this time. Pt is frustrated and states she just wants to go home. Asked her to wait just a little longer as Insurance has 96 hours to respond.
--- NOTE | 2022-04-02 10:06 | NUR ---
PT TOLERATES MOST ALL OF MORNING MEAL. SITTING UP IN BED DENIES NEEDS OF ANYTHING. CALL LIGHT AND NEEDED ITEMS ON SEDSIDE TABLE
--- NOTE | 2022-04-02 10:46 | NUR ---
UPdated pts daughter, Nicole. cont. to wait for auth. I asked if she feels pt is going to go home today. She states, no. Pt is frustrated and tired of waiting. Let her know Katy is calling [employer] to check for auth today.
--- NOTE | 2022-04-02 12:09 | NUR ---
PT DAUGHTER PRESENT IN THE ROOM THEY ARE VISITING ACTIVELY. DENIES NEEDS AT THIS TIME
--- NOTE | 2022-04-02 13:08 | NUR ---
PT IS ALERT, ORIENTED AND SITTING ON BED FULLY DRESSED-EXPECTING TO DC TODAY. PT STATES SHE IS READY TO GO! DAUGHTER SHORTY IS AT BS, GAVE ENCOURAGEMENT. PT WANTS TO GO TO [facility], WAITING ON INS. AUTH. PT SHARED SHE HAS BEEN THROUGH MULTIPLE DIFFICULT HEALTH ISSUES AND FEELS SHE IS RECOVERING FROM THE EFFECTS OF HER STROKE. PT REQUESTED PRAYER, GAVE G.POST AND BLESSING. WILL FOLLOW 1
--- NOTE | 2022-04-02 14:06 | NUR ---
Called and [facility] [place]. Asked if they have heard from [employer] at this time for [facility] auth.
--- NOTE | 2022-04-02 15:24 | NUR ---
U/S COMPLETE PT RESTING IN BED. REQUESTS RN TO CLIP HIS TOENAILS. REQEUSTS TO HAVE A CIGARETTE. UNABLE TO ASSIST WITH EITHER REQUEST, SNACK OFFERED
--- NOTE | 2022-04-02 15:26 | NUR ---
PT RESTING IN BED ASKING ABOUT DC TODAY. PT NOTIFIED WE ARE STILL WAITING ON INSURANCE AUTH
--- NOTE | 2022-04-02 16:51 | NUR ---
DC NEUROLOGY MANAGER IN TO SPEAK WITH PT ALL QUESTIONS ANSWERED.
--- NOTE | 2022-04-03 02:15 | NUR ---
PT LYING IN BED RESTING QUIETLY. RESP EVEN ET UNLABORED ABLE TO MAKE NEEDS KNOWN. PT ALERT AND ORIENTED USES WALKER WHEN AMBULATING. PT CONTINUES TO HAVE NUMBNESS TO LEDT SIDE OF FACE. PT STATES SOME SENSATION RETURN ON LEFT SIDE. PT HAS NO COMPLAINTS OF PAIN OR DISTRESS AT THIS TIME.
--- NOTE | 2022-04-03 07:35 | NUR ---
pt refused to get out of bed for meal. nurse notifed, call light within reach no further tasks at this time
--- NOTE | 2022-04-03 09:10 | NUR ---
PT SLEEPING IN BED, AWOKEN FOR MORNING ASSESSMENT AND MEDICATIONS. PT ALERT AND ORIENTED. PT ON ROOM AIR, LUNG SOUNDS CLEAR, DENIES SOB. BOWEL TONES ACTIVE DENIES NAUSEA, BREAKFAST AT BEDISDE, BLOOD GLUCOSE 200, GIVEN 3 UNITS SS HUMALOG. PT WITH CONTINUED LEFT SIDED WEAKNESS, NUMBNESS AND TINGLING IN EXTREMITIES, PT STATES IT IS NOT WORSE, MAYBE A LITTLE IMPROVED. WITHOUT EDEMA, PULSES STRONG IN ALL EXTREMITIES. IV SALINE LOCKED. DISCUSSED PLAN OF CARE FOR THE DAY, DENIES OTHER NEEDS AT THIS TIME.
--- NOTE | 2022-04-03 11:30 | NUR ---
Spoke with Esha. She would like to go for a walk. Pt wants a pepsi and was allowed to go and get one yesterday. Walked with pt down larry and she got a soda and then states she is going outside. Let pt know she is an IP and cannot go outside. Pt states she needs to get something from her car. She states she is going. I asked if she is leaving AMA and she states she will be right back. Returned to the medical floor and updated Dr. Pt returned shortly. Returned to my office and notified by ZANDRA they received auth. She would like updated notes for PT and Dr. I updated her pt had left, but returned. She states she will have to discuss this with her team as they cannot have an elopement risk. She will let me know . Faxed updated progress notes and PT note.
--- NOTE | 2022-04-03 11:38 | NUR ---
PT WALKING TO ER FOR SODA, VICE PRESIDENT [employer] INSIGHTS WITH PT.
--- NOTE | 2022-04-03 12:49 | NUR ---
PATIENT GIVEN 5 UNITS OF INSULIN AFTER LUNCH. PATIENT GIVEN ATIVAN AND FLEXERIL, PER HER REQUEST, FOR ANXIETY R/T HER DISCHARGE.
[2022-04-03] MEDS ORDERED: CLOPIDOGREL75 MG PO (12:58)
[2022-04-03] MEDS ORDERED: NICOTINE1 EAC2 TD (12:58)
[2022-04-03] MEDS ORDERED: INSULIN GL100 UNIT/1 SUB-Q (12:59)
[2022-04-03] MEDS ORDERED: ROSUVASTATIN CA40 MG NG (13:01)
[2022-04-03] MEDS ORDERED: OZEMPIC0.25 MG/0. SUB-Q (13:04)
--- NOTE | 2022-04-03 13:30 | NUR ---
[facility]
--- NOTE | 2022-04-03 13:45 | NUR ---
Received a call from ZANDRA. They will accept this pt today. Let her know daughter will transport. They would like pt to leave here at 1430. I will let staff know. Updated RN, and they will work on dc. Called and confirmed transport with daughter she will drive to the hospital now.
--- NOTE | 2022-04-03 14:00 | NUR ---
Faxed orders, PASRR, covid test, and dc summary. Placed orginals in envelope and placed at desk. In and spoke with pt and her daughter. Pt is very happy she will dc and cont. therapy at [facility]. Updated they do allow smoking, but she will need to be a schedule and no smoking in the rooms. Pt states understanding and states she works at [employer] and [employer].
--- NOTE | 2022-04-03 14:29 | NUR ---
PATIENT GIVEN PO TYLENOL, OXY, GABAPENTIN FOR 8/10 PAIN. PATIENT GIVEN WHEELCHAIR RIDE TO FRONT, DAUGHTER TO TRANPORT TO [facility].
--- NOTE | 2022-04-03 16:18 | NUR ---
REPORT CALLED TO MOHAMUD AT [facility] IN [place].
== END 2022-04-03 14:30 | disposition short-term general hospital (02) | DRG 66 ==
LOC: ED 08:00 → MS 11:23
PROVIDERS: ADMIT Internal Medicine; ATTEND Family Medicine
DX: I63.511 Cerebral infarction due to unspecified occlusion or stenosis of right middle cerebral artery (principal); Z20.822 Contact with and (suspected) exposure to COVID-19; I10 Essential (primary) hypertension; R20.0 Anesthesia of skin; I72.0 Aneurysm of carotid artery; I25.10 Atherosclerotic heart disease of native coronary artery without angina pectoris; E11.65 Type 2 diabetes mellitus with hyperglycemia; E78.5 Hyperlipidemia, unspecified; F31.9 Bipolar disorder, unspecified; M54.9 Dorsalgia, unspecified; G89.4 Chronic pain syndrome; I25.2 Old myocardial infarction; F17.210 Nicotine dependence, cigarettes, uncomplicated; Z95.1 Presence of aortocoronary bypass graft; Z87.440 Personal history of urinary (tract) infections; Z95.5 Presence of coronary angioplasty implant and graft; Z98.890 Other specified postprocedural states; Z98.891 History of uterine scar from previous surgery; Z90.49 Acquired absence of other specified parts of digestive tract; Z90.89 Acquired absence of other organs; Z90.710 Acquired absence of both cervix and uterus; Z88.0 Allergy status to penicillin; Z88.8 Allergy status to other drugs, medicaments and biological substances; Z91.030 Bee allergy status; Z79.02 Long term (current) use of antithrombotics/antiplatelets; Z79.84 Long term (current) use of oral hypoglycemic drugs; Z79.899 Other long term (current) drug therapy
CPT/HCPCS: 36415; 70450; 70496; 70498; 71045; 80053; 80061; 83036; 84484; 85025; 85610; 85730; 87502; 93005; 93010; 93306; 97110; 97112; 97116; 97140; 97162; 97166; 97530; 97535; 99406; A9270; C9803; J1200; J1650; J1815; J7121; Q3014; Q9967; U0003

== ENCOUNTER 2023-07-03 07:55 | Day surgery (SDC) | payer OTHER ==
[2023-07-01 16:41] VITALS: BP 101/73
[~2023-07-03] VITALS: Ht 160 cm; Wt 88.6 kg
[~2023-07-03 07:55] MED LIST changes: +ANTIBIOTIC28.4 GM TOP; +BAYER CHEWABLE81 MG PO; +CEFAZOLIN SODIUM 2 GM/20 ML SYR IV SCH; +CLOPIDOGREL75 MG PO; +DEPAKOTE500 MG PO; +IBLOOD GLUCOSE TEST STRIP 1 EA TEST VI PRN; +INSULIN GL100 UNIT/1 SUB-Q; +LACTATED RINGER'S 1,000 ML IV SCH; +LIDOCAINE HCL 1% 5 ML SDV INJ ONE; +LISINOPRIL10 MG PO; +NICOTINE1 EAC2 TD; +ONDANSETRON ODT8 MG PO; +OZEMPIC0.25 MG/0. SUB-Q; +ROSUVASTATIN CA40 MG NG; +SENNA8.6 MG PO; +VICTOZA 2-0.6 MG/0.1 SUB-Q; +VITAMIN D31250 MC1 PO; +propofoL 200 MG/20 ML VIAL ONE
[2023-07-03 08:27] VITALS: BP 128/77
[2023-07-03] MEDS ORDERED: dexmedeTOMIDine HCl 200 MCG/2 ML VIAL ONE (09:13)
[2023-07-03] MEDS ORDERED: LACTATED RINGER'S 1,000 ML IV ONE (09:29)
[2023-07-03] MEDS ORDERED: ePHEDrine sulfate 50 MG/ML AMP ONE (09:36)
--- NOTE | 2023-07-03 09:56 | NUR ---
07/03/23 0956 Almita Lombardi 0951: PATIENT ARRIVES IN PACU WITH ORAL AIRWAY IN PLACE. UNRESPONSIVE TO MY VOICE AND LIGHT TOUCH. 0952: PATIENT IS COUGHING. SHE FOLLOWS DIRECTIONS TO OPEN HER MOUTH AND ORAL AIRWAY IS REMOVED.
[2023-07-03 10:18] VITALS: BP 106/62
--- NOTE | 2023-07-03 12:55 | OR ---
[facility] [address], [place] [address] Signed DATE OF OPERATION: 07/03/2023 SURGEON: Amilcar Hernandez MD PREOPERATIVE DIAGNOSES: 1. Screening colonoscopy. 2. Chronic constipation. 3. Mother with Crohn disease. 4. Unremarkable colonoscopy in 2014 at age 48 in [place]. POSTOPERATIVE DIAGNOSES: 1. 10 mm sessile polyp in base of cecum (snare, clip). 2. Minimal left-sided diverticulosis. 3. Minimal internal hemorrhoids. PROCEDURE: Colonoscopy with snare polypectomy, hot biopsy and application of clip. ESTIMATED BLOOD LOSS: Minimal. INDICATIONS: Esha is a 58-year-old obese diabetic female, who had smoked her whole life. She ended up with a myocardial infarction requiring open-heart surgery and a cardiac stent. She also has renal insufficiency. 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 They have been treating that medically. She also has chronic constipation exacerbated by her need for daily oxycodone. She underwent a colonoscopy in 2013 at the age of 47 while living in [place]. She said it was for screening purposes. To her memory, it was negative. She tells me there is no family history of colon cancer or polyps. However, her mother does have Crohn disease. Esha has had a stroke and now she resides at our local [facility]. She can no longer drive. Her daughter helps her and is her power of transactional attorney. 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 Esha and the daughter reminded me that I have helped multiple family members with colonoscopies. Consequently, they are familiar with this whole process and our bowel prep. In the office, I gave them a pamphlet on colonoscopy. They know the nature of the test. There is risk including, but not limited to gas bloating, crampy abdominal pain, bleeding, perforation requiring surgery, and missed diagnosis. We also reviewed the written instructions for her bowel prep line by line. We had her do double bowel prep with prep in the morning and repeat in the afternoon. We had her hold the Plavix 5 days prior to the procedure. She held the Electronically Signed By: AMILCAR HERNANDEZ MD 07/03/23 1255 PATIENT NAME: ESHA DUNCAN OPERATIVE REPORT DATE OF : 61 REPORT #: [id number] PHYSICIAN: AMILCAR HERNANDEZ MD PCP: NANNETTE TRAYLOR PAC REPORT IS CONFIDENTIAL AND NOT TO BE RELEASED WITHOUT AUTHORIZATION [facility] [address], [place] [address] Signed aspirin 3 days prior to the procedure. We also went over her diabetic medications as well and marked that on the sheet. In addition, I explained them she needs monitored anesthesia care from her extensive past medical history including her stroke and sleep apnea and obesity. In that regard, she underwent preoperative blood work and an EKG. We also reviewed the most recent cardiac note from Dr. Melendez. She and her daughter had expressed understanding and wished to proceed. DESCRIPTION OF PROCEDURE: Esha was taken into our endoscopy suite and placed in the left lateral decubitus position. She was given monitored anesthesia care with propofol infusion. A digital rectal exam was performed. She had no external hemorrhoids. She had good sphincter tone. There were no masses. The adult colonoscope was introduced and advanced under direct visualization of the camera. We needed some abdominal compression in order to get the scope up into the cecum itself. Her prep was very good. There were a few areas of liquid particulate stool matter. Most of that was suctioned out. We found a 10 mm sessile polyp between the ileocecal valve and the appendiceal orifice. We took it out in three bites with our snare. She had just a little bleeding, so we placed a clip across that area with good results. After this, the scope had been slowly withdrawn. We had taken pictures throughout for photodocumentation. There were no other polyps. She does have diverticula in the left and sigmoid colon. They are small to moderate size, few in number and scattered about. Once in the rectum, the scope had been retroflexed and she has minimal internal hemorrhoid tissue. Gas was then suctioned out and the colonoscope removed. Esha tolerated the procedure quite well. RECOMMENDATIONS: I will see Angela back in my office in 7 to 14 days to review her results. She is going to resume the aspirin and her Plavix in 7 days. She can resume her other medications today. Amilcar Hernandez MD ALB/MODL /[id number] cc: Saniya Melendez MD Electronically Signed By: AMILCAR HERNANDEZ MD 07/03/23 1255 PATIENT NAME: ESHA DUNCAN OPERATIVE REPORT DATE OF : 61 REPORT #: [id number] PHYSICIAN: AMILCAR HERNANDEZ MD PCP: NANNETTE TRAYLOR PAC REPORT IS CONFIDENTIAL AND NOT TO BE RELEASED WITHOUT AUTHORIZATION [facility] [address] [place], [place] [address] Signed TERESA Mathews MD Copies: SANIYA MELENDEZ MD, ANDREW L MD ~ Electronically Signed By: AMILCAR HERNANDEZ MD 07/03/23 1255 PATIENT NAME: ESHA DUNCAN OPERATIVE REPORT DATE OF : 61 REPORT #: [id number] PHYSICIAN: AMILCAR HERNANDEZ MD PCP: NANNETTE TRAYLOR PAC REPORT IS CONFIDENTIAL AND NOT TO BE RELEASED WITHOUT AUTHORIZATION
--- NOTE | 2023-07-05 13:24 | PATH ---
[facility] [address] [place], [place] [address] Signed SPECIMEN(S): A CECUM COLON POLYP SPECIMEN SOURCE: A. CECUM COLON POLYP CLINICAL HISTORY: History of screening colonoscopy, diverticulosis, minimal internal hemorrhoids. FINAL PATHOLOGIC DIAGNOSIS: Cecum, polypectomy: - Tubular adenoma BRP MICROSCOPIC EXAMINATION: Histologic sections of all submitted blocks are examined by light microscopy. These findings, together with the gross examination, support the pathologic diagnosis. GROSS DESCRIPTION: The specimen, labeled and designated "Ranjeet, cecum colon polyp," is received in formalin and consists of four herman soft tissue fragments, ranging from 0.1-1.4 cm. Entirely submitted in (A1). VB (under the direct supervision of a pathologist) The Gross Description was prepared using a voice recognition system. The report was reviewed for accuracy; however, sound-alike word errors, addition and/or deletions may occur. If there is any question about this report, please contact Client Services. ADDITIONAL NOTES: Immunohistochemical and/or in situ hybridization studies if performed in this case included appropriate positive controls that reacted as expected. This test was developed and its performance characteristics determined by [facility]. It has not been cleared or approved by the U.S. Food and Drug Administration. The FDA has determined that such clearance or approval is not necessary. This test is used for clinical purposes. It should not be regarded as investigational or for research. [facility] is certified under the Clinical Laboratory Improvement Amendments of 1988 (CLIA) as qualified to perform high complexity clinical laboratory testing. PATIENT NAME: KIESHA DUNCAN PATHOLOGY DATE OF : 61 REPORT #: [id number] PHYSICIAN: ATTILA YATES PCP: NANNETTE TRAYLOR PAC REPORT IS CONFIDENTIAL AND NOT TO BE RELEASED WITHOUT AUTHORIZATION [address] [place], [place] [address] Signed PERFORMING LABORATORY: Technical component was performed by [facility], [address] [place] [address] (CLIA# [id number]). Professional interpretation was performed by [facility] [address] [id number] Diagnostician: Jordy Buck MD Pathologist Electronically Signed 07/05/2023 Copies: ~ PATIENT NAME: KIESHA DUNCAN PATHOLOGY DATE OF : 61 REPORT #: [id number] PHYSICIAN: ATTILA YATES PCP: NANNETTE TRAYLOR PAC REPORT IS CONFIDENTIAL AND NOT TO BE RELEASED WITHOUT AUTHORIZATION
== END 2023-07-03 10:27 | disposition home or self-care (01) ==
LOC: DS 07:55
PROVIDERS: ATTEND Colon & Rectal Surgery
PROC: 0DBC8ZX Excision of Ileocecal Valve, Via Natural or Artificial Opening Endoscopic, Diagnostic (ICD-10-PCS; principal; 2023-07-03 09:00)
DX: K59.00 Constipation, unspecified (principal); D12.0 Benign neoplasm of cecum; K57.30 Diverticulosis of large intestine without perforation or abscess without bleeding; K64.8 Other hemorrhoids; Z83.79 Family history of other diseases of the digestive system; E11.9 Type 2 diabetes mellitus without complications; I10 Essential (primary) hypertension; K21.9 Gastro-esophageal reflux disease without esophagitis; G47.30 Sleep apnea, unspecified; E78.2 Mixed hyperlipidemia; F31.9 Bipolar disorder, unspecified; M50.30 Other cervical disc degeneration, unspecified cervical region; F41.9 Anxiety disorder, unspecified; I25.10 Atherosclerotic heart disease of native coronary artery without angina pectoris; E66.9 Obesity, unspecified; I25.2 Old myocardial infarction; F17.210 Nicotine dependence, cigarettes, uncomplicated; Z68.34 Body mass index [BMI] 34.0-34.9, adult; Z95.5 Presence of coronary angioplasty implant and graft; Z95.1 Presence of aortocoronary bypass graft; Z87.448 Personal history of other diseases of urinary system; Z86.73 Personal history of transient ischemic attack (TIA), and cerebral infarction without residual deficits; Z79.891 Long term (current) use of opiate analgesic; Z79.84 Long term (current) use of oral hypoglycemic drugs; Z79.899 Other long term (current) drug therapy; Z88.8 Allergy status to other drugs, medicaments and biological substances; Z91.030 Bee allergy status; Z91.040 Latex allergy status; Z88.0 Allergy status to penicillin; Z91.013 Allergy to seafood
CPT/HCPCS: 00811; J0690; J2704; J7121

== ENCOUNTER 2023-09-07 20:26 | Observation (INO) | payer OTHER ==
[~2023-09-07] VITALS: Ht 160 cm; Wt 82.2 kg
[~2023-09-07 20:26] MED LIST changes: -BUSPIRONE HCL5 MG PO; -CEFAZOLIN SODIUM 2 GM/20 ML SYR IV SCH; -CYCLOBENZAPRINE10 MG PO; -DEPAKOTE500 MG PO; -IBLOOD GLUCOSE TEST STRIP 1 EA TEST VI PRN; -LACTATED RINGER'S 1,000 ML IV SCH; -LIDOCAINE HCL 1% 5 ML SDV INJ ONE; -propofoL 200 MG/20 ML VIAL ONE
--- OUTSIDE RECORDS SUMMARY | 2023-09-07 20:28 | XMS ---
PreManage Notification: KIESHA DUNCAN Security Media Services Specialist Events No recent Security Events currently on file CRITERIA MET - [facility] C[facility] PROVIDERS Brook Duggan Anode Crew Supervisor/People Greeter 08/26/2023-Current PHONE: [phone] -[facility] Dentist: Sociology Teacher [facility] PHONE: [phone] -[place]- Dentist: Sociology Teacher [facility] PHONE: [phone] Taryn has no Care Guidelines for this patient. E.D. VISIT COUNT (12 MO.) 1 NAVEEN Diallo TOTAL 1 NOTE: Visits indicate total known visits. ED/UCC VISIT TRACKING (12 MO.) 09/07/2023 20:27 NAVEEN Carver OR TYPE: Emergency COMPLAINT: - WEAKNESS INPATIENT VISIT TRACKING (12 MO.) No inpatient visits to display in this time frame [email or web address]
[2023-09-07 20:55] LABS: BASOPHILS 0.5 % (0-2); EOSINOPHILS 2.4 % (0-6); HEMATOCRIT 41.2 % (35.0-50.0); HEMOGLOBIN 13.7 g/dL (12.0-18.0); MCH 31.2 (27-36); MCHC 33.3 g/dl (30-36); MCV 93.9 fl (81-99); MONOCYTES 8.1 % (0-12); PLATELET COUNT 139 K/uL (140-440); RBC 4.39 M/ul (4.3-5.7); RDW 15.6 (10.5-15.0)
[2023-09-07 20:58] LABS: INR 1.09 (0.80-1.30); PROTIME 13.8 Sec (11.2-14.2)
[2023-09-07 21:00] LABS: PARTIAL THROMBOPLASTIN TIME 34.9 Sec (22.9-41.3)
[2023-09-07 21:07] LABS: ALBUMIN 3.1 g/dL (3.4-5.0); ALBUMIN/GLOBULIN RATIO 0.76 (1.1-2.4); ANION GAP 16.3 (7-21); BILIRUBIN, TOTAL 0.3 ng/dL (0.2-1.0); BUN/CREATININE RATIO 9.72 (6.0-28.6); CALCIUM 8.9 mg/dL (8.5-10.1); CREATININE, SERUM 2.57 mg/dL (0.55-1.02); POTASSIUM 4.3 mmol/L (3.5-5.1); PROTEIN, TOTAL 7.2 g/dL (6.4-8.2)
[2023-09-07 21:11] LABS: ABO A; RH POSITIVE
[2023-09-07 21:50] LABS: BILIRUBIN, URINE NEGATIVE (negative); BLOOD/HGB, URINE LARGE (Negative); KETONE, URINE TRACE (Negative); LEUK ESTERASE, URINE NEGATIVE (negative); NITRITE, URINE NEGATIVE (negative)
[2023-09-07 21:58] LABS: BACTERIA, URINE 2+ /hpf (negative); CRYSTALS, URINE NONE SEEN (0-1+); EPITHELIAL CELLS, URINE NS /lpf (0-1+)
[2023-09-07 21:59] LABS: COLLECTION TYPE, URINE CLEAN CATCH; REFLEX CULTURE, URINE Yes (No)
[2023-09-07] MEDS ORDERED: LACTATED RINGER'S 1,000 ML IV ONE (22:00)
[2023-09-07] MEDS ORDERED: levoFLOXacin 500 MG/100 ML BAG IV ONE (22:30)
[2023-09-07] MEDS ORDERED: ACETAMINOPHEN 325 MG TAB PO PRN (22:45)
[2023-09-07] MEDS ORDERED: SODIUM CHLORIDE 0.9% 1,000 ML IV SCH (22:45)
[2023-09-07] MEDS ORDERED: ondansetron HCL 4 MG/2 ML VIAL IV PRN (22:45)
--- NOTE | 2023-09-07 23:15 | NUR ---
PATIENT ARRIVED FROM ED WITH ELI RN TO ROOM 110, ALERT AND ORIENTED DAUGHTER NEL IS WITH PATIENT ON ARRIVAL AND SHE PLANS TO GO BACK TO [facility] AND GET MORE BELONGINGS FOR HER MOTHER. NEL IS ALSO THE POA.
[2023-09-07 23:31] VITALS: BP 104/77
[2023-09-08] VITALS (14 sets, daily range): BP systolic 80–112; BP diastolic 45–67
--- NOTE | 2023-09-08 00:19 | NUR ---
PT ADMITTED AT 2315 FROM ED VIA STRETCHER, REQUIRED TOTAL HELP TO TRANSFER, C/O WEAK LE. PLEASANT, ALERT ND ORIENTED. ON ROOM AIR, CLEAR LUNGS, STATED LBM 3 DAYS AGO OR SO, RASH OVER ARMS PRESENT, HAS HAD FOR A WHILE, UNKNOWN IF ADVERSE REACTION TO MEDS. PT SELF CATHS , WAS STRAIGHT CATH IN THE ED. COOPERATIVE WITH ASSESSMENT AND ADMIT QUESTIONAIRE. HELPS WITH TURNING AND REPOSITIONING. IVF INFUSING, NO C/O ADVERSE REACTIN TO IV ABX. TURKEY SANDWICH GIVEN ON REQUESTS, HER TEETH ARE AT [facility], DAUGHTER WILL BRING IN AM BED ALARM ON PER CLINICAL JUDGEMENT
--- NOTE | 2023-09-08 00:58 | NUR ---
RESTING, NO S/SX DISTRESS, PURE WICK IN PLACE, CHANGED. COOPERATIVE, VOIDING SMALL AMOUNTS TEA COLORED URINE. L LEG ELEVATED IN PILLOWS
--- NOTE | 2023-09-08 01:34 | NUR ---
Located pulse ox machine and hooked up to patient. Patient was laying in bed, awake. Did two am vitals. Patient does not need anything else at this time. Call ligt is within reach and pulse ox is attached and working.
--- NOTE | 2023-09-08 01:55 | NUR ---
PATIENT PROVIDED STRAIGHT CATH SUPPLIES, SHE INSISTS TO DO THIS HERSELF.
--- NOTE | 2023-09-08 02:04 | NUR ---
Patient needed to go bathroom, used bedside commmode. Patient asked for cath supplies. The nurse located some supplies for her and she cathed herself while on the commode. She voided 200. Brought patient warm blanket, call light is within reach, and nothing else is needed at this time.
--- NOTE | 2023-09-08 02:06 | NUR ---
TRIED TO RESTART IV EARLIER, UNSUCCESSFUL AFTER 2 TRIES, L HAND IV FLUSHED AGAIN AND IT WAS PATENT. IV 1UNIT PRB STARTED AT 0150, HAS TOLERATED WELL, NO C/O ADVERSE REACTION. IV SITE/HAND ELEVATED
[2023-09-08 05:36] LABS: BASOPHILS 0.4 % (0-2); HEMATOCRIT 33.4 % (35.0-50.0); HEMOGLOBIN 11.3 g/dL (12.0-18.0); LYMPHOCYTES 43.3 % (24-44); MCH 31.1 (27-36); MCV 91.4 fl (81-99); MONOCYTES 10.1 % (0-12); NEUTROPHILS 42.2 % (39-80); PLATELET COUNT 79 K/uL (140-440); RBC 3.65 M/ul (4.3-5.7); RDW 15.1 (10.5-15.0)
[2023-09-08 05:54] LABS: ALBUMIN 2.3 g/dL (3.4-5.0); ALBUMIN/GLOBULIN RATIO 0.72 (1.1-2.4); ANION GAP 11.9 (7-21); BILIRUBIN, TOTAL 0.2 ng/dL (0.2-1.0); BUN/CREATININE RATIO 11.97 (6.0-28.6); CALCIUM 7.8 mg/dL (8.5-10.1); CREATININE, SERUM 1.92 mg/dL (0.55-1.02); POTASSIUM 3.9 mmol/L (3.5-5.1); PROTEIN, TOTAL 5.5 g/dL (6.4-8.2)
--- NOTE | 2023-09-08 06:07 | NUR ---
Pt was up to BSC and self cathed. Sitting edge of bed. "I hope they send me home today, I told them I did not wanted to be admitted, I have not slept". Irritable mood at times but easily redirectable, pleasant most of the time. Has self cathed 2 since admit
--- NOTE | 2023-09-08 07:03 | NUR ---
REPORT RECEIVED FROM CLOTH WORKER RN JOSE ANTONIO. PATIENT IS LYING IN BED WITH EYES CLOSED AND RESPIRATIONS ARE EVEN AND UNLABORED. CALL LIGHT AND PERSONAL BELONGINGS ARE WITHIN REACH.
--- NOTE | 2023-09-08 07:57 | NUR ---
Board has been updated and call light has been placed within reach. No request from patient a this time. Daughter is in the room
[2023-09-08] MEDS ORDERED: INSULIN LISPRO 100 UNIT/ML ML SUB-Q SCH (08:00)
[2023-09-08] MEDS ORDERED: GLUCAGON,HUMAN RECOMBINANT 1 MG/ML VIAL SUB-Q PRN (08:00)
[2023-09-08] MEDS ORDERED: DEXTROSE 50% 50 ML SYR IV PRN ×2 (08:00)
[2023-09-08] MEDS ORDERED: IBLOOD GLUCOSE TEST STRIP 1 EA TEST VI SCH (08:00)
[2023-09-08] MEDS ORDERED: IBLOOD GLUCOSE TEST STRIP 1 EA TEST XX PRN (08:00)
[2023-09-08] MEDS ORDERED: DEXTROSE 5% 1,000 ML IV PRN (08:00)
--- NOTE | 2023-09-08 08:45 | NUR ---
FULL ASSESSMENT COMPLETE AND DOCUMENTED IN THE CHART. PATIENT IS SITTING UPRIGHT IN THE CHAIR WITH HER DAUGHTER AT THE BEDSIDE. PATIENT IS ALERT AND ORIENTED TIMES FOUR. PATIENT WITH A WALKER IN THE ROOM. PATIENT USES A WALKER AT BASELINE. IV FLUSHED WITH 10 ML NORMAL SALINE AND NS IS INFUSING AT 125 ML/HR. IV DRESSING IS CLEAN, DRY, AND INTACT. LUNG SOUNDS ARE CLEAR IN ALL LUNG SUGGS BILATERALLY AND THE PATIENT IS ON ROOM AIR. CARDIAC WITH NORMAL S1 AND S2 ON AUSCULTATION. RADIAL PULSES ARE STRONG BILATERALLY. PATIENT IS ON TELEMETRY NUMBER 9 IN NORMAL SINUS RHYTHM. HR IS 90. SENSATION INTACT WITH NO COMPLAINTS OF NUMBNESS AND TINGLING. BOWEL TONES ARE ACTIVE IN ALL FOUR QUADRANTS. PATIENT STATED SHE HAS PAIN IN THE RIGHT SHOULDER AND THE LEFT HIP. PATIENT REQUESTING PAIN MEDICATION AT THIS TIME. PATIENT STATED NO FURTHER NEEDS AT THIS TIME, CALL LIGHT AND PERSONAL BELONGINGS ARE WITHIN REACH.
[2023-09-08] MEDS ORDERED: levoFLOXacin 500 MG/100 ML BAG IV SCH (09:00)
--- NOTE | 2023-09-08 09:57 | NUR ---
PATIENT IS SITTING UPRIGHT IN THE CHAIR WITH HER DAUGHTER SITTING AT THE BEDSIDE. PATIENT NOTIFIED OF RN SPEAKING WITH THE DOCTOR ABOUT THE HOME OXYCODONE THAT SHE TAKES. PATIENT STATED NO FURTHER NEEDS AT THIS TIME, CALL LIGHT AND PERSONAL BELONGINGS ARE WITHIN REACH.
[2023-09-08] MEDS ORDERED: ondansetron HCL 4 MG/2 ML VIAL IV PRN (10:30)
[2023-09-08 10:45] LABS: MAGNESIUM 1.9 mg/dL (1.8-2.4); PHOSPHORUS, INORGANIC 3.5 mg/dL (2.5-4.9)
[2023-09-08] MEDS ORDERED: PANTOPRAZOLE SODIUM 40 MG TABEC PO SCH (10:59)
--- NOTE | 2023-09-08 10:59 | NUR ---
LAB IS IN THE PATIENTS ROOM AT THIS TIME.
[2023-09-08] MEDS ORDERED: OXYCODONE HCL 5 MG TAB PO PRN (11:00)
[2023-09-08] MEDS ORDERED: PREGABALIN75 MG PO (11:04)
[2023-09-08] MEDS ORDERED: NICOTINE1 EACH TD (11:05)
[2023-09-08] MEDS ORDERED: METFORMIN HCL500 MG PO (11:08)
[2023-09-08] MEDS ORDERED: VITAMIN D21250 MCG PO (11:08)
--- NOTE | 2023-09-08 11:14 | NUR ---
PATIENT GIVEN 5MG PO OXYCODONE AND 650MG OF TYLENOL. PATIENT REPORTS 8/10 BILATERAL HIP AND RIGHT ARM PAIN. PATIENT ENCOURAGED TO WORK WITH PHYSICAL THERAPY.
[2023-09-08 11:20] LABS: ANION GAP 13.7 (7-21); BUN/CREATININE RATIO 11.05 (6.0-28.6); CALCIUM 7.9 mg/dL (8.5-10.1); CREATININE, SERUM 1.9 mg/dL (0.55-1.02); POTASSIUM 3.7 mmol/L (3.5-5.1)
[2023-09-08] MEDS ORDERED: ACETAMINOPHEN 325 MG TAB PO PRN (11:30)
--- NOTE | 2023-09-08 11:43 | NUR ---
PATIENT IS AMBULATING IN THE HALLWAY WITH PT.
[2023-09-08] MEDS ORDERED: PHARMACY RENAL DOSE ADJUSTMENT 1 DOSE MISC PO SCH (12:00)
[2023-09-08] MEDS ORDERED: NICOTINE 14 MG/24 HR 1 EA TDSY TD SCH (12:19)
[2023-09-08] MEDS ORDERED: SODIUM CHLORIDE 0.9% 1,000 ML IV SCH ×3 (12:30→20:00)
[2023-09-08] MEDS ORDERED: METOPROLOL SUCCINATE 25 MG TABCR PO SCH (12:39)
[2023-09-08] MEDS ORDERED: CLOPIDOGREL75 MG PO (13:20)
[2023-09-08] MEDS ORDERED: OZEMPIC0.25 MG/02 SUB-Q (13:36)
[2023-09-08] MEDS ORDERED: ONDANSETRON ODT8 MG PO (13:37)
[2023-09-08] MEDS ORDERED: MIRALAX119 GM PO (13:38)
[2023-09-08] MEDS ORDERED: TRAZODONE HCL100 MG PO (13:39)
[2023-09-08] MEDS ORDERED: VENLAFAXINE HC150 MG PO (13:39)
[2023-09-08] MEDS ORDERED: CYCLOBENZAPRINE10 MG PO (13:41)
[2023-09-08] MEDS ORDERED: BUSPIRONE HCL5 MG PO (13:41)
[2023-09-08] MEDS ORDERED: DEPAKOTE ER500 MG PO (13:43)
[2023-09-08] MEDS ORDERED: VENLAFAXINE HCL75 M2 PO (13:45)
[2023-09-08] MEDS ORDERED: DEXTROSE 5% 1,000 ML IV SCH (13:45)
[2023-09-08] MEDS ORDERED: TYLENOL EXTRA500 MG PO (13:48)
--- NOTE | 2023-09-08 13:51 | NUR ---
MED REC COMPLETE
[2023-09-08] MEDS ORDERED: TRIAMCINOLONE 0.1% 15 GM TUBE TOP SCH (15:00)
[2023-09-08 15:19] LABS: ANION GAP 10.8 (7-21); BUN/CREATININE RATIO 11.86 (6.0-28.6); CALCIUM 7.7 mg/dL (8.5-10.1); CREATININE, SERUM 1.77 mg/dL (0.55-1.02); POTASSIUM 3.8 mmol/L (3.5-5.1)
--- NOTE | 2023-09-08 16:05 | NUR ---
BP 105/60 WITH A MAP OF 70. HR WAS 84. MD AWARE.
--- NOTE | 2023-09-08 17:40 | NUR ---
PATIENT AMBULATED TO THE BATHROOM AT THIS TIME WITH 1PA AND FWW. PATIENT NOW BACK IN BED WITH DINNER SET UP IN FRONT OF THEM. PATIENT WITH PAIN RATED 7/10 IN THE RIGHT SHOULDER. PRN OXYCODONE ADMINSTERED AT THIS TIME. PATIENT SKIN WITH RED PATCHES ON THE BILATERAL ARMS. TRIAMCINOLONE CREAM ADMINSTERED PER THE EMAR. 1700 INSULIN ADMINSTERED AT THIS TIME WELL. PATIENT IS ON TELEMETRY NUMBER 9 AND IN NORMAL SINUS RHYTHM. HR IS 89. IV SITE IS CLEAN, DRY, AND INTACT. PATIENT STATED NO FURTHER NEEDS AT THIS TIME. CALL LIGHT AND PERSONAL BELONGINGS ARE WITHIN REACH.
[2023-09-08 19:11] LABS: ANION GAP 11.9 (7-21); BUN/CREATININE RATIO 10.84 (6.0-28.6); CALCIUM 7.3 mg/dL (8.5-10.1); CREATININE, SERUM 1.66 mg/dL (0.55-1.02); POTASSIUM 3.9 mmol/L (3.5-5.1)
--- NOTE | 2023-09-08 20:11 | NUR ---
Dr Urena notified earlier about IVF clarification, new orders to cont NS and dc d5W when bolus completed. BP 97/51. Pt up to BRP, self caths. 1PA?FWW, tolerated well, back to bed. no sob or CP, tele#[address], SR. rash over amrs. no changes, triamcilonone lotion applied as per orders. CBG wNL, no coverage needed. Flat irritable affect but asilky redirectable and then becomes pleasant at times. slight edema to ankles present, declined to elevate coop with assessments. med teachin with Levaquin po done stated back infor
[2023-09-08] MEDS ORDERED: levoFLOXacin 250 MG TAB PO SCH (21:00)
--- NOTE | 2023-09-08 21:18 | EKG ---
[facility] [address] [facility] [place] [address] Signed Normal sinus rhythm Cannot rule out Anterior infarct , age undetermined Prolonged QT Abnormal ECG When compared with ECG of 28-MAR-2022 08:39, Nonspecific T wave abnormality now evident in Inferior leads Inverted T waves have replaced nonspecific T wave abnormality in Anterior leads Confirmed by Lyndon Keys MD () on 09/08/2023 9:18:11 PM Electronically Signed By: LYNDON KEYS MD 09/08/23 2118 PATIENT NAME: KIESHA DUNCAN Electrocardiogram DATE OF : 61 PHYSICIAN: LYNDON KEYS MD REPORT #: [id number] REPORT IS CONFIDENTIAL AND NOT TO BE RELEASED WITHOUT AUTHORIZATION
--- NOTE | 2023-09-08 21:34 | NUR ---
PT UP TO BR WITH MINIMAL SBA AND FWW TO STRAIGHT CATH FOR AN UNMEASURED AMOUNT. BACK TO BED. GAIT STEADY. NO FURTHER NEEDS.
--- NOTE | 2023-09-08 22:43 | NUR ---
Awake, playing with phone, IVF infusing
[2023-09-09] VITALS (7 sets, daily range): BP systolic 101–135; BP diastolic 58–80
--- NOTE | 2023-09-09 00:18 | NUR ---
Awake, playing with phone, IVF infusing
--- NOTE | 2023-09-09 01:35 | NUR ---
pt sitting edge of bed watching tv, no c/o pain. Was up to BSC, self caths. IVF infusing. tele#9 in plce SR, denies c/o CP, appropriae, pleasant at thistime
[2023-09-09 05:45] LABS: BASOPHILS 0.8 % (0-2); EOSINOPHILS 2.5 % (0-6); HEMATOCRIT 30.6 % (35.0-50.0); HEMOGLOBIN 10.3 g/dL (12.0-18.0); LYMPHOCYTES 44.2 % (24-44); MCH 31.3 (27-36); MCHC 33.6 g/dl (30-36); MCV 93.1 fl (81-99); MONOCYTES 9.8 % (0-12); NEUTROPHILS 42.7 % (39-80); PLATELET COUNT 66 K/uL (140-440); RBC 3.28 M/ul (4.3-5.7); RDW 15.4 (10.5-15.0)
--- NOTE | 2023-09-09 05:53 | NUR ---
Pt sitting edge of bed , returned to bed after walking to [facility] and self cathing again, voiding clear yellow urine, strong smell but better than at begining of shift. tolerating liquids well. IVF infusing RAC. juice and fresh water given on requests
[2023-09-09 06:08] LABS: ALBUMIN/GLOBULIN RATIO 0.71 (1.1-2.4); ANION GAP 10.7 (7-21); BILIRUBIN, TOTAL 0.2 ng/dL (0.2-1.0); BUN/CREATININE RATIO 9.3 (6.0-28.6); CALCIUM 7.7 mg/dL (8.5-10.1); CREATININE, SERUM 1.29 mg/dL (0.55-1.02); POTASSIUM 3.7 mmol/L (3.5-5.1); PROTEIN, TOTAL 4.8 g/dL (6.4-8.2)
--- NOTE | 2023-09-09 06:47 | NUR ---
apple juice with 2 sugars given. as per lab blood glucose 66, denies s/sx hypoglycemia
--- NOTE | 2023-09-09 07:00 | NUR ---
REPORT RECEIVED FROM AERODYNAMICIST RN JOSE ANTONIO. PATIENT IS LYING IN BED WITH EYES CLOSED AND RESPIRATIONS ARE EVEN AND UNLABORED. CALL LIGHT AND PERSONAL BELONGINGS ARE WITHIN REACH.
--- NOTE | 2023-09-09 07:59 | NUR ---
0900 MEDICATIONS ADMINISTERED PER THE EMAR. FULL ASSESSMENT COMPLETE AND DOCUMENTED IN THE CHART. PATIENT IS ALERT AND ORIENTED TIMES FOUR. PATIENT USES A WALKER WITH ONE PERSON ASSIST. LUNG SOUNDS ARE CLEAR IN ALL LUNG SUGGS BILATERALLY AND THE PATIENT IS ON ROOM AIR. CARDIAC WITH NORMAL S1 AND S2. PATIENT IS ON TELEMETRY NUMBER 9 IN SINUS RHYTHM. HR IS 73. IV FLUSHED WITH 10 ML NORMAL SALINE. NS IS INFUSING AT 125 ML/HR. IV DRESSING IS CLEAN, DRY, AND INTACT. BOWEL TONES ARE ACTIVE IN ALL FOUR QUADRANTS. SENSATION INTACT WITH NO COMPLAINTS OF NUMBNESS AND TINGLING. SKIN WITH BILATERAL RASHES ON THE FOREARMS WELL A SCAR ON THE ABDOMEN. PATIENT WITH PAIN RATED "AT LEAST A TEN" FROM THE HOSPITAL BED. PATIENT IS REQUESTING PAIN MEDICATION AT THIS TIME. PATIENT STRAIGHT CATHETERS AT BASELINE. PATIENT STATED NO FURTHER NEEDS AT THIS TIME. CALL LIGHT AND PERSONAL BELONGINGS ARE WITHIN REACH .
--- NOTE | 2023-09-09 09:11 | NUR ---
IV SITE FLUSHED WITH 10 ML NORMAL SALINE. IV SITE IS SALINE LOCKED AND THE MAINTENANCE FLUIDS HAVE BEEN DISCONTINUED. PATIENT WITH HER DAUGHTER AT THE BEDSIDE. PATIENT WITH NO NEEDS AT THIS TIME. CALL LIGHT AND PERSONAL BELONGINGS ARE WITHIN REACH.
--- NOTE | 2023-09-09 09:42 | NUR ---
UR CLINICAL REVIEW: [facility] OBS AND INPT CRITERIA. [facility] ORDER MATCHES REG NO AUTH NEED FOR OBS VISIT DISCHAGE HOME TODAY
--- NOTE | 2023-09-09 10:11 | NUR ---
SPOKE WITH PATIENT AND DAUGHTER. PATIENT IS CURRENTLY LIVING AT [facility]. HAS A WALKER. DAUGHTER DRIVES HER TO APPOINTMENTS WHEN NEEDED. PATIENT STATES NO FINANCIAL HARDSHIP. PATIENT AND DAUGHTER BOTH DENY NEEDS AT THIS TIME. PLAN TO DC TO [facility].
--- NOTE | 2023-09-09 10:26 | NUR ---
PATIENT HAD A VOID AFTER STRAIGHT CATHETER. PATIENT WITH PAIN RATED 7/10 "EVERYWHERE, BUT THAT IS NORMAL". PATIENT STATED SHE HAD A BOWEL MOVEMENT YESTERDAY. PATIENT WITH HER DAUGHTER AT THE BEDSIDE. PATIENT STATED NO NEEDS AT THIS TIME, CALL LIGHT AND PERSONAL BELONGINGS ARE WTIHIN REACH.
--- NOTE | 2023-09-09 11:55 | NUR ---
PATIENT IS SITTING UPRIGHT IN THE CHAIR AND SPEAKING WITH . PATIENT DAUGHTER IS SITTING ON THE COUCH AT THIS TIME. PATIENT WITH NO FURTHER QUESTIONS OR CONCERNS. PATIENT CALL LIGHT AND PERSONAL BELONGINGS ARE WITHIN REACH.
--- NOTE | 2023-09-09 12:29 | NUR ---
PATIENT IS SITTING UPRIGHT IN THE CHAIR AND EATING LUNCH. TELEMETRY REMOVED AT THIS TIME DUE TO PATIENT BEING DISCHARGED. PATIENT STATED NO FURTHER NEEDS AT THIS TIME. CALL LIGHT AND PERSONAL BELONGINGS ARE WITHIN REACH.
[2023-09-09] MEDS ORDERED: LEVOFLOXACIN250 MG PO (12:31)
[2023-09-09] MEDS ORDERED: TRIAMCINOLONE A15 G1 TOP (12:35)
--- NOTE | 2023-09-09 13:22 | NUR ---
REPORT GIVEN TO KATELYNN AT [facility]. NO FURTHER QUESTIONS AT THIS TIME. CALL ENDED.
== END 2023-09-09 13:10 | disposition home or self-care (01) ==
LOC: ED 20:26 → MS 20:28
PROVIDERS: Family Medicine; ADMIT Family Medicine; ATTEND Family Medicine
DX: N17.9 Acute kidney failure, unspecified (principal); N39.0 Urinary tract infection, site not specified; R53.1 Weakness; E87.1 Hypo-osmolality and hyponatremia; R21 Rash and other nonspecific skin eruption; D69.6 Thrombocytopenia, unspecified; E11.9 Type 2 diabetes mellitus without complications; F17.200 Nicotine dependence, unspecified, uncomplicated; Z86.73 Personal history of transient ischemic attack (TIA), and cerebral infarction without residual deficits; Z88.0 Allergy status to penicillin; Z88.1 Allergy status to other antibiotic agents; Z88.8 Allergy status to other drugs, medicaments and biological substances; Z91.040 Latex allergy status; Z91.013 Allergy to seafood; Z91.038 Other insect allergy status
CPT/HCPCS: 36415; 70450; 80048; 80053; 81001; 83735; 84100; 84484; 85025; 85610; 85730; 86900; 86901; 93005; 93010; 94762; 97116; 97161; A9270; J1815; J1956; J7030; J7070; J7121

== ENCOUNTER 2023-10-30 22:47 | Emergency (ER) | payer OTHER ==
[~2023-10-30] VITALS: Ht 160 cm; Wt 82.0 kg
[~2023-10-30 22:47] MED LIST changes: +BUSPIRONE HCL5 MG PO; +CYCLOBENZAPRINE10 MG PO; +DEPAKOTE ER500 MG PO; +LEVOFLOXACIN250 MG PO; +METFORMIN HCL500 MG PO; +MIRALAX119 GM PO; +NICOTINE1 EACH TD; +OZEMPIC0.25 MG/02 SUB-Q; +PREGABALIN75 MG PO; +TRIAMCINOLONE A15 G1 TOP; +TYLENOL EXTRA500 MG PO; +VENLAFAXINE HCL75 M2 PO; +VITAMIN D21250 MCG PO
--- OUTSIDE RECORDS SUMMARY | 2023-10-30 22:53 | XMS ---
PreManage Notification: KIESHA DUNCAN Security Basket Person Events No recent Security Events currently on file CRITERIA MET - [facility] - 2 Visits in 30 Days CARE PROVIDERS Brook Duggan Formation Testing Operator/Painting Department Supervisor 08/26/2023-Current PHONE: [phone] -, [facility] Dentist: Environmental Emergencies Planner [facility] PHONE: [phone] -Aureliano- Dentist: Environmental Emergencies Planner [facility] PHONE: [phone] Taryn has no Care Guidelines for this patient. E.D. VISIT COUNT (12 MO.) [address] [facility] TOTAL 3 NOTE: Visits indicate total known visits. ED/UCC VISIT TRACKING (12 MO.) 10/30/2023 22:47 [facility] [place] TYPE: Emergency COMPLAINT: - POSS UTI 10/01/2023 13:12 [facility] [place] TYPE: Emergency COMPLAINT: - FALL DIAGNOSES: - Allergy status to other drugs, medicaments and biological substances - Allergy status to penicillin - Allergy to seafood - Bee allergy status - Bipolar disorder, unspecified - Chest pain, unspecified - Contusion of left front wall of thorax, initial encounter - Contusion of left hip, initial encounter - Essential (primary) hypertension - Latex allergy status - care home (current) use of aspirin - highway safety engineer (current) use of oral hypoglycemic drugs - Old myocardial infarction - Other archivist (current) drug therapy - Type 2 diabetes mellitus without complications - Unspecified fall, initial encounter 09/07/2023 20:27 [facility] [place] TYPE: Emergency COMPLAINT: - WEAKNESS INPATIENT VISIT TRACKING (12 MO.) 09/07/2023 20:28 [facility] [place] TYPE: Observation COMPLAINT: - UTI, JOELLEN, MEDICATION SIDE EFFECTS DIAGNOSES: - Acute kidney failure, unspecified - Acute kidney failure, unspecified - Allergy status to other antibiotic agents - Allergy status to other drugs, medicaments and biological substances - Allergy status to penicillin - Allergy to seafood - Hypo-osmolality and hyponatremia - Latex allergy status - Nicotine dependence, unspecified, uncomplicated - Other insect allergy status - Personal history of transient ischemic attack (TIA), and cerebral infarction without residual deficits - Rash and other nonspecific skin eruption - Thrombocytopenia, unspecified - Type 2 diabetes mellitus without complications - Urinary tract infection, site not specified - Weakness - Weakness [email or web address]
[2023-10-30 23:23] LABS: BILIRUBIN, URINE NEGATIVE (negative); BLOOD/HGB, URINE LARGE (Negative); KETONE, URINE NEGATIVE (Negative); LEUK ESTERASE, URINE SMALL (negative); NITRITE, URINE NEGATIVE (negative)
[2023-10-30 23:28] LABS: BACTERIA, URINE 4+ /hpf (negative); CRYSTALS, URINE NONE SEEN (0-1+); EPITHELIAL CELLS, URINE SQUAMOUS 1+ /lpf (0-1+); WHITE BLOOD CELLS, URINE >50 /HPF (0-5)
[2023-10-30 23:29] LABS: CASTS, URINE GRANULAR 1+ \\lpf; COLLECTION TYPE, URINE CATH; REFLEX CULTURE, URINE Yes (No)
[2023-10-31 00:15] LABS: BASOPHILS 0.7 % (0-2); HEMATOCRIT 38.5 % (35.0-50.0); HEMOGLOBIN 12.8 g/dL (12.0-18.0); LYMPHOCYTES 29.6 % (24-44); MCH 31.5 (27-36); MCHC 33.3 g/dl (30-36); MCV 94.4 fl (81-99); MONOCYTES 10.5 % (0-12); NEUTROPHILS 57.2 % (39-80); PLATELET COUNT 111 K/uL (140-440); RBC 4.08 M/ul (4.3-5.7); RDW 17.3 (10.5-15.0)
[2023-10-31 00:24] LABS: ALBUMIN 2.9 g/dL (3.4-5.0); ALBUMIN/GLOBULIN RATIO 0.78 (1.1-2.4); ANION GAP 11.9 (7-21); BILIRUBIN, TOTAL 0.3 ng/dL (0.2-1.0); BUN/CREATININE RATIO 10.4 (6.0-28.6); CALCIUM 9.3 mg/dL (8.5-10.1); CREATININE, SERUM 1.73 mg/dL (0.55-1.02); MAGNESIUM 1.9 mg/dL (1.8-2.4); POTASSIUM 3.9 mmol/L (3.5-5.1); PROTEIN, TOTAL 6.6 g/dL (6.4-8.2)
[2023-10-31] MEDS ORDERED: LEVOFLOXACIN500 MG PO (00:31)
[2023-10-31] MEDS ORDERED: GABAPENTIN300 MG PO (00:43)
[2023-10-31] MEDS ORDERED: PAMELOR10 MG PO (00:43)
[2023-10-31] MEDS ORDERED: levoFLOXacin 500 MG TAB PO ONE (00:45)
[2023-10-31 01:00] VITALS: BP 117/75
== END 2023-10-31 01:00 | disposition home or self-care (01) ==
LOC: ED 22:47
PROVIDERS: Family Medicine
DX: N39.0 Urinary tract infection, site not specified (principal); I10 Essential (primary) hypertension; I25.2 Old myocardial infarction; E11.9 Type 2 diabetes mellitus without complications; Z53.29 Procedure and treatment not carried out because of patient's decision for other reasons; F17.200 Nicotine dependence, unspecified, uncomplicated; Z88.0 Allergy status to penicillin; Z88.8 Allergy status to other drugs, medicaments and biological substances; Z91.040 Latex allergy status; Z91.013 Allergy to seafood; Z79.82 Long term (current) use of aspirin; Z79.899 Other long term (current) drug therapy; Z79.4 Long term (current) use of insulin
CPT/HCPCS: 36415; 51701; 80053; 81001; 83735; 85025; 87077; 87088; 87186; 99284-25

== ENCOUNTER 2023-11-04 17:48 | Emergency (ER) | payer OTHER ==
[~2023-11-04] VITALS: Ht 160 cm; Wt 83.0 kg
[~2023-11-04 17:48] MED LIST changes: +LEVOFLOXACIN500 MG PO; +ONDANSETRON ODT4 MG PO; +PAMELOR10 MG PO
--- OUTSIDE RECORDS SUMMARY | 2023-11-04 17:55 | XMS ---
PreManage Notification: KIESHA DUNCAN Security Patient Carrier Events No recent Security Events currently on file CRITERIA MET - [facility] - 2 Visits in 30 Days CARE PROVIDERS Brook Duggan Test Kitchen Home Economist/Gasket Maker 08/26/2023-Current PHONE: [phone] -, [facility] Dentist: Mixer Runner [facility] PHONE: [phone] -Aureliano- Dentist: Mixer Runner [facility] PHONE: [phone] Taryn has no Care Guidelines for this patient. E.D. VISIT COUNT (12 MO.) [address] [facility] TOTAL 4 NOTE: Visits indicate total known visits. ED/UCC VISIT TRACKING (12 MO.) 11/04/2023 17:48 [facility] [place] TYPE: Emergency COMPLAINT: - FALL 10/30/2023 22:47 [facility] [place] TYPE: Emergency COMPLAINT: - POSS UTI DIAGNOSES: - Allergy status to other drugs, medicaments and biological substances - Allergy status to penicillin - Allergy to seafood - Essential (primary) hypertension - Latex allergy status - residential (current) use of aspirin - residential (current) use of insulin - Nicotine dependence, unspecified, uncomplicated - Old myocardial infarction - Other buttermaker helper (current) drug therapy - Procedure and treatment not carried out because of patient's decision for other reasons - Type 2 diabetes mellitus without complications - Urinary tract infection, site not specified 10/01/2023 13:12 [facility] [place] TYPE: Emergency [...] (primary) hypertension - Latex allergy status - buttermaker helper (current) use of aspirin - buttermaker helper (current) use of oral hypoglycemic drugs - Old myocardial infarction - Other buttermaker helper (current) drug therapy - Type 2 diabetes [...] site not specified - Weakness - Weakness [email or web address]
[2023-11-04 18:34] LABS: BASOPHILS 0.9 % (0-2); EOSINOPHILS 1.6 % (0-6); HEMATOCRIT 46.9 % (35.0-50.0); HEMOGLOBIN 15.5 g/dL (12.0-18.0); LYMPHOCYTES 32.5 % (24-44); MCH 31.6 (27-36); MCHC 33.1 g/dl (30-36); MCV 95.7 fl (81-99); MONOCYTES 8.1 % (0-12); NEUTROPHILS 56.9 % (39-80); PLATELET COUNT 155 K/uL (140-440); RDW 17.3 (10.5-15.0)
[2023-11-04 18:40] LABS: INR 1.12 (0.80-1.30); PROTIME 13.6 Sec (11.2-14.2)
[2023-11-04 18:45] LABS: ALBUMIN 3.2 g/dL (3.4-5.0); ALBUMIN/GLOBULIN RATIO 0.71 (1.1-2.4); ANION GAP 19.8 (7-21); BILIRUBIN, TOTAL 0.4 ng/dL (0.2-1.0); BUN/CREATININE RATIO 10.39 (6.0-28.6); CALCIUM 9.7 mg/dL (8.5-10.1); CREATININE, SERUM 2.02 mg/dL (0.55-1.02); POTASSIUM 3.8 mmol/L (3.5-5.1); PROTEIN, TOTAL 7.7 g/dL (6.4-8.2)
[2023-11-04 19:46] VITALS: BP 151/91
[2023-11-14] MEDS ORDERED: LO-DOSE ASPIRIN81 MG PO (08:50)
[2023-11-14] MEDS ORDERED: ROSUVASTATIN CA40 MG PO (09:01)
== END 2023-11-04 19:54 | disposition home or self-care (01) ==
LOC: ED 17:48
PROVIDERS: Emergency Medicine
DX: Z04.3 Encounter for examination and observation following other accident (principal); I69.998 Other sequelae following unspecified cerebrovascular disease; R26.89 Other abnormalities of gait and mobility; F03.90 Unspecified dementia, unspecified severity, without behavioral disturbance, psychotic disturbance, mood disturbance, and anxiety; I10 Essential (primary) hypertension; I25.2 Old myocardial infarction; E11.9 Type 2 diabetes mellitus without complications; F31.9 Bipolar disorder, unspecified; F17.200 Nicotine dependence, unspecified, uncomplicated; Z79.82 Long term (current) use of aspirin; Z79.899 Other long term (current) drug therapy; Z79.890 Hormone replacement therapy; Z88.0 Allergy status to penicillin; Z88.8 Allergy status to other drugs, medicaments and biological substances; Z91.013 Allergy to seafood
CPT/HCPCS: 36415; 70450; 72125; 80053; 85025; 85610; 99284; G0480

== ENCOUNTER 2023-12-19 08:19 | Emergency (ER) | payer OTHER ==
[~2023-12-19] VITALS: Ht 160 cm; Wt 85.6 kg
--- OUTSIDE RECORDS SUMMARY | ~2023-12-19 | XMS | Continuity of Care Document ---
Demographics + + + | Address | [address] | | | [place] [address] | + + + | Preferred Language | Unknown | + + + | Marital Status | Never | + + + | Orthodox Affiliation | Unknown | + + + | Race | White | + + + | Ethnic Group | Not or | + + + Author + + + | Author | [facility] | + + + | Organization | [facility] | + + + | Address | [address] | | | [place] [address] | + + + | Phone | | + + + Care Team Providers + + + + | Care Sports Agent Name | Role | Phone | + + + + Unavailable | Unavailable | + + + + Allergies No information. Encounters No information. Functional Status No information. Immunizations No information. Medications No information. Problems + + + + | date | description | facility | + + + + | 2023-11-18 15:00:35 | Thrombocytopenia, | [facility] | | | unspecified | | + + + + | 2023-11-18 15:00:35 | Cerebral infarction due to | [facility] | | | unspecified occlusion or | | | | stenosis of unspecified | | | | middle cerebral artery | | + + + + | 2023-11-18 15:00:35 | Cerebral aneurysm, | [facility] | | | nonruptured | | + + + + | 2023-11-18 15:00:35 | Residual foreign body in | [facility] | | | soft tissue | | + + + + Procedures No information. Results/Labs No information. Social History +--------+ + + | date | description | facility | +--------+ + + Vital Signs No information."
[~2023-12-19 08:19] MED LIST changes: +LO-DOSE ASPIRIN81 MG PO; +ROSUVASTATIN CA40 MG PO
--- OUTSIDE RECORDS SUMMARY | 2023-12-19 08:25 | XMS ---
PreManage Notification: KIESHA DUNCAN Security First Assistant Manager Events No recent Security Events currently on file CRITERIA MET - 6 ED Visits in 6 Months CARE PROVIDERS Brook Duggan Oncology Social Work/Food Service Sales Representatives 08/26/2023-[facility] PHONE: [phone] -, [facility] Dentist: Fire Department Battalion Chief [facility] PHONE: [phone] -Aureliano- Dentist: Fire Department Battalion Chief [facility] Dental [facility] PHONE: [phone] Taryn has no Care Guidelines for this patient. E.D. VISIT COUNT (12 MO.) 6 [facility] TOTAL 6 NOTE: Visits indicate total known visits. ED/UCC VISIT TRACKING (12 MO.) 12/19/2023 08:19 [facility] [place] TYPE: Emergency COMPLAINT: - FLANK PAIN 11/13/2023 11:19 [facility] [place] TYPE: Emergency COMPLAINT: - WEAKNESS 11/04/2023 17:48 [facility] [place] TYPE: Emergency COMPLAINT: - FALL DIAGNOSES: - Allergy status to other drugs, medicaments and biological substances - Allergy status to penicillin - Allergy to seafood - Bipolar disorder, unspecified - Encounter for examination and observation following other accident - Essential (primary) hypertension - Hormone replacement therapy - [facility] (current) use of aspirin - Nicotine dependence, unspecified, uncomplicated - Old myocardial infarction - Other abnormalities of gait and mobility - Other care home (current) drug therapy - Other sequelae following unspecified cerebrovascular disease - Type 2 diabetes mellitus without complications - Unspecified dementia, unspecified severity, without behavioral disturbance, psychotic disturbance, mood disturbance, and anxiety 10/30/2023 22:47 [facility] [place] TYPE: Emergency COMPLAINT: - POSS UTI DIAGNOSES: - Allergy status to other drugs, medicaments and biological substances - Allergy status to penicillin - Allergy to seafood - Essential (primary) hypertension - Latex allergy status - terminal superintendent (current) use of aspirin - terminal superintendent (current) use of insulin - Nicotine dependence, unspecified, uncomplicated - Old myocardial infarction - Other ferry terminal supervisor (current) drug therapy - Procedure and treatment [...] (primary) hypertension - Latex allergy status - [facility] (current) use of aspirin - terminal superintendent (current) use of oral hypoglycemic drugs - Old myocardial infarction - Other care home (current) drug therapy - Type 2 diabetes mellitus without complications - Unspecified fall, initial encounter 09/07/2023 20:27 [facility] TYPE: Emergency COMPLAINT: - WEAKNESS INPATIENT VISIT TRACKING (12 MO.) 11/16/2023 01:[facility] TYPE: General Medicine COMPLAINT: - pulmonary lesion DIAGNOSES: - Cerebral aneurysm, nonruptured - Cerebral infarction due to unspecified occlusion or stenosis of unspecified middle cerebral artery - Cerebral infarction, unspecified - Residual foreign body in soft tissue - Thrombocytopenia, unspecified 11/13/2023 15:[address] [facility] [place] TYPE: Critical Care COMPLAINT: - STROKE/TIA DIAGNOSES: - Allergy status to narcotic agent - Allergy status to narcotic agent - Allergy status to other drugs, medicaments and biological substances - Allergy status to other drugs, medicaments and biological substances - Allergy status to penicillin - Allergy status to penicillin - Atherosclerotic heart disease of [place] coronary artery without angina pectoris - Atherosclerotic heart disease of [place] coronary artery without angina pectoris - Bipolar disorder, unspecified - Bipolar disorder, unspecified - Cerebral aneurysm, nonruptured - Cerebral aneurysm, nonruptured - Chronic kidney disease, stage 3 unspecified - Chronic kidney disease, stage 3 unspecified - Hyperlipidemia, unspecified - Hyperlipidemia, unspecified - Hypertensive chronic kidney disease with stage 1 through stage 4 chronic kidney disease, or unspecified chronic kidney disease - Hypertensive chronic kidney disease with stage 1 through stage 4 chronic kidney disease, or unspecified chronic kidney disease - Hypokalemia - Hypokalemia - Latex allergy status - Latex allergy status - [facility] (current) use of antithrombotics/antiplatelets - terminal superintendent (current) use of antithrombotics/antiplatelets - [facility] (current) use of aspirin - terminal superintendent (current) use of aspirin - [facility] (current) use of oral hypoglycemic drugs - terminal superintendent (current) use of oral hypoglycemic drugs - Nicotine dependence, cigarettes, uncomplicated - Nicotine dependence, cigarettes, uncomplicated - Occlusion and stenosis of right carotid artery - Occlusion and stenosis of right carotid artery - Old myocardial infarction - Old myocardial infarction - Other chronic pain - Other chronic pain - Other disorders of lung - Other disorders of lung - Other surgical procedures as the cause of abnormal reaction of the patient, or of later complication, without mention of misadventure at the time of the procedure - Other surgical procedures as the cause of abnormal reaction of the patient, or of later complication, without mention of misadventure at the time of the procedure - Personal history of transient ischemic attack (TIA), and cerebral infarction without residual deficits - Personal history of transient ischemic attack (TIA), and cerebral infarction without residual deficits - Postprocedural hematoma of skin and subcutaneous tissue following other procedure - Postprocedural hematoma of skin and subcutaneous tissue following other procedure - Presence of aortocoronary bypass graft - Presence of aortocoronary bypass graft - Presence of coronary angioplasty implant and graft - Presence of coronary angioplasty implant and graft - Thrombocytopenia, unspecified - Thrombocytopenia, unspecified - Type 2 diabetes mellitus with diabetic chronic kidney disease - Type 2 diabetes mellitus with diabetic chronic kidney disease - Type 2 diabetes mellitus with diabetic neuropathy, unspecified - Type 2 diabetes mellitus with diabetic neuropathy, unspecified - Type 2 diabetes mellitus with hypoglycemia without coma - Type 2 diabetes mellitus with hypoglycemia without coma - Unspecified adrenocortical insufficiency - Unspecified adrenocortical insufficiency - Urinary tract infection, site not specified - Urinary tract infection, site not specified - Weakness 09/07/2023 20:[address] [facility] [place] TYPE: Observation COMPLAINT: - UTI, JOELLEN, [...] site not specified - Weakness - Weakness [email or web address]
[2023-12-19] MEDS ORDERED: MORPHINE SULFATE 4 MG/ML VIAL IV ONE (08:45)
[2023-12-19 09:01] LABS: BASOPHILS 0.9 % (0-2); EOSINOPHILS 1.9 % (0-6); HEMATOCRIT 35.3 % (35.0-50.0); HEMOGLOBIN 11.4 g/dL (12.0-18.0); MCH 31.5 (27-36); MCHC 32.2 g/dl (30-36); MCV 97.8 fl (81-99); MONOCYTES 11.6 % (0-12); NEUTROPHILS 60.6 % (39-80); PLATELET COUNT 174 K/uL (140-440); RBC 3.61 M/ul (4.3-5.7); RDW 17.5 (10.5-15.0)
[2023-12-19 09:06] LABS: BILIRUBIN, URINE NEGATIVE (negative); BLOOD/HGB, URINE NEGATIVE (Negative); KETONE, URINE NEGATIVE (Negative); LEUK ESTERASE, URINE NEGATIVE (negative); NITRITE, URINE NEGATIVE (negative)
[2023-12-19 09:06] LABS: ALBUMIN 3.1 g/dL (3.4-5.0); ALBUMIN/GLOBULIN RATIO 0.76 (1.1-2.4); ANION GAP 13.3 (7-21); BILIRUBIN, TOTAL 0.3 ng/dL (0.2-1.0); BUN/CREATININE RATIO 16.66 (6.0-28.6); CALCIUM 8.6 mg/dL (8.5-10.1); CREATININE, SERUM 1.08 mg/dL (0.55-1.02); POTASSIUM 4.3 mmol/L (3.5-5.1); PROTEIN, TOTAL 7.2 g/dL (6.4-8.2)
[2023-12-19 09:30] LABS: LACTIC ACID, BLOOD 2.9 mmol/L (0.4-2.0)
[2023-12-19] MEDS ORDERED: diphenhydrAMINE HCL 50 MG/ML VIAL IV ONE (09:30)
[2023-12-19] MEDS ORDERED: methylPREDNISolone SOD SUCC 125 MG/2 ML VIAL IV ONE (09:30)
[2023-12-19] MEDS ORDERED: SODIUM CHLORIDE 0.9% 1,000 ML IV PRN (11:00)
[2023-12-19] MEDS ORDERED: MORPHINE SULFATE 10 MG/ML VIAL IV ONE ×2 (11:00→11:30)
[2023-12-19] MEDS ORDERED: OXYCODONE/APAP 10/325 TAB PO ONE (12:45)
[2023-12-19] MEDS ORDERED: ONDANSETRON ODT8 MG PO (12:57)
[2023-12-19] MEDS ORDERED: PERCOCET 5-3251 EACH PO (12:57)
[2023-12-19 13:10] VITALS: BP 150/77
== END 2023-12-19 13:10 | disposition home or self-care (01) ==
LOC: ED 08:19
PROVIDERS: Emergency Medicine
DX: R10.9 Unspecified abdominal pain (principal); D64.9 Anemia, unspecified; E87.20 Acidosis, unspecified; I25.2 Old myocardial infarction; I25.10 Atherosclerotic heart disease of native coronary artery without angina pectoris; I10 Essential (primary) hypertension; E11.9 Type 2 diabetes mellitus without complications; F17.200 Nicotine dependence, unspecified, uncomplicated; Z86.73 Personal history of transient ischemic attack (TIA), and cerebral infarction without residual deficits; Z95.5 Presence of coronary angioplasty implant and graft; Z88.0 Allergy status to penicillin; Z88.5 Allergy status to narcotic agent; Z91.041 Radiographic dye allergy status; Z91.013 Allergy to seafood; Z88.8 Allergy status to other drugs, medicaments and biological substances; Z91.038 Other insect allergy status; Z91.040 Latex allergy status; Z79.01 Long term (current) use of anticoagulants; Z79.82 Long term (current) use of aspirin; Z79.84 Long term (current) use of oral hypoglycemic drugs; Z79.899 Other long term (current) drug therapy
CPT/HCPCS: 36415; 74177; 80053; 81003; 83605; 83690; 85025; 96375; 96376; 99284-25; J1200; J2270; J2919; J7030; Q9967

== ENCOUNTER 2025-02-09 14:59 | Observation (INO) | payer MEDICARE, OTHER ==
[~2025-02-09] VITALS: Ht 160 cm
[~2025-02-09 14:59] MED LIST changes: +PERCOCET 5-3251 EACH PO
[2025-02-09 15:26] LABS: BASOPHILS 0.6 % (0.1-1.2); EOSINOPHILS 0.6 % (0.7-5.8); LYMPHOCYTES 31.2 % (19.3-51.7); MCH 30.4 PG (25.6-32.2); MCHC 31.9 g/dL (32.2-35.5); MCV 95.3 fL (79.4-94.8); MONOCYTES 11.2 % (4.7-12.5); NEUTROPHILS 54.7 % (34.0-71.1); RBC 4.08 M/uL (3.93-5.22)
[2025-02-09 15:49] LABS: ALCOHOL, MEDICAL <3 mg/dL (<3); ALT (SGPT) 17 U/L (14-59); AST (SGOT) 32 U/L (15-37); GLOMERULAR FILTRATION RATE,EST 31 mL/min (>60); PROTEIN, TOTAL 7.4 g/dL (6.4-8.2); UREA NITROGEN 24 mg/dL (7-18)
[2025-02-09 15:51] LABS: BLOOD/HGB, URINE LARGE (Negative); KETONE, URINE SMALL (Negative); LEUK ESTERASE, URINE NEGATIVE (negative); NITRITE, URINE NEGATIVE (negative)
[2025-02-09] MEDS ORDERED: OXYCODONE/APAP 5/325 TAB PO ONE (16:00)
[2025-02-09 16:06] LABS: ABO A; ANTIBODY SCREEN NEGATIVE; RH POSITIVE
[2025-02-09 16:09] LABS: AMPHETAMINES, URINE NEGATIVE (NEGATIVE); BARBITURATES, URINE NEGATIVE (NEGATIVE); BENZODIAZEPINE, URINE NEGATIVE (NEGATIVE); CANNABINOID, URINE NEGATIVE (NEGATIVE); COCAINE, URINE NEGATIVE (NEGATIVE); ECSTASY, URINE POSITIVE (NEGATIVE); FENTANYL, URINE NEGATIVE (NEGATIVE); METHADONE, URINE NEGATIVE (NEGATIVE); OPIATES, URINE NEGATIVE (NEGATIVE); OXYCODONE, URINE NEGATIVE (NEGATIVE); PHENCYCLIDINE, URINE NEGATIVE (NEGATIVE)
[2025-02-09 16:12] LABS: BACTERIA, URINE NONE SEEN /hpf (negative); CASTS, URINE HYALINE 2+ \\lpf; CRYSTALS, URINE NONE SEEN (0-1+); EPITHELIAL CELLS, URINE SQUAMOUS 2+ /lpf (0-1+); REFLEX CULTURE, URINE No (No)
[2025-02-09 17:11] LABS: CORONAVIRUS COVID-19 AG NEGATIVE (NEGATIVE)
[2025-02-09] MEDS ORDERED: SODIUM CHLORIDE 0.9% 1,000 ML IV PRN (17:30)
[2025-02-09] MEDS ORDERED: SODIUM CHLORIDE 0.9% 1,000 ML IV SCH ×2 (19:00→19:30)
[2025-02-09] MEDS ORDERED: GLUCAGON,HUMAN RECOMBINANT 1 MG/ML VIAL SUB-Q PRN (19:30)
[2025-02-09] MEDS ORDERED: IBLOOD GLUCOSE TEST STRIP 1 EA TEST XX PRN (19:30)
[2025-02-09] MEDS ORDERED: DEXTROSE 5% 1,000 ML IV PRN (19:30)
[2025-02-09] MEDS ORDERED: DEXTROSE 50% 50 ML SYR IV PRN ×2 (19:30)
[2025-02-09] MEDS ORDERED: ENOXAPARIN SODIUM 40 MG/0.4 ML SYR SUB-Q SCH (19:33)
[2025-02-09] MEDS ORDERED: NICOTINE 21 MG/24 HR 1 EA TDSY TD SCH (19:38)
[2025-02-09] MEDS ORDERED: VENLAFAXINE HCL 75 MG CAPCR PO SCH (19:41)
[2025-02-09] MEDS ORDERED: ACETAMINOPHEN 500 MG TAB PO PRN (19:45)
[2025-02-09] MEDS ORDERED: OXYCODONE/ACETAMINOPHEN 1 TAB HOME.PACK PO PRN (19:45)
--- NOTE | 2025-02-09 20:30 | NUR ---
pt ARRIVES TO [place] VIA STRETCHER. TRANSFERRED WITH SLIDE SHEET TO HOSPITAL BED. CALL LIGHT PROVIDED, ORIENTATION TO ROOM PROVIDED. ADMISSION HISTORY COMPLETE. pt FROM [facility]. BED IN LOW POSITION.
[2025-02-09 20:34] VITALS: BP 136/67
[2025-02-09] MEDS ORDERED: INSULIN LISPRO 100 UNIT/ML ML SUB-Q SCH (21:00)
[2025-02-09] MEDS ORDERED: DIVALPROEX SODIUM 500 MG TABLET.DR PO SCH (21:00)
[2025-02-09] MEDS ORDERED: TRAZODONE HCL 100 MG TAB PO SCH (21:00)
[2025-02-09] MEDS ORDERED: NORTRIPTYLINE HCL 10 MG CAP PO SCH (21:00)
[2025-02-09] MEDS ORDERED: IBLOOD GLUCOSE TEST STRIP 1 EA TEST VI SCH (21:00)
[2025-02-09] MEDS ORDERED: OXYCODONE/APAP 5/325 TAB PO PRN (21:15)
--- NOTE | 2025-02-09 21:20 | NUR ---
BLOOD SUGAR ASSESSED. SSI INULIN HELD. SANDWICH BOX AND CHIPS PROVIDED. NO FURTHER NEEDS.
[2025-02-09] MEDS ORDERED: CYCLOBENZAPRINE HCL 10 MG TAB PO SCH (22:00)
[2025-02-09] MEDS ORDERED: CYCLOBENZAPRINE HCL 10 MG HOME.PACK PO SCH (22:00)
[2025-02-09] MEDS ORDERED: NICOTINE 21 MG/24 HR 1 EA TDSY TD ONE (22:45)
[2025-02-09] MEDS ORDERED: VENLAFAXINE HCL 75 MG CAPCR PO ONE (22:45)
[2025-02-09] MEDS ORDERED: ENOXAPARIN SODIUM 40 MG/0.4 ML SYR SUB-Q ONE (22:45)
--- NOTE | 2025-02-09 22:47 | NUR ---
MEDICATION ADMINISTRATION COMPLETE. PATIENT IS A&O X3. PATIENT COMPLAINS OF 8/10 PAIN IN BOTH HIPS, PRN PAIN MEDICATION GIVEN (SEE EMAR). WARM BLANKET PROVIDED PER PATIENT REQUEST. NO FURTHER NEEDS AT THIS TIME. CALL LIGHT WITHIN REACH.
[2025-02-09] MEDS ORDERED: LIDOCAINE 2% VISCOUS 6 ML SYR TOP ONE (23:45)
--- NOTE | 2025-02-09 23:53 | NUR ---
PHONE CALL TO , NOTIFIED pt STRAIGHT CATHS AT HOME. NEW ORDER RECEIVED FOR HASSAN CATHETER, REPEATED BACK TO VERIFY. ORDER UPDATED.
[2025-02-10] VITALS (12 sets, daily range): BP systolic 127–154; BP diastolic 56–74
--- NOTE | 2025-02-10 00:51 | NUR ---
16 FR SILICONE HASSAN CATHER PLACED BY THIS RN USING STERILE TECHNIQUE, JOCELIN CARE PERFORMED PRIOR TO PLACEMENT, USING WIPES AND CHLORHEXIDINE SWABS DUE TO PATIENT STATED ALLERGIES TO IODINE AND LATEX. ASSISTED BY GARY MALLORY. IMMEDIATE RETURN OF CLEAR YELLOW URINE. PATIENT TOLERATED PROCEDURE WELL.
--- NOTE | 2025-02-10 02:17 | NUR ---
PATIENT RESTING IN BED AWAKE AT THIS TIME. VSS. FRESH ICE WATER PROVIDED. PATIENT DENIES ANY NEEDS AT THIS TIME. CALL LIGHT WITHIN REACH.
--- NOTE | 2025-02-10 04:28 | NUR ---
PATIENT IS RESTING IN BED EYES CLOSED, RESPIRATIONS EVEN AND UNLABORED. CALL LIGHT WITHIN REACH.
--- NOTE | 2025-02-10 05:16 | NUR ---
PATIENT CALLS REQUESTING TO USE BEDSIDE COMMODE. PATIENT ASSISTED TO BEDSIDE COMMODE 2PA VIA FWW. PATIENT DID NOT HAVE BM. PATIENT BACK INTO BED TOLERATED WELL. BED ALARM ON FOR PATIENT SAFETY. CALL LIGHT WITHIN REACH.
[2025-02-10 05:37] LABS: BASOPHILS 0.5 % (0.1-1.2); EOSINOPHILS 1.1 % (0.7-5.8); LYMPHOCYTES 55.9 % (19.3-51.7); MCH 30.1 PG (25.6-32.2); MCHC 31.2 g/dL (32.2-35.5); MCV 96.4 fL (79.4-94.8); MONOCYTES 9.7 % (4.7-12.5); NEUTROPHILS 31.7 % (34.0-71.1); RBC 3.29 M/uL (3.93-5.22)
--- NOTE | 2025-02-10 06:06 | NUR ---
PATIENT COMPLAINS OF 7/10 BLE PAIN, PRN PAIN MEDICATION GIVEN (SEE EMAR). PATIENT DENIES ANY FURTHER NEEDS AT THIS TIME. REPOSITIONED FOR COMFORT. CALL LIGHT AND PERSONAL BELONGING WITHIN REACH.
[2025-02-10 06:18] LABS: GLOMERULAR FILTRATION RATE,EST 48.0 mL/min (>60); UREA NITROGEN 19.0 mg/dL (7-18)
--- NOTE | 2025-02-10 07:44 | NUR ---
PATIENT IN BED AT THIS TIME. SWITCHBOARD TROUBLESHOOTER CHARTED HOURLY ROUNDS AND BLOOD SUGAR. RN JOSE ANTONIO NOTIFIED OF BLOOD SUGAR. CALL LIGHT WITHIN REACH, NO FURTHER NEEDS.
--- NOTE | 2025-02-10 08:46 | NUR ---
Pt on room air, sitting up position in bed. IVF infusing RFA. eating, earlier CBG was 75, OJ given and pt eating, second CBG was 124, no coverage needed. No c/o pain at this time. Daugther visiting
[2025-02-10] MEDS ORDERED: ASPIRIN 81 MG TABEC PO SCH (09:00)
[2025-02-10] MEDS ORDERED: CLOPIDOGREL BISULFATE 75 MG TAB PO SCH (09:00)
--- NOTE | 2025-02-10 09:00 | NUR ---
PATIENT IN BED AT THIS TIME. UNIT SUPERVISOR CHARTED VITALS AND I&O'S. CALL LIGHT WITHIN REACH, NO FURTHER NEEDS.
--- NOTE | 2025-02-10 10:16 | NUR ---
ALERT AND ORIENTED IN BED. DAUGHTER IN ROOM WITH PATIENT. PATIENT LIVES AT [facility]. SHE USES A WALKER FOR AMBULATION. PLANNING TO LIVE WITH SON SOON, BUT WILL RETURN TO [facility] AT [place]. SHE DOES NOT DRIVE, CHILDREN ASSIST WITH TRANSPORTATION. NO CURRENT KNOWN CM NEEDS AT THIS TIME.
--- NOTE | 2025-02-10 10:23 | NUR ---
UR CLINICAL REVIEW: 2 MN FOR VERSALUS-PER ZOOLOGY PROFESSOR MEETS OBS FOR [facility] WITH NEED FOR SERIAL LABS, IV HYDRATION AND CLOSE MONITORING MEDICARE OBS 02/09/25 @ 1935 ORDER MATCHES REG NO AUTH REQUIRED PER MEDICARE GUIDELINES DISCHARGE TO HOME IN 24-48 HRS PENDING LAB TRENDS 02/11/25
[2025-02-10] MEDS ORDERED: BUSPIRONE HCL10 MG PO (11:32)
[2025-02-10] MEDS ORDERED: BACLOFEN10 MG PO (11:32)
[2025-02-10] MEDS ORDERED: FOLIC ACID1 MG PO (11:33)
[2025-02-10] MEDS ORDERED: DIVALPROEX SOD500 M1 PO (11:33)
[2025-02-10] MEDS ORDERED: NORTRIPTYLINE H10 MG PO (11:34)
[2025-02-10] MEDS ORDERED: DOCUSATE SODIU100 MG PO (11:34)
[2025-02-10] MEDS ORDERED: FEROSUL325 MG PO (11:34)
[2025-02-10] MEDS ORDERED: TRAZODONE HCL150 MG PO (11:35)
[2025-02-10] MEDS ORDERED: METOPROLOL SUCC25 MG PO (11:35)
[2025-02-10] MEDS ORDERED: MOUNJARO2.5 MG/0.5 SUB-Q (11:36)
--- NOTE | 2025-02-10 11:53 | NUR ---
PT AWAKE, NO C/O PAIN, ON ROOM AIR, SITTING UP POSITION IN BED, EATING, SL LAC PATENT, IVF INFUSING RAC NO PROBLEMS. CBG 218 RECEIVED 3 UNITS SSI. DENIES C/O PAIN OR CP, TELE IN PLACE, F/C PATENT DRAINING MEDIUM YELLOW URINE
[2025-02-10] MEDS ORDERED: PHARMACY RENAL DOSE ADJUSTMENT 1 DOSE MISC PO SCH (12:00)
--- NOTE | 2025-02-10 12:49 | NUR ---
Watching tv, eyes open, no c/o pain. IVF infusing w/o problems. f/c patent. tele#[address] Ventricula bigeminy, denies CP or SOBwith exertion
--- NOTE | 2025-02-10 13:11 | NUR ---
PATIENT IN BED AT THIS TIME. INDOOR SPORTS CENTRE MANAGER CHARTED VITALS AND I&O'S. CALL LIGHT WITHIN REACH, NO FURTHER NEEDS AT THIS TIME
--- NOTE | 2025-02-10 13:29 | NUR ---
Report received from MOHAMUD Saldana. Patient sitting up in bed on her phone, alert and oriented x3, no acute distress. Patient denies acute needs, presonal supplies and call light within reach.
[2025-02-10] MEDS ORDERED: VENLAFAXINE HCL75 M1 PO (14:09)
[2025-02-10 14:13] LABS: ALT (SGPT) 18.0 U/L (14-59); AST (SGOT) 49.0 U/L (15-37); GLOMERULAR FILTRATION RATE,EST 44.0 mL/min (>60); UREA NITROGEN 16.0 mg/dL (7-18)
[2025-02-10] MEDS ORDERED: THERA TEARS15 ML OPTH (14:16)
--- NOTE | 2025-02-10 14:17 | NUR ---
Percocet one tab 5/325mg po admin at this time for 4/10 BLE pain.
[2025-02-10 14:25] LABS: PROTEIN, TOTAL 5.4 g/dL (6.4-8.2)
--- NOTE | 2025-02-10 15:35 | NUR ---
Patient assisted to chair per her request. Patient tolerated well, two person assist with walker. Chair alarm intact. FOURTH OFFICER assisting patient with cares/hair washing. Call light within reach of pt.
--- NOTE | 2025-02-10 16:22 | NUR ---
PATIENT IN CHAIR AT THIS TIME. THIS CEMENT BLOCK MAKER GAVE PATIENT A COMPLETE BED BATH AND PROVIDED PATIENT WITH CATHETER CARE. THIS CEMENT BLOCK MAKER GAVE PATIENT NEW GOWN AND NEW SOCKS. CALL LIGHT WITHIN REACH, NO FURTHER NEEDS AT THIS TIME.
--- NOTE | 2025-02-10 18:17 | NUR ---
PATIENT CALLED TO USE BATHROOM, THIS ORTHOPEDIC ASSISTANT AND RN IN TO ASSIST. PATIENT UP TO BSC THEN TO BED, 1PA FWW. VITALS AND I&O'S DOPNE AND CHARTED. CALL LIGHT IN REACH. NO FURTHER NEEDS AT THIS TIME. BED ALARM ON.
--- NOTE | 2025-02-10 19:21 | NUR ---
THIS NURSE GOT REPORT FROM DAY SHIFT.
--- NOTE | 2025-02-10 19:38 | NUR ---
PATIENT CURRENTLY ASLEEP IN BED. REGULAR RESPIRATIONS NOTED. IV PUMPED CLEARED.
--- NOTE | 2025-02-10 21:15 | NUR ---
PATIENT EVENING MEDICATIONS GIVEN. PATIENT UP TO THE BEDSIDE COMMODE WITH 2 PEOPLE BUT REALLY ONLY NEEDED SBA TO COMMODE WITH WALKER. PATIENT UNABLE TO HAVE BM BUT TRIED. BED CLEANED UP. IV FLUIDS RUNNING. PATIENT BACK IN BED. BED IN LOW POSITION. PATIENT POSITIONED ON RIGHT SIDE. PILLOW BEHIND BACK. WATER AT BEDSIDE, CALL LIGHT WITHIN REACH.
--- NOTE | 2025-02-10 23:04 | NUR ---
PATIENT STILL SLEEPING ON HER RIGHT SIDE. REGULAR RESPIRATIONS NOTED.
--- NOTE | 2025-02-10 23:51 | NUR ---
PATIENT REPORT FROM LINA FINLEY RN TO ASSUME CARE FOR REMAINDER OF SHIFT.
[2025-02-11 00:25] VITALS: BP 149/77
--- NOTE | 2025-02-11 00:29 | NUR ---
PATIENT USED CALL LIGHT TO REQUEST ASSISTANCE TO GET UP TO BEDSIDE COMMODE, ONE PERSON ASSIST WITH FWW, PATIENT SAT ON COMMODE FOR 15 MIN TO TRY TO HAVE BM, PATIENT THEN CALLED WHEN SHE WAS FINISHED, RN AND COMMERCIAL CREDIT PORTFOLIO MANAGER INTO ROOM TO ASSIST BACK TO BED, V/S AND I/O RECORDED. PATIENT PROVIDED WARM BLANKET ON REQUEST PATIENT REPORT SHE DID PAS FLATUS.
--- NOTE | 2025-02-11 00:45 | NUR ---
Pt reqeusted soda-provided diet coke to Pt. No other needs expressed by Pt. Call light left in reach. Bed alarm set. Bed locked and lowered.
--- NOTE | 2025-02-11 03:01 | NUR ---
PATIENT REPOSITION AND THEN CALL FOR ASSISTANCE FOR PAIN COVERAGE, SHE REPORTS PAIN 7/10 AT HER HIPS, LEFT LEG, BACK. PERCOCET PRN ADMINISTERED.
[2025-02-11 05:24] VITALS: BP 133/59
[2025-02-11 05:46] LABS: BASOPHILS 0.8 % (0.1-1.2); EOSINOPHILS 2.3 % (0.7-5.8); LYMPHOCYTES 52.1 % (19.3-51.7); MCH 29.6 PG (25.6-32.2); MCHC 30.9 g/dL (32.2-35.5); MCV 95.7 fL (79.4-94.8); MONOCYTES 10.7 % (4.7-12.5); NEUTROPHILS 33.3 % (34.0-71.1); RBC 3.45 M/uL (3.93-5.22)
[2025-02-11 06:05] VITALS: BP 133/59
[2025-02-11 06:23] LABS: ALT (SGPT) 14.0 U/L (14-59); AST (SGOT) 39.0 U/L (15-37); GLOMERULAR FILTRATION RATE,EST 63.0 mL/min (>60); PROTEIN, TOTAL 5.4 g/dL (6.4-8.2); UREA NITROGEN 12.0 mg/dL (7-18)
--- NOTE | 2025-02-11 06:50 | NUR ---
Provided Thomas care for Pt. No other needs expressed by Pt. Call light left in reach. Bed alarm set. Bed locked and lowered.
--- NOTE | 2025-02-11 07:05 | NUR ---
RECEIVED VERBAL REPORT FROM MOHAMUD VEGA. PATIENT RESTING IN BED WITH EYES CLOSED, RESPIRATIONS EVEN AND UNLABORED, CHEST RISE AND FALL. FOLY DRAINING BELOW WAIST, IVF INFUSING WITHOUT DIFFICULTY. TELE ON HR62. NO NEEDS IDENTIFIED AT THIS TIME. CALL LIGHT IN REACH,
--- NOTE | 2025-02-11 07:40 | NUR ---
CBG 66, Pt alert and oriented, helped repositioning in bed, On room air. OJ w 4 packets of sugar given. denies s/sx hypoglycemia. "I know what to do when my blood sugars are low, I just eat and get sweets" teaching done, pt aware of hypoglycemia s/sx. "I get shaky and ligtheaded". will recheck in 15 minutes
--- NOTE | 2025-02-11 08:16 | NUR ---
Pt sitting up in bed, eating, Declines nicotine patch and Lovenox.
--- NOTE | 2025-02-11 08:16 | NUR ---
UR DC REVIEW: IV FLUIDS, IV ANTIBIOTICS, MEDICATION CHANGES, TRENDING LABS. PLAN TO RETURN TO [facility] WHEN MEDICALLY READY. ADD: 02/11/2025 NO ESCALATIONS NEEDED
--- NOTE | 2025-02-11 09:25 | NUR ---
SPOKE WITH FACILITY PATIENT ABLE TO COME BACK TODAY UPON DISCHARGE. DAUGHTER CALLED ON HER WAY UP. WAITING ON ORDERS.
--- NOTE | 2025-02-11 09:30 | NUR ---
REMOVED HASSAN PER D/C ORDERS. 10CC BALLOON EMPTIED, CATH IN TACT WHEN REMOVED. PATIENT TOLERATED WELL. HASSAN BAG EMPTIED CLEAR, YELLOW, AND RECORDED. L AC IV SALINE LOCKED, DAUGHTER IN ROOM TO ASSIST PATIENT IN DRESSING. NO FURTHER NEEDS AT THIS TIME. CALL LIGHT IN REACH.
[2025-02-11 10:37] VITALS: BP 148/97
[2025-02-11 11:19] VITALS: BP 140/73
--- NOTE | 2025-02-11 11:21 | NUR ---
DAUGHTER IN ROOM. LET [facility] KNOW THAT PATIENT COMING BACK. FAXED D/C ORDER. NO FUTHER CM NEEDS AT THIS TIME.
[2025-02-11 11:23] VITALS: BP 140/73
--- NOTE | 2025-02-11 11:49 | NUR ---
VERAL TELEPHONE REPORT TO MOHAMUD WARREN AT [facility]. ALL QUESTIONS ANSWERED.
== END 2025-02-11 11:25 | disposition home or self-care (01) ==
LOC: ED 14:59 → MS 15:01
PROVIDERS: Emergency Medicine; ADMIT Internal Medicine; ATTEND Internal Medicine
DX: M62.82 Rhabdomyolysis (principal); N39.0 Urinary tract infection, site not specified; E11.9 Type 2 diabetes mellitus without complications; I10 Essential (primary) hypertension; I25.10 Atherosclerotic heart disease of native coronary artery without angina pectoris; F31.9 Bipolar disorder, unspecified; Z95.1 Presence of aortocoronary bypass graft; Z88.0 Allergy status to penicillin; Z88.8 Allergy status to other drugs, medicaments and biological substances; Z91.013 Allergy to seafood; Z91.040 Latex allergy status; Z91.030 Bee allergy status; Z79.02 Long term (current) use of antithrombotics/antiplatelets; Z79.84 Long term (current) use of oral hypoglycemic drugs; Z79.82 Long term (current) use of aspirin; Z79.899 Other long term (current) drug therapy
CPT/HCPCS: 36415; 51702; 70450; 71045; 73502; 80048; 80053; 80307; 81001; 82550; 82800; 83690; 83735; 85025; 85651; 86140; 86850; 86900; 86901; 96360; 96361; 96372; 99285-25; G0378; G0480; J1650; J1815; J7030